=== PATIENT | female | born 1965 | race Caucasian/White ===

== ENCOUNTER → 2017-11-04 | Outpatient (CLI) | payer MEDICAID, SELFPAY | PROVIDERS: Family Provider Family Medicine; Visit Provider Family Medicine | DX: Z98.1 Arthrodesis status (principal) | CPT/HCPCS: 72040 ==

== ENCOUNTER → 2017-12-30 12:11 | Outpatient (CLI) | payer MEDICAID, SELFPAY ==
--- NOTE | 2017-12-30 12:19 | XR_ITS ---
XR foot LT min 3V HISTORY: ITS.REASON: LE FOOT PAIN ORDERING PHYSICIAN: Toni Carranza MD PATIENT AGE: 52 years COMPARISON: None FINDINGS: No fracture or dislocation. No lytic or blastic change. There is normal mineralization.. The joint spaces are well-preserved. No significant degenerative/arthritic changes. No erosive changes evident. IMPRESSION: Negative, no acute finding
== END ==
PROVIDERS: PCP Family Medicine; Visit Provider Family Medicine
DX: M79.672 Pain in left foot (principal)
CPT/HCPCS: 73630

== ENCOUNTER → 2018-04-06 13:12 | Outpatient (POV) | payer MEDICAID, SELFPAY | PROVIDERS: Family Provider Family Medicine; PCP Family Medicine; Visit Provider Specialist | DX: G62.9 Polyneuropathy, unspecified (principal) | CPT/HCPCS: 95886; 95910 ==

== ENCOUNTER → 2018-05-11 10:01 | Outpatient (POV) | payer MEDICAID, SELFPAY ==
[2018-05-11 10:11] VITALS: BP 106/83; PULSE 62; RESP 18; TEMP 36.4; O2SAT 100
--- NOTE | 2018-05-11 15:59 | HMH.PMCON ---
Assessment and Plan (1) Postlaminectomy syndrome Current visit: Yes Status: Chronic Category: Medical Code(s): M96.1 - Postlaminectomy syndrome, not elsewhere classified (2) Degenerative disc disease, cervical Current visit: Yes Status: Chronic Category: Medical Code(s): M50.30 - Other cervical disc degeneration, unspecified cervical region (3) Degenerative disc disease, lumbar Current visit: Yes Status: Chronic Category: Medical Code(s): M51.36 - Other intervertebral disc degeneration, lumbar region (4) Lumbar radiculopathy Current visit: Yes Status: Chronic Category: Medical Code(s): M54.16 - Radiculopathy, lumbar region - Assessment and plan all Dx Assessment and Plan for all problems:: We will schedule the patient for psychological evaluation to determine if she is a potential stimulator candidate. I believe that the Nuvectra system be beneficial for her due to the ability to cover both cervical and low back pain along with the radiculopathy symptoms. Patient and I had a long discussion in regards to this. Patient's tried and failed other therapy such as physical therapy, anti-inflammatories, medications, surgery, injections. Patient and I had some realistic goal setting and discussed the trial and implantation process. We will begin weaning her psychological evaluation in regards to this. I will follow-up with her after this and we will discuss the trial. This note was dictated using voice recognition software and may contain errors or omissions HPI - Data of Consult Consult date: 05/11/18 Requesting Physician: Ya Bolden APRN Primary Care Provider: Toni Carranza MD Family Provider: Toni Carranza MD - Consult Narrative Reason for consult: Neck and back pain History of present illness: Ms. Infante is a 52 year old female resents today for consultation in regard to her neck and back pain. Patient has had a fusion of her neck and her back. Patient also had shoulder surgery. Patient rates her pain a 3 out of 10 today stating that it is constant, achy, dull. Patient's tried and failed physical therapy. She is beginning another round of physical therapy recently. Patient has bilateral carpal tunnel. Patient states her functionality is decreased due to her pain. Patient is continuing home stretching therapy. Patient has also tried hydrotherapy in the past. Patient is under a respiratory manager care for RA. Patient states most of her pain today is in her back going down both of her legs. Patient does use a TENS unit at times for relief. Patient is interested in interventional therapy. Patient has had injections in the past with limited relief CC: Ya Bolden APRN [facility] History I have reviewed the patient's past medical history: Yes Medical History: Reports:: Anxiety, Asthma, Hypertension Denies:: Cancer, Diabetes Mellitus Type 1, Diabetes Mellitus Type 2, MRSA Other Medical History: Reports: Arthritis, Cataracts, Thyroid Disease, Other Other Surgeries: Yes: Other Amputation: No Fractures: No - *Social History Educational Level: Completed High School Smoking Status: Former smoker Tobacco Type: cigarettes Alcohol Intake: never Alcohol Intake Frequency:: other Substance Use Type: denies use Occupational Status: employed Housing: house Household Members: significant other - Psychiatric History Expresses thoughts of harming self/others: None Suicide Plan Description: No Plan Pschychiatric History:: Reports:: Anxiety *Family Hx:: No significant family history Review of Systems - Review of Systems ROS General: no recent weight change, no fever, no sleep disturbances Respiratory: no cough, no shortness of air, no recurring pulmonary infections Cardiovascular/Peripheral Vascular: No chest pain, No palpitations, no edema, no shortness of breath. Gastrointestinal: no incontinence, normal bowel movements reported Genitourinary: no incontinence Musculoskeletal:
--- NOTE | 2018-05-11 16:06 | P.CONS_ITS ---
Assessment and Plan (1) Postlaminectomy syndrome Current visit: Yes Status: Chronic Category: Medical Code(s): M96.1 - Postlaminectomy syndrome, not elsewhere classified (2) Degenerative disc disease, cervical Current visit: Yes Status: Chronic Category: Medical Code(s): M50.30 - Other cervical disc degeneration, unspecified cervical region (3) Degenerative disc disease, lumbar Current visit: Yes Status: Chronic Category: Medical Code(s): M51.36 - Other intervertebral disc degeneration, lumbar region (4) Lumbar radiculopathy Current visit: Yes Status: Chronic Category: Medical Code(s): M54.16 - Radiculopathy, lumbar region - Assessment and plan all Dx Assessment and Plan for all problems:: We will schedule the patient for psychological evaluation to determine if she is a potential stimulator candidate. I believe that the Nuvectra system be beneficial for her due to the ability to cover both cervical and low back pain along with the radiculopathy symptoms. Patient and I had a long discussion in regards to this. Patient's tried and failed other therapy such as physical therapy, anti-inflammatories, medications, surgery, injections. Patient and I had some realistic goal setting and discussed the trial and implantation process. We will begin weaning her psychological evaluation in regards to this. I will follow-up with her after this and we will discuss the trial. This note was dictated using voice recognition software and may contain errors or omissions HPI - Data of Consult Consult date: 05/11/18 Requesting Physician: Ya Bolden APRN Primary Care Provider: Toni Carranza MD Family Provider: Toni Carranza MD - Consult Narrative Reason for consult: Neck and back pain History of present illness: Ms. Infante is a 52 year old female resents today for consultation in regard to her neck and back pain. Patient has had a fusion of her neck and her back. Patient also had shoulder surgery. Patient rates her pain a 3 out of 10 today stating that it is constant, achy, dull. Patient's tried and failed physical therapy. She is beginning another round of physical therapy recently. Patient has bilateral carpal tunnel. Patient states her functionality is decreased due to her pain. Patient is continuing home stretching therapy. Patient has also tried hydrotherapy in the past. 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 Patient states most of her pain today is in her back going down both of her legs. Patient does use a TENS unit at times for relief. Patient is interested in interventional therapy. Patient has had injections in the past with limited relief CC: Ya Bolden APRN [facility] History I have reviewed the patient's past medical history: Yes Medical History: Reports:: Anxiety, Asthma, Hypertension Denies:: Cancer, Diabetes Mellitus Type 1, Diabetes Mellitus Type 2, MRSA Other Medical History: Reports: Arthritis, Cataracts, Thyroid Disease, Other Other Surgeries: Yes: Other Amputation: No Fractures: No - *Social History Educational Level: Completed High School Smoking Status: Former smoker Tobacco Type: cigarettes Alcohol Intake: never Alcohol Intake Frequency:: other Substance Use Type: denies use Occupational Status: employed Housing: house Household Members: significant other - Psychiatric History Expresses thoughts of harming self/others: None Suicide Plan Description: No Plan Pschychiatric History:: Reports:: Anxiety *Family Hx:: No significant family history Review of Systems - Review of Systems R
== END ==
PROVIDERS: Family Provider Family Medicine; PCP Family Medicine; Visit Provider Clinical Nurse Specialist Family Health
DX: M96.1 Postlaminectomy syndrome, not elsewhere classified (principal); M50.30 Other cervical disc degeneration, unspecified cervical region; M51.36 Other intervertebral disc degeneration, lumbar region
CPT/HCPCS: 99202

== ENCOUNTER 2018-06-02 07:00 | Outpatient (RCR) | payer MEDICAID, SELFPAY | END 2018-06-02 07:01 | disposition home or self-care (01) | LOC: OT 07:00 | PROVIDERS: Family Provider Family Medicine; PCP Family Medicine; Visit Provider Internal Medicine Rheumatology | DX: M65.30 Trigger finger, unspecified finger (principal); M77.9 Enthesopathy, unspecified; M19.90 Unspecified osteoarthritis, unspecified site | CPT/HCPCS: 97018; 97110 ==

== ENCOUNTER → 2018-06-02 09:54 | Outpatient (CLI) | payer MEDICAID, SELFPAY ==
--- NOTE | 2018-06-02 09:59 | XR_ITS ---
XR hip RT 2-3V w/pelvis HISTORY: ITS.REASON: RT HIP PAIN ORDERING PHYSICIAN: Toni Carranza MD PATIENT AGE: 53 years COMPARISON: None FINDINGS: No fracture or dislocation is evident. No significant degenerative change. No lytic or blastic change. Unremarkable soft tissues. There are metallic brackets and pedicle screws fusing L5 and S1 IMPRESSION: Grossly negative right hip
== END ==
PROVIDERS: PCP Family Medicine; Visit Provider Family Medicine
DX: M25.551 Pain in right hip (principal)
CPT/HCPCS: 73502

== ENCOUNTER → 2018-06-11 14:28 | Outpatient (CLI) | payer MEDICAID, SELFPAY ==
--- NOTE | 2018-06-11 14:31 | US_ITS ---
ULTRASOUND THYROID HISTORY: Thyroid enlarged Nodule felt 6 weeks. Has past history of neck surgery. PROCEDURE: Multiple sagittal and transverse ultrasound images of the thyroid.bh Coarse, heterogeneous architecture at both right and left lobe. Possibly from old thyroiditis Right lobe is longer, overall slightly larger left No discrete nodules are seen in either right or left lobe. Minimal color Doppler flow to both right and left lobe. Not increased . RIGHT Lobe: Up to nearly 4-cm lengthx 1 cm AP x2 cm wide The coarse heterogeneous character the right lobe could obscure a nodule but no well-defined or discrete nodule identified by technologist. On my review there is a questionable nearly 1 cm area at upper pole right lobe but it is not uniquely different from adjacent gland. ,,,,I would recommend 6 month follow-up LEFT Lobe: 3.1 cm length but only 0.6 mm AP.x 1.5 cm wide ISTHMUS thin measuring 2.5 mm AP No nodules identified the technologist either lobe. COMPARISON: None no prior studies IMPRESSION:====== 1. Very coarse heterogeneous architecture bilaterally .2. Thin long gland bilaterally with the right lobe slightly larger than left. 3. No discrete nodules identified the technologist. .. On my review submitted images there is questionable vague possible 1 cm area at the right lobe superiorly but it but is equivocal overall a discrete unique nodule vs other portions of this inhomogeneous gland .. follow-up in 6 months recommended ,particularly if palpable area persists
== END ==
PROVIDERS: Family Provider Family Medicine; PCP Family Medicine; Visit Provider Family Medicine
DX: E03.9 Hypothyroidism, unspecified (principal)
CPT/HCPCS: 76536

== ENCOUNTER → 2018-06-16 10:28 | Outpatient (CLI) | payer MEDICAID, SELFPAY ==
--- NOTE | 2018-06-16 10:29 | MM_ITS ---
MM Dig screening mamm BI w/CAD ORDERING PHYSICIAN : Deandre Galvin MD PATIENT AGE: 53 years GENDER: Female COMPARISON: March 21, 2017 initial screening mammogram. Additional spot views right breast 04/08/2017. INDICATION: ITS.REASON: Routine Screening Mammogram no hormones. No new complaints. Noncontributory family history. TECHNIQUE: Standard CC and MLO images were obtained. R2 CAD reviewed. FINDINGS: Low-density breast with no dominant mass nor suspicious calcifications in either breast. CAD computer review highlights no areas of significant concern either RIGHT BREAST:Areas previously questioned previously on cc view deep right breast appear unremarkable today.. Minimal Relative areas of density superior right breast unchanged and can be followed in one year Follow-up in one year adequate. On right LEFT BREAST: . Left breast stable. Follow-up in one year. IMPRESSION: Stable bilateral mammogram. No new findings of significant concern. Follow-up in one year BI-RADS Category: 2 Benign Finding(s) RECOMMENDED FOLLOW-UP: 1YR 1 YEAR FOLLOW-UP (A letter has been sent to the patient regarding results of the study.)
== END ==
PROVIDERS: Family Provider Family Medicine; PCP Family Medicine; Visit Provider Nurse Practitioner Obstetrics & Gynecology
DX: Z12.31 Encounter for screening mammogram for malignant neoplasm of breast (principal)
CPT/HCPCS: 77067

== ENCOUNTER → 2018-08-18 09:28 | Outpatient (CLI) | payer MEDICAID, SELFPAY ==
--- NOTE | 2018-08-18 09:32 | XR_ITS ---
XR DEXA axial skeleton HISTORY: ITS.REASON: POST-MENOPAUSAL ORDERING PHYSICIAN: Toni Carranza MD PATIENT AGE: 53 years COMPARISON: None FINDINGS: The BMD measured at the Right femoral neck is 0.736 g/cm squared with a T score of -2.2. This is considered Osteopenic according to the World Health Organization criteria. Fracture risk is Moderate. Treatment is advised. IMPRESSION: Osteopenia with moderate fracture risk. Treatment recommended. Suggest follow-up exam August 2020
== END ==
PROVIDERS: PCP Family Medicine; Visit Provider Family Medicine
DX: Z78.0 Asymptomatic menopausal state (principal)
CPT/HCPCS: 77080

== ENCOUNTER 2018-09-03 08:30 | Outpatient (RCR) | payer MEDICAID, SELFPAY | END 2018-09-03 08:31 | disposition home or self-care (01) | LOC: PT 08:30 | PROVIDERS: Family Provider Family Medicine; PCP Family Medicine; Visit Provider Orthopaedic Surgery | DX: M25.551 Pain in right hip (principal); M76.31 Iliotibial band syndrome, right leg | CPT/HCPCS: 97010; 97014; 97033; 97035; 97110; 97140; 97163; 97164; G0283 ==

== ENCOUNTER → 2018-09-03 09:00 | Outpatient (CLI) | payer MEDICAID, SELFPAY ==
--- NOTE | 2018-09-03 09:03 | US_ITS ---
US abdomen limited History:Right upper quadrant pain with nausea Ordering Physician:Brenda Banegas Patient Age: 53 years Comparison:None Findings: Pancreas:Unremarkable. No obvious mass or abnormal fluid collection. No ductal dilatation Liver:No focal liver lesions demonstrated. Homogeneous echogenicity. No intrahepatic biliary ductal dilatation evident Right Kidney:Unremarkable. Normal size and echogenicity. No hydronephrosis Gallbladder: Small hyperechoic focus noted near the region of the neck of the gallbladder. This does not shadow and does not appear to be mobile and may represent a small polyp 2 mm. No lobar shadowing stones are demonstrated. No gallbladder wall thickening, pericholecystic fluid, or biliary dilatation. IMPRESSION: 1. Suspect a small polyp in the neck of the gallbladder. 2. No shadowing mobile stones apparent
== END ==
PROVIDERS: Family Provider Family Medicine; PCP Family Medicine; Visit Provider Nurse Practitioner
DX: R10.11 Right upper quadrant pain (principal)
CPT/HCPCS: 76705

== ENCOUNTER → 2018-09-14 09:19 | Outpatient (CLI) | payer MEDICAID, SELFPAY ==
--- NOTE | 2018-09-14 09:23 | NM_ITS ---
HEPATOBILIARY SCAN WITH FATTY MEAL/ENSURE ORDERING PHYSICIAN : Brenda Banegas PATIENT AGE: 53 years GENDER: Female HISTORY: Right upper quadrant pain and nausea Following 8.78 millicuries Tc Choletec, images of the RUQ were obtained. There is prompt uptake of radionuclide by the liver which is grossly unremarkable. Small bowel is visualized. This initial portion of the study is normal. The gallbladder was allowed to fill out to 60 minutes. Fatty meal/1 can of ensure over administered with imaging performed over 60 minutes minutes. Thereafter. The obtain data was analyzed and reveals a 52 % gallbladder ejection fraction (normal greater than 50%; borderline 35-50%). This is low normal value. No pain following fatty meal .. IMPRESSION: 52 % % gallbladder ejection fraction by computer analysis. Low normal EF value No pain with fatty meal.
--- NOTE | 2018-09-14 10:54 | HMH.ITSHM ---
Current Home Medications as stated by this patient Caren Infante or desk representative. []PROPRANOLOL POTASSIUM PHENTERMINE MULTIVITAMINS LORAZEPAM LEVOTHYROXINE HYDROXYZINE LEFLUNOMIDE HYDROXYCHLOROQUINE FLUTICASONE ESTRADIOL DICLOFENAC ALBUTEROL ACYCLOVIC
== END ==
PROVIDERS: PCP Nurse Practitioner; Visit Provider Nurse Practitioner
DX: K82.4 Cholesterolosis of gallbladder (principal)
CPT/HCPCS: 78226; A9537

== ENCOUNTER 2018-09-24 09:00 | Outpatient (RCR) | payer MEDICAID, SELFPAY | END 2018-09-24 09:05 | disposition home or self-care (01) | LOC: PT 09:00 | PROVIDERS: Visit Provider Orthopaedic Surgery | DX: S93.492A Sprain of other ligament of left ankle, initial encounter (principal); M76.31 Iliotibial band syndrome, right leg | CPT/HCPCS: 97010; 97014; 97033; 97110; 97140; 97163; G0283 ==

== ENCOUNTER → 2018-10-05 10:21 | Outpatient (CLI) | payer MEDICAID, SELFPAY ==
[2018-10-05 10:54] LABS: CKMB Relative Index 0.6 U/L (0-4.0); Creatine Kinase 317 U/L (26-192); Creatine Kinase MB 1.9 ng/ml (0.0-3.6); Troponin I < 0.02 ng/ml (0.00-0.06)
== END ==
PROVIDERS: Visit Provider Physician Assistant
DX: R07.89 Other chest pain (principal)
CPT/HCPCS: 36415; 82550; 82553; 84484

== ENCOUNTER 2018-10-13 08:25 | Outpatient (RCR) | payer MEDICAID, SELFPAY | END 2018-12-25 13:44 | disposition home or self-care (01) | LOC: PT 08:25 | PROVIDERS: Visit Provider Internal Medicine | DX: Z95.5 Presence of coronary angioplasty implant and graft (principal) | CPT/HCPCS: 93798 ==

== ENCOUNTER → 2018-11-09 10:03 | Outpatient (CLI) | payer MEDICAID, SELFPAY ==
--- NOTE | 2018-11-09 10:07 | XR_ITS ---
XR wrist LT min 3V HISTORY ITS.REASON: LT WRIST PAIN ORDERING PHYSICIAN: Brenda Banegas PATIENT AGE: 53 years Comparison: None FINDINGS: No fracture or dislocation. No lytic or blastic change. There is normal mineralization.. The joint spaces are well-preserved. No significant degenerative/arthritic changes. There is a well-circumscribed cystic lesion within the distal aspect of the scaphoid at 5 mm IMPRESSION: Small benign-appearing cystic lesion of the scaphoid otherwise negative left wrist
== END ==
PROVIDERS: PCP Nurse Practitioner; Visit Provider Nurse Practitioner
DX: M25.532 Pain in left wrist (principal)
CPT/HCPCS: 73110

== ENCOUNTER → 2018-11-20 09:34 | Outpatient (CLI) | payer MEDICAID, SELFPAY | PROVIDERS: PCP Family Medicine; Visit Provider Internal Medicine | DX: G47.33 Obstructive sleep apnea (adult) (pediatric) (principal) | CPT/HCPCS: 95806 ==

== ENCOUNTER → 2019-02-23 08:26 | Outpatient (CLI) | payer MEDICAID, SELFPAY ==
[2019-02-23 09:58] LABS: Erythrocyte Sedimentation Rate 27 mm/hr (0-30)
== END ==
PROVIDERS: Visit Provider Internal Medicine Rheumatology
DX: M06.9 Rheumatoid arthritis, unspecified (principal)
CPT/HCPCS: 36415; 85651

== ENCOUNTER → 2019-03-19 08:29 | Outpatient (CLI) | payer MEDICAID, SELFPAY ==
--- NOTE | 2019-03-19 08:36 | XR_ITS ---
XR chest 2V HISTORY: ITS.REASON: SAPHO SYNDROME ORDERING PHYSICIAN: Long Argueta MD PATIENT AGE: 53 years COMPARISON: 12/29/2018 FINDINGS: The cardiomediastinal silhouette and pulmonary vascularity are within normal limits. There is mild biapical pleural thickening unchanged. Minimal sclerosis noted over the right seventh rib consistent with healing rib fracture The lungs are clear without infiltrates, suspicious nodules, or pleural effusions. No acute bony abnormalities. The thoracic spine has an unremarkable appearance without obvious osteosclerosis. There is a bone plate present over the lower cervical spine IMPRESSION: No acute finding
== END ==
PROVIDERS: PCP Family Medicine; Visit Provider Internal Medicine Rheumatology
DX: M65.9 Synovitis and tenosynovitis, unspecified (principal)
CPT/HCPCS: 71046

== ENCOUNTER 2019-03-22 08:30 | Outpatient (RCR) | payer MEDICAID, SELFPAY | END 2019-03-22 08:35 | disposition home or self-care (01) | LOC: PT 08:30 | PROVIDERS: Visit Provider Orthopaedic Surgery | DX: M70.61 Trochanteric bursitis, right hip (principal) | CPT/HCPCS: 97010; 97014; 97033; 97035; 97110; 97163; G0283 ==

== ENCOUNTER → 2019-03-26 13:45 | Outpatient (CLI) | payer MEDICAID, SELFPAY ==
--- NOTE | 2019-03-26 13:54 | US_ITS ---
US thyroid HISTORY: ITS.REASON: HYPOTHYROIDISM,F/U EXAM ORDERING PHYSICIAN: Toni Carranza MD PATIENT AGE: 53 years Comparison: 06/11/2018 FINDINGS: Right lobe is 3.4 x 0.8 x 1.1 cm. There is heterogeneous echogenicity without discrete nodule. The left lobe is 3.2 x 0.8 x 1.3 cm with heterogeneous echogenicity without discrete nodule. IMPRESSION: No change in the heterogeneous echogenicity of the small thyroid gland. No discrete nodule demonstrated
== END ==
PROVIDERS: PCP Family Medicine; Visit Provider Family Medicine
DX: E03.9 Hypothyroidism, unspecified (principal); Z09 Encounter for follow-up examination after completed treatment for conditions other than malignant neoplasm
CPT/HCPCS: 76536

== ENCOUNTER → 2019-04-08 08:15 | Outpatient (CLI) | payer MEDICAID, SELFPAY ==
[2019-04-08] VITALS (10 sets, daily range): BP systolic 86–110; BP diastolic 55–75; PULSE 54–82; RESP 16–18
== END ==
PROVIDERS: Visit Provider Internal Medicine Rheumatology
DX: M15.3 Secondary multiple arthritis (principal); R07.1 Chest pain on breathing
CPT/HCPCS: 96366; 96413; 96415; J1745

== ENCOUNTER → 2019-05-17 10:38 | Outpatient (POV) | payer MEDICAID, SELFPAY | PROVIDERS: Visit Provider Specialist | DX: R29.898 Other symptoms and signs involving the musculoskeletal system (principal); R20.2 Paresthesia of skin; M79.601 Pain in right arm; M79.602 Pain in left arm; Z98.890 Other specified postprocedural states | CPT/HCPCS: 95886; 95910 ==

== ENCOUNTER 2019-07-27 08:37 | Outpatient (CLI) | payer MEDICAID, SELFPAY ==
[2019-07-27] VITALS (8 sets, daily range): BP systolic 92–115; BP diastolic 64–74; PULSE 53–72; RESP 16–18; BMI 24.4
[2019-07-27 09:07] LABS: Alanine Aminotransferase 38 U/L (12-78); Albumin Level 3.8 gm/dL (3.4-5.0); Albumin/Globulin Ratio 0.9 (1.1-1.8); Alkaline Phosphatase 75 U/L (46-116); Anion Gap 10.9 mEq/L (5-15); Aspartate Amino Transferase 18 U/L (15-37); Bilirubin,Total 0.4 mg/dL (0.2-1.0); Blood Urea Nitrogen 15 mg/dL (7-18); Calcium 9.4 mg/dL (8.5-10.1); Carbon Dioxide 31 mmol/L (21.0-32.0); Chloride 103 mmol/L (98-107); Creatinine Clearance Estimated 93 mL/min (50-200); Creatinine,Serum 0.78 mg/dL (0.55-1.02); Estimated Glomerular Filt Rate 77 ml/min (>60); GFR (African American) 93 ML/MIN (>60); Globulin 4.1 gm/dl (1.3-3.2); Glucose 89 mg/dL (74-106); Potassium 3.9 mmoL/L (3.5-5.1); Sodium 141 mmol/L (136-145); Total Protein,Serum 7.9 gm/dL (6.4-8.2)
== END 2019-07-27 13:30 | disposition home or self-care (01) ==
PROVIDERS: PCP Family Medicine; Visit Provider Internal Medicine Rheumatology
DX: M86.30 Chronic multifocal osteomyelitis, unspecified site (principal); M65.9 Synovitis and tenosynovitis, unspecified; L40.8 Other psoriasis; L70.8 Other acne; M85.80 Other specified disorders of bone density and structure, unspecified site
CPT/HCPCS: 80053; 96365; 96366; J2430

== ENCOUNTER 2019-08-05 08:30 | Outpatient (RCR) | payer MEDICAID, SELFPAY | END 2019-08-05 08:35 | disposition home or self-care (01) | LOC: PT 08:30 | PROVIDERS: Visit Provider Family Medicine | DX: M54.5 Low back pain (principal) | CPT/HCPCS: 97010; 97014; 97110; 97163; G0283 ==

== ENCOUNTER 2019-11-04 09:03 | Outpatient (CLI) | payer OTHER, SELFPAY ==
[2019-11-04] VITALS (11 sets, daily range): BP systolic 93–122; BP diastolic 58–72; PULSE 64–75; RESP 16–20; TEMP 36.6–36.8; O2SAT 97–99; BMI 25.9
[2019-11-04 09:45] LABS: Alanine Aminotransferase 44 U/L (12-78); Albumin Level 3.5 gm/dL (3.4-5.0); Alkaline Phosphatase 66 U/L (46-116); Anion Gap 10.4 mEq/L (5-15); Aspartate Amino Transferase 32 U/L (15-37); Bilirubin,Total 0.5 mg/dL (0.2-1.0); Blood Urea Nitrogen 19 mg/dL (7-18); Calcium 8.4 mg/dL (8.5-10.1); Carbon Dioxide 30 mmol/L (21.0-32.0); Chloride 107 mmol/L (98-107); Creatinine Clearance Estimated 80 mL/min (50-200); Creatinine,Serum 0.97 mg/dL (0.55-1.02); Estimated Glomerular Filt Rate 60 ml/min (>60); GFR (African American) 73 ML/MIN (>60); Globulin 3.6 gm/dl (1.3-3.2); Glucose 120 mg/dL (74-106); Potassium 3.4 mmoL/L (3.5-5.1); Sodium 144 mmol/L (136-145); Total Protein,Serum 7.1 gm/dL (6.4-8.2)
== END 2019-11-04 12:50 | disposition home or self-care (01) ==
LOC: INF 09:03
PROVIDERS: Visit Provider Internal Medicine Rheumatology
DX: M86.30 Chronic multifocal osteomyelitis, unspecified site (principal); M65.9 Synovitis and tenosynovitis, unspecified; L40.8 Other psoriasis; L70.8 Other acne; M85.80 Other specified disorders of bone density and structure, unspecified site
CPT/HCPCS: 80053; 96413; 96415; J2430

== ENCOUNTER 2020-02-01 08:33 | Outpatient (CLI) | payer OTHER, SELFPAY ==
[2020-02-01] VITALS (8 sets, daily range): BP systolic 93–102; BP diastolic 52–70; PULSE 56–79; RESP 18; TEMP 36.2; O2SAT 97–98; BMI 23.3
[2020-02-01 09:13] LABS: Chloride 101 mmol/L (98-107); Potassium 3.7 mmoL/L (3.5-5.1); Sodium 139 mmol/L (136-145)
[2020-02-01 09:16] LABS: Alanine Aminotransferase 35 U/L (12-78); Albumin Level 3.9 g/dl (3.5-5.0); Albumin/Globulin Ratio 1.3 (1.1-1.8); Alkaline Phosphatase 54 U/L (38-126); Anion Gap 9.7 mEq/L (5-15); Aspartate Amino Transferase 30 U/L (14-36); Bilirubin,Total 0.5 mg/dl (0.2-1.3); Blood Urea Nitrogen 11 mg/dl (7-17); Carbon Dioxide 32 mmol/L (22.0-30.0); Creatinine Clearance Estimated 99 mL/min (50-200); Estimated Glomerular Filt Rate 88 ml/min (>60); GFR (African American) 106 ML/MIN (>60); Total Protein,Serum 6.9 g/dl (6.3-8.2)
[2020-02-01 09:17] LABS: Calcium 9.4 mg/dl (8.4-10.2); Glucose 110 mg/dl (74-100)
== END 2020-02-01 13:00 | disposition home or self-care (01) ==
LOC: INF 08:33
PROVIDERS: Visit Provider Internal Medicine Rheumatology
DX: J32.9 Chronic sinusitis, unspecified (principal); M65.9 Synovitis and tenosynovitis, unspecified; L40.3 Pustulosis palmaris et plantaris; L70.9 Acne, unspecified; M85.80 Other specified disorders of bone density and structure, unspecified site; M86.9 Osteomyelitis, unspecified
CPT/HCPCS: 80053; 96365; 96366; J2430

== ENCOUNTER → 2020-02-23 10:47 | Outpatient (CLI) | payer OTHER, SELFPAY ==
--- NOTE | 2020-02-23 10:52 | XR_ITS ---
PROCEDURE: XR HIP RT 2-3V W/PELVIS CLINICAL INDICATION: RT HIP PAIN COMPARISON: HIPCMRT XR hip RT 2-3V w/pelvis from 06/02/2018 FINDINGS: No fracture or dislocation is evident. No significant degenerative change. No lytic or blastic change. Unremarkable soft tissues. Postsurgical changes at the lumbosacral junction with inter pedicular screws present IMPRESSION: Negative right hip Dictated by: Luca Jones MD 02/23/2020 11:12 Electronically signed by Luca Jones MD in [facility] 02/23/2020 11:12
== END ==
PROVIDERS: PCP Family Medicine; Visit Provider Family Medicine
DX: M25.551 Pain in right hip (principal)
CPT/HCPCS: 73502

== ENCOUNTER 2020-03-10 20:10 | Emergency (ER) | payer OTHER, SELFPAY ==
[2020-03-10 20:12] VITALS: BP 141/79; PULSE 115; RESP 18; TEMP 36.4; O2SAT 100
--- NOTE | 2020-03-10 20:15 | PC.NURSE ---
entered the room to assess pt vitals. explained and apologized to pt that the physician would be in to see pt as soon as possible. explained that the physician was occupied in a procedure. no distress or bleeding evaluated at this time. no needs voiced.
--- NOTE | 2020-03-10 20:50 | PC.NURSE ---
reassessed pt condition. still no needs voiced at this time. Pt was updated that physician was now occupied in a trauma alert and would be in to see pt at the earliest he was available.
[2020-03-10 20:57] VITALS: BP 106/77; PULSE 78; RESP 18; TEMP 36.8; O2SAT 98; BMI 29.2
--- NOTE | 2020-03-10 21:00 | PC.NURSE ---
at the bedside
--- NOTE | 2020-03-10 21:05 | PC.NURSE ---
MD provided pt with take home eye drops and explained to patient that they need to follow up with her eye doctor.
[2020-03-10 21:15] VITALS: BP 119/54; PULSE 107; RESP 18; O2SAT 100
--- NOTE | 2020-03-10 21:25 | PC.NURSE ---
Entered patients room after MD completed eye exam. Pt asked when she would be ready to go. ED staff explained that as soon as her discharge paperwork was completed by MD that she would be ready to go. Pt then stated she was just ready to leave because she was hurting pt stated i just had dental work done and i need to go home and take my percocet ED staff offered to check with MD about a dose of pain medication. pt stated she did not want any in the ED she just wanted to be discharged home. Pt was informed she would be ready to go pending d/c paperwork.
--- NOTE | 2020-03-10 21:29 | HMH.EDEYEP ---
ED Disposition Clinical Impression: Corneal abrasion, Pain, eye, left Disposition: Home, Self-Care Condition on Discharge: Good Instructions: DI for Eye Pain, DI for Corneal Abrasion Additional Instructions: Please follow-up with your primary care physician if condition does not improve. Patient was given antibiotic eyedrops here in the ED. Instructions were to apply 1 drop in the affected eye every 3 hours x5 days except while sleeping. Referrals: Toni Carranza MD [Primary Care Provider] - - Critical Care Critical Care Time: No Attestation: On 03/10/20, the high probability of a clinically significant, sudden or life threatening deterioration of the following system(s) required my full and direct attention, intervention and personal management. The time I documented below is in addition to time spent performing reported procedures but includes the following listed in this critical care notation. Medical Decision Making - Medical Records Medical records reviewed: Yes: I reviewed the patient's medical records. - Terrance Inquiry Pt receiving controlled substance: No Vital Signs: 03/10/20 20:57 Temperature 98.2 F Temperature Source Oral Pulse Rate [Right Brachial] 78 Respiratory Rate 18 Blood Pressure [Right Arm] 106/77 L Blood Pressure Mean [Right Arm] 86 Blood Pressure Source [Right Arm] Automatic Cuff Blood Pressure Position [Right Arm] Sitting 02 Sat by Pulse Oximetry 98 Oxygen Delivery Method Room Air - Lab Data Lab results reviewed: Yes: I reviewed the patient's lab results. Medical Decision Narrative: Patient tolerated the slit-lamp exam well patient's pain was controlled with tetracaine 2 drops were applied to the left eye. Pain control was achieved after 45 seconds. Fluorescein exam and slit lamp exam went well patient has a corneal abrasion Eye Problem HPI - General Chief complaint: Eye Problems Stated complaint: AO 24 dog scratched L eye Time Seen by Provider: 03/10/20 21:00 Mode of Arrival: Family Vehicle Source of Information: Patient Limitations: No Limitations Description of Symptoms (Recalled from ER Triage Doc. by RN): eye scratch from dog, wants evaluated due to suppressed immune system - History of Present Illness HPI Narrative: 54-year-old female presents the ED after being scratched by an animal she thinks it was a dog I think. But anyway she was scratched on the corner of her left eye and the scratches, radiating down towards her jawline. She states that she feels like there is something in her eye. The eye is not injected. This just took place about 20 minutes ago patient states that her pain is 3 out of 10 and she describes it as a uncomfortable situation in her eye. Otherwise patient denies any photophobia patient denies any blurred vision patient denies any any site deficits. - Related Data Home Medications Medication Instructions Recorded Confirmed fluticasone furoate 200 1 inh INHALATION Q24H 03/11/18 02/01/20 mcg-vilanterol 25 mcg/dose inhalation powder hydrochlorothiazide 25 mg tablet 25 mg PO DAILY 30 Days #30 03/11/18 02/01/20 potassium chloride 20 mEq 20 meq PO DAILY 30 Days #30 03/11/18 02/01/20 tablet,extended release(part/cryst) cholecalciferol (vitamin D3) 1,250 50,000 unit PO QWEEK 09/25/18 02/01/20 mcg (50,000 unit) capsule Clopidogrel Bisulfate [Plavix 75mg 75 mg PO DAILY 12/07/18 02/01/20 Tab] atorvastatin 40 mg tablet 40 mg PO DAILY #90 tab 03/31/19 02/01/20 clindamycin phosphate 1 % topical 1 applicatio TOPICAL DAILY #60 ml 03/31/19 02/01/20 solution metoprolol succinate 50 mg 50 mg PO DAILY #90 tab 03/31/19 02/01/20 tablet,extended release 24 hr nitroglycerin 0.4 mg sublingual 0.4 mg SUBLINGUAL .prn PRN #25 tab 03/31/19 02/01/20 tablet Aspirin [Low Dose Aspirin EC] 81 mg PO DAILY 04/08/19 02/01/20 diazepam 2 mg tablet 2 mg PO TID #50 tab 07/22/19 02/01/20 hydrocodone 10 mg-acetaminophen 1 tab PO TID #90 tab 07/22/19
[2020-03-10 21:30] VITALS: BP 138/84; PULSE 111; RESP 18; O2SAT 99
[2020-03-10 21:37] VITALS: BP 138/84; PULSE 102; RESP 18; TEMP 36.6; O2SAT 98
--- NOTE | 2020-03-10 21:37 | PC.NURSE ---
pt waved down ED staff through the door of her room. stated she wanted to go home. Explained to pt that the MD was almost finished with her d/c paperwork. Pt stated that she didnt want paperwork she just wanted to go home. Pt was provided with verbal discharge instructions per rn and encouraged to wait for printed paperwork. pt signed discharge paper and left the ED.
== END 2020-03-10 21:39 | disposition home or self-care (01) ==
PROVIDERS: Emergency Provider Family Medicine; PCP Family Medicine
DX: S05.02XA Injury of conjunctiva and corneal abrasion without foreign body, left eye, initial encounter (principal); W54.1XXA Struck by dog, initial encounter; Y92.019 Unspecified place in single-family (private) house as the place of occurrence of the external cause; K21.9 Gastro-esophageal reflux disease without esophagitis; E03.9 Hypothyroidism, unspecified; M81.0 Age-related osteoporosis without current pathological fracture; I10 Essential (primary) hypertension; E78.5 Hyperlipidemia, unspecified; Z88.5 Allergy status to narcotic agent; Z87.891 Personal history of nicotine dependence
CPT/HCPCS: 99282; 99283

== ENCOUNTER 2020-03-28 08:46 | Outpatient (CLI) | payer OTHER, SELFPAY ==
[2020-03-28] VITALS (8 sets, daily range): BP systolic 93–127; BP diastolic 55–76; PULSE 61–84; RESP 18–20; TEMP 36.6; O2SAT 97–98; BMI 21.9
[2020-03-28 09:37] LABS: Chloride 103 mmol/L (98-107); Potassium 3.6 mmoL/L (3.5-5.1); Sodium 139 mmol/L (136-145)
[2020-03-28 09:40] LABS: Alanine Aminotransferase 23 U/L (12-78); Albumin Level 4.1 g/dl (3.5-5.0); Albumin/Globulin Ratio 1.4 (1.1-1.8); Alkaline Phosphatase 54 U/L (38-126); Anion Gap 8.6 mEq/L (5-15); Aspartate Amino Transferase 27 U/L (14-36); Bilirubin,Total 0.4 mg/dl (0.2-1.3); Blood Urea Nitrogen 13 mg/dl (7-17); Calcium 9.3 mg/dl (8.4-10.2); Carbon Dioxide 31 mmol/L (22.0-30.0); Creatinine Clearance Estimated 93 mL/min (50-200); Estimated Glomerular Filt Rate 88 ml/min (>60); GFR (African American) 106 ML/MIN (>60); Glucose 111 mg/dl (74-100); Total Protein,Serum 7.1 g/dl (6.3-8.2)
== END 2020-03-28 12:52 | disposition home or self-care (01) ==
LOC: INF 08:46
PROVIDERS: Visit Provider Internal Medicine Rheumatology
DX: M65.9 Synovitis and tenosynovitis, unspecified (principal); L40.3 Pustulosis palmaris et plantaris; L70.9 Acne, unspecified; M85.80 Other specified disorders of bone density and structure, unspecified site; M86.9 Osteomyelitis, unspecified; R06.02 Shortness of breath; H15.009 Unspecified scleritis, unspecified eye; Z79.899 Other long term (current) drug therapy
CPT/HCPCS: 80053; 96365; 96366; J2430

== ENCOUNTER → 2020-04-03 14:52 | Outpatient (CLI) | payer OTHER, SELFPAY ==
--- NOTE | 2020-04-03 14:57 | CT_ITS ---
PROCEDURE: CT HIP RT WO CON CLINICAL HISTORY: RT HIP PAIN,CHRONIC PAIN Worsening right hip pain COMPARISON: ABDPELW/O CT ABD PELVIS W/O CONTRAST from 07/19/2014 XR HIP RT 2-3V W/PELVIS from 02/23/2020 TECHNIQUE: Axial images obtained with sagittal and coronal reformats. All CT scans at the facility use one or more dose reduction, viz: automated exposure control, ma/kV adjustment per patient size (including targeted exams where dose is matched to indication, i.e. head), or iterative reconstruction technique. FINDINGS: Joint space is well preserved. No fracture or dislocation is evident. No lytic or blastic change. No overlying soft tissue mass. The right SI joint has an unremarkable appearance. IMPRESSION: Negative CT of the right hip Dictated by: Luca Jones MD 04/04/2020 16:24 Electronically signed by Luca Jones MD in [facility] 04/04/2020 16:24
== END ==
PROVIDERS: PCP Family Medicine; Visit Provider Family Medicine
DX: M25.551 Pain in right hip (principal); G89.29 Other chronic pain
CPT/HCPCS: 73700

== ENCOUNTER → 2020-05-02 16:15 | Outpatient (CLI) | payer OTHER, SELFPAY ==
[2020-05-02 18:42] LABS: Coronavirus 19 IgG Antibody Negative (Negative); Coronavirus 19 IgM Antibody Negative (Negative)
== END ==
PROVIDERS: PCP Family Medicine; Visit Provider Family Medicine
DX: Z03.818 Encounter for observation for suspected exposure to other biological agents ruled out (principal); R53.1 Weakness
CPT/HCPCS: 36415; 86328

== ENCOUNTER 2020-05-26 08:34 | Outpatient (CLI) | payer OTHER, SELFPAY ==
[2020-05-26] VITALS (8 sets, daily range): BP systolic 91–110; BP diastolic 61–72; PULSE 63–91; RESP 18; TEMP 37.1; O2SAT 97; BMI 23.5
[2020-05-26 09:04] LABS: Chloride 107 mmol/L (98-107)
[2020-05-26 09:05] LABS: Potassium 3.3 mmoL/L (3.5-5.1); Sodium 139 mmol/L (136-145)
[2020-05-26 09:07] LABS: Blood Urea Nitrogen 7 mg/dl (7-17); Creatinine Clearance Estimated 99 mL/min (50-200); Estimated Glomerular Filt Rate 87 ml/min (>60); GFR (African American) 106 ML/MIN (>60)
[2020-05-26 09:08] LABS: Alanine Aminotransferase 47 U/L (12-78); Albumin Level 3.8 g/dl (3.5-5.0); Albumin/Globulin Ratio 1.4 (1.1-1.8); Alkaline Phosphatase 54 U/L (38-126); Anion Gap 9.3 mEq/L (5-15); Aspartate Amino Transferase 43 U/L (14-36); Bilirubin,Total 0.4 mg/dl (0.2-1.3); Carbon Dioxide 26 mmol/L (22.0-30.0); Globulin 2.8 g/dL (1.3-3.2); Glucose 116 mg/dl (74-100); Total Protein,Serum 6.6 g/dl (6.3-8.2)
== END 2020-05-26 12:55 | disposition home or self-care (01) ==
LOC: INF 08:34
PROVIDERS: Visit Provider Internal Medicine Rheumatology
DX: M85.80 Other specified disorders of bone density and structure, unspecified site (principal); M86.9 Osteomyelitis, unspecified; M65.9 Synovitis and tenosynovitis, unspecified; L40.3 Pustulosis palmaris et plantaris; L70.9 Acne, unspecified; R06.02 Shortness of breath
CPT/HCPCS: 80053; 96413; 96415; J2430

== ENCOUNTER → 2020-06-06 15:24 | Outpatient (CLI) | payer OTHER, SELFPAY ==
--- NOTE | 2020-06-06 15:27 | XR_ITS ---
PROCEDURE: XR FOOT RT MIN 3V CLINICAL INDICATION: R FOOT PAIN COMPARISON: [id number] XR foot LT min 3V from 12/30/2017 FINDINGS: No fracture or dislocation. No lytic or blastic change. There is normal mineralization. There are minimal osteoarthritic changes at the 1st MTP joint Other findings:None. IMPRESSION: Minimal osteoarthritis 1st MTP joint otherwise Dictated by: Luca Jones MD 06/06/2020 16:21 Electronically signed by Luca Jones MD in [place] 06/06/2020 16:21
== END ==
PROVIDERS: PCP Family Medicine; Visit Provider Family Medicine
DX: M79.671 Pain in right foot (principal)
CPT/HCPCS: 73630

== ENCOUNTER 2020-06-29 14:00 | Outpatient (RCR) | payer OTHER, SELFPAY ==
--- NOTE | 2020-04-17 10:50 | HMH.PTOPEV ---
PT Outpatient Evaluation Rehab PT Outpatient Evaluation Start: 04/17/20 10:15 Freq: Status: Active Protocol: Document 04/17/20 10:15 BENIGNO (Rec: 04/17/20 10:50 BENIGNO [id number]) Electronically Signed By Jagjit Kennedy PT 04/17/20 10:15 Outpatient Therapy Subjective History Subjective History This is the initial Physical Therapy evaluation for Caren Infante. Pt is a 54 y/o female referred to PT for c/o R hip pain. Pt reports ~ 3 years ago she got out of her car and started walking and felt a pop in her R hip on the lateral side. Pt reports her pain is bad in the morning , will ease up after being up and moving around, but pain increases in the evening. Pt reports she feels like the hip catches . Pt reports pain is in post, lateral and anterior hip. Pt has a L5/S1 spinal fusion, and has been diagnosed w/ SAPHO syndrome ~ 1 year ago. Chief Complaint Pain,Spasms,Catches/Locks, Gives out/Unstable Symptom Type Ache,Throb,Sharp,Stabbing, Numbness,Tingling,Shooting Symptoms Relieved By Rest/Positioning,Heat Symptoms Aggravated By Physical Activity,Walking Prior Functional Limitations Standing,Squatting,Recreation Activity,Walking,Stairs Current Functional Limitations Lifting,Housework,Sleeping, Standing,Squatting,Recreation Activity,Walking,Stairs, Balance Symptom Description Constant but Variable Level of pain today (0-10) 4 Pain scale - at its best (0-10) 3 Pain scale - at its worst (0-10) 8 Hip/Knee Eval Gait Observation General Gait Pattern Observation Antalgic Gait,Decrease Weight Bear (R) Palpation Tenderness right Hip Palpation Findings Tenderness,Trigger Point, Muscle Guarding MMT Hip Flexion Strength Grade 4 Good Hip Abduction Strength Grade 4 Good Hip Adduction Strength Grade 4 Good Hip External Rotation Strength Grade 4- Good- Hip Internal Rotation Strength Grade 4- Good- Knee Extension Strength Grade 4 Good Knee Flexion Strength Grade 4 Good ROM Hip Flexion w/Knee Flex
== END 2020-06-29 14:05 | disposition home or self-care (01) ==
LOC: PT 14:00
PROVIDERS: PCP Family Medicine; Visit Provider Family Medicine
DX: M25.551 Pain in right hip (principal); R29.6 Repeated falls
CPT/HCPCS: 97010; 97110; 97113; 97163; 97164

== ENCOUNTER 2020-06-29 14:00 | Outpatient (RCR) | payer OTHER, SELFPAY | END 2020-06-29 15:00 | disposition home or self-care (01) | LOC: PT 14:00 | PROVIDERS: Visit Provider Orthopaedic Surgery | DX: S93.491A Sprain of other ligament of right ankle, initial encounter; M79.671 Pain in right foot | CPT/HCPCS: 97110; 97113; 97163 ==

== ENCOUNTER 2020-07-17 08:27 | Outpatient (CLI) | payer OTHER, SELFPAY ==
[2020-07-17] VITALS (11 sets, daily range): BP systolic 88–113; BP diastolic 53–69; PULSE 48–71; RESP 16–18; TEMP 36.4; O2SAT 97; BMI 24.3
[2020-07-17 09:04] LABS: Alanine Aminotransferase 26 U/L (12-78); Albumin Level 4.4 g/dl (3.5-5.0); Albumin/Globulin Ratio 1.4 (1.1-1.8); Alkaline Phosphatase 66 U/L (38-126); Anion Gap 13.2 mEq/L (5-15); Aspartate Amino Transferase 30 U/L (14-36); Bilirubin,Total 0.4 mg/dl (0.2-1.3); Blood Urea Nitrogen 25 mg/dl (7-17); Calcium 9.4 mg/dl (8.4-10.2); Carbon Dioxide 30 mmol/L (22.0-30.0); Chloride 101 mmol/L (98-107); Creatinine Clearance Estimated 79 mL/min (50-200); Estimated Glomerular Filt Rate 65 ml/min (>60); GFR (African American) 79 ML/MIN (>60); Globulin 3.2 g/dL (1.3-3.2); Glucose 124 mg/dl (74-100); Potassium 4.2 mmoL/L (3.5-5.1); Sodium 140 mmol/L (136-145); Total Protein,Serum 7.6 g/dl (6.3-8.2)
== END 2020-07-17 12:43 | disposition home or self-care (01) ==
LOC: INF 08:27
PROVIDERS: Visit Provider Internal Medicine Rheumatology
DX: M65.9 Synovitis and tenosynovitis, unspecified (principal); L40.3 Pustulosis palmaris et plantaris; L70.9 Acne, unspecified; M85.80 Other specified disorders of bone density and structure, unspecified site; M86.9 Osteomyelitis, unspecified; R06.02 Shortness of breath; H15.009 Unspecified scleritis, unspecified eye
CPT/HCPCS: 80053; 96365; 96366; J2430

== ENCOUNTER 2020-08-02 10:00 | Outpatient (RCR) | payer OTHER, SELFPAY | END 2020-08-02 11:02 | disposition home or self-care (01) | LOC: OT 10:00 | PROVIDERS: PCP Family Medicine; Visit Provider Orthopaedic Surgery | DX: M25.531 Pain in right wrist; M77.11 Lateral epicondylitis, right elbow | CPT/HCPCS: 97014; 97035; 97110; 97164; 97165; 97530; G0283 ==

== ENCOUNTER 2020-09-11 08:16 | Outpatient (CLI) | payer OTHER, SELFPAY ==
[2020-09-11] VITALS (9 sets, daily range): BP systolic 98–128; BP diastolic 63–79; PULSE 67–88; RESP 20; TEMP 36.2; O2SAT 97–98; BMI 26.3
[2020-09-11 08:54] LABS: Alanine Aminotransferase 50 U/L (12-78); Albumin Level 4.6 g/dl (3.5-5.0); Albumin/Globulin Ratio 1.5 (1.1-1.8); Alkaline Phosphatase 76 U/L (38-126); Anion Gap 20.3 mEq/L (5-15); Aspartate Amino Transferase 44 U/L (14-36); Bilirubin,Total 0.7 mg/dl (0.2-1.3); Blood Urea Nitrogen 11 mg/dl (7-17); Calcium 9.6 mg/dl (8.4-10.2); Carbon Dioxide 30 mmol/L (22.0-30.0); Chloride 99 mmol/L (98-107); Creatinine Clearance Estimated 86 mL/min (50-200); Estimated Glomerular Filt Rate 65 ml/min (>60); GFR (African American) 79 ML/MIN (>60); Globulin 3.1 g/dL (1.3-3.2); Glucose 114 mg/dl (74-100); Potassium 3.3 mmoL/L (3.5-5.1); Sodium 146 mmol/L (136-145); Total Protein,Serum 7.7 g/dl (6.3-8.2)
== END 2020-09-11 12:50 | disposition home or self-care (01) ==
LOC: INF 08:16
PROVIDERS: Visit Provider Internal Medicine Rheumatology
DX: M85.80 Other specified disorders of bone density and structure, unspecified site (principal); M86.9 Osteomyelitis, unspecified; R06.02 Shortness of breath; M65.9 Synovitis and tenosynovitis, unspecified; L40.3 Pustulosis palmaris et plantaris; L70.9 Acne, unspecified; H15.009 Unspecified scleritis, unspecified eye; Z79.899 Other long term (current) drug therapy
CPT/HCPCS: 80053; 96365; 96366; J2430

== ENCOUNTER 2020-09-14 14:00 | Outpatient (RCR) | payer OTHER, SELFPAY ==
--- NOTE | 2020-08-02 09:20 | HMH.PTOPEV ---
PT Outpatient Evaluation Rehab PT Outpatient Evaluation Start: 08/02/20 08:57 Freq: Status: Active Protocol: Document 08/02/20 08:59 BENNETTJERRICA (Rec: 08/02/20 09:20 BENIGNO [id number]) Electronically Signed By Jagjit Kennedy, ERAN 08/02/20 08:59 Outpatient Therapy Subjective History Subjective History This is the initial Physical Therapy evaluation for Caren Infante. Pt is a 55 y/o femlae referred to PT for c/o L side LBP and LLE radiculopathy. Pt is well known to clinic for frequent therapy visists. Pt reports this bout of LBP began ~ 2 months ago w/ insidious onset. Pt was doing exercises and therapy for hip pain based on her dx of SAPHO dz. Pt states her hip was getting some better but began having LBP and radicular S&S. Pt reports she went to [facility] and had MRI which showed herniated discs, or scar tissue or a possible cyst Pt reports she does not want sx and will try everything else first. Chief Complaint Pain,Stiff,Paresthesia, Weakness Symptom Type Throb,Sharp,Stabbing,Burning, Numbness,Shooting Symptoms Relieved By Nothing Symptoms Aggravated By Sitting,Standing,Bending/ Stooping,Physical Activity, Twisting,Walking,Lifting, Sneeze/Coughing Prior Functional Limitations Housework,Standing,Sitting, Squatting,Recreation Activity Current Functional Limitations Lifting,Housework,Driving, Sleeping,Standing,Sitting, Squatting,Recreation Activity, Walking,Stairs,Bending/ Stooping Symptom Description Constant but Variable Level of pain today (0-10) 8 Pain scale - at its best (0-10) 8 Pain scale - at its worst (0-10) 9 Lumbopelvic Eval Palapation tenderness bilateral lumbar spinal tenderness Yes paraspinal tenderness Yes Lumbar/Sacral Palpation Findings Tenderness,Spasm,Muscle Guarding Lumbar/Sacral Palpation Overall Comment Pt hypersensitive to LT Accessory Movement L
== END 2020-09-14 14:05 | disposition home or self-care (01) ==
LOC: PT 14:00
PROVIDERS: PCP Family Medicine; Visit Provider Physician Assistant
DX: M51.36 Other intervertebral disc degeneration, lumbar region; M54.16 Radiculopathy, lumbar region; M50.30 Other cervical disc degeneration, unspecified cervical region; Z98.1 Arthrodesis status
CPT/HCPCS: 97010; 97012; 97014; 97110; 97140; 97163; 97164; 97535; G0283

== ENCOUNTER 2020-10-24 08:30 | Outpatient (CLI) | payer OTHER, SELFPAY ==
[2020-10-24] VITALS (7 sets, daily range): BP systolic 98–123; BP diastolic 56–79; PULSE 64–80; RESP 18; TEMP 36.6; O2SAT 97; BMI 26.3
[2020-10-24 08:58] LABS: Chloride 107 mmol/L (98-107); Potassium 3.7 mmoL/L (3.5-5.1); Sodium 140 mmol/L (136-145)
[2020-10-24 09:01] LABS: Alanine Aminotransferase 91 U/L (12-78); Albumin Level 3.9 g/dl (3.5-5.0); Albumin/Globulin Ratio 1.4 (1.1-1.8); Alkaline Phosphatase 66 U/L (38-126); Anion Gap 9.7 mEq/L (5-15); Aspartate Amino Transferase 62 U/L (14-36); Bilirubin,Total 0.4 mg/dl (0.2-1.3); Blood Urea Nitrogen 20 mg/dl (7-17); Carbon Dioxide 27 mmol/L (22.0-30.0); Creatinine Clearance Estimated 111 mL/min (50-200); Estimated Glomerular Filt Rate 87 ml/min (>60); GFR (African American) 106 ML/MIN (>60); Globulin 2.7 g/dL (1.3-3.2); Total Protein,Serum 6.6 g/dl (6.3-8.2)
[2020-10-24 09:02] LABS: Calcium 8.8 mg/dl (8.4-10.2); Glucose 112 mg/dl (74-100)
== END 2020-10-24 12:55 | disposition home or self-care (01) ==
LOC: INF 08:30
DX: M65.9 Synovitis and tenosynovitis, unspecified (principal); L40.3 Pustulosis palmaris et plantaris; L70.9 Acne, unspecified; M85.80 Other specified disorders of bone density and structure, unspecified site; M86.9 Osteomyelitis, unspecified
CPT/HCPCS: 80053; 96365; 96366; 96413; 96415; J2430

== ENCOUNTER 2020-12-05 08:28 | Outpatient (CLI) | payer OTHER, SELFPAY ==
[2020-12-05] VITALS (7 sets, daily range): BP systolic 91–109; BP diastolic 60–79; PULSE 66–72; RESP 18; TEMP 36.5; O2SAT 97; BMI 25.2
[2020-12-05 08:59] LABS: Alanine Aminotransferase 39 U/L (12-78); Albumin Level 4.2 g/dl (3.5-5.0); Albumin/Globulin Ratio 1.5 (1.1-1.8); Alkaline Phosphatase 57 U/L (38-126); Anion Gap 9.9 mEq/L (5-15); Aspartate Amino Transferase 35 U/L (14-36); Bilirubin,Total 0.5 mg/dl (0.2-1.3); Blood Urea Nitrogen 9 mg/dl (7-17); Calcium 9.9 mg/dl (8.4-10.2); Carbon Dioxide 31 mmol/L (22.0-30.0); Chloride 103 mmol/L (98-107); Creatinine Clearance Estimated 93 mL/min (50-200); Estimated Glomerular Filt Rate 75 ml/min (>60); GFR (African American) 90 ML/MIN (>60); Globulin 2.8 g/dL (1.3-3.2); Glucose 106 mg/dl (74-100); Potassium 3.9 mmoL/L (3.5-5.1); Sodium 140 mmol/L (136-145)
== END 2020-12-05 12:35 | disposition home or self-care (01) ==
LOC: INF 08:28
PROVIDERS: Visit Provider Emergency Medicine
DX: M65.9 Synovitis and tenosynovitis, unspecified (principal); M86.30 Chronic multifocal osteomyelitis, unspecified site; L40.3 Pustulosis palmaris et plantaris; L70.9 Acne, unspecified; M85.80 Other specified disorders of bone density and structure, unspecified site
CPT/HCPCS: 80053; 96365; 96366; 96413; 96415; J2430

== ENCOUNTER 2021-01-16 08:05 | Outpatient (CLI) | payer OTHER, SELFPAY ==
[2021-01-16] VITALS (8 sets, daily range): BP systolic 94–119; BP diastolic 58–73; PULSE 66–88; RESP 18; TEMP 36.3; O2SAT 96; BMI 24.1
[2021-01-16 09:00] LABS: Alanine Aminotransferase 33 U/L (12-78); Albumin Level 4.6 g/dl (3.5-5.0); Albumin/Globulin Ratio 1.4 (1.1-1.8); Alkaline Phosphatase 61 U/L (38-126); Anion Gap 9.3 mEq/L (5-15); Aspartate Amino Transferase 36 U/L (14-36); Bilirubin,Total 0.5 mg/dl (0.2-1.3); Blood Urea Nitrogen 12 mg/dl (7-17); Calcium 9.7 mg/dl (8.4-10.2); Carbon Dioxide 32 mmol/L (22.0-30.0); Chloride 101 mmol/L (98-107); Creatinine Clearance Estimated 79 mL/min (50-200); Estimated Glomerular Filt Rate 65 ml/min (>60); GFR (African American) 79 ML/MIN (>60); Globulin 3.2 g/dL (1.3-3.2); Glucose 116 mg/dl (74-100); Potassium 3.3 mmoL/L (3.5-5.1); Sodium 139 mmol/L (136-145); Total Protein,Serum 7.8 g/dl (6.3-8.2)
== END 2021-01-16 12:35 | disposition home or self-care (01) ==
PROVIDERS: Visit Provider Internal Medicine
DX: M86.30 Chronic multifocal osteomyelitis, unspecified site (principal)
CPT/HCPCS: 80053; 96365; 96366; J2430

== ENCOUNTER 2021-02-27 08:24 | Outpatient (CLI) | payer OTHER, SELFPAY ==
[2021-02-27] VITALS (12 sets, daily range): BP systolic 103–124; BP diastolic 59–88; PULSE 61–71; RESP 16–18; TEMP 36.2–36.5; O2SAT 97–99; BMI 24.3
[2021-02-27 08:58] LABS: Chloride 100 mmol/L (98-107); Potassium 3.1 mmoL/L (3.5-5.1); Sodium 140 mmol/L (136-145)
[2021-02-27 09:01] LABS: Alanine Aminotransferase 25 U/L (12-78); Albumin Level 4.4 g/dl (3.5-5.0); Albumin/Globulin Ratio 1.7 (1.1-1.8); Alkaline Phosphatase 74 U/L (38-126); Anion Gap 12.1 mEq/L (5-15); Aspartate Amino Transferase 29 U/L (14-36); Bilirubin,Total 0.3 mg/dl (0.2-1.3); Blood Urea Nitrogen 12 mg/dl (7-17); Calcium 9.3 mg/dl (8.4-10.2); Carbon Dioxide 31 mmol/L (22.0-30.0); Creatinine Clearance Estimated 89 mL/min (50-200); Estimated Glomerular Filt Rate 75 ml/min (>60); GFR (African American) 90 ML/MIN (>60); Globulin 2.6 g/dL (1.3-3.2); Glucose 115 mg/dl (74-100)
== END 2021-02-27 13:25 | disposition home or self-care (01) ==
LOC: INF 08:24
PROVIDERS: Visit Provider Internal Medicine
DX: M65.9 Synovitis and tenosynovitis, unspecified (principal); L40.3 Pustulosis palmaris et plantaris; L70.9 Acne, unspecified; M85.80 Other specified disorders of bone density and structure, unspecified site; M86.9 Osteomyelitis, unspecified; M19.90 Unspecified osteoarthritis, unspecified site
CPT/HCPCS: 80053; 96365; 96366; J2430

== ENCOUNTER 2021-04-03 10:00 | Outpatient (RCR) | payer OTHER, SELFPAY | END 2021-05-30 14:32 | disposition home or self-care (01) | LOC: PT 10:00 | PROVIDERS: Visit Provider Physical Medicine & Rehabilitation | DX: M51.36 Other intervertebral disc degeneration, lumbar region (principal); M96.1 Postlaminectomy syndrome, not elsewhere classified | CPT/HCPCS: 97010; 97014; 97110; 97112; 97163; 97164; 97530; G0283 ==

== ENCOUNTER 2021-04-17 08:25 | Outpatient (CLI) | payer OTHER, SELFPAY ==
[2021-04-17] VITALS (14 sets, daily range): BP systolic 109–150; BP diastolic 70–90; PULSE 61–69; RESP 18–20; O2SAT 96; BMI 24.3
[2021-04-17 08:52] LABS: Alanine Aminotransferase 29 U/L (12-78); Albumin Level 4.2 g/dl (3.5-5.0); Albumin/Globulin Ratio 1.5 (1.1-1.8); Alkaline Phosphatase 62 U/L (38-126); Anion Gap 9.9 mEq/L (5-15); Aspartate Amino Transferase 31 U/L (14-36); Bilirubin,Total 0.4 mg/dl (0.2-1.3); Blood Urea Nitrogen 7 mg/dl (7-17); Calcium 8.7 mg/dl (8.4-10.2); Carbon Dioxide 31 mmol/L (22.0-30.0); Chloride 103 mmol/L (98-107); Creatinine Clearance Estimated 89 mL/min (50-200); Estimated Glomerular Filt Rate 75 ml/min (>60); GFR (African American) 90 ML/MIN (>60); Globulin 2.8 g/dL (1.3-3.2); Glucose 102 mg/dl (74-100); Sodium 141 mmol/L (136-145)
[2021-04-17 08:53] LABS: Potassium 2.9 mmoL/L (3.5-5.1)
== END 2021-04-17 12:50 | disposition home or self-care (01) ==
LOC: INF 08:25
PROVIDERS: Visit Provider Internal Medicine
DX: M65.9 Synovitis and tenosynovitis, unspecified (principal); L40.3 Pustulosis palmaris et plantaris; L70.9 Acne, unspecified; M85.80 Other specified disorders of bone density and structure, unspecified site; M86.9 Osteomyelitis, unspecified; M04.8 Other autoinflammatory syndromes
CPT/HCPCS: 80053; 96365; 96366; 96413; 96415; J2430

== ENCOUNTER 2021-05-29 08:15 | Outpatient (CLI) | payer OTHER, SELFPAY ==
[2021-05-29] VITALS (9 sets, daily range): BP systolic 127–149; BP diastolic 69–93; PULSE 89–98; RESP 18; TEMP 36.3; O2SAT 97–98; BMI 24.3
[2021-05-29 09:13] LABS: Alanine Aminotransferase 32 U/L (12-78); Albumin Level 4.5 g/dl (3.5-5.0); Albumin/Globulin Ratio 1.6 (1.1-1.8); Alkaline Phosphatase 67 U/L (38-126); Anion Gap 11.4 mEq/L (5-15); Aspartate Amino Transferase 35 U/L (14-36); Bilirubin,Total 0.6 mg/dl (0.2-1.3); Blood Urea Nitrogen 12 mg/dl (7-17); Carbon Dioxide 32 mmol/L (22.0-30.0); Chloride 100 mmol/L (98-107); Creatinine Clearance Estimated 101 mL/min (50-200); Estimated Glomerular Filt Rate 87 ml/min (>60); GFR (African American) 105 ML/MIN (>60); Globulin 2.9 g/dL (1.3-3.2); Glucose 105 mg/dl (74-100); Potassium 3.4 mmoL/L (3.5-5.1); Sodium 140 mmol/L (136-145); Total Protein,Serum 7.4 g/dl (6.3-8.2)
== END 2021-05-29 12:41 | disposition home or self-care (01) ==
LOC: INF 08:22
PROVIDERS: Visit Provider Internal Medicine
DX: M86.30 Chronic multifocal osteomyelitis, unspecified site (principal); M04.8 Other autoinflammatory syndromes
CPT/HCPCS: 80053; 96365; 96366; 96413; 96415; J2430

== ENCOUNTER 2021-06-08 11:00 | Outpatient (RCR) | payer OTHER, SELFPAY | END 2021-06-08 11:05 | disposition home or self-care (01) | LOC: OT 11:00 | PROVIDERS: Visit Provider Student in an Organized Health Care Education/Training Program | DX: M77.9 Enthesopathy, unspecified (principal); M19.90 Unspecified osteoarthritis, unspecified site; M51.36 Other intervertebral disc degeneration, lumbar region; M79.7 Fibromyalgia; M65.9 Synovitis and tenosynovitis, unspecified | CPT/HCPCS: 97010; 97014; 97018; 97035; 97110; 97140; 97164; 97165; G0283 ==

== ENCOUNTER 2021-08-13 08:15 | Outpatient (CLI) | payer OTHER, SELFPAY ==
[2021-08-13] VITALS (9 sets, daily range): BP systolic 100–111; BP diastolic 69–73; PULSE 61–75; RESP 18; TEMP 36.4; O2SAT 96; BMI 24.3
[2021-08-13 08:47] LABS: Chloride 106 mmol/L (98-107)
[2021-08-13 08:48] LABS: Potassium 3.9 mmoL/L (3.5-5.1); Sodium 141 mmol/L (136-145)
[2021-08-13 08:50] LABS: Alanine Aminotransferase 36 U/L (12-78); Alkaline Phosphatase 62 U/L (38-126); Aspartate Amino Transferase 42 U/L (14-36); Bilirubin,Total 0.2 mg/dl (0.2-1.3); Blood Urea Nitrogen 7 mg/dl (7-17); Creatinine Clearance Estimated 101 mL/min (50-200); Estimated Glomerular Filt Rate 87 ml/min (>60); GFR (African American) 105 ML/MIN (>60)
[2021-08-13 08:51] LABS: Albumin/Globulin Ratio 1.3 (1.1-1.8); Anion Gap 9.9 mEq/L (5-15); Calcium 9.2 mg/dl (8.4-10.2); Carbon Dioxide 29 mmol/L (22.0-30.0); Glucose 107 mg/dl (74-100)
== END 2021-08-13 12:40 | disposition home or self-care (01) ==
LOC: INF 08:17
PROVIDERS: PCP Family Medicine; Visit Provider Internal Medicine
DX: M04.8 Other autoinflammatory syndromes (principal)
CPT/HCPCS: 80053; 96365; 96367; J2430

== ENCOUNTER 2021-10-09 08:05 | Outpatient (CLI) | payer OTHER, SELFPAY ==
[2021-10-09] VITALS (8 sets, daily range): BP systolic 111–126; BP diastolic 53–88; PULSE 55–77; RESP 17; TEMP 36.6; O2SAT 98; BMI 24.3
[2021-10-09 08:45] LABS: Basophils # 0.1 K/mm3 (0-0.2); Basophils % 2.1 % (0.1-2.0); Eosinophils # 0.3 K/mm3 (0.0-0.4); Eosinophils % 5.2 % (0.1-12.0); Hematocrit 37.8 % (37.0-47.0); Hemoglobin 12.7 g/dL (12.2-16.2); Lymphocytes # 2.4 K/mm3 (0.7-4.5); Lymphocytes % 49.4 % (10-50); Mean Corpuscular HGB Conc 33.8 g/dL (31.8-35.4); Mean Corpuscular Hemoglobin 30.4 pg (27.0-31.2); Mean Platelet Volume 8.9 fl (7.4-10.4); Monocytes # 0.5 K/mm3 (0.1-1.0); Monocytes % 9.2 % (1.7-9.3); Neutrophils # 1.7 K/mm3 (1.8-7.8); Neutrophils % 34.1 % (37.0-80.0); Platelet Count 296 K/mm3 (142-424); Red Blood Count 4.19 M/mm3 (4.20-5.40); Red Cell Distribution Width 13.4 % (11.5-17.5); White Blood Count 4.9 K/mm3 (4.8-10.8)
[2021-10-09 08:53] LABS: Chloride 105 mmol/L (98-107); Potassium 3.8 mmoL/L (3.5-5.1); Sodium 141 mmol/L (136-145)
[2021-10-09 08:56] LABS: Alanine Aminotransferase 34 U/L (12-78); Albumin Level 4.2 g/dl (3.5-5.0); Albumin/Globulin Ratio 1.6 (1.1-1.8); Alkaline Phosphatase 54 U/L (38-126); Anion Gap 9.8 mEq/L (5-15); Aspartate Amino Transferase 36 U/L (14-36); Bilirubin,Total 0.3 mg/dl (0.2-1.3); Blood Urea Nitrogen 17 mg/dl (7-17); Calcium 8.9 mg/dl (8.4-10.2); Carbon Dioxide 30 mmol/L (22.0-30.0); Creatinine Clearance Estimated 88 mL/min (50-200); Estimated Glomerular Filt Rate 74 ml/min (>60); GFR (African American) 90 ML/MIN (>60); Globulin 2.6 g/dL (1.3-3.2); Glucose 103 mg/dl (74-100); Total Protein,Serum 6.8 g/dl (6.3-8.2)
[2021-10-09 09:02] LABS: C-Reactive Protein 0.5 mg/L (0-4)
[2021-10-09 09:17] LABS: Erythrocyte Sedimentation Rate 22 mm/hr (0-30)
[2021-10-10 16:12] LABS: Calcium, Ionized 5.1 mg/dL (4.5-5.6)
== END 2021-10-09 12:55 | disposition home or self-care (01) ==
LOC: INF 08:06
PROVIDERS: PCP Family Medicine; Visit Provider Internal Medicine Rheumatology
DX: M65.9 Synovitis and tenosynovitis, unspecified (principal); M86.9 Osteomyelitis, unspecified; M85.80 Other specified disorders of bone density and structure, unspecified site; L40.3 Pustulosis palmaris et plantaris; L70.9 Acne, unspecified
CPT/HCPCS: 80053; 82330; 85025; 85651; 86140; 96365; 96366; J2430

== ENCOUNTER → 2021-11-20 09:38 | Outpatient (CLI) | payer OTHER, SELFPAY | PROVIDERS: PCP Family Medicine; Visit Provider Nurse Practitioner | DX: Z20.822 Contact with and (suspected) exposure to COVID-19 (principal) | CPT/HCPCS: C9803; U0003; U0005 ==

== ENCOUNTER 2021-11-28 08:14 | Outpatient (CLI) | payer OTHER, SELFPAY ==
[2021-11-28] VITALS (8 sets, daily range): BP systolic 98–121; BP diastolic 60–80; PULSE 72–87; RESP 20; TEMP 37.2; O2SAT 98–99; BMI 24.3
[2021-11-28 08:59] LABS: Alanine Aminotransferase 51 U/L (12-78); Albumin Level 4.7 g/dl (3.5-5.0); Albumin/Globulin Ratio 1.5 (1.1-1.8); Alkaline Phosphatase 60 U/L (38-126); Anion Gap 13.4 mEq/L (5-15); Aspartate Amino Transferase 55 U/L (14-36); Bilirubin,Total 0.3 mg/dl (0.2-1.3); Blood Urea Nitrogen 14 mg/dl (7-17); Calcium 9.3 mg/dl (8.4-10.2); Carbon Dioxide 30 mmol/L (22.0-30.0); Chloride 97 mmol/L (98-107); Creatinine Clearance Estimated 78 mL/min (50-200); Estimated Glomerular Filt Rate 65 ml/min (>60); GFR (African American) 79 ML/MIN (>60); Globulin 3.1 g/dL (1.3-3.2); Glucose 121 mg/dl (74-100); Potassium 3.4 mmoL/L (3.5-5.1); Sodium 137 mmol/L (136-145); Total Protein,Serum 7.8 g/dl (6.3-8.2)
== END 2021-11-28 12:42 | disposition home or self-care (01) ==
LOC: INF 08:15
PROVIDERS: PCP Family Medicine; Visit Provider Internal Medicine Rheumatology
DX: M65.9 Synovitis and tenosynovitis, unspecified (principal); M86.9 Osteomyelitis, unspecified; M85.80 Other specified disorders of bone density and structure, unspecified site; L40.3 Pustulosis palmaris et plantaris; L70.9 Acne, unspecified
CPT/HCPCS: 80053; 96365; 96366; J2430

== ENCOUNTER 2022-01-07 08:01 | Outpatient (CLI) | payer OTHER, SELFPAY ==
[2022-01-07] VITALS (8 sets, daily range): BP systolic 97–116; BP diastolic 59–68; PULSE 64–77; RESP 16–18; TEMP 36.4–36.6; O2SAT 97–99; BMI 23.5
[2022-01-07 08:57] LABS: Chloride 99 mmol/L (98-107); Potassium 3.3 mmoL/L (3.5-5.1); Sodium 137 mmol/L (136-145)
[2022-01-07 09:00] LABS: Alanine Aminotransferase 29 U/L (12-78); Albumin Level 4.3 g/dl (3.5-5.0); Albumin/Globulin Ratio 1.5 (1.1-1.8); Alkaline Phosphatase 56 U/L (38-126); Anion Gap 9.3 mEq/L (5-15); Aspartate Amino Transferase 34 U/L (14-36); Bilirubin,Total 0.6 mg/dl (0.2-1.3); Blood Urea Nitrogen 11 mg/dl (7-17); Carbon Dioxide 32 mmol/L (22.0-30.0); Creatinine Clearance Estimated 76 mL/min (50-200); Estimated Glomerular Filt Rate 65 ml/min (>60); GFR (African American) 79 ML/MIN (>60); Globulin 2.8 g/dL (1.3-3.2); Total Protein,Serum 7.1 g/dl (6.3-8.2)
[2022-01-07 09:01] LABS: Calcium 8.4 mg/dl (8.4-10.2); Glucose 102 mg/dl (74-100)
== END 2022-01-07 12:25 | disposition home or self-care (01) ==
LOC: INF 08:01
PROVIDERS: PCP Family Medicine; Visit Provider Internal Medicine Rheumatology
DX: M86.9 Osteomyelitis, unspecified (principal); M65.9 Synovitis and tenosynovitis, unspecified; M85.80 Other specified disorders of bone density and structure, unspecified site; L40.3 Pustulosis palmaris et plantaris; L70.9 Acne, unspecified
CPT/HCPCS: 80053; 96365; 96366; J2430

== ENCOUNTER 2022-02-19 08:23 | Outpatient (CLI) | payer OTHER, SELFPAY ==
[2022-02-19 08:20] VITALS: BP 105/75; PULSE 72; RESP 16; TEMP 36.4; O2SAT 98
[2022-02-19 08:27] VITALS: BMI 21.9
[2022-02-19 08:51] LABS: Chloride 103 mmol/L (98-107); Potassium 3.2 mmoL/L (3.5-5.1); Sodium 140 mmol/L (136-145)
[2022-02-19 08:54] LABS: Alanine Aminotransferase 33 U/L (12-78); Albumin Level 3.8 g/dl (3.5-5.0); Albumin/Globulin Ratio 1.5 (1.1-1.8); Alkaline Phosphatase 57 U/L (38-126); Anion Gap 7.2 mEq/L (5-15); Aspartate Amino Transferase 32 U/L (14-36); Bilirubin,Total 0.5 mg/dl (0.2-1.3); Blood Urea Nitrogen 18 mg/dl (7-17); Carbon Dioxide 33 mmol/L (22.0-30.0); Creatinine Clearance Estimated 80 mL/min (50-200); Estimated Glomerular Filt Rate 74 ml/min (>60); GFR (African American) 90 ML/MIN (>60); Globulin 2.6 g/dL (1.3-3.2); Total Protein,Serum 6.4 g/dl (6.3-8.2)
[2022-02-19 08:55] LABS: Calcium 8.3 mg/dl (8.4-10.2); Glucose 101 mg/dl (74-100)
[2022-02-19 12:21] VITALS: BP 113/73; PULSE 88; RESP 16; TEMP 36.4; O2SAT 97
== END 2022-02-19 12:23 | disposition home or self-care (01) ==
LOC: INF 08:23
PROVIDERS: PCP Family Medicine; Visit Provider Internal Medicine Rheumatology
DX: M65.9 Synovitis and tenosynovitis, unspecified (principal); M86.9 Osteomyelitis, unspecified; M85.80 Other specified disorders of bone density and structure, unspecified site; L40.3 Pustulosis palmaris et plantaris; L70.9 Acne, unspecified
CPT/HCPCS: 80053; 96365; 96366; J2430

== ENCOUNTER 2022-03-17 14:11 | Emergency (ER) | payer OTHER, SELFPAY ==
[2022-03-17 14:44] VITALS: RESP 18; O2SAT 100; BMI 22.2
--- NOTE | 2022-03-17 14:53 | XR_ITS ---
PROCEDURE INFORMATION: Exam: XR Right Tibia and Fibula Exam date and time: 03/17/2022 2:52 PM Age: 56 years old Clinical indication: Pain; Foot; Right; Additional info: Injury/ right leg pain TECHNIQUE: Imaging protocol: XR Right tibia and fibula. Views: 2 views. COMPARISON: CR XR ANKLE RT MIN 3V 03/17/2022 2:50 PM FINDINGS: Bones/joints: There is no evidence of acute fracture.There is no evidence of malalignment or dislocation. Soft tissues: Normal. IMPRESSION: There is no evidence of acute fracture.There is no evidence of malalignment or dislocation.
--- NOTE | 2022-03-17 14:53 | XR_ITS ---
PROCEDURE INFORMATION: Exam: XR Right Ankle Exam date and time: 03/17/2022 2:50 PM Age: 56 years old Clinical indication: Pain; Foot; Right; Additional info: Injury/ right leg pain TECHNIQUE: Imaging protocol: XR Right ankle. Views: 3 or more views. COMPARISON: CR XR FOOT RT MIN 3V 06/06/2020 3:29 PM FINDINGS: Bones/joints: There is no evidence of acute fracture.There is no evidence of malalignment or dislocation. Soft tissues: Normal. IMPRESSION: There is no evidence of acute fracture.There is no evidence of malalignment or dislocation.
--- NOTE | 2022-03-17 14:53 | XR_ITS ---
PROCEDURE INFORMATION: Exam: XR Right Foot Exam date and time: 03/17/2022 2:55 PM Age: 56 years old Clinical indication: Pain; Foot; Right; Additional info: Injury/ right leg pain TECHNIQUE: Imaging protocol: XR Right foot. Views: 3 or more views. COMPARISON: CR XR FOOT RT MIN 3V 06/06/2020 3:29 PM FINDINGS: Bones/joints: There is no evidence of acute fracture.There is no evidence of malalignment or dislocation. Soft tissues: Normal. IMPRESSION: There is no evidence of acute fracture.There is no evidence of malalignment or dislocation.
[2022-03-17 15:10] VITALS: BP 125/76; PULSE 70; RESP 18; TEMP 36.7; O2SAT 98; BMI 22.2
--- NOTE | 2022-03-17 15:35 | HMH.EDUTC ---
[facility] [place] Clinical Impression: Foot pain, right Disposition: Home, Self-Care Condition on Discharge: Good Instructions: DI for Ankle Sprain, DI for Foot Sprain Additional Instructions: Weightbearing as tolerated rest Ice with cold pack for 20 minutes remove may repeat for comfort every hour Gama wrap for support and swelling no less in the shower. Be sure not too tight but not to lose either Elevate with ankle above your heart as much as possible to help reduce swelling and therefore pain Ibuprofen every 6 hours as needed for pain or inflammation. If needs something more you can take Tylenol every 4 hours as needed as long as her primary care has told he was okayed for you to take both. If improving any do not need to follow-up you can bring begin exercising 2-3 weeks after injury. Follow-up immediately if new or worsening symptoms or no noticeable improvement over the next 3-5 days. call ortho Referrals: Toni Carranza MD [Primary Care Provider] - Cece Morales DPM [Staff Physician] - Time of Disposition: 16:19 Medical Decision Making - Terrance Inquiry Pt receiving controlled substance: No Vital Signs: 03/17/22 14:44 03/17/22 15:10 Temperature 98.1 F Temperature Source Oral Pulse Rate [Right Brachial] 70 Respiratory Rate 18 18 Blood Pressure [Right Arm] 125/76 Blood Pressure Mean [Right Arm] 92 Blood Pressure Source [Right Arm] Automatic Cuff Blood Pressure Position [Right Arm] Sitting 02 Sat by Pulse Oximetry 100 98 Oxygen Delivery Method Room Air Room Air [facility] HPI - General Chief complaint: Urgent Treatment Center Stated complaint: Possible broke R foot Time Seen by Provider: 03/17/22 15:35 Mode of Arrival: Ambulatory Source of Information: Patient Limitations: No Limitations Description of Symptoms (Recalled from Triage Doc. by RN): PATIENT C/O INJURY TO RIGHT FOOT. SHE STATES SHE WAS WALKING LAST NIGHT AND HER TOES BENT UNDER HER FOOT AND SHE HEARD A CRUNCHING SOUND HEENT Symptoms (Recalled from RN notes): No Resp Symptoms (Recalled from RN notes): No Skin Symptoms (Recalled from RN notes): No MS Symptoms (Recalled from RN notes): Yes Functional Status (Recalled from RN notes): WNL - History of Present Illness Provider Complaint: 56 yr old female presents for rt foot pain. pt states she was sitting and stood up and toes turned under. now having pain and swelling in ankle. - Related Data Home Medications Medication Instructions Recorded Confirmed fluticasone furoate 200 1 inh INHALATION Q24H 03/11/18 01/07/22 mcg-vilanterol 25 mcg/dose inhalation powder hydrochlorothiazide 25 mg tablet 25 mg PO DAILY 30 Days #30 03/11/18 01/07/22 potassium chloride 20 mEq 20 meq PO BID 30 Days #30 03/11/18 01/07/22 tablet,extended release(part/cryst) cholecalciferol (vitamin D3) 1,250 50,000 unit PO QWEEK 09/25/18 01/07/22 mcg (50,000 unit) capsule atorvastatin 40 mg tablet 40 mg PO DAILY #90 tab 03/31/19 01/07/22 metoprolol succinate 50 mg 50 mg PO DAILY #90 tab 03/31/19 01/07/22 tablet,extended release 24 hr nitroglycerin 0.4 mg sublingual 0.4 mg SUBLINGUAL .prn PRN #25 tab 03/31/19 11/28/21 tablet Aspirin [Low Dose Aspirin EC] 81 mg PO DAILY 04/08/19 01/07/22 hydrocodone 10 mg-acetaminophen 1 tab PO TID #90 tab 07/22/19 01/07/22 325 mg tablet Albuterol Sulfate [Proair Hfa 2 puffs IH Q4HP PRN 11/04/19 01/07/22 90mcg/puff Inh] Omeprazole 40 mg PO DAILY 05/26/20 01/07/22 Duloxetine HCl [Cymbalta 30mg 30 mg PO DAILY 09/11/20 01/07/22 capsule] methocarbamoL [Methocarbamol 500mg 500 mg PO BIDP PRN 09/11/20 01/07/22 Tablet] Fluticasone/Vilanterol [Breo 1 inh IH DAILY 02/27/21 01/07/22 Ellipta 100-25 Mcg INH] Furosemide [Furosemide 20mg Tab*] 20 mg PO DAILY 02/27/21 01/07/22 Gabapentin [Gabapentin 300mg Cap] 300 mg PO TID 02/27/21 01/07/22 Levothyroxine Sodium 150 mcg PO DAILY 02/27/21 01/07/22 [Levothyroxine] Meloxicam 7.5 mg PO DAILY PRN 02/27/21 01/07/22 Ludin
[2022-03-17 16:30] VITALS: BP 125/76; PULSE 70; RESP 18; TEMP 36.7; O2SAT 98
== END 2022-03-17 16:35 | disposition home or self-care (01) ==
PROVIDERS: Emergency Provider Nurse Practitioner Family; PCP Family Medicine
DX: M79.671 Pain in right foot (principal); K21.9 Gastro-esophageal reflux disease without esophagitis; E78.5 Hyperlipidemia, unspecified; I10 Essential (primary) hypertension; I25.10 Atherosclerotic heart disease of native coronary artery without angina pectoris; E03.9 Hypothyroidism, unspecified; M79.7 Fibromyalgia; Z88.5 Allergy status to narcotic agent; Z88.8 Allergy status to other drugs, medicaments and biological substances
CPT/HCPCS: 73590; 73610; 73630; 99212; G0463

== ENCOUNTER → 2022-04-10 16:36 | Outpatient (CLI) | payer OTHER, SELFPAY ==
--- NOTE | 2022-04-10 16:38 | MR_ITS ---
PROCEDURE INFORMATION: Exam: MR Right Lower Extremity Other Than Joint Without Contrast; Foot Exam date and time: 04/10/2022 4:44 PM Age: 56 years old Clinical indication: Pain; Foot; Right; Additional info: RT foot pain. Has heard poping and cracking in foot x3wks with swelling. PT has sapho syndrome. TECHNIQUE: Imaging protocol: MR of the Right lower extremity without contrast. Exam focused on the foot. COMPARISON: 1. CR XR FOOT RT MIN 3V 03/17/2022 2:55 PM 2. CR XR FOOT RT MIN 3V 06/06/2020 3:29 PM 3. CR XR TIBIA FIBULA RT 2V 03/17/2022 2:52 PM FINDINGS: Limitations: The large [id number] utilized to image the entire foot and ankle results in proportionally lower anatomic detail. Bones and cartilage: Patchy moderate to severe edema involves the cuboid bone. There is additional severe edema involving the anterior process of the calcaneus. The appearance favors a posttraumatic etiology. Healing nondisplaced fractures are in the differential diagnosis. A CT scan might provide more definitive assessment if this would alter clinical management. The medial (tibial) sesamoid bone along the plantar aspect of the first metatarsal head appears chronically bipartite. Joint spaces: A moderate amount of fluid decompresses posteriorly from the subtalar joint. There are mild effusions between the lateral cuneiform and cuboid bone and involving the fourth and fifth tarsometatarsal joints. LIGAMENTS: Lisfranc ligament: Unremarkable. No evidence of tear. TENDONS: Flexor tendons of foot: Unremarkable. No evidence of tear. Tibialis posterior tendon: Unremarkable as visualized. Peroneal tendons: Unremarkable as visualized. Extensor tendons of foot: Unremarkable. No evidence of tear. Tibialis anterior tendon: Unremarkable as visualized. Achilles tendon: There is no tear or significant tendinosis involving the Achilles tendon. Tarsal canal (Sinus tarsi): The sinus tarsi has normal fat signal. Tarsal tunnel: Unremarkable. Soft tissues: A trace amount of fluid is present in the retrocalcaneal bursa. Plantar fascia: There is no mass or significant fasciitis (fasciopathy) involving the plantar fascia. IMPRESSION: Possible healing fractures involving the anterior process of the calcaneus and cuboid bones. A CT scan might provide more definitive assessment if this would alter clinical management.
== END ==
PROVIDERS: PCP Family Medicine; Visit Provider Physician Assistant
DX: M79.671 Pain in right foot (principal)
CPT/HCPCS: 73718

== ENCOUNTER → 2022-04-17 15:17 | Outpatient (CLI) | payer OTHER, SELFPAY ==
--- NOTE | 2022-04-17 15:20 | XR_ITS ---
FINAL REPORT CLINICAL HISTORY: CERVICAL RADICULOPATHY FINDINGS: CERVICAL SPINE Five views were obtained. There is fusion of C4-C6. There is no acute fracture. There is straightening of the normal cervical curvature which could be due to positioning or muscle spasm. There is no malalignment. There are moderate to severe degenerative changes. There are disc osteophyte complexes at C3-C4 and C6-C7. There is mild bilateral neural foraminal narrowing at C6-C7. IMPRESSION: Fusion of C4-C6. Moderate to severe degenerative changes. Reviewed, Interpreted and Dictated by Yonatan May III, MD Transcribed by Avelino Dias Authenticated and [facility]
== END ==
PROVIDERS: PCP Family Medicine; Visit Provider Clinical Nurse Specialist Family Health
DX: M54.12 Radiculopathy, cervical region (principal); M54.2 Cervicalgia; Z98.890 Other specified postprocedural states
CPT/HCPCS: 72050

== ENCOUNTER 2022-04-18 08:17 | Outpatient (CLI) | payer OTHER, SELFPAY ==
[2022-04-18] VITALS (14 sets, daily range): BP systolic 94–132; BP diastolic 62–85; PULSE 72–85; RESP 16–18; BMI 23.5
[2022-04-18 09:08] LABS: Chloride 96 mmol/L (98-107); Sodium 138 mmol/L (136-145)
[2022-04-18 09:11] LABS: Alanine Aminotransferase 39 U/L (12-78); Albumin Level 4.4 g/dl (3.5-5.0); Albumin/Globulin Ratio 1.6 (1.1-1.8); Alkaline Phosphatase 56 U/L (38-126); Aspartate Amino Transferase 41 U/L (14-36); Bilirubin,Total 0.5 mg/dl (0.2-1.3); Blood Urea Nitrogen 17 mg/dl (7-17); Carbon Dioxide 37 mmol/L (22.0-30.0); Creatinine Clearance Estimated 68 mL/min (50-200); Estimated Glomerular Filt Rate 58 ml/min (>60); GFR (African American) 70 ML/MIN (>60); Globulin 2.8 g/dL (1.3-3.2); Total Protein,Serum 7.2 g/dl (6.3-8.2)
[2022-04-18 09:12] LABS: Calcium 9.3 mg/dl (8.4-10.2); Glucose 129 mg/dl (74-100)
--- NOTE | 2022-04-18 10:25 | PC.NURSE ---
ALISON JARRETT CALLED SALTY ACOSTA RN AT 0918 TO REPORT POTASSIUM LEVEL 3. RN REPEATED AND VERIFIED PT NAME, , AND LAB VALUE. SEVERINO HERNANDEZ RN CALLED RESULT TO DR TOI KWAN AND NO NEW ORDERS WERE RECEIVED.
== END 2022-04-18 12:40 | disposition home or self-care (01) ==
LOC: INF 08:17
PROVIDERS: PCP Family Medicine; Visit Provider Internal Medicine Rheumatology
DX: M65.9 Synovitis and tenosynovitis, unspecified (principal); M86.9 Osteomyelitis, unspecified; M85.80 Other specified disorders of bone density and structure, unspecified site; L40.3 Pustulosis palmaris et plantaris; L70.9 Acne, unspecified
CPT/HCPCS: 80053; 96365; 96366; J2430

== ENCOUNTER → 2022-05-01 13:06 | Outpatient (CLI) | payer OTHER, SELFPAY ==
--- NOTE | 2022-05-01 13:12 | MR_ITS ---
FINAL REPORT CLINICAL HISTORY: CERVICAL RADICULOPATHY. PAIN DOWN RIGHT ARM XYEARS BUT PAIN HAS GOTTEN WORSE IN THE LAST YEAR. NO INJURY OR TRAUMA. FINDINGS: Multiplanar MR imaging of the cervical spine was performed without contrast. On the sagittal T2-weighted images, disc degeneration is seen throughout. There is straightening of the cervical spine. There is fusion from C4-C6.. There is no evidence of fracture. The vertebral alignment is normal. The cervical spinal cord has an unremarkable appearance without evidence of mass, edema or syrinx. The cervicomedullary junction is normal. C2-3: Small central disc protrusion is present. There is no significant canal stenosis or neural foraminal narrowing. C3-4: Disc osteophyte complex is present. There is a left paracentral disc protrusion with severe right neural foraminal narrowing. There is mild central canal stenosis with an AP diameter of the thecal sac of 9 mm. C4-5: This level is fused. There is no significant canal stenosis or neural foraminal narrowing. C5-6: This level is fused. There is no significant canal stenosis or neural foraminal narrowing. C6-7: Disc osteophyte complex is present with severe right neural foraminal narrowing. C7-T1: There is no significant canal stenosis or neural foraminal narrowing. IMPRESSION: Left paracentral disc protrusion at C3-4 with severe right neural foraminal narrowing and mild central canal stenosis. Multilevel degenerative and postoperative change as detailed above Reviewed, Interpreted and Dictated by Yonatan May III, MD Transcribed by Abbie Levin Authenticated and [facility]
== END ==
PROVIDERS: PCP Family Medicine; Visit Provider Physician Assistant Medical
DX: M54.2 Cervicalgia (principal); M54.12 Radiculopathy, cervical region; M79.601 Pain in right arm; M65.9 Synovitis and tenosynovitis, unspecified; M86.9 Osteomyelitis, unspecified; M85.80 Other specified disorders of bone density and structure, unspecified site; L40.3 Pustulosis palmaris et plantaris; L70.9 Acne, unspecified; Z98.1 Arthrodesis status
CPT/HCPCS: 72141; 76376

== ENCOUNTER 2022-05-28 07:54 | Outpatient (CLI) | payer OTHER, SELFPAY ==
[2022-05-28] VITALS (7 sets, daily range): BP systolic 93–110; BP diastolic 59–75; PULSE 63–70; RESP 18; TEMP 36.4; O2SAT 99–100
== END 2022-05-28 11:45 | disposition home or self-care (01) ==
LOC: INF 07:55
PROVIDERS: PCP Family Medicine; Visit Provider Internal Medicine Rheumatology
DX: M65.9 Synovitis and tenosynovitis, unspecified (principal); M86.9 Osteomyelitis, unspecified; M85.80 Other specified disorders of bone density and structure, unspecified site; L40.3 Pustulosis palmaris et plantaris; L70.9 Acne, unspecified
CPT/HCPCS: 96365; 96366; J2430

== ENCOUNTER 2022-07-02 12:55 | Outpatient (RCR) | payer OTHER, SELFPAY | END 2022-07-02 12:59 | disposition home or self-care (01) | LOC: PT 12:55 | PROVIDERS: PCP Family Medicine; Visit Provider Neurological Surgery | DX: M47.22 Other spondylosis with radiculopathy, cervical region (principal) | CPT/HCPCS: 97010; 97014; 97035; 97110; 97140; 97163; G0283 ==

== ENCOUNTER 2022-07-09 08:42 | Outpatient (CLI) | payer OTHER, SELFPAY ==
[2022-07-09] VITALS (8 sets, daily range): BP systolic 102–137; BP diastolic 52–73; PULSE 65–72; RESP 18; O2SAT 96; BMI 23.8
[2022-07-09 09:23] LABS: Chloride 109 mmol/L (98-107); Sodium 141 mmol/L (136-145)
[2022-07-09 09:26] LABS: Alanine Aminotransferase 52 U/L (12-78); Albumin Level 3.9 g/dl (3.5-5.0); Albumin/Globulin Ratio 1.6 (1.1-1.8); Alkaline Phosphatase 53 U/L (38-126); Aspartate Amino Transferase 49 U/L (14-36); Blood Urea Nitrogen 11 mg/dl (7-17); Calcium 8.1 mg/dl (8.4-10.2); Carbon Dioxide 27 mmol/L (22.0-30.0); Creatinine Clearance Estimated 85 mL/min (50-200); Estimated Glomerular Filt Rate 74 ml/min (>60); GFR (African American) 90 ML/MIN (>60); Globulin 2.5 g/dL (1.3-3.2); Glucose 131 mg/dl (74-100); Total Protein,Serum 6.4 g/dl (6.3-8.2)
[2022-07-09 09:29] LABS: Bilirubin,Total < 0.1 mg/dl (0.2-1.3)
== END 2022-07-09 13:10 | disposition home or self-care (01) ==
PROVIDERS: PCP Family Medicine; Visit Provider Internal Medicine Rheumatology
DX: M65.9 Synovitis and tenosynovitis, unspecified (principal); M86.9 Osteomyelitis, unspecified; M85.80 Other specified disorders of bone density and structure, unspecified site; L40.3 Pustulosis palmaris et plantaris; L70.9 Acne, unspecified
CPT/HCPCS: 80053; 96365; 96366; J2430

== ENCOUNTER 2022-07-16 15:30 | Outpatient (RCR) | payer OTHER, SELFPAY | END 2022-07-16 15:35 | disposition home or self-care (01) | LOC: PT 15:30 | PROVIDERS: PCP Family Medicine; Visit Provider Physician Assistant | DX: M79.671 Pain in right foot (principal); R93.7 Abnormal findings on diagnostic imaging of other parts of musculoskeletal system | CPT/HCPCS: 97163 ==

== ENCOUNTER 2022-08-29 09:03 | Outpatient (CLI) | payer OTHER, SELFPAY ==
[2022-08-29] VITALS (10 sets, daily range): BP systolic 102–117; BP diastolic 64–75; PULSE 62–72; RESP 14–18; TEMP 36.4–36.6; O2SAT 97–99; BMI 23.5
[2022-08-29 09:36] LABS: Chloride 102 mmol/L (98-107); Potassium 3.6 mmoL/L (3.5-5.1); Sodium 141 mmol/L (136-145)
[2022-08-29 09:38] LABS: Alanine Aminotransferase 26 U/L (12-78); Aspartate Amino Transferase 31 U/L (14-36); Blood Urea Nitrogen 16 mg/dl (7-17); Creatinine Clearance Estimated 75 mL/min (50-200); Estimated Glomerular Filt Rate 65 ml/min (>60); GFR (African American) 78 ML/MIN (>60)
[2022-08-29 09:39] LABS: Albumin Level 4.3 g/dl (3.5-5.0); Albumin/Globulin Ratio 1.7 (1.1-1.8); Alkaline Phosphatase 57 U/L (38-126); Anion Gap 12.6 mEq/L (5-15); Bilirubin,Total 0.2 mg/dl (0.2-1.3); Calcium 8.8 mg/dl (8.4-10.2); Carbon Dioxide 30 mmol/L (22.0-30.0); Globulin 2.5 g/dL (1.3-3.2); Glucose 100 mg/dl (74-100); Total Protein,Serum 6.8 g/dl (6.3-8.2)
== END 2022-08-29 13:45 | disposition home or self-care (01) ==
LOC: INF 09:03
PROVIDERS: PCP Family Medicine; Visit Provider Internal Medicine Rheumatology
DX: M65.9 Synovitis and tenosynovitis, unspecified (principal); M86.9 Osteomyelitis, unspecified; M85.80 Other specified disorders of bone density and structure, unspecified site; L40.3 Pustulosis palmaris et plantaris; L70.9 Acne, unspecified
CPT/HCPCS: 80053; 96365; 96366; J2430

== ENCOUNTER 2022-10-29 15:43 | Outpatient (RCR) | payer OTHER, SELFPAY | END 2022-10-29 15:45 | disposition home or self-care (01) | LOC: PT 15:43 | PROVIDERS: PCP Family Medicine; Visit Provider Nurse Practitioner Primary Care | DX: M65.9 Synovitis and tenosynovitis, unspecified (principal); M86.9 Osteomyelitis, unspecified; M85.80 Other specified disorders of bone density and structure, unspecified site; L40.3 Pustulosis palmaris et plantaris; L70.9 Acne, unspecified | CPT/HCPCS: 97163 ==

== ENCOUNTER → 2022-12-02 09:25 | Outpatient (CLI) | payer OTHER, SELFPAY | PROVIDERS: PCP Family Medicine; Visit Provider Internal Medicine Rheumatology | DX: M65.9 Synovitis and tenosynovitis, unspecified (principal); M86.9 Osteomyelitis, unspecified; M85.80 Other specified disorders of bone density and structure, unspecified site; L40.3 Pustulosis palmaris et plantaris; L70.9 Acne, unspecified ==

== ENCOUNTER 2022-12-19 09:19 | Outpatient (CLI) | payer OTHER, SELFPAY ==
[2022-12-19] VITALS (7 sets, daily range): BP systolic 96–124; BP diastolic 58–71; PULSE 64–78; RESP 18; TEMP 36.4; O2SAT 97; BMI 23.5
[2022-12-19 09:51] LABS: Chloride 104 mmol/L (98-107); Potassium 3.6 mmoL/L (3.5-5.1); Sodium 141 mmol/L (136-145)
[2022-12-19 09:54] LABS: Alanine Aminotransferase 30 U/L (12-78); Albumin Level 4.3 g/dl (3.5-5.0); Albumin/Globulin Ratio 1.5 (1.1-1.8); Alkaline Phosphatase 58 U/L (38-126); Anion Gap 8.6 mEq/L (5-15); Aspartate Amino Transferase 32 U/L (14-36); Bilirubin,Total 0.5 mg/dl (0.2-1.3); Blood Urea Nitrogen 17 mg/dl (7-17); Calcium 8.9 mg/dl (8.4-10.2); Carbon Dioxide 32 mmol/L (22.0-30.0); Creatinine Clearance Estimated 75 mL/min (50-200); Estimated Glomerular Filt Rate 65 ml/min (>60); GFR (African American) 78 ML/MIN (>60); Globulin 2.9 g/dL (1.3-3.2); Glucose 105 mg/dl (74-100); Total Protein,Serum 7.2 g/dl (6.3-8.2)
[2022-12-19 14:07] LABS: Calcium 8.3 mg/dl (8.4-10.2)
== END 2022-12-19 13:45 | disposition home or self-care (01) ==
LOC: INF 09:20
PROVIDERS: Internal Medicine Rheumatology; PCP Family Medicine
DX: M65.9 Synovitis and tenosynovitis, unspecified (principal); M86.9 Osteomyelitis, unspecified; M85.80 Other specified disorders of bone density and structure, unspecified site; L40.3 Pustulosis palmaris et plantaris; L70.9 Acne, unspecified
CPT/HCPCS: 80053; 82310; 96365; 96366; J2430

== ENCOUNTER 2023-02-06 08:39 | Outpatient (CLI) | payer OTHER, SELFPAY ==
[2023-02-06] VITALS (7 sets, daily range): BP systolic 106–134; BP diastolic 63–70; PULSE 64–90; RESP 18; O2SAT 98; BMI 24.5
[2023-02-06 09:15] LABS: Chloride 102 mmol/L (98-107); Potassium 3.2 mmoL/L (3.5-5.1); Sodium 138 mmol/L (136-145)
[2023-02-06 09:17] LABS: Alanine Aminotransferase 29 U/L (12-78); Aspartate Amino Transferase 31 U/L (14-36); Blood Urea Nitrogen 17 mg/dl (7-17); Creatinine Clearance Estimated 101 mL/min (50-200); Estimated Glomerular Filt Rate 87 ml/min (>60); GFR (African American) 105 ML/MIN (>60)
[2023-02-06 09:18] LABS: Albumin Level 4.3 g/dl (3.5-5.0); Albumin/Globulin Ratio 1.7 (1.1-1.8); Alkaline Phosphatase 55 U/L (38-126); Anion Gap 9.2 mEq/L (5-15); Bilirubin,Total 0.4 mg/dl (0.2-1.3); Calcium 9.2 mg/dl (8.4-10.2); Carbon Dioxide 30 mmol/L (22.0-30.0); Globulin 2.6 g/dL (1.3-3.2); Glucose 127 mg/dl (74-100); Total Protein,Serum 6.9 g/dl (6.3-8.2)
== END 2023-02-06 12:35 | disposition home or self-care (01) ==
LOC: INF 08:39
PROVIDERS: PCP Family Medicine; Visit Provider Internal Medicine Rheumatology
DX: M65.9 Synovitis and tenosynovitis, unspecified (principal); M66.9 Spontaneous rupture of unspecified tendon; M85.80 Other specified disorders of bone density and structure, unspecified site; L40.3 Pustulosis palmaris et plantaris; L70.9 Acne, unspecified
CPT/HCPCS: 80053; 96365; 96366; J2430

== ENCOUNTER → 2023-02-28 08:15 | Outpatient (CLI) | payer OTHER, SELFPAY ==
--- NOTE | 2023-02-28 08:19 | US_ITS ---
FINAL REPORT CLINICAL HISTORY: ASCITES FINDINGS: Sonographic images of the abdomen were obtained. There is increased echogenicity of the liver consistent with fatty infiltration. The gallbladder is partially collapsed. There is no evidence of biliary ductal dilatation. The common hepatic duct measures 4 mm, which is within normal limits. Limited images of the pancreas are unremarkable. The spleen size is normal. The right kidney measures 9.6 in length. The left kidney measures 9.8 in length. There is normal renal echogenicity. There is no evidence of hydronephrosis. The aorta has an unremarkable appearance. Limited images of the inferior vena cava are unremarkable. IMPRESSION: Fatty liver, otherwise unremarkable exam. Reviewed, Interpreted and Dictated by Yonatan May III, MD Transcribed by Claudine Yanez Authenticated and . [facility]
== END ==
PROVIDERS: PCP Family Medicine; Visit Provider Family Medicine
DX: R18.8 Other ascites (principal)
CPT/HCPCS: 76700

== ENCOUNTER 2023-03-20 15:30 | Outpatient (RCR) | payer OTHER, SELFPAY | END 2023-03-20 15:35 | disposition home or self-care (01) | LOC: PT 15:30 | PROVIDERS: PCP Family Medicine | DX: M15.9 Polyosteoarthritis, unspecified (principal); G89.29 Other chronic pain; M65.9 Synovitis and tenosynovitis, unspecified; M86.9 Osteomyelitis, unspecified; M85.80 Other specified disorders of bone density and structure, unspecified site; L40.3 Pustulosis palmaris et plantaris; L70.9 Acne, unspecified; M54.50 Low back pain, unspecified | CPT/HCPCS: 20561; 97014; 97110; 97163; G0283 ==

== ENCOUNTER 2023-03-26 07:23 | Outpatient (CLI) | payer OTHER, SELFPAY ==
[2023-03-26] VITALS (7 sets, daily range): BP systolic 90–108; BP diastolic 57–67; PULSE 57–68; RESP 18–19; TEMP 36.6; O2SAT 95–96; BMI 24.3
--- NOTE | 2023-03-26 07:29 | US_ITS ---
FINAL REPORT TECHNIQUE: Limited sonographic images of the thyroid were obtained. CLINICAL HISTORY: thyroid dysfuntion FINDINGS: The thyroid gland is mildly atrophic. The parenchyma is extremely heterogeneous. Findings overall suggestive of a thyroiditis. No mass is identified to indicate thyroid neoplasm. The right lobe of thyroid measures 5.21 x 1.16 x 1.45 cm. In the left lobe of the thyroid measures 5.22 x 1.40 x 1.11 cm. The isthmus measures 0.22 cm. IMPRESSION: Findings suggest thyroiditis. Reviewed, Interpreted and Dictated by Crow López MD Transcribed by Abbie Levin Authenticated and [facility]
[2023-03-26 08:53] LABS: Alanine Aminotransferase 38 U/L (12-78); Albumin Level 4.3 g/dl (3.5-5.0); Albumin/Globulin Ratio 1.5 (1.1-1.8); Alkaline Phosphatase 45 U/L (38-126); Aspartate Amino Transferase 42 U/L (14-36); Bilirubin,Total 0.4 mg/dl (0.2-1.3); Blood Urea Nitrogen 20 mg/dl (7-17); Calcium 9.1 mg/dl (8.4-10.2); Carbon Dioxide 30 mmol/L (22.0-30.0); Chloride 97 mmol/L (98-107); Creatinine Clearance Estimated 63 mL/min (50-200); Estimated Glomerular Filt Rate 51 ml/min (>60); GFR (African American) 62 ML/MIN (>60); Globulin 2.8 g/dL (1.3-3.2); Glucose 104 mg/dl (74-100); Sodium 139 mmol/L (136-145); Total Protein,Serum 7.1 g/dl (6.3-8.2)
--- NOTE | 2023-03-26 09:06 | PC.NURSE ---
0906-Ana Cristina villalobos mlt called rn with critical lab value potassium 3.0. Rn repeated and verified pt name, , and lab value. Rn called md and no new orders at this time.
== END 2023-03-26 12:45 | disposition home or self-care (01) ==
LOC: RAD 07:26 → INF 07:26
PROVIDERS: Internal Medicine Rheumatology; PCP Family Medicine; Visit Provider Otolaryngology
DX: E07.9 Disorder of thyroid, unspecified (principal)
CPT/HCPCS: 76536; 80053; 96365; 96366; J2430

== ENCOUNTER → 2023-04-09 10:32 | Outpatient (CLI) | payer OTHER, SELFPAY ==
--- NOTE | 2023-04-09 10:42 | ECG_ITS ---
APPROVED REPORT Exam: Resting ECG HR:52 bpm ECG Measurements Heart Rate 52 AXES WY 118 P 76 QRSd 85 QRS 69 QT 423 T 68 QTc 403 Conclusion SINUS BRADYCARDIA WITH SHORT WY INTERVAL BORDERLINE ECG UNCONFIRMED REPORT Electronically signed by : Haim Price MD 04/09/2023 21:14:30
[2023-04-09 11:45] LABS: Basophils # 0.1 K/mm3 (0-0.2); Basophils % 1.7 % (0.1-2.0); Eosinophils # 0.2 K/mm3 (0.0-0.4); Eosinophils % 3.7 % (0.1-12.0); Hematocrit 37.8 % (37.0-47.0); Hemoglobin 12.4 g/dL (12.2-16.2); Lymphocytes # 1.9 K/mm3 (0.7-4.5); Lymphocytes % 40.1 % (10-50); Mean Corpuscular HGB Conc 32.9 g/dL (31.8-35.4); Mean Corpuscular Hemoglobin 30.8 pg (27.0-31.2); Mean Corpuscular Volume 93.8 fl (81-99); Mean Platelet Volume 8.6 fl (7.4-10.4); Monocytes # 0.4 K/mm3 (0.1-1.0); Monocytes % 7.9 % (1.7-9.3); Neutrophils # 2.2 K/mm3 (1.8-7.8); Neutrophils % 46.7 % (37.0-80.0); Platelet Count 261 K/mm3 (142-424); Red Blood Count 4.02 M/mm3 (4.20-5.40); Red Cell Distribution Width 13.2 % (11.5-17.5); White Blood Count 4.8 K/mm3 (4.8-10.8)
[2023-04-09 12:05] LABS: Anion Gap 15.8 mEq/L (5-15); Blood Urea Nitrogen 13 mg/dl (7-17); Calcium 9.2 mg/dl (8.4-10.2); Carbon Dioxide 30 mmol/L (22.0-30.0); Chloride 99 mmol/L (98-107); Estimated Glomerular Filt Rate 51 ml/min (>60); GFR (African American) 62 ML/MIN (>60); Glucose 98 mg/dl (74-100); Potassium 3.8 mmoL/L (3.5-5.1); Sodium 141 mmol/L (136-145)
== END ==
PROVIDERS: PCP Family Medicine; Visit Provider Surgery
DX: Z01.818 Encounter for other preprocedural examination (principal); K82.9 Disease of gallbladder, unspecified
CPT/HCPCS: 36415; 80048; 85025; 93005

== ENCOUNTER → 2023-04-21 13:36 | Outpatient (CLI) | payer OTHER, SELFPAY ==
[2023-04-21 14:56] LABS: Free T4 (Free Thyroxine) 1.34 ng/dl (0.78-2.19)
[2023-04-21 15:10] LABS: Thyroid Stimulating Hormone 4.15 uIU/mL (0.465-4.68)
== END ==
PROVIDERS: PCP Family Medicine; Visit Provider Nurse Practitioner
DX: E03.9 Hypothyroidism, unspecified (principal)
CPT/HCPCS: 36415; 84439; 84443

== ENCOUNTER 2023-05-29 07:59 | Outpatient (CLI) | payer OTHER, SELFPAY ==
[2023-05-29] VITALS (8 sets, daily range): BP systolic 110–131; BP diastolic 71–80; PULSE 60–80; RESP 18; TEMP 36.6; O2SAT 97; BMI 24.3
[2023-05-29 08:41] LABS: Alanine Aminotransferase 35 U/L (12-78); Albumin Level 4.3 g/dl (3.5-5.0); Albumin/Globulin Ratio 1.4 (1.1-1.8); Alkaline Phosphatase 59 U/L (38-126); Anion Gap 10.1 mEq/L (5-15); Aspartate Amino Transferase 37 U/L (14-36); Bilirubin,Total 0.4 mg/dl (0.2-1.3); Blood Urea Nitrogen 12 mg/dl (7-17); Calcium 9.7 mg/dl (8.4-10.2); Carbon Dioxide 31 mmol/L (22.0-30.0); Chloride 100 mmol/L (98-107); Creatinine Clearance Estimated 69 mL/min (50-200); Estimated Glomerular Filt Rate 57 ml/min (>60); GFR (African American) 69 ML/MIN (>60); Glucose 109 mg/dl (74-100); Potassium 3.1 mmoL/L (3.5-5.1); Sodium 138 mmol/L (136-145); Total Protein,Serum 7.3 g/dl (6.3-8.2)
== END 2023-05-29 12:20 | disposition home or self-care (01) ==
LOC: INF 07:59
PROVIDERS: PCP Family Medicine; Visit Provider Internal Medicine Rheumatology
DX: M65.9 Synovitis and tenosynovitis, unspecified (principal); M86.9 Osteomyelitis, unspecified; M85.80 Other specified disorders of bone density and structure, unspecified site; L40.3 Pustulosis palmaris et plantaris; L70.9 Acne, unspecified
CPT/HCPCS: 80053; 96365; 96366; J2430

== ENCOUNTER 2023-07-08 09:08 | Outpatient (CLI) | payer OTHER, SELFPAY ==
[2023-07-08] VITALS (8 sets, daily range): BP systolic 105–129; BP diastolic 65–78; PULSE 62–75; RESP 18; TEMP 36.6; O2SAT 97; BMI 25.0
[2023-07-08 09:39] LABS: Chloride 105 mmol/L (98-107); Potassium 3.7 mmoL/L (3.5-5.1); Sodium 141 mmol/L (136-145)
[2023-07-08 09:42] LABS: Alanine Aminotransferase 38 U/L (12-78); Albumin/Globulin Ratio 1.4 (1.1-1.8); Alkaline Phosphatase 58 U/L (38-126); Anion Gap 12.7 mEq/L (5-15); Aspartate Amino Transferase 32 U/L (14-36); Bilirubin,Total 0.5 mg/dl (0.2-1.3); Blood Urea Nitrogen 14 mg/dl (7-17); Calcium 9.4 mg/dl (8.4-10.2); Carbon Dioxide 27 mmol/L (22.0-30.0); Creatinine Clearance Estimated 71 mL/min (50-200); Estimated Glomerular Filt Rate 57 ml/min (>60); GFR (African American) 69 ML/MIN (>60); Globulin 2.9 g/dL (1.3-3.2); Glucose 123 mg/dl (74-100); Total Protein,Serum 6.9 g/dl (6.3-8.2)
== END 2023-07-08 13:20 | disposition home or self-care (01) ==
LOC: INF 09:09
PROVIDERS: PCP Family Medicine; Visit Provider Internal Medicine Rheumatology
DX: M65.9 Synovitis and tenosynovitis, unspecified (principal); M86.9 Osteomyelitis, unspecified; M85.80 Other specified disorders of bone density and structure, unspecified site; L40.3 Pustulosis palmaris et plantaris; L70.9 Acne, unspecified
CPT/HCPCS: 80053; 96365; 96366; J2430

== ENCOUNTER 2023-08-25 09:19 | Outpatient (CLI) | payer OTHER, SELFPAY ==
[2023-08-25] VITALS (8 sets, daily range): BP systolic 90–109; BP diastolic 64–69; PULSE 53–71; RESP 18; TEMP 36.4; O2SAT 97; BMI 25.8
--- OUTSIDE RECORDS SUMMARY | 2023-08-25 09:21 | XMS_ITS | Summary of Care ---
Author Name Unknown Organization [facility] Address [address] [place] [address]- Care Team Providers Care Engineer Soils Name Role Phone Ferdinand Carranza Primary Care Physician Unavailab le Encounter 01/26/21 - 02/01/21 [facility] [address] [place] [id number] Encounter Diagnosis Lumbosacral Stenosis with neurogenic claudication and Spondylolisthesis (Discharge Diagnosis) - 01/26/21 Discharge Disposition: Discharged to Home or Self Care Attending Physician: Adele Lemus DO Admitting Physician: Adele Lemus DO Referring Physician: Jagjit Soto Allergies, Adverse Reactions, Alerts Substance Reaction Severity Status codeine Active methotrexate Active Demerol Active Toradol IV/IM Active Assessment and Plan Extracted from: Title:Inpatient Clinical Summary Author:April Antonio Date:01/31/21 [facility] [address] [facility] [place] [id number] Clinical Discharge Summary PERSON INFORMATION Name ASHA SMITH [id number] Sex Female Age 55 Years Race White Admitted 01/26/2021 14:55:00 Discharged Address: [address] [facility] [address] PROVIDER INFORMATION Attending Physician: Adele Lemus DO Consulting Physician: DIAGNOSIS Lumbosacral Stenosis with neurogenic claudication and Spondylolisthesis Current Vitals Temp Oral: 98.4 DegF Temp Tympanic: Temp Axillary: Temp Rectal: SPO2 : 94 % Respiratory Rate: 16 br/min Peripheral Pulse Rate: 83 bpm Apical Heart Rate: Blood Pressure: 92 mmHg / 54 mmHg Discharge Orders ??Order Name Order Details : Electronically Signed By: Discharge Followup 01/26/21 16:32:00 EST, Call for Appointment, Your PCP within 10 days of discharge from [facility] [place] Magdy Felix M.D Discharge Followup 01/26/21 16:32:00 EST, Sophia Murphy PA-C. - Address/Phone Number: [facility], [address] [place] [address] #[phone]. Magdy Felix M.D Discharge Followup 01/26/21 16:32:00 EST, Call for Appointment, Dr. Dale in 4-6 weeks from discharge from
[2023-08-25 10:05] LABS: Alanine Aminotransferase 26 U/L (12-78); Albumin Level 4.5 g/dl (3.5-5.0); Albumin/Globulin Ratio 1.4 (1.1-1.8); Alkaline Phosphatase 51 U/L (38-126); Anion Gap 14.5 mEq/L (5-15); Aspartate Amino Transferase 29 U/L (14-36); Bilirubin,Total 0.3 mg/dl (0.2-1.3); Blood Urea Nitrogen 17 mg/dl (7-17); Calcium 9.3 mg/dl (8.4-10.2); Carbon Dioxide 22 mmol/L (22.0-30.0); Chloride 112 mmol/L (98-107); Creatinine Clearance Estimated 92 mL/min (50-200); Estimated Glomerular Filt Rate 74 ml/min (>60); GFR (African American) 89 ML/MIN (>60); Globulin 3.3 g/dL (1.3-3.2); Glucose 115 mg/dl (74-100); Potassium 4.5 mmoL/L (3.5-5.1); Sodium 144 mmol/L (136-145); Total Protein,Serum 7.8 g/dl (6.3-8.2)
[2023-08-27 18:09] LABS: Calcium, Ionized 4.7 mg/dL (4.5-5.6)
== END 2023-08-25 13:40 | disposition home or self-care (01) ==
LOC: INF 09:19
PROVIDERS: Internal Medicine Rheumatology; PCP Family Medicine; Visit Provider Family Medicine
DX: M65.9 Synovitis and tenosynovitis, unspecified (principal)
CPT/HCPCS: 80053; 82330; 96365; 96366; J2430

== ENCOUNTER 2023-12-09 08:47 | Outpatient (CLI) | payer MEDICARE, SELFPAY ==
[2023-12-09] VITALS (9 sets, daily range): BP systolic 101–135; BP diastolic 57–79; PULSE 68–94; RESP 20; TEMP 36.6; O2SAT 97–98; BMI 25.8
[2023-12-09] MEDS: ACETAMINOPHEN 325MG TAB 650 MG PO (09:20)
[2023-12-09] MEDS: SODIUM CHLORIDE 0.9% 50ML BAG 50 ML IV (09:20)
[2023-12-09] MEDS: diphenhydrAMINE 25MG CAPSULE 25 MG PO (09:20)
[2023-12-09] MEDS: ONDANSETRON 4MG ODT 4 MG SL (09:21)
[2023-12-09 09:28] LABS: Chloride 95 mmol/L (98-107)
[2023-12-09 09:29] LABS: Potassium 3.4 mmoL/L (3.5-5.1); Sodium 137 mmol/L (136-145)
[2023-12-09 09:31] LABS: Alanine Aminotransferase 32 U/L (12-78); Aspartate Amino Transferase 36 U/L (14-36); Blood Urea Nitrogen 14 mg/dl (7-17); Creatinine Clearance Estimated 81 mL/min (50-200); Estimated Glomerular Filt Rate 65 ml/min (>60); GFR (African American) 78 ML/MIN (>60)
[2023-12-09 09:32] LABS: Albumin Level 4.7 g/dl (3.5-5.0); Albumin/Globulin Ratio 1.4 (1.1-1.8); Alkaline Phosphatase 58 U/L (38-126); Anion Gap 12.4 mEq/L (5-15); Bilirubin,Total 0.7 mg/dl (0.2-1.3); Calcium 9.5 mg/dl (8.4-10.2); Carbon Dioxide 33 mmol/L (22.0-30.0); Globulin 3.3 g/dL (1.3-3.2); Glucose 120 mg/dl (74-100)
[2023-12-09] MEDS: PAMIDRONATE DISODIUM IV (09:59)
[2023-12-09] MEDS: SODIUM CHLORIDE 0.9% 10ML FLUSH SYRINGE 10 ML IV (09:59)
[2023-12-09] MEDS: SODIUM CHLORIDE 0.9% IV (09:59)
[2023-12-10 09:29] LABS: Calcium, Ionized 4.7 mg/dL (4.5-5.6)
== END 2023-12-09 13:25 | disposition home or self-care (01) ==
LOC: INF 08:51
PROVIDERS: PCP Family Medicine; Visit Provider Internal Medicine
DX: L40.3 Pustulosis palmaris et plantaris (principal); L70.9 Acne, unspecified; M65.9 Synovitis and tenosynovitis, unspecified; M86.9 Osteomyelitis, unspecified; M85.80 Other specified disorders of bone density and structure, unspecified site
CPT/HCPCS: 80053; 82330; 96365; 96366; J2430

== ENCOUNTER 2024-01-21 11:42 | Outpatient (CLI) | payer MEDICARE, SELFPAY ==
[2024-01-21] VITALS (8 sets, daily range): BP systolic 104–118; BP diastolic 66–73; PULSE 64–77; RESP 16–17; O2SAT 99; BMI 25.8
[2024-01-21] MEDS: ACETAMINOPHEN 325MG TAB 650 MG (11:52)
[2024-01-21] MEDS: 0.9 % SODIUM CHLORIDE 50 ML 100 ML IV (11:52)
[2024-01-21] MEDS: ONDANSETRON 4MG ODT 4 MG (11:53)
[2024-01-21] MEDS: diphenhydrAMINE 25MG CAPSULE 25 MG PO (11:53)
[2024-01-21] MEDS: PAMIDRONATE DISODIUM IV (12:26)
[2024-01-21] MEDS: SODIUM CHLORIDE 0.9% IV (12:26)
--- NOTE | 2024-01-21 16:31 | PC.NURSE ---
1550-BLOOD DRAWN FROM IV FOR POST IONIZED CALCIUM LEVEL THEN IV REMOVED.
[2024-01-22 15:12] LABS: Calcium, Ionized 4.9 mg/dL (4.5-5.6)
== END 2024-01-21 16:00 | disposition home or self-care (01) ==
LOC: INF 11:43
PROVIDERS: PCP Family Medicine; Visit Provider Internal Medicine
DX: M86.9 Osteomyelitis, unspecified; M85.80 Other specified disorders of bone density and structure, unspecified site; L40.3 Pustulosis palmaris et plantaris; L70.9 Acne, unspecified; M04.8 Other autoinflammatory syndromes; M65.9 Synovitis and tenosynovitis, unspecified
CPT/HCPCS: 82330; 96365; 96366; J2430

== ENCOUNTER 2024-03-03 09:33 | Outpatient (CLI) | payer MEDICARE, SELFPAY ==
[2024-03-03] VITALS (8 sets, daily range): BP systolic 98–113; BP diastolic 69–76; PULSE 58–77; RESP 17–18; O2SAT 96–98; BMI 25.0
--- OUTSIDE RECORDS SUMMARY | 2024-03-03 09:36 | XMS_ITS ---
Author Name Adam Lawrence Address [address] [place] [address] Organization Unknown Address [address] [place] [address] ALLERGIES AND ADVERSE REACTIONS No information ASSESSMENT No information CHIEF COMPLAINT No information MEDICATIONS No information OBJECTIVE DATA No information PHYSICAL EXAMINATION No information TREATMENT PLAN Planned Care Start Date Provider Encounter for Check-up [id number] AC Carranza PROBLEMS No information RESULTS No information REVIEW OF SYSTEMS No information SUBJECTIVE DATA No information VITAL SIGNS No information
[2024-03-03] MEDS: ACETAMINOPHEN 325MG TAB 650 MG PO (10:02)
[2024-03-03] MEDS: ONDANSETRON 4MG ODT 4 MG (10:02)
[2024-03-03] MEDS: diphenhydrAMINE 25MG CAPSULE 25 MG PO (10:02)
[2024-03-03 10:16] LABS: Chloride 103 mmol/L (98-107); Potassium 3.2 mmoL/L (3.5-5.1); Sodium 141 mmol/L (136-145)
[2024-03-03 10:18] LABS: Blood Urea Nitrogen 15 mg/dl (7-17); Creatinine Clearance Estimated 89 mL/min (50-200); Estimated Glomerular Filt Rate 74 ml/min (>60); GFR (African American) 89 ML/MIN (>60)
[2024-03-03 10:19] LABS: Alanine Aminotransferase 33 U/L (12-78); Albumin Level 4.3 g/dl (3.5-5.0); Albumin/Globulin Ratio 1.5 (1.1-1.8); Alkaline Phosphatase 39 U/L (38-126); Anion Gap 7.2 mEq/L (5-15); Aspartate Amino Transferase 41 U/L (14-36); Bilirubin,Total 0.7 mg/dl (0.2-1.3); Calcium 9.4 mg/dl (8.4-10.2); Carbon Dioxide 34 mmol/L (22.0-30.0); Globulin 2.8 g/dL (1.3-3.2); Glucose 109 mg/dl (74-100); Total Protein,Serum 7.1 g/dl (6.3-8.2)
[2024-03-03] MEDS: SODIUM CHLORIDE 0.9% IV (10:35)
[2024-03-03] MEDS: 0.9 % SODIUM CHLORIDE 50 ML 100 ML IV (10:35)
[2024-03-03] MEDS: PAMIDRONATE DISODIUM IV (10:35)
== END 2024-03-03 13:45 | disposition home or self-care (01) ==
LOC: INF 09:34
PROVIDERS: PCP Family Medicine; Visit Provider Internal Medicine
DX: M65.9 Synovitis and tenosynovitis, unspecified (principal); M86.9 Osteomyelitis, unspecified; M85.80 Other specified disorders of bone density and structure, unspecified site; L40.3 Pustulosis palmaris et plantaris; L70.9 Acne, unspecified
CPT/HCPCS: 80053; 96365; 96366; J2430

== ENCOUNTER 2024-04-22 08:35 | Outpatient (CLI) | payer MEDICARE, SELFPAY ==
[2024-04-22] VITALS (9 sets, daily range): BP systolic 92–105; BP diastolic 58–66; PULSE 62–70; RESP 20; TEMP 36.2; O2SAT 98–99; BMI 22.8
[2024-04-22] MEDS: SODIUM CHLORIDE 0.9% 10ML FLUSH SYRINGE 10 ML IV (09:14)
[2024-04-22] MEDS: diphenhydrAMINE 25MG CAPSULE 25 MG PO (09:14)
[2024-04-22] MEDS: ACETAMINOPHEN 325MG TAB 650 MG PO (09:14)
[2024-04-22] MEDS: ONDANSETRON 4MG ODT 4 MG SL (09:14)
[2024-04-22] MEDS: 0.9 % SODIUM CHLORIDE 50 ML IV (09:17)
[2024-04-22 09:18] LABS: Chloride 106 mmol/L (98-107); Sodium 139 mmol/L (136-145)
[2024-04-22 09:19] LABS: Potassium 3.5 mmoL/L (3.5-5.1)
[2024-04-22 09:21] LABS: Alanine Aminotransferase 28 U/L (12-78); Albumin Level 4.2 g/dl (3.5-5.0); Albumin/Globulin Ratio 1.6 (1.1-1.8); Alkaline Phosphatase 45 U/L (38-126); Anion Gap 10.5 mEq/L (5-15); Aspartate Amino Transferase 36 U/L (14-36); Bilirubin,Total 0.4 mg/dl (0.2-1.3); Blood Urea Nitrogen 12 mg/dl (7-17); Calcium 9.4 mg/dl (8.4-10.2); Carbon Dioxide 26 mmol/L (22.0-30.0); Creatinine Clearance Estimated 59 mL/min (50-200); Estimated Glomerular Filt Rate 51 ml/min (>60); GFR (African American) 62 ML/MIN (>60); Globulin 2.6 g/dL (1.3-3.2); Glucose 98 mg/dl (74-100); Total Protein,Serum 6.8 g/dl (6.3-8.2)
[2024-04-22] MEDS: SODIUM CHLORIDE 0.9% IV (09:37)
[2024-04-22] MEDS: PAMIDRONATE DISODIUM IV (09:37)
== END 2024-04-22 13:00 | disposition home or self-care (01) ==
LOC: INF 08:36
PROVIDERS: PCP Family Medicine; Visit Provider Internal Medicine Rheumatology
DX: M65.9 Synovitis and tenosynovitis, unspecified (principal); M86.9 Osteomyelitis, unspecified; M85.80 Other specified disorders of bone density and structure, unspecified site; I70.90 Unspecified atherosclerosis; L40.3 Pustulosis palmaris et plantaris
CPT/HCPCS: 80053; 82330; 96365; 96366; J2430

== ENCOUNTER 2024-06-01 08:53 | Emergency (ER) | payer MEDICARE, SELFPAY ==
[2024-06-01 08:54] VITALS: BP 142/93; PULSE 69; RESP 18; TEMP 36.3; O2SAT 98; BMI 21.1
--- NOTE | 2024-06-01 09:04 | CT_ITS ---
FINAL REPORT TECHNIQUE: Thin section axial images were obtained from skull base to vertex without contrast. Coronal reconstruction images were obtained from the axial data. Exam was performed using dose reduction technique. CLINICAL HISTORY: brain fog COMPARISON: None FINDINGS: There is no mass effect or midline shift. There is no hydrocephalus. There is no intracranial hemorrhage. The posterior fossa is without acute abnormality. The basilar cisterns are preserved. The soft tissues are without acute abnormality. No acute osseous abnormality is identified. IMPRESSION: No acute intracranial abnormality. Reviewed, Interpreted and Dictated by Belinda Celestin MD Transcribed by Kizzy Harrell Authenticated and [facility]
--- NOTE | 2024-06-01 09:04 | CT_ITS ---
FINAL REPORT TECHNIQUE: Thin section axial images were obtained through the neck after contrast administration per CT angiogram protocol. Multiplanar reconstruction images were obtained from the axial data. Exam was performed using dose reduction technique. CLINICAL HISTORY: confusion COMPARISON: None FINDINGS: CTA NECK: Aortic arch: There is a normal three-vessel configuration to the aortic arch. There is no significant stenosis of the great vessels at their origins. Right carotid artery: The right common carotid artery is patent without stenosis. The cervical portions of the right internal carotid artery are patent without stenosis. Left carotid artery: The left common carotid artery is patent without stenosis. The cervical portions of the left internal carotid artery are patent without stenosis. Vertebral arteries: The vertebral arteries are patent. Other soft tissues: . IMPRESSION: No evidence of occlusion or significant stenosis. Reviewed, Interpreted and Dictated by Belinda Celestin MD Transcribed by Kizzy Harrell Authenticated and . [facility]
--- NOTE | 2024-06-01 09:04 | CT_ITS ---
FINAL REPORT TECHNIQUE: Thin section axial images are obtained through the brain after intravenous contrast injection. Multiplanar reconstructions were obtained from the axial data. Exam was performed using dose reduction technique per the ALARA principal. CLINICAL HISTORY: confusion COMPARISON: None FINDINGS: The intracerebral portions of the carotid arteries are patent. The anterior and middle cerebral arteries are patent. The basilar artery is patent. The left vertebral artery is dominant. The posterior cerebral arteries arise from the basilar artery. [place] is intact. There is no significant stenosis, aneurysm, or AVM. IMPRESSION: Unremarkable CT angiogram of the intracerebral vasculature. Reviewed, Interpreted and Dictated by Belinda Celestin MD Transcribed by Kizzy Harrell Authenticated and [facility]
--- NOTE | 2024-06-01 09:06 | ECG_ITS ---
APPROVED REPORT Exam: Resting ECG HR:70 bpm ECG Measurements Heart Rate 70 AXES LA 148 P 69 QRSd 79 QRS 54 QT 392 T 88 QTc 413 Conclusion SINUS RHYTHM NONSPECIFIC ST & T-WAVE ABNORMALITY BORDERLINE ECG UNCONFIRMED REPORT Electronically signed by : LUZMARIA CARVER, 06/01/2024 13:26:52
--- NOTE | 2024-06-01 09:06 | HMH.EDGENADL ---
Discharge Plan Disposition Patient Disposition: Home, Self-Care Condition: Good Prescriptions Prescriptions: New ondansetron HCl 8 mg tablet 8 mg PO Q8H PRN (Reason: nausea and vomiting) 4 Days Qty: 12 0RF cefdinir 300 mg capsule 300 mg PO BID 7 Days Qty: 14 0RF No Action pamidronate 30 mg recon soln 90 mg IV QMONTH duloxetine 60 mg capsule,delayed release(DR/EC) 60 mg PO DAILY meloxicam 15 mg tablet 15 mg PO DAILY oxycodone-acetaminophen 10-325 mg tablet 1 tab PO QID ondansetron HCl 4 mg tablet 4 mg PO NEEDED PRN (Reason: Nausea) prednisolone acetate 1 % drops,suspension 1 drp Eye-Both HS Cosentyx Pen (2 Pens) 150 mg/mL pen injector 150 mg SQ WEEKLY levothyroxine 150 mcg capsule 150 mcg PO DAILY Qty: 90 3RF potassium chloride 20 mEq tablet,ER particles/crystals 20 meq PO BID 30 Days Qty: 30 fluticasone furoate-vilanterol [Breo Ellipta] 200-25 mcg/dose blister with device 1 inh IH Q24H cholecalciferol (vitamin D3) 50,000 unit capsule 50,000 unit PO QWEEK metoprolol succinate 50 mg tablet extended release 24 hr 50 mg PO DAILY Qty: 90 atorvastatin 40 mg tablet 40 mg PO DAILY Qty: 90 Patient Comments: take 1 tablet by mouth once daily nitroglycerin 0.4 mg tablet, sublingual 0.4 mg SL .prn PRN (Reason: Chest Pain) Qty: 25 hydrochlorothiazide 25 mg tablet 25 mg PO DAILY Patient Comments: TAKE ONE TABLET BY MOUTH EVERY MORNING triamcinolone acetonide 0.1 % ointment 1 applic topical BID Qty: 80 2RF albuterol sulfate 8.5 GM HFA aerosol inhaler 2 puffs IH Q4HP PRN (Reason: Shortness Of Breath Or Wheezing) methocarbamol 500 MG tablet 500 mg PO BIDP PRN (Reason: back pain) diazepam 5 MG tablet 5 mg PO BID sennosides-docusate sodium 1 EACH tablet 1 each PO DAILY PRN (Reason: stool softener) furosemide 20 MG tablet 20 mg PO DAILY aspirin 81 MG tablet,delayed release (DR/EC) 81 mg PO DAILY Referrals Follow up/Referrals: Toni Carranza MD [Primary Care Provider] - See instructions Activity Restrictions/Add. Instructions Additional Instructions/Restrictions: You have been evaluated in the ED for your complaints. You may follow-up with your PCP in the next 3 to 5 days. Please return to ED for any new or worsening symptoms. Please keep your appointment with gastroenterology as discussed. I have written for cefdinir to treat urinary tract infection. Also written for Zofran to assist with any nausea that you may have Clinical Impressions Clinical Impression: Brain fog, UTI (urinary tract infection), Hypokalemia, Nausea Discharge ED Provider: Kyle Mayberry General Adult HPI General Chief complaint: Neuro Symptoms/Deficit Stated complaint: weakness Time Seen by Provider: 06/01/24 09:04 History of Present Illness HPI narrative: 59-year-old female with past medical history significant for chronic back pain, hypertension, arthritis, CAD, TAIWO, HLD, hypothyroidism, SAPHO syndrome, presents today for evaluation concerning brain fog which she states has been present over the past couple of weeks. She states that she feels like she knows what she wants to say however cannot get her words out at times. She states that she has been somewhat unsteady on her feet and has had a couple falls over the past week. She did not hit her head or lose consciousness during her falls. She denies any dysuria or hematuria. Denies any chest pain or shortness of breath. She does note dark stools over the past couple of weeks however denies noting any bright red blood. Has not had any nausea or hematemesis. No further complaints. Related Data Home Medications Medication Instructions Recorded Confirmed fluticasone furoate 200 1 inh inhalation Q24H Breathing 03/11/18 04/22/24 mcg-vilanterol 25 mcg/dose problems inhalation powder (Breo Ellipta) potassium chloride 20 mEq 20 meq PO BID Supplement 30 days 03/11/18 04/22/24 tablet,extended release(part/cryst) ##30 cholecalciferol (vitamin D3) 1,250 50,000 unit PO QWEEK Supplement 09/25/18 04/22/24 mcg (50,000 unit) capsule atorvastatin 40 mg tablet 40 mg PO DAILY Cholesterol #90 tabs 03/31/19 04/22/24 metoprolol succinate 50 mg 50 mg PO DAILY blood pressure #90 03/31/19 04/22/24 tablet,extended release 24 hr tabs nitroglycerin 0.4 mg sublingual 0.4 mg sublingual .prn PRN Chest 03/31/19 04/22/24 tablet Pain #25 tabs aspirin 81 mg tablet,delayed 81 mg PO DAILY Heart disease 04/08/19 04/22/24 release albuterol sulfate 90 mcg/actuation 2 puffs inhalation Q4HP PRN 11/04/19 04/22/24 aerosol inhaler Shortness Of Breath Or Wheezing methocarbamol 500 mg tablet 500 mg PO BIDP PRN back pain 09/11/20 04/22/24 diazepam 5 mg tablet 5 mg PO BID Anxiety 02/27/21 04/22/24 furosemide 20 mg tablet 20 mg PO DAILY Fluid 02/27/21 04/22/24 sennosides 8.6 mg-docusate sodium 1 each PO DAILY PRN stool softener 02/27/21 04/22/24 50 mg tablet pamidronate 30 mg intravenous 90 mg IV QMONTH 07/01/22 04/22/24 solution duloxetine 60 mg capsule,delayed 60 mg PO DAILY 03/10/23 04/22/24 release meloxicam 15 mg tablet 15 mg PO DAILY 03/10/23 04/22/24 ondansetron HCl 4 mg tablet 4 mg PO NEEDED PRN Nausea 03/10/23 04/22/24 oxycodone-acetaminophen 10 mg-325 1 tab PO QID 03/10/23 04/22/24 mg tablet prednisolone acetate 1 % eye 1 drp Eye-Both HS eyes 03/10/23 04/22/24 drops,suspension secukinumab 150 mg/mL subcutaneous 150 mg SQ WEEKLY 03/10/23 04/22/24 pen injector (Cosentyx Pen 300 mg/2 Pens () hydrochlorothiazide 25 mg tablet 25 mg PO DAILY blood pressure 05/21/23 04/22/24 Previous Rx's Medication Instructions Recorded levothyroxine 150 mcg capsule 150 mcg PO DAILY thyroid 04/21/23 supplement #90 caps triamcinolone acetonide 0.1 % 1 applic topical BID #80 grams 05/21/23 topical ointment cefdinir 300 mg capsule 300 mg PO BID 7 days #14 caps 06/01/24 ondansetron HCl 8 mg tablet 8 mg PO Q8H PRN nausea and 06/01/24 vomiting 4 days #12 tabs Allergies Allergy/AdvReac Type Severity Reaction Status Date / Time codeine Allergy Intermediate Verified 04/22/24 09:57 ketorolac [From Toradol] Allergy Intermediate Verified 04/22/24 09:57 meperidine Allergy Intermediate I-ITCHING Verified 04/22/24 09:57 methotrexate Allergy Intermediate Verified 04/22/24 09:57 [facility] Disclaimer: The information contained in this section may have been updated after the patient was seen, as this information can be updated by other users. Medical History Anxiety Arthritis Asthma CAD (coronary artery disease) CAD (coronary artery disease) Cataracts, bilateral DDD (degenerative disc disease) Fatigue Fibromyalgia GERD (gastroesophageal reflux disease) HHD (hypertensive heart disease) HLD (hyperlipidemia) HLD (hyperlipidemia) Hx of corneal abrasion Hx of corneal abrasion Hypothyroid Hypothyroidism TAIWO (obstructive sleep apnea) Osteoporosis Post laminectomy syndrome Raynauds syndrome SAPHO syndrome Surgical History History of back surgery History of endometrial ablation History of neck surgery History of shoulder surgery History of thumb surgery History of tubal ligation Hx of cardiac cath Hx of section Hx of colonoscopy Family History Other Coronary artery disease Diabetes FHx: mental illness Heart attack Hyperlipidemia Hypertension Stroke Social History (Updated 04/22/24 @ 09:56 by Gen Forrester RN) Smoking Status: Former smoker tobacco type: cigarettes second hand exposure: No alcohol intake: never counseling provided: none substance use type: prescription drug current occupational status: employed and unemployed Travel in the last 8 weeks: None household members: significant other housing: house current occupational exposures/hazards: No caffeine: Yes ROS Obtained: Yes All systems reviewed & no additional complaints except as documented Physical Exam General General appearance: alert and in no apparent distress Head Head exam: atraumatic and normocephalic Eye Eye exam: Present normal appearance, PERRL and EOMI ENT ENT exam: Present normal oropharynx and mucous membranes moist Neck Neck exam: Present full ROM; Absent meningismus Respiratory Respiratory exam: Absent respiratory distress, wheezes, stridor or accessory muscle use Cardiovascular Cardiovascular exam: Present normal rhythm Abdominal Exam Abdominal exam: Present soft; Absent distention, tenderness, guarding, rebound or rigidity Neurological Exam Neurological exam: Present alert, oriented X3 and CN II-XII intact; Absent motor sensory deficit Psychiatric Psychiatric exam: Present normal affect and normal mood Skin Skin exam: Present warm and dry Medical Decision Making Medical Records Medical records reviewed: Yes I reviewed the patient's medical records. Terrance Inquiry Pt receiving controlled substance: No Terrance was queried for this patient: No Vital Signs: 06/01/24 08:54 06/01/24 10:31 06/01/24 11:01 Temperature 97.4 F L Temperature Source Oral Pulse Rate 54 L 53 L Pulse Rate [Left Radial] 69 Respiratory Rate 18 Blood Pressure 156/94 H 159/100 H Blood Pressure [Right Arm] 142/93 H Blood Pressure Mean [Right Arm] 109 02 Sat by Pulse Oximetry 98 100 100 Oxygen Delivery Method Room Air Room Air Room Air 06/01/24 11:31 Temperature Temperature Source Pulse Rate 52 L Pulse Rate [Left Radial] Respiratory Rate Blood Pressure 138/90 Blood Pressure [Right Arm] Blood Pressure Mean [Right Arm] 02 Sat by Pulse Oximetry 100 Oxygen Delivery Method Room Air Lab Data Lab Results 06/01/24 08:56: Urine Color Yellow, Urine Appearance Clear, Urine pH 6.5, Ur Specific [place] 1.010, Urine Protein Negative, Urine Glucose (UA) Negative, Urine Ketones Negative, Urine Blood Negative, Urine Nitrate Negative, Urine Bilirubin Negative, Urine Urobilinogen 0.2, Ur Leukocyte Esterase Trace, Urine RBC Occasional, Urine WBC 3-5, Ur Squamous Epith Cells 5-10, Urine Bacteria Trace 06/01/24 09:00: WBC 5.7, RBC 4.55, Hgb 14.5, Hct 43.1, MCV 94.8, MCH 31.8 H, MCHC 33.6, RDW 13.7, Plt Count 332, MPV 8.3, Neut % (Auto) 46.2, Lymph % (Auto) 41.2, [place] % (Auto) 6.7, Eos % (Auto) 3.7, Baso % (Auto) 2.2 H, Neut # (Auto) 2.6, Lymph # (Auto) 2.4, [place] # (Auto) 0.4, Eos # (Auto) 0.2, Baso # (Auto) 0.1, PT 10.3, INR 0.91, Sodium 140, Potassium 3.0 L, Chloride 105, Carbon Dioxide 29, Anion Gap 9.0, BUN 7, Creatinine 1.30 H, Estimated Creat Clear 46, Estimated GFR 42 L, Est GFR ( Amer) 51 L, Glucose 95, Lactate 0.9, Calcium 9.5, Magnesium 2.0, Total Bilirubin 0.3, AST 43 H, ALT 50, Alkaline Phosphatase 53, Total Protein 7.5, Albumin 4.5, Globulin 3.0, Albumin/Globulin Ratio 1.5, Lipase 140, TSH 242.00 H, Free T4 0.20 L 06/01/24 09:00 06/01/24 09:00 Orders (Tests/Meds): ED MEDICATIONS Discontinued Medications Generic Name Dose Route Start Last Admin Trade Name Freq PRN Reason Stop Dose Admin Belladonna Alkaloids 60 ml 06/01/24 12:04 06/01/24 12:11 Belladonna Alkaloids 60 Ml Ml PO 06/01/24 12:05 60 ml ONCE ONE Administration Lactated Ringer's 1,000 mls @ 999 mls/hr 06/01/24 09:58 06/01/24 10:02 Lactated Ringer's 1000 Ml Bag IV 06/01/24 10:58 999 mls/hr .Q1H1M ONE Administration Iopamidol 100 ml 06/01/24 10:09 06/01/24 10:12 Iopamidol-370 (76%);100ml Bottle IV 06/01/24 10:10 100 ml ONCE ONE Administration Iopamidol 75 ml 06/01/24 12:35 06/01/24 12:36 Iopamidol-370 (76%);100ml Bottle IV 06/01/24 12:36 75 ml ONCE ONE Administration Ondansetron HCl 4 mg 06/01/24 11:59 06/01/24 12:10 Ondansetron 4mg/2ml Vial IV 06/01/24 12:00 4 mg ONCE ONE Administration Potassium Chloride 40 meq 06/01/24 09:58 06/01/24 10:02 Potassium Chloride 20meq Tab PO 06/01/24 09:59 40 meq ONCE ONE Administration Sodium Chloride 10 ml 06/01/24 10:09 06/01/24 10:12 Sodium Chloride 0.9% 10ml Syr (Rad Only) IV 06/01/24 10:10 10 ml ONCE ONE Administration Sodium Chloride 50 ml 06/01/24 10:09 06/01/24 10:12 0.9 % Sodium Chloride 50 Ml Vial IV 06/01/24 10:10 50 ml ONCE ONE Administration Sodium Chloride 10 ml 06/01/24 12:35 06/01/24 12:36 Sodium Chloride 0.9% 10ml Syr (Rad Only) IV 06/01/24 12:36 10 ml ONCE ONE Administration ORDERS Category Date Time Status CT abdomen pelvis w con Stat Cat Scan 06/01/24 12:[address] angio head Stat Cat Scan 06/01/24 09:[address] angio neck Stat Cat Scan 06/01/24 09:[address] head/brain wo con Stat Cat Scan 06/01/24 09:04 Completed CBC w/Auto Diff [Complete Blood Count Auto Diff] Stat Lab 06/01/24 09:00 Completed CMP [Comprehensive Metabolic Panel] Stat Lab 06/01/24 09:00 Completed Free T4 (Free Thyroxine) Stat Lab 06/01/24 09:00 Completed Lactic Acid Stat Lab 06/01/24 09:00 Completed Lipase Stat Lab 06/01/24 09:00 Completed MAG [Magnesium] Stat Lab 06/01/24 09:00 Completed PT INR [Prothrombin Time INR] Stat Lab 06/01/24 09:00 Completed TSH [Thyroid Stimulating Hormone] Stat Lab 06/01/24 09:00 Completed UA [Urinalysis and Microscopic] Stat Lab 06/01/24 08:56 Completed Medical Decision Narrative: 59-year-old female with past medical history significant for chronic back pain, hypertension, arthritis, CAD, TAIWO, HLD, hypothyroidism, SAPHO syndrome, presents today for evaluation concerning brain fog which she states has been present over the past couple of weeks. She states that she feels like she knows what she wants to say however cannot get her words out at times. She states that she has been somewhat unsteady on her feet and has had a couple falls over the past week. She did not hit her head or lose consciousness during her falls. She denies any dysuria or hematuria. Denies any chest pain or shortness of breath. She does note dark stools over the past couple of weeks however denies noting any bright red blood. Has not had any nausea or hematemesis. On assessment she was hemodynamically stable and in no acute distress. Afebrile. Her chest was clear to auscultation bilaterally. Her abdomen was soft nondistended and nontender to palpation. Neurological exam was nonfocal. She was alert and oriented to person place time and situation and was able to converse appropriately however she did seem to focus more on getting her words out. No facial droop was noted. She was not slurring her words. Differential diagnoses include but limited to CVA, TIA, UTI, electrolyte derangement, dysrhythmia, among others. EKG was personally interpreted by me. Normal sinus rhythm with a rate of 70 bpm. No ischemic changes. Patient's labs today unremarkable for a WBC of 5.7. No signs of anemia with a hemoglobin of 14.5 and hematocrit of 43.1 PT/INR 10.3/0.91. Potassium was low at 3.0. I ordered for oral replacement. Creatinine elevated at 1.3. I did give patient 1 L of LR. TSH 242, free T4 0.20. Patient does have history of hypothyroidism and is on Synthroid however she does note that she has not been taking her medications over the past week however will go to pick them up upon discharge. Urinalysis with trace leukocyte esterase. 3-5 WBCs. Nitrite negative. Will plan to treat with outpatient antibiotics given that this could be the beginning of urinary tract infection and given patient's reported history of brain fog. CTA head/neck and CT head without any acute abnormalities. Patient was given a p.o. challenge and was able to tolerate liquids however when she attempted to eat crackers she began to have epigastric pain after which she was given a GI cocktail however she could not tolerate. I did order for CT abdomen pelvis with contrast to further assess for any abnormalities such as a hiatal hernia and no acute abnormalities were noted. I did reassess patient and she remained hemodynamically stable and in no acute distress. I discussed ED workup and results as well as current plan. She was able to tolerate liquids without difficulty. She did relate to me that over the past year she has been drinking ensures daily and does more of a liquid diet versus solids as solids cause more GI upset. She has an appointment with gastroenterology in the next month which she will keep. I provided her with strict return ED precautions and instructions concerning follow-up. Will send her home with [facility]. She verbalized understanding and agreement. Subsequently discharged hemodynamically stable and in no acute distress Critical Care Critical Care Time Critical Care Time: No
[2024-06-01 09:10] LABS: Microscopic, Urine URINE MICROSCOPIC (MICROSCOPIC)
[2024-06-01 09:14] LABS: Appearance,Urine CLEAR (Clear); Bilirubin,Urine Negative (Negative); Blood, Urine Negative (Negative); Color,Urine YELLOW (Yellow); Glucose,Urine (UA) Negative (Negative); Ketones,Urine Negative (Negative); Leukocyte Esterase,Urine TRACE (Negative); Nitrate,Urine Negative (Negative); PH,Urine 6.5 (5.0-8.5); Protein,Urine Negative (Negative); Urobilinogen,Urine 0.2 EU/dl (0.2)
[2024-06-01 09:14] LABS: Basophils # 0.1 K/mm3 (0-0.2); Basophils % 2.2 % (0.1-2.0); Eosinophils # 0.2 K/mm3 (0.0-0.4); Eosinophils % 3.7 % (0.1-12.0); Hematocrit 43.1 % (37.0-47.0); Hemoglobin 14.5 g/dL (12.2-16.2); Lymphocytes # 2.4 K/mm3 (0.7-4.5); Lymphocytes % 41.2 % (10-50); Mean Corpuscular HGB Conc 33.6 g/dL (31.8-35.4); Mean Corpuscular Hemoglobin 31.8 pg (27.0-31.2); Mean Corpuscular Volume 94.8 fl (81-99); Mean Platelet Volume 8.3 fl (7.4-10.4); Monocytes # 0.4 K/mm3 (0.1-1.0); Monocytes % 6.7 % (1.7-9.3); Neutrophils # 2.6 K/mm3 (1.8-7.8); Neutrophils % 46.2 % (37.0-80.0); Platelet Count 332 K/mm3 (142-424); Red Blood Count 4.55 M/mm3 (4.20-5.40); Red Cell Distribution Width 13.7 % (11.5-17.5); White Blood Count 5.7 K/mm3 (4.8-10.8)
[2024-06-01 09:19] LABS: Chloride 105 mmol/L (98-107); Sodium 140 mmol/L (136-145)
[2024-06-01 09:21] LABS: Alanine Aminotransferase 50 U/L (12-78); Alkaline Phosphatase 53 U/L (38-126); Aspartate Amino Transferase 43 U/L (14-36); Bilirubin,Total 0.3 mg/dl (0.2-1.3); Blood Urea Nitrogen 7 mg/dl (7-17); Estimated Glomerular Filt Rate 42 ml/min (>60); GFR (African American) 51 ML/MIN (>60)
[2024-06-01 09:22] LABS: RBC,Urine Occasional #/hpf (0-3)
[2024-06-01 09:22] LABS: Albumin Level 4.5 g/dl (3.5-5.0); Albumin/Globulin Ratio 1.5 (1.1-1.8); Calcium 9.5 mg/dl (8.4-10.2); Carbon Dioxide 29 mmol/L (22.0-30.0); Glucose 95 mg/dl (74-100); Lactic Acid 0.9 mmol/L (0.7-2.1); Lipase 140 U/L (23-300); Total Protein,Serum 7.5 g/dl (6.3-8.2)
[2024-06-01 09:23] LABS: Bacteria,Urine Trace /lpf
[2024-06-01 09:23] LABS: INR 0.91 (0.9-1.1); Prothrombin Time 10.3 seconds (10.1-12.5)
[2024-06-01 09:52] LABS: Creatinine Clearance Estimated 46 mL/min (50-200)
--- NOTE | 2024-06-01 09:52 | PC.NURSE ---
Critical potassium reported from Mo in lab. Name and verified x2. Potassium is 3.0, reported to Dr. Mayberry.
[2024-06-01] MEDS: POTASSIUM CHLORIDE 20MEQ TAB 40 MEQ PO (10:02)
[2024-06-01] MEDS: LACTATED RINGERS 1000ML 1,000 ML 999 ML IV (10:02)
--- NOTE | 2024-06-01 10:11 | PC.NURSE ---
PT TO CT
[2024-06-01] MEDS: 0.9 % SODIUM CHLORIDE 50 ML VIAL IV (10:12)
[2024-06-01] MEDS: IOPAMIDOL-370 (76%);100ML BOTTLE 100 ML IV (10:12)
[2024-06-01] MEDS: SODIUM CHLORIDE 0.9% 10ML SYR (RAD ONLY) 10 ML IV ×2 (10:12→12:36)
--- NOTE | 2024-06-01 10:24 | PC.NURSE ---
PT RETURNED FROM CT
[2024-06-01 10:31] VITALS: BP 156/94; PULSE 54; O2SAT 100
[2024-06-01 11:01] VITALS: BP 159/100; PULSE 53; O2SAT 100
[2024-06-01 11:31] VITALS: BP 138/90; PULSE 52; O2SAT 100
--- NOTE | 2024-06-01 12:09 | CT_ITS ---
FINAL REPORT TECHNIQUE: Thin section axial images were obtained through the abdomen after intravenous contrast. Reconstruction images were obtained from the axial data. Exam was performed using dose reduction techniques. CLINICAL HISTORY: N/V, epigastric pain FINDINGS: There is evidence of granulomatous disease in the lung bases. The liver is homogeneous. The gallbladder is present. The spleen, adrenal glands, and pancreas are unremarkable. There is no hydronephrosis or solid renal mass. Abdominal GI tract is without acute abnormality. There is no abdominal lymphadenopathy or ascites. Moderate to large amount of retained stool is seen throughout the colon. The uterus is unremarkable. The pelvic portions of the GI tract, including the appendix, are without acute abnormality. There is no pelvic lymphadenopathy or ascites. No acute osseous abnormalities identified. IMPRESSION: No CT evidence of acute intra-abdominal or intrapelvic abnormality. Reviewed, Interpreted and Dictated by Belinda Celestin MD Transcribed by Abbie Levin Authenticated and [facility]
[2024-06-01] MEDS: ONDANSETRON 4MG/2ML VIAL 4 MG IV (12:10)
[2024-06-01] MEDS: BELLADONNA ALKALOIDS 60 ML ML PO (12:11)
[2024-06-01] MEDS: IOPAMIDOL-370 (76%);100ML BOTTLE 75 ML IV (12:36)
--- NOTE | 2024-06-01 12:36 | PC.NURSE ---
pt returned from ct scan
--- NOTE | 2024-06-01 13:59 | PC.NURSE ---
call made to radiology for status update on ct read. staff report they will check on status of scan.
[2024-06-01 14:01] VITALS: BP 102/76; PULSE 73; O2SAT 100
--- NOTE | 2024-06-01 14:11 | PC.NURSE ---
PT PROVIDED WATER FOR PO CHALLENGE
[2024-06-01 14:33] VITALS: BP 127/87; PULSE 72; RESP 16; TEMP 36.6; O2SAT 98
== END 2024-06-01 14:34 | disposition home or self-care (01) ==
PROVIDERS: Emergency Provider Emergency Medicine; PCP Family Medicine
DX: N39.0 Urinary tract infection, site not specified (principal); E87.6 Hypokalemia; R11.0 Nausea; R41.89 Other symptoms and signs involving cognitive functions and awareness; E03.9 Hypothyroidism, unspecified; R10.13 Epigastric pain; I11.9 Hypertensive heart disease without heart failure; I25.10 Atherosclerotic heart disease of native coronary artery without angina pectoris; E78.5 Hyperlipidemia, unspecified; K21.9 Gastro-esophageal reflux disease without esophagitis
CPT/HCPCS: 70450; 70496; 70498; 74177; 80050; 80053; 81001; 83605; 83690; 83735; 84439; 84443; 85025; 85610; 93005; 96361; 96374; 99285; J2405; J7120; Q9967

== ENCOUNTER 2024-06-21 15:12 | Outpatient (CLI) | payer MEDICARE, SELFPAY ==
[2024-06-21 15:32] LABS: Adenovirus F 40/41, stool Not Detected (NotDetected); Astrovirus Not Detected (NotDetected); Campylobacter Not Detected (NotDetected); Clostridium Difficile A/B, PCR Not Detected (NotDetected); Cryptosporidium Not Detected (NotDetected); Cyclospora Cayetanesis Not Detected (NotDetected); Entamoeba histolytica Not Detected (NotDetected); Enteroaggregative E coli Not Detected (NotDetected); Enteropathogenic E coli Not Detected (NotDetected); Enterotoxigenic E coli Not Detected (NotDetected); Giardia lamblia Not Detected (NotDetected); Norovirus Not Detected (NotDetected); Plesimonas Shigalloides, PCR Not Detected (NotDetected); Rotavirus A Not Detected (NotDetected); Salmonella, PCR Not Detected (NotDetected); Sapovirus Not Detected (NotDetected); Shiga-like toxin E coli Not Detected (NotDetected); Shigella Enterovasive E coli Not Detected (NotDetected); Vibrio Cholerae Not Detected (NotDetected); Vibrio, PCR Not Detected (NotDetected); Yersinia Entercolitica, PCR Not Detected (NotDetected)
== END 2024-06-21 23:59 | disposition home or self-care (01) ==
LOC: LAB.DROPOF 15:15
PROVIDERS: PCP Nurse Practitioner; Visit Provider Nurse Practitioner
DX: R19.7 Diarrhea, unspecified (principal)
CPT/HCPCS: 87506

== ENCOUNTER 2024-07-12 08:48 | Outpatient (CLI) | payer MEDICARE, SELFPAY ==
[2024-07-12 09:04] VITALS: BMI 22.2
[2024-07-12] MEDS: diphenhydrAMINE 25MG CAPSULE 25 MG PO (09:15)
[2024-07-12] MEDS: ACETAMINOPHEN 325MG TAB 650 MG PO (09:15)
[2024-07-12] MEDS: ONDANSETRON 4MG ODT 4 MG SL (09:15)
[2024-07-12 09:32] LABS: Albumin Level 4.2 g/dl (3.5-5.0); Chloride 104 mmol/L (98-107); Potassium 3.5 mmoL/L (3.5-5.1); Sodium 140 mmol/L (136-145)
[2024-07-12 09:34] LABS: Blood Urea Nitrogen 17 mg/dl (7-17); Creatinine Clearance Estimated 62 mL/min (50-200); Estimated Glomerular Filt Rate 57 ml/min (>60); GFR (African American) 69 ML/MIN (>60)
[2024-07-12 09:35] LABS: Alanine Aminotransferase 31 U/L (12-78); Albumin/Globulin Ratio 1.5 (1.1-1.8); Alkaline Phosphatase 53 U/L (38-126); Anion Gap 8.5 mEq/L (5-15); Aspartate Amino Transferase 37 U/L (14-36); Bilirubin,Total 0.5 mg/dl (0.2-1.3); Calcium 9.2 mg/dl (8.4-10.2); Carbon Dioxide 31 mmol/L (22.0-30.0); Globulin 2.8 g/dL (1.3-3.2); Glucose 102 mg/dl (74-100)
[2024-07-12] MEDS: SODIUM CHLORIDE 0.9% 50ML BAG 50 ML IV (09:46)
[2024-07-12] MEDS: PAMIDRONATE DISODIUM IV (09:46)
[2024-07-12] MEDS: SODIUM CHLORIDE 0.9% IV (09:46)
[2024-07-12 09:50] VITALS: BP 102/66; PULSE 67; RESP 18; O2SAT 100
[2024-07-12 10:50] VITALS: BP 95/69; PULSE 65; RESP 18
[2024-07-12 11:50] VITALS: BP 90/53; PULSE 61; RESP 17
[2024-07-12 13:10] VITALS: BP 103/67; PULSE 65; RESP 18; O2SAT 100
[2024-07-13 09:22] LABS: Calcium, Ionized 4.3 mg/dL (4.5-5.6)
== END 2024-07-12 13:10 | disposition home or self-care (01) ==
LOC: INF 08:51
PROVIDERS: PCP Family Medicine
DX: M65.9 Synovitis and tenosynovitis, unspecified (principal); M86.9 Osteomyelitis, unspecified; M85.80 Other specified disorders of bone density and structure, unspecified site; I70.90 Unspecified atherosclerosis
CPT/HCPCS: 80053; 82330; 96365; 96366; J2430; Q0162

== ENCOUNTER 2024-07-13 19:23 | Outpatient (CLI) | payer MEDICARE, SELFPAY ==
[2024-07-13 21:51] LABS: Adenovirus F 40/41, stool Not Detected (NotDetected); Astrovirus Not Detected (NotDetected); Campylobacter Not Detected (NotDetected); Clostridium Difficile A/B, PCR Not Detected (NotDetected); Cryptosporidium Not Detected (NotDetected); Cyclospora Cayetanesis Not Detected (NotDetected); Entamoeba histolytica Not Detected (NotDetected); Enteroaggregative E coli Not Detected (NotDetected); Enteropathogenic E coli Not Detected (NotDetected); Enterotoxigenic E coli Not Detected (NotDetected); Giardia lamblia Not Detected (NotDetected); Norovirus Not Detected (NotDetected); Plesimonas Shigalloides, PCR Not Detected (NotDetected); Rotavirus A Not Detected (NotDetected); Salmonella, PCR Not Detected (NotDetected); Sapovirus Not Detected (NotDetected); Shiga-like toxin E coli Not Detected (NotDetected); Shigella Enterovasive E coli Not Detected (NotDetected); Vibrio Cholerae Not Detected (NotDetected); Vibrio, PCR Not Detected (NotDetected); Yersinia Entercolitica, PCR Not Detected (NotDetected)
[2024-07-16 07:13] LABS: H. pylori Stool Ag, EIA Negative (Negative)
[2024-07-16 20:09] LABS: Calprotectin, Fecal 11 ug/g (0-120)
[2024-07-17 00:08] LABS: Pancreatic Elastase, Fecal 192 (>200)
== END 2024-07-13 23:59 | disposition home or self-care (01) ==
LOC: LAB.DROPOF 19:26
PROVIDERS: PCP Family Medicine
DX: R19.7 Diarrhea, unspecified (principal); K92.1 Melena; R10.84 Generalized abdominal pain; R11.2 Nausea with vomiting, unspecified
CPT/HCPCS: 82656; 83993; 87177; 87338; 87506

== ENCOUNTER 2024-07-23 09:37 | Outpatient (CLI) | payer MEDICARE, SELFPAY ==
--- NOTE | 2024-07-23 09:42 | NM_ITS ---
FINAL REPORT TECHNIQUE: Millicuries of technetium 99m sulfur colloid was ingested with eggs. CLINICAL HISTORY: GENERALIZED ABD PAIN 10:40 AM .52 MCI TC SULFUR COLLOID INJECTED INTO 2 WHOLE EGGS WHIT TOAST WITH BUTTER FINDINGS: GASTRIC EMPTYING SCAN Static images show normal emptying of the stomach into the small bowel. Based on the time activity curve, the estimated half-emptying time is 75 minutes. IMPRESSION: Normal gastric emptying study. Reviewed, Interpreted and Dictated by Yonatan May III, MD Transcribed by Abbie Levin Authenticated and [facility]
[2024-07-23] MEDS: TC99M SULF.COLLOID;1 DOSE (UP TO 20 MCI) IV (12:34)
== END 2024-07-23 23:59 | disposition home or self-care (01) ==
LOC: RAD 09:38
PROVIDERS: PCP Family Medicine
DX: R10.84 Generalized abdominal pain (principal); R11.2 Nausea with vomiting, unspecified; R19.8 Other specified symptoms and signs involving the digestive system and abdomen
CPT/HCPCS: 78264; A9541

== ENCOUNTER 2024-07-31 09:06 | Emergency (ER) | payer MEDICARE, SELFPAY ==
[2024-07-31] VITALS (8 sets, daily range): BP systolic 114–136; BP diastolic 68–91; PULSE 57–79; RESP 16–18; TEMP 36.7–36.9; O2SAT 95–100; BMI 21.7
--- NOTE | 2024-07-31 09:08 | PC.NURSE ---
Stroke alert called
--- NOTE | 2024-07-31 09:08 | PC.NURSE ---
Pt gone to CT via stretcher
--- NOTE | 2024-07-31 09:08 | PC.NURSE ---
@bedside. pt presented with a fall approx 830 this morning. called her son and was altered. she is currently confused with slurred speech and weakness. Stroke alert called. c/o head pain of 10/10
--- NOTE | 2024-07-31 09:10 | CT_ITS ---
PROCEDURE INFORMATION: Exam: CTA Head With Contrast, Arteriography Exam date and time: 07/31/2024 9:21 AM Age: 59 years old Clinical indication: Stroke-like symptoms; Altered mental status/memory loss; Additional info: Possible stroke, dysarthria, cerebellar signs TECHNIQUE: Imaging protocol: Computed tomographic angiography of the head with contrast. Exam focused on the arteries. 3D rendering (Not supervised by radiologist): MIP and/or 3D reconstructed images were created by the technologist. Radiation optimization: All CT scans at this facility use at least one of these dose optimization techniques: automated exposure control; mA and/or kV adjustment per patient size (includes targeted exams where dose is matched to clinical indication); or iterative reconstruction. Contrast material: ISOUVE 370; Contrast volume: 80 ml; Contrast route: INTRAVENOUS (IV); COMPARISON: CT ANGIO HEAD 06/01/2024 10:20 AM FINDINGS: ANTERIOR CIRCULATION: Right internal carotid artery: Intracranial segment is patent with no significant stenosis. No aneurysm. Right middle cerebral artery: No occlusion or significant stenosis. No aneurysm. Right anterior cerebral artery: No occlusion or significant stenosis. No aneurysm. Left internal carotid artery: Intracranial segment is patent with no significant stenosis. No aneurysm. Left middle cerebral artery: No occlusion or significant stenosis. No aneurysm. Left anterior cerebral artery: No occlusion or significant stenosis. No aneurysm. POSTERIOR CIRCULATION: Right vertebral artery: No occlusion or significant stenosis. No aneurysm. Left vertebral artery: No occlusion or significant stenosis. No aneurysm. Basilar artery: No occlusion or significant stenosis. No aneurysm. Right posterior cerebral artery: No occlusion or significant stenosis. No aneurysm. Left posterior cerebral artery: No occlusion or significant stenosis. No aneurysm. Brain: No definite mass, mass effect, or midline shift. Cerebral ventricles: No ventriculomegaly. Bones/joints: Unremarkable. No acute fracture. Soft tissues: Unremarkable. IMPRESSION: No large vessel occlusion or significant stenosis.
--- NOTE | 2024-07-31 09:10 | CT_ITS ---
PROCEDURE INFORMATION: Exam: CTA Neck With Contrast Exam date and time: 07/31/2024 9:21 AM Age: 59 years old Clinical indication: Stroke-like symptoms; Altered mental status/memory loss; Additional info: Possible stroke, dysarthria, cerebellar signs TECHNIQUE: Imaging protocol: Computed tomographic angiography of the neck with contrast. Exam focused on the cervical segments of the vasculature. 3D rendering (Not supervised by radiologist): MIP and/or 3D reconstructed images were created by the technologist. Radiation optimization: All CT scans at this facility use at least one of these dose optimization techniques: automated exposure control; mA and/or kV adjustment per patient size (includes targeted exams where dose is matched to clinical indication); or iterative reconstruction. Contrast material: ISOVUE 370; Contrast volume: 80 ml; Contrast route: INTRAVENOUS (IV); COMPARISON: CT ANGIO NECK 06/01/2024 10:20 AM FINDINGS: Right common carotid artery: No stenosis. No dissection or occlusion. Right internal carotid artery: No stenosis of the extracranial segment. No dissection or occlusion. Right external carotid artery: No occlusion or stenosis of the origin. Left common carotid artery: No stenosis. No dissection or occlusion. Left internal carotid artery: No stenosis of the extracranial segment. No dissection or occlusion. Left external carotid artery: No occlusion or stenosis of the origin. Right vertebral artery: No stenosis. No dissection or occlusion. Left vertebral artery: No stenosis. No dissection or occlusion. Lymph nodes: Small calcified lymph nodes in the left hilar region. Soft tissues: Normal. No significant soft tissue swelling. Bones/joints: Degenerative changes of the cervical spine. Anterior cervical fusion. Lungs: Tree-in-bud nodularity right upper lobe likely infectious/inflammatory in etiology. In addition, there is focal consolidation in the left upper lobe which is incompletely imaged. IMPRESSION: 1. No significant stenosis or occlusion. 2. Tree-in-bud nodularity right upper lobe likely infectious/inflammatory in etiology. In addition, there is focal consolidation in the left upper lobe which is incompletely imaged. REFERENCES: NASCET CRITERIA. The degree of stenosis in the cervical segment of the internal carotid artery is based on NASCET criteria. Normal is no stenosis. Mild is less than 50% stenosis. Moderate is 50-69% stenosis. Severe is 70% to 99% stenosis. Total occlusion is no detectable patent lumen.
--- NOTE | 2024-07-31 09:10 | CT_ITS ---
PROCEDURE INFORMATION: Exam: CT Cervical Spine Without Contrast Exam date and time: 07/31/2024 9:18 AM Age: 59 years old Clinical indication: Injury or trauma; Fall; Blunt trauma; Additional info: Stroke symptoms TECHNIQUE: Imaging protocol: Computed tomography of the cervical spine without contrast. Radiation optimization: All CT scans at this facility use at least one of these dose optimization techniques: automated exposure control; mA and/or kV adjustment per patient size (includes targeted exams where dose is matched to clinical indication); or iterative reconstruction. COMPARISON: MR CERVICAL SPINE WO CON 05/01/2022 1:15 PM FINDINGS: Bones: Multilevel discogenic endplate changes with disc ridging, multilevel spinal canal narrowing. Multilevel uncovertebral hypertrophy and facet hypertrophic changes bilaterally with associated foraminal narrowing. Anterior cervical fusion again noted spanning C4 through C6 with interbody disc graft. No acute fracture. Normal alignment. Mild straightening of the normal cervical lordosis. Lungs: Biapical scar. Soft tissues: Unremarkable. IMPRESSION: No cervical spine fracture. Postoperative changes and multilevel spondylosis again noted.
--- NOTE | 2024-07-31 09:10 | CT_ITS ---
PROCEDURE INFORMATION: Exam: CT Head Without Contrast Exam date and time: 07/31/2024 9:16 AM Age: 59 years old Clinical indication: Injury or trauma; Fall; Blunt trauma (contusions or hematomas); Additional info: Possible stroke, dysarthria, cerebellar signs TECHNIQUE: Imaging protocol: Computed tomography of the head without contrast. Radiation optimization: All CT scans at this facility use at least one of these dose optimization techniques: automated exposure control; mA and/or kV adjustment per patient size (includes targeted exams where dose is matched to clinical indication); or iterative reconstruction. COMPARISON: CT ANGIO HEAD 06/01/2024 10:20 AM FINDINGS: Brain: Normal. No hemorrhage. Unremarkable white matter. No mass effect. Cerebral ventricles: No ventriculomegaly. Paranasal sinuses: Visualized sinuses are unremarkable. No fluid levels. Mastoid air cells: Visualized mastoid air cells are well aerated. Bones: Unremarkable. No acute fracture. Soft tissues: Unremarkable. IMPRESSION: No acute intracranial findings.
--- NOTE | 2024-07-31 09:14 | ED_ITS ---
Discharge Plan Disposition Patient Disposition: Xfer Short-Term Hosp Chief Complaint: Altered Mental Status Prescriptions Prescriptions: No Action pamidronate 30 mg recon soln 90 mg IV QMONTH duloxetine 60 mg capsule,delayed release(DR/EC) 60 mg PO DAILY meloxicam 15 mg tablet 15 mg PO DAILY oxycodone-acetaminophen 10-325 mg tablet 1 tab PO QID ondansetron HCl 4 mg tablet 4 mg PO NEEDED PRN (Reason: Nausea) prednisolone acetate 1 % drops,suspension 1 drp Eye-Both HS Cosentyx Pen (2 Pens) 150 mg/mL pen injector 150 mg SQ WEEKLY levothyroxine 150 mcg capsule 150 mcg PO DAILY Qty: 90 3RF potassium chloride 20 mEq tablet,ER particles/crystals 20 meq PO BID 30 Days Qty: 30 fluticasone furoate-vilanterol [Breo Ellipta] 200-25 mcg/dose blister with device 1 inh IH Q24H cholecalciferol (vitamin D3) 50,000 unit capsule 50,000 unit PO QWEEK metoprolol succinate 50 mg tablet extended release 24 hr 50 mg PO DAILY Qty: 90 atorvastatin 40 mg tablet 40 mg PO DAILY Qty: 90 Patient Comments: take 1 tablet by mouth once daily nitroglycerin 0.4 mg tablet, sublingual 0.4 mg SL .prn PRN (Reason: Chest Pain) Qty: 25 hydrochlorothiazide 25 mg tablet 25 mg PO DAILY Patient Comments: TAKE ONE TABLET BY MOUTH EVERY MORNING triamcinolone acetonide 0.1 % ointment 1 applic topical BID Qty: 80 2RF albuterol sulfate 8.5 GM HFA aerosol inhaler 2 puffs IH Q4HP PRN (Reason: Shortness Of Breath Or Wheezing) methocarbamol 500 MG tablet 500 mg PO BIDP PRN (Reason: back pain) diazepam 5 MG tablet 5 mg PO BID sennosides-docusate sodium 1 EACH tablet 1 each PO DAILY PRN (Reason: stool softener) furosemide 20 MG tablet 20 mg PO DAILY ondansetron HCl 8 mg tablet 8 mg PO Q8H PRN (Reason: nausea and vomiting) 4 Days Qty: 12 0RF cefdinir 300 mg capsule 300 mg PO BID 7 Days Qty: 14 0RF aspirin 81 MG tablet,delayed release (DR/EC) 81 mg PO DAILY Referrals Follow up/Referrals: Toni Carranza MD [Primary Care Provider] - See instructions Clinical Impressions Clinical Impression: Acute hypokalemia, Acute CVA (cerebrovascular accident) Instructions Patient Instructions: DI for Altered Mental Status Print Language Print Language: Nepali Discharge ED Provider: Germán Albarado General Adult HPI General Chief complaint: Altered Mental Status Stated complaint: Stroke like symptoms Time Seen by Provider: 07/31/24 09:09 History of Present Illness HPI narrative: Patient is a 59-year-old female with past medical history of hypertensive heart disease, hyperlipidemia, coronary artery disease who presents emergency department for evaluation of encephalopathy and strokelike symptoms. History is largely obtained by son at bedside. He talked her on the phone at 3:30 PM yesterday and everything was normal. She has not had contact with anybody since. This morning she called her son saying that she had fell, she had questionable slurred speech at that time and presents here for continued evaluation. She does not take anticoagulants per chart review. No other history is able to be obtained at this time. Related Data Home Medications ?Medication ?Instructions ?Recorded ?Confirmed fluticasone furoate 200 1 inh inhalation Q24H Breathing 03/11/18 04/22/24 mcg-vilanterol 25 mcg/dose problems inhalation powder (Breo Ellipta) potassium chloride 20 mEq 20 meq PO BID Supplement 30 days 03/11/18 04/22/24 tablet,extended release(part/cryst) ##30 cholecalciferol (vitamin D3) 1,250 50,000 unit PO QWEEK Supplement 09/25/18 04/22/24 mcg (50,000 unit) capsule atorvastatin 40 mg tablet 40 mg PO DAILY Cholesterol #90 tabs 03/31/19 04/22/24 metoprolol succinate 50 mg 50 mg PO DAILY blood pressure #90 03/31/19 04/22/24 tablet,extended release 24 hr tabs nitroglycerin 0.4 mg sublingual 0.4 mg sublingual .prn PRN Chest 03/31/19 04/22/24 tablet Pain #25 tabs aspirin 81 mg tablet,delayed 81 mg PO DAILY Heart disease 04/08/19 04/22/24 release albuterol sulfate 90 mcg/actuation 2 puffs inhalation Q4HP PRN 11/04/19 04/22/24 aerosol inhaler Shortness Of Breath Or Wheezing methocarbamol 500 mg tablet 500 mg PO BIDP PRN back pain 09/11/20 04/22/24 diazepam 5 mg tablet 5 mg PO BID Anxiety 02/27/21 04/22/24 furosemide 20 mg tablet 20 mg PO DAILY Fluid 02/27/21 04/22/24 sennosides 8.6 mg-docusate sodium 1 each PO DAILY PRN stool softener 02/27/21 04/22/24 50 mg tablet pamidronate 30 mg intravenous 90 mg IV QMONTH 07/01/22 04/22/24 solution duloxetine 60 mg capsule,delayed 60 mg PO DAILY 03/10/23 04/22/24 release meloxicam 15 mg tablet 15 mg PO DAILY 03/10/23 04/22/24 ondansetron HCl 4 mg tablet 4 mg PO NEEDED PRN Nausea 03/10/23 04/22/24 oxycodone-acetaminophen 10 mg-325 1 tab PO QID 03/10/23 04/22/24 mg tablet prednisolone acetate 1 % eye 1 drp Eye-Both HS eyes 03/10/23 04/22/24 drops,suspension secukinumab 150 mg/mL subcutaneous 150 mg SQ WEEKLY 03/10/23 04/22/24 pen injector (Cosentyx Pen 300 mg/2 Pens () hydrochlorothiazide 25 mg tablet 25 mg PO DAILY blood pressure 05/21/23 04/22/24 Previous Rx's ?Medication ?Instructions ?Recorded levothyroxine 150 mcg capsule 150 mcg PO DAILY thyroid 04/21/23 supplement #90 caps triamcinolone acetonide 0.1 % 1 applic topical BID #80 grams 05/21/23 topical ointment cefdinir 300 mg capsule 300 mg PO BID 7 days #14 caps 06/01/24 ondansetron HCl 8 mg tablet 8 mg PO Q8H PRN nausea and 06/01/24 vomiting 4 days #12 tabs Allergies Allergy/AdvReac Type Severity Reaction Status Date / Time codeine Allergy Intermediate Verified 04/22/24 09:57 ketorolac [From Toradol] Allergy Intermediate Verified 04/22/24 09:57 meperidine Allergy Intermediate I-ITCHING Verified 04/22/24 09:57 methotrexate Allergy Intermediate Verified 04/22/24 09:57 [facility] Disclaimer: The information contained in this section may have been updated after the patient was seen, as this information can be updated by other users. Medical History Anxiety Arthritis Asthma CAD (coronary artery disease) CAD (coronary artery disease) Cataracts, bilateral DDD (degenerative disc disease) Fatigue Fibromyalgia GERD (gastroesophageal reflux disease) HHD (hypertensive heart disease) HLD (hyperlipidemia) HLD (hyperlipidemia) Hx of corneal abrasion Hx of corneal abrasion Hypothyroid Hypothyroidism TAIWO (obstructive sleep apnea) Osteoporosis Post laminectomy syndrome Raynauds syndrome SAPHO syndrome Surgical History History of back surgery History of endometrial ablation History of neck surgery History of shoulder surgery History of thumb surgery History of tubal ligation Hx of cardiac cath Hx of section Hx of colonoscopy Family History Other Coronary artery disease Diabetes FHx: mental illness Heart attack Hyperlipidemia Hypertension Stroke Social History Smoking Status: Never smoker second hand exposure: No alcohol intake: never counseling provided: none substance use type: prescription drug current occupational status: employed and unemployed Travel in the last 8 weeks: None household members: significant other housing: house current occupational exposures/hazards: No caffeine: Yes ROS Obtained: Yes unobtainable due to mental status Physical Exam General General appearance: alert Head Head exam: normocephalic and other (Abrasions over the face) Eye Eye exam: Present PERRL and EOMI ENT ENT exam: Present mucous membranes moist Neck Neck exam: Present normal inspection Chest Chest inspection: Present normal inspection and symmetric chest wall rise Respiratory Respiratory exam: Present normal lung sounds bilaterally; Absent respiratory distress Cardiovascular Cardiovascular exam: Present regular rate and normal rhythm Abdominal Exam Abdominal exam: Present soft; Absent tenderness Extremities Exam Extremities exam: Present normal inspection Neurological Exam Neurological exam: Present alert and other (5 out of 5 strength bilateral upper and lower extremities, wrist drop on the right, [id number] not intact bilaterally) Psychiatric Psychiatric exam: Present normal affect Skin Skin exam: Present warm and dry Medical Decision Making Terrance Inquiry Pt receiving controlled substance: No Vital Signs: 07/31/24 09:06 07/31/24 09:25 07/31/24 09:43 Temperature 98.1 F Temperature Source Axillary Pulse Rate 77 66 Pulse Rate [Right] 77 Respiratory Rate 16 Blood Pressure 128/91 H 136/79 Blood Pressure [Right Arm] 128/91 H Blood Pressure Mean [Right Arm] 103 02 Sat by Pulse Oximetry 95 100 99 Oxygen Delivery Method Room Air Room Air Room Air Lab Data Lab Results 07/31/24 09:20: WBC 7.0, RBC 4.97, Hgb 15.1, Hct 47.0, MCV 94.6, MCH 30.3, MCHC 32.0, RDW 13.5, Plt Count 393, MPV 8.4, Neut % (Auto) 42.9, Lymph % (Auto) 43.2, [place]asta % (Auto) 7.4, Eos % (Auto) 4.0, Baso % (Auto) 2.5 H, Neut # (Auto) 3.0, Lymph # (Auto) 3.0, [place]asta # (Auto) 0.5, Eos # (Auto) 0.3, Baso # (Auto) 0.2, Sodium 137, Potassium 2.3 L*, Chloride 94 L, Carbon Dioxide 36 H, Anion Gap 9.3, BUN 17, Creatinine 1.20 H, Estimated Creat Clear 49, Estimated GFR 46 L, Est GFR ( Amer) 56 L, Glucose 137 H, Calcium 9.4, Total Bilirubin 0.6, AST 45 H, ALT 39, Alkaline Phosphatase 47, Troponin I < 0.01, Total Protein 8.0, Albumin 4.6, Globulin 3.4 H, Albumin/Globulin Ratio 1.4, Triglycerides 194 H, Cholesterol 182, LDL Cholesterol Direct 77.95 L, VLDL Cholesterol 39, HDL Cholesterol 57, Cholesterol/HDL Ratio 3.2, Plasma/Serum Alcohol < 10 07/31/24 09:40: Ammonia < 9 L 07/31/24 09:20 07/31/24 09:20 Orders (Tests/Meds): ED MEDICATIONS Generic Name Dose Route Start Last Admin Trade Name Freq PRN Reason Stop Dose Admin Aspirin 300 mg 07/31/24 10:10 Aspirin 300mg Suppository RC 07/31/24 10:11 ONCE ONE Potassium Chloride/Water 100 mls @ 50 mls/hr 07/31/24 10:01 07/31/24 10:06 Potassium Chloride 20meq/100ml Ivpb IV 07/31/24 14:00 50 mls/hr Q2H KATHARINA Administration Lactated Ringer's 1,000 mls @ 999 mls/hr 07/31/24 10:10 Lactated Ringer's 1000 Ml Bag IV 07/31/24 11:10 .Q1H1M ONE Sodium Chloride 10 ml 07/31/24 09:10 Sodium Chloride 0.9% 10ml Flush Syringe IV 08/30/24 09:09 NEEDED PRN Maintain IV Site Sodium Chloride 10 ml 07/31/24 09:29 07/31/24 09:30 Sodium Chloride 0.9% 10ml Syr (Rad Only) IV 08/30/24 09:28 10 ml NEEDED PRN Administration Maintain IV Site Discontinued Medications Generic Name Dose Route Start Last Admin Trade Name Freq PRN Reason Stop Dose Admin Iopamidol 80 ml 07/31/24 09:29 07/31/24 09:30 Iopamidol-370 (76%);100ml Bottle IV 07/31/24 09:30 80 ml ONCE ONE Administration Sodium Chloride 50 ml 07/31/24 09:29 07/31/24 09:30 0.9 % Sodium Chloride 50 Ml Vial IV 07/31/24 09:30 50 ml ONCE ONE Administration ORDERS Category Date Time Status CT angio head Stat Cat Scan 07/31/24 09:[address] angio neck Stat Cat Scan 07/31/24 09:[address] cervical spine wo con Stat Cat Scan 07/31/24 09:[address] head/brain wo con Stat Cat Scan 07/31/24 09:10 Completed Activated Partial Thrombo Time Stat Lab 07/31/24 09:20 Received Ammonia Stat Lab 07/31/24 09:40 Completed Complete Blood Count Auto Diff Stat Lab 07/31/24 09:20 Completed Comprehensive Metabolic Panel Stat Lab 07/31/24 09:20 Completed Drug Screen,Urine Stat Lab 07/31/24 09:10 Ordered Ethyl Alcohol Stat Lab 07/31/24 09:20 Completed Lipid Panel Stat Lab 07/31/24 09:20 Completed Magnesium Stat Lab 07/31/24 09:59 Ordered Prothrombin Time INR Stat Lab 07/31/24 09:20 Received Troponin I Q3H Lab 07/31/24 12:15 Ordered Troponin I Q3H Lab 07/31/24 15:15 Ordered Troponin I Stat Lab 07/31/24 09:20 Completed Urinalysis and Microscopic Stat Lab 07/31/24 09:10 Ordered ECG Request Stat Y 07/31/24 09:10 Ordered Medical Decision Narrative: In summary patient is a 59-year-old female past medical history described above presents emergency department for evaluation of strokelike symptoms. Last known normal 3:30 PM yesterday. My concern for CVA is high. Patient is outside the window for thrombolytics. Fingerstick blood glucose over 100. C-spine precautions initiated workup be conducted with hematologic labs, noncontrasted CT scan of the head, CTA of the head and neck, noncontrasted CT scan cervical spine. Initial workup reviewed by me, hematologic labs remarkable for critical hypokalemia which will be repleted IV. Magnesium level will be added. Noncontrasted CT scan head informally visualized by me, no acute large hemorrhage. Viz. AI activated for [facility], no large vessel occlusion. Formal read shows no acute pathology. I had an interactive discussion with radiology with regards to CTA, no critical stenosis or occlusion. Unfortunately we do not have MRI at our institution on weekends and patient will require higher level of care at this time. I discussion with Arlyn stroke navigator for [facility] who graciously accepted patient for continued evaluation at this time. She recommended crystalloid bolus, rectal aspirin which I agree is reasonable and will be administered in the emergency department. Patient was transferred in stable condition. Critical Care Critical Care Time Critical Care Time: Yes Attestation: On 07/31/24, the high probability of a clinically significant, sudden or life threatening deterioration of the following system(s) required my full and direct attention, intervention and personal management. The time I documented below is in addition to time spent performing reported procedures but includes the following listed in this critical care notation. Total Time Total Critical Care Time: 40
--- NOTE | 2024-07-31 09:28 | ECG_ITS ---
APPROVED REPORT Exam: Resting ECG HR:71 bpm ECG Measurements Heart Rate 71 AXES VA 159 P 74 QRSd 86 QRS 60 QT 342 T 56 QTc 365 Conclusion SINUS RHYTHM WITH OCCASIONAL SUPRAVENTRICULAR PREMATURE COMPLEXES NONSPECIFIC T-WAVE ABNORMALITY BORDERLINE ECG Electronically signed by : CHAS ADDISON, 07/31/2024 15:55:08
[2024-07-31] MEDS: IOPAMIDOL-370 (76%);100ML BOTTLE 80 ML IV (09:30)
[2024-07-31] MEDS: SODIUM CHLORIDE 0.9% 10ML SYR (RAD ONLY) 10 ML IV (09:30)
[2024-07-31] MEDS: 0.9 % SODIUM CHLORIDE 50 ML VIAL IV (09:30)
--- NOTE | 2024-07-31 09:30 | PC.NURSE ---
glucose 113
[2024-07-31 09:39] LABS: Basophils # 0.2 K/mm3 (0-0.2); Basophils % 2.5 % (0.1-2.0); Eosinophils # 0.3 K/mm3 (0.0-0.4); Hemoglobin 15.1 g/dL (12.2-16.2); Lymphocytes % 43.2 % (10-50); Mean Corpuscular Hemoglobin 30.3 pg (27.0-31.2); Mean Corpuscular Volume 94.6 fl (81-99); Mean Platelet Volume 8.4 fl (7.4-10.4); Monocytes # 0.5 K/mm3 (0.1-1.0); Monocytes % 7.4 % (1.7-9.3); Neutrophils % 42.9 % (37.0-80.0); Platelet Count 393 K/mm3 (142-424); Red Blood Count 4.97 M/mm3 (4.20-5.40); Red Cell Distribution Width 13.5 % (11.5-17.5)
--- NOTE | 2024-07-31 09:49 | PC.NURSE ---
speaking with costaad
[2024-07-31 09:53] LABS: Alanine Aminotransferase 39 U/L (12-78); Albumin Level 4.6 g/dl (3.5-5.0); Albumin/Globulin Ratio 1.4 (1.1-1.8); Alkaline Phosphatase 47 U/L (38-126); Anion Gap 9.3 mEq/L (5-15); Aspartate Amino Transferase 45 U/L (14-36); Bilirubin,Total 0.6 mg/dl (0.2-1.3); Blood Urea Nitrogen 17 mg/dl (7-17); Calcium 9.4 mg/dl (8.4-10.2); Carbon Dioxide 36 mmol/L (22.0-30.0); Chloride 94 mmol/L (98-107); Chol/HDL Ratio 3.2 (1-3.5); Cholesterol 182 mg/dl (140-200); Creatinine Clearance Estimated 49 mL/min (50-200); Estimated Glomerular Filt Rate 46 ml/min (>60); GFR (African American) 56 ML/MIN (>60); Globulin 3.4 g/dL (1.3-3.2); Glucose 137 mg/dl (74-100); HDL Cholesterol 57 mg/dl (40-60); Sodium 137 mmol/L (136-145); Triglycerides 194 mg/dl (30-150); VLDL Cholesterol 39 mg/dL (0-40)
[2024-07-31 09:59] LABS: Ethyl Alcohol < 10 mg/dl (0-10); Potassium 2.3 mmoL/L (3.5-5.1)
[2024-07-31 10:00] LABS: Ammonia < 9 umol/L (9-30)
[2024-07-31 10:04] LABS: Direct LDL Cholesterol 77.95 mg/dL (100-129)
[2024-07-31 10:05] LABS: Activated Partial Thrombo Time 22.6 seconds (22.8-30.6); INR 0.92 (0.9-1.1); Prothrombin Time 10.4 seconds (10.1-12.5)
--- NOTE | 2024-07-31 10:05 | PC.NURSE ---
CALLING [facility] FOR STROKE NAVIGATOR. SPEAKING WITH ENID FROM [facility] [place] NAVIGATOR AT [facility], [place]
[2024-07-31] MEDS: KCl 20mEq/100ml 100 ML 50 MEQ IV ×2 (10:06→11:36)
[2024-07-31 10:08] LABS: Troponin I < 0.01 ng/ml (0.00-0.034)
[2024-07-31] MEDS: LACTATED RINGERS 1000ML 1,000 ML 999 ML IV (10:12)
[2024-07-31] MEDS: ASPIRIN 300MG SUPPOSITORY 300 MG RC (10:24)
--- NOTE | 2024-07-31 10:24 | PC.NURSE ---
EMS notified of pt being transferred to [facility]
--- NOTE | 2024-07-31 11:04 | PC.NURSE ---
pt is more alert @ this time. son @ bedside.
[2024-07-31 11:05] LABS: Magnesium 2.1 mg/dl (1.6-2.3)
--- NOTE | 2024-07-31 11:23 | PC.NURSE ---
report called to Ivonne @ [facility]
== END 2024-07-31 11:48 | disposition short-term general hospital (02) ==
PROVIDERS: Emergency Provider Emergency Medicine; PCP Family Medicine
DX: I63.9 Cerebral infarction, unspecified (principal); E87.6 Hypokalemia; I11.9 Hypertensive heart disease without heart failure; I25.10 Atherosclerotic heart disease of native coronary artery without angina pectoris; E78.5 Hyperlipidemia, unspecified; W19.XXXA Unspecified fall, initial encounter
CPT/HCPCS: 70450; 70496; 70498; 72125; 80053; 80061; 80320; 82140; 83735; 84484; 85025; 85610; 85730; 93005; 96365; 96366; 99291; G0480; J7120; Q9967

== ENCOUNTER 2024-09-01 07:52 | Outpatient (RCR) | payer MEDICARE, SELFPAY | END 2024-09-01 23:59 | disposition home or self-care (01) | LOC: PT 07:52 | PROVIDERS: Visit Provider Internal Medicine | DX: R42 Dizziness and giddiness (principal) | CPT/HCPCS: 97163 ==

== ENCOUNTER 2024-09-02 08:54 | Outpatient (CLI) | payer MEDICARE, SELFPAY ==
[2024-09-02] VITALS (9 sets, daily range): BP systolic 103–115; BP diastolic 57–77; PULSE 60–80; RESP 14–18; TEMP 36.8–36.9; O2SAT 98–100
[2024-09-02] MEDS: ACETAMINOPHEN 325MG TAB 650 MG PO (09:16)
[2024-09-02] MEDS: diphenhydrAMINE 25MG CAPSULE 25 MG PO (09:16)
[2024-09-02] MEDS: ONDANSETRON 4MG ODT 4 MG SL (09:16)
[2024-09-02] MEDS: SODIUM CHLORIDE 0.9% IV (09:41)
[2024-09-02] MEDS: PAMIDRONATE DISODIUM IV (09:41)
[2024-09-02] MEDS: SODIUM CHLORIDE 0.9% 50ML BAG 50 ML IV (09:41)
== END 2024-09-02 13:20 | disposition home or self-care (01) ==
LOC: INF 08:56
PROVIDERS: PCP Family Medicine; Visit Provider Internal Medicine
DX: M65.80 Other synovitis and tenosynovitis, unspecified site (principal); M86.9 Osteomyelitis, unspecified; L40.3 Pustulosis palmaris et plantaris; L70.9 Acne, unspecified
CPT/HCPCS: 96365; 96366; J2430; Q0162

== ENCOUNTER 2024-10-18 08:52 | Outpatient (CLI) | payer MEDICARE, SELFPAY ==
[2024-10-18] VITALS (9 sets, daily range): BP systolic 102–130; BP diastolic 57–81; PULSE 68–79; RESP 14–18; TEMP 36.6–36.8; O2SAT 98–100; BMI 22.2
[2024-10-18] MEDS: ACETAMINOPHEN 325MG TAB 650 MG PO (09:17)
[2024-10-18] MEDS: diphenhydrAMINE 25MG CAPSULE 25 MG PO (09:17)
[2024-10-18] MEDS: ONDANSETRON 4MG ODT 4 MG SL (09:17)
[2024-10-18 09:37] LABS: Albumin Level 4.3 g/dl (3.5-5.0); Chloride 116 mmol/L (98-107); Potassium 3.9 mmoL/L (3.5-5.1); Sodium 143 mmol/L (136-145)
[2024-10-18 09:40] LABS: Alanine Aminotransferase 32 U/L (12-78); Albumin/Globulin Ratio 1.7 (1.1-1.8); Alkaline Phosphatase 44 U/L (38-126); Anion Gap 9.9 mEq/L (5-15); Aspartate Amino Transferase 32 U/L (14-36); Bilirubin,Total 0.4 mg/dl (0.2-1.3); Blood Urea Nitrogen 14 mg/dl (7-17); Carbon Dioxide 21 mmol/L (22.0-30.0); Creatinine Clearance Estimated 62 mL/min (50-200); Estimated Glomerular Filt Rate 57 ml/min (>60); GFR (African American) 69 ML/MIN (>60); Globulin 2.5 g/dL (1.3-3.2); Glucose 104 mg/dl (74-100); Total Protein,Serum 6.8 g/dl (6.3-8.2)
[2024-10-18] MEDS: SODIUM CHLORIDE 0.9% 10ML FLUSH SYRINGE 10 ML IV (09:46)
[2024-10-18] MEDS: SODIUM CHLORIDE 0.9% 50ML BAG 50 ML IV (09:46)
[2024-10-18] MEDS: SODIUM CHLORIDE 0.9% IV (09:47)
[2024-10-18] MEDS: PAMIDRONATE DISODIUM IV (09:47)
== END 2024-10-18 13:25 | disposition home or self-care (01) ==
LOC: INF 08:53
PROVIDERS: PCP Family Medicine; Visit Provider Internal Medicine Rheumatology
DX: M86.30 Chronic multifocal osteomyelitis, unspecified site (principal)
CPT/HCPCS: 80053; 96365; 96366; J2430; Q0162

== ENCOUNTER 2024-12-27 10:22 | Outpatient (CLI) | payer MEDICARE, SELFPAY ==
--- NOTE | 2024-12-27 10:36 | XR_ITS ---
FINAL REPORT CLINICAL HISTORY: right lower leg pain COMPARISON: None FINDINGS: RIGHT TIBIA FIBULA AP and lateral images of the right tibia and fibula were obtained. There is no acute fracture or dislocation. The joint spaces are intact. There is no soft tissue abnormality. IMPRESSION: No acute fracture Reviewed, Interpreted and Dictated by Crow López MD Transcribed by Betsy Multani Authenticated and [facility]
--- NOTE | 2024-12-27 10:36 | XR_ITS ---
FINAL REPORT CLINICAL HISTORY: right posterior knee pain COMPARISON: None FINDINGS: RIGHT KNEE: 3 views of the right knee were obtained. There is no acute fracture or dislocation. Mild degenerative changes present in the medial compartment. There is no soft tissue abnormality. IMPRESSION: No acute fracture Reviewed, Interpreted and Dictated by Crow López MD Transcribed by Betsy Multani Authenticated and [facility]
--- NOTE | 2024-12-27 10:36 | XR_ITS ---
FINAL REPORT CLINICAL HISTORY: left lower leg pain COMPARISON: None FINDINGS: LEFT TIBIA FIBULA: AP and lateral views of the left tibia and fibula were obtained. There is no acute fracture or dislocation. The joint spaces are intact. There is no soft tissue abnormality. IMPRESSION: No acute fracture Reviewed, Interpreted and Dictated by Crow López MD Transcribed by Betsy Multani Authenticated and [facility]
--- NOTE | 2024-12-27 10:36 | XR_ITS ---
FINAL REPORT CLINICAL HISTORY: left posterior knee pain COMPARISON: None FINDINGS: LEFT KNEE 3 views of the left knee were obtained. There is no acute fracture or dislocation. There is mild tricompartment degenerative change present. Soft tissues are unremarkable. No joint effusion is present. IMPRESSION: Mild tricompartment degenerative change without acute bony abnormality. Reviewed, Interpreted and Dictated by Crow López MD Transcribed by Betsy Multani Authenticated and [facility]
[2024-12-27 11:05] LABS: Chloride 106 mmol/L (98-107); Potassium 4.6 mmoL/L (3.5-5.1); Sodium 143 mmol/L (136-145)
[2024-12-27 11:08] LABS: Alanine Aminotransferase 38 U/L (12-78); Alkaline Phosphatase 50 U/L (38-126); Anion Gap 12.6 mEq/L (5-15); Aspartate Amino Transferase 35 U/L (14-36); Bilirubin,Total 0.3 mg/dl (0.2-1.3); Blood Urea Nitrogen 13 mg/dl (7-17); Calcium 9.7 mg/dl (8.4-10.2); Carbon Dioxide 29 mmol/L (22.0-30.0); Estimated Glomerular Filt Rate 64 ml/min (>60); GFR (African American) 78 ML/MIN (>60); Globulin 2.5 g/dL (1.3-3.2); Glucose 99 mg/dl (74-100); Magnesium 1.9 mg/dl (1.6-2.3); Total Protein,Serum 7.5 g/dl (6.3-8.2)
[2024-12-27 11:32] LABS: 25-OH Vitamin D, Total 43.5 ng/mL (30-100)
[2024-12-27 11:43] LABS: C-Reactive Protein < 0.3 mg/L (0-4)
== END 2024-12-27 23:59 | disposition home or self-care (01) ==
LOC: LAB 10:25
PROVIDERS: PCP Nurse Practitioner Family; Visit Provider Nurse Practitioner Family
DX: M65.90 Unspecified synovitis and tenosynovitis, unspecified site (principal); L40.3 Pustulosis palmaris et plantaris; L70.9 Acne, unspecified; M85.80 Other specified disorders of bone density and structure, unspecified site; M86.9 Osteomyelitis, unspecified; E55.9 Vitamin D deficiency, unspecified; M25.562 Pain in left knee; M79.661 Pain in right lower leg; M25.561 Pain in right knee; M79.662 Pain in left lower leg; E03.9 Hypothyroidism, unspecified; E78.5 Hyperlipidemia, unspecified; I11.9 Hypertensive heart disease without heart failure; I25.10 Atherosclerotic heart disease of native coronary artery without angina pectoris; G43.909 Migraine, unspecified, not intractable, without status migrainosus
CPT/HCPCS: 36415; 73562; 73590; 80053; 82306; 83735; 86140

== ENCOUNTER 2025-01-17 11:00 | Outpatient (CLI) | payer MEDICARE, SELFPAY ==
--- NOTE | 2025-01-17 11:03 | US_ITS ---
FINAL REPORT TECHNIQUE: Ultrasound images of the thyroid were obtained. CLINICAL HISTORY: enlarged thyroid FINDINGS: The right lobe of the thyroid measures 2.9 x 0.8 x 1.4 cm. The left lobe of the thyroid measures 2.8 x 0.5 x 0.6 cm. Thyroid is severely atrophic bilaterally with a heterogeneous appearance consistent with chronic thyroiditis. No suspicious masses seen. IMPRESSION: Severely atrophic thyroid consistent with chronic thyroiditis. No suspicious mass. Reviewed, Interpreted and Dictated by Crow López MD Transcribed by Kait Mario Authenticated and [facility]
[2025-01-17 13:23] LABS: Free T4 (Free Thyroxine) 1.35 ng/dl (0.78-2.19)
[2025-01-17 13:38] LABS: Thyroid Stimulating Hormone 0.03 uIU/mL (0.465-4.68)
== END 2025-01-17 23:59 | disposition home or self-care (01) ==
PROVIDERS: PCP Nurse Practitioner Family; Visit Provider Nurse Practitioner
DX: E01.0 Iodine-deficiency related diffuse (endemic) goiter (principal)
CPT/HCPCS: 36415; 76536; 84439; 84443

== ENCOUNTER 2025-03-04 15:29 | Outpatient (CLI) | payer MEDICARE, SELFPAY ==
[2025-03-04 17:51] LABS: Free T4 (Free Thyroxine) 1.55 ng/dl (0.78-2.19)
[2025-03-04 17:54] LABS: Thyroid Stimulating Hormone 1.54 uIU/mL (0.465-4.68)
== END 2025-03-04 23:59 | disposition home or self-care (01) ==
LOC: LAB 15:29
PROVIDERS: PCP Nurse Practitioner Family; Visit Provider Nurse Practitioner
DX: E01.0 Iodine-deficiency related diffuse (endemic) goiter (principal)
CPT/HCPCS: 36415; 84439; 84443

== ENCOUNTER 2025-03-23 09:24 | Outpatient (CLI) | payer MEDICARE, SELFPAY ==
[2025-03-23 09:30] LABS: Microscopic, Urine URINE MICROSCOPIC (MICROSCOPIC)
[2025-03-23 09:53] LABS: Appearance,Urine CLEAR (Clear); Bilirubin,Urine Negative (Negative); Blood, Urine Negative (Negative); Color,Urine YELLOW (Yellow); Glucose,Urine (UA) Negative (Negative); Ketones,Urine Negative (Negative); Leukocyte Esterase,Urine Negative (Negative); Nitrate,Urine Negative (Negative); Protein,Urine Negative (Negative); Specific Gravity, Urine 1.025 (1.005-1.030); Urobilinogen,Urine 0.2 EU/dl (0.2)
[2025-03-23 10:01] LABS: Basophils # 0.1 K/mm3 (0-0.2); Basophils % 2.1 % (0.1-2.0); Eosinophils # 0.3 Kmm3 (0.0-0.4); Hematocrit 39.1 % (37.0-47.0); Hemoglobin 12.9 g/dL (12.2-16.2); Immature Granulocytes # 0.01 10^3uL; Immature Granulocytes % 0.2 %; Lymphocytes # 1.6 K/mm3 (0.7-4.5); Lymphocytes % 27.3 % (10-50); Mean Corpuscular Hemoglobin 30.8 pg (27.0-31.2); Mean Corpuscular Volume 93.3 fl (81-99); Mean Platelet Volume 10.2 fl (7.4-10.4); Monocytes # 0.5 K/mm3 (0.1-1.0); Monocytes % 8.7 % (1.7-9.3); Neutrophils # 3.3 K/mm3 (1.8-7.8); Neutrophils % 56.7 % (37.0-80.0); Nucleated Red Blood Cells # 0 10^3/uL; Nucleated Red Blood Cells % 0 %; Platelet Count 283 K/mm3 (142-424); Red Blood Count 4.19 M/mm3 (4.20-5.40); Red Cell Distribution Width 11.7 % (11.5-17.5); Red Cell Distribution Width-SD 39.9 fL; White Blood Count 5.8 K/mm3 (4.8-10.8)
[2025-03-23 10:30] LABS: Alanine Aminotransferase 25 U/L (12-78); Albumin Level 4.3 g/dl (3.5-5.0); Alkaline Phosphatase 56 U/L (38-126); Amylase 141 U/L (30-110); Anion Gap 7.3 mEq/L (5-15); Aspartate Amino Transferase 27 U/L (14-36); Bilirubin,Total 0.3 mg/dl (0.2-1.3); Blood Urea Nitrogen 17 mg/dl (7-17); Calcium 9.1 mg/dl (8.4-10.2); Carbon Dioxide 28 mmol/L (22.0-30.0); Chloride 112 mmol/L (98-107); Estimated Glomerular Filt Rate 64 ml/min (>60); GFR (African American) 78 ML/MIN (>60); Globulin 2.2 g/dL (1.3-3.2); Glucose 94 mg/dl (74-100); Lipase 217 U/L (23-300); Potassium 4.3 mmoL/L (3.5-5.1); Sodium 143 mmol/L (136-145); Total Protein,Serum 6.5 g/dl (6.3-8.2)
[2025-03-23 11:36] LABS: Bacteria,Urine Trace /lpf; Squamous Epithelial Cell,Urine Occasional #/hpf (0-5)
[2025-03-24 14:11] LABS: Deamidated Gliadin Abs, IgA 2 units (0-19); Deamidated Gliadin Abs, IgG 2 units (0-19); H. pylori Breath Test Negative (Negative); Tissue Transglutaminase IgA Ab <2 U/mL (0-3); Tissue Transglutaminase IgG Ab <2 U/mL (0-5)
[2025-03-25 08:13] LABS: Endomysial IgA Antibody Negative (Negative)
[2025-03-25 09:20] LABS: Reticulin IgA Antibody Negative titer (Neg:<1:2.5)
== END 2025-03-23 23:59 | disposition home or self-care (01) ==
LOC: LAB 09:25
PROVIDERS: PCP Nurse Practitioner Family; Visit Provider Nurse Practitioner Family
DX: K59.00 Constipation, unspecified (principal); R35.0 Frequency of micturition; R14.0 Abdominal distension (gaseous); R63.5 Abnormal weight gain; Z68.24 Body mass index [BMI] 24.0-24.9, adult
CPT/HCPCS: 36415; 80053; 81001; 82150; 83013; 83036; 83516; 83690; 85025; 86255; 86256; 87086

== ENCOUNTER 2025-03-30 11:00 | Outpatient (CLI) | payer MEDICARE, SELFPAY | END 2025-03-30 23:59 | disposition home or self-care (01) | PROVIDERS: PCP Nurse Practitioner Family; Visit Provider Nurse Practitioner Family | DX: R82.90 Unspecified abnormal findings in urine (principal) | CPT/HCPCS: 87086 ==

== ENCOUNTER 2025-05-31 13:52 | Outpatient (CLI) | payer MEDICARE, SELFPAY ==
--- OUTSIDE RECORDS SUMMARY | 2025-05-25 10:30 | XMS_ITS | Encounter Summary ---
Author Organization [facility] Address [address] [place] [address] Care Team Providers Care Nursing Secretary Name Role Phone Jagjit Soto MD Unavailable [phone] Nuria Barnes APRN Primary Care Provider [phone] Reason for Visit * Reason Comments Follow-up SAPHO syndrome Encounter Details Date Type Department Care Team (Latest Contact Info) Description 05/25/2025 10:30 AM EDT Office Visit [place] [facility] [address], [address] [place] [address] Laura Dasilva, [facility] [address] [id number] 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CMS/HCC) (Primary Dx); Osteoarthritis of multiple joints, unspecified osteoarthritis type; 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-steroidal anti-inflammatories (nsaid); Positive [...] today Follow up in 6 months * Progress Notes - Laura Dasilva MBBS [...] She has received a referral to a truck driver rubbish collector but has not been able to make [...] before colonoscopy cholecalciferol (Vitamin D-3) 1.25 MG (25751 UT) capsule TAKE 2 CAPSULE Weekly diazePAM [...] 300 mg, Oral, 3 times daily HYDROcodone-acetaminophen ([place]) 10-325 MG tablet levothyroxine (Synthroid, Levoxyl) 137 [...] FOLLOW-UP TESTS Homogenous dsDNA,histones dsDNA,histone antibodies* Speckled Sm,BROADCAST SYSTEMS ENGINEER,SS-A,SS-B,Scl70 Sm,BROADCAST SYSTEMS ENGINEER,SS-A,SS-B,Scl70 and others Nucleolar 4-6s RNA None Centromere [...] NSAID use Stable renal function 4. Positive ROBBIN No clinical features or signs of Lupus. [...] Division of Rheumatology Department of Internal Medicine [facility] Cosigned by Kenisha Campos MD at 05/25/2025 [...] Description 12/28/2025 9:00 AM EST Office Visit [facility] Medicine Specialties [address] [place] [address] Laura Dasilva MBBS [address] [place] [address] Scheduled Orders Name Type Priority Associated Diagnoses Orde r Schedule CBC and differential Lab Routine 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CMS/HCC) Expected: 05/25/2025 (Approximate), Expires: 11/26/2026 Comprehensive metabolic panel Lab Routine 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[facility]) Expected: 05/25/2025 (Approximate), Expires: 11/26/2026 Sedimentation Rate, Automated Lab Routine 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[facility]) Expected: 05/25/2025 (Approximate), Expires: 11/26/2026 C-reactive protein Lab Routine 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[facility]) Expected: 05/25/2025 (Approximate), Expires: 11/26/2026 C-Telopeptide Lab Routine 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[facility]) Expected: 05/25/2025 (Approximate), Expires: 11/25/2026 Osteocalcin by ECIA Lab Routine 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[facility]) Expected: 05/25/2025 (Approximate), Expires: 11/25/2026 N telopeptide, cross-linked, serum Lab Routine 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[facility]) Expected: 05/25/2025 (Approximate), Expires: 11/25/2026 documented as of this encounter Visit Diagnoses Diagnosis 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
--- OUTSIDE RECORDS SUMMARY | 2025-05-31 14:04 | XMS_ITS | Encounter Summary ---
Author Organization [facility] Address [address] [place] [address] Care Team Providers Care Tool And Die Repairer Name Role Phone Jagjit Soto MD Unavailable [phone] Nuria Barnes APRN Primary Care Provider [phone] Encounter Details Date Type Department Care Team (Latest Contact Info) Description 05/25/2025 Travel Social History Tobacco Use Types Packs/Day Years [...] on file documented as of this encounter Functional Status * AUDIT-C Score Answer Date of Assessment Author 1 05/25/2025 10:54 AM EDT Kaley Paredes * Question Answer Date of Assessment Author Q1: How often do you have a drink containing alcohol? Monthly or less 05/25/2025 10:54 AM EDT Herman Paredes Q2: How many drinks containing alcohol do you have on a typical day when you are drinking? 1 or 2 05/25/2025 10:54 AM EDT Kaley Paredes Q3: How often do you have si x or more drinks on one occasion? Never 05/25/2025 10:54 AM EDT Kaley Paredes * Over the past 2 weeks, how often have you been bothered by any of the following problems? Question Answer Date of Assessment Author Little interest or pleasure in doing things Not at all 05/25/2025 10:52 AM MYNORT Kaley Paredes Feeling down, depressed, or hopeless Not at all 05/25/2025 10:52 AM MYNORT Kaley Paredes Patient Health Questionnaire -2 Score 0 05/25/2025 10:52 AM EDT Kaley Paredes documented as of this encounter Plan of Treatment Upcoming Encounters Date Type Department Care Team (Late st Contact Info) Description 12/28/2025 9:00 AM EST Office Visit [place] [facility] [address] [place] [address] Laura Dasilva MBBS [address] [place] [address] documented as of this encounter Visit Diagnoses Not on filedocumented in this encounter Additional Health Concerns Assessment Noted Time A fall risk assessment has been complete d for the patient 05/25/2025 10:52 AM EDT A Body Mass Index follow-up plan has been documented for the patient 05/25/2025 12:19 PM EDT documented as of this encounter Care Teams Tool And Die Repairer Relationship Specialty Start Date End Date Nuria Barnes APRN [address] [place] [address] PCP - General 05/25/25 Jagjit Soto MD [address] [place] [address] Surgeon Neurosurgery 05/22/21 documented as of this encounter
--- OUTSIDE RECORDS SUMMARY | 2025-05-31 14:04 | XMS_ITS | Encounter Summary ---
Author Organization [facility] Address [address] [place] [address] Care Team Providers Care Business Administration Program Chair Name Role Phone Ferdinand Carranza MD Primary Care Provider [phone] Jagjit Soto MD Unavailable [phone] Nuria Barnes APRN Primary Care Provider [phone] Reason for Visit * Reason Comments Med Refill Encounter Details Date Type Department Care Team (Late st Contact Info) Description 01/10/2024 Refill [facility] [place] [address] [facility] [place] [address] Melanie Felder, RUTHANN [address] [place] [address] Hypertension, unspecified type Social History Tobacco Use Types Packs/Day Years Used Date Smoking Tobacco: Former Cigarettes 1 27.7 1 984 - 07/28/2011 Smokeless Tobacco: Never Alcohol Use Standard Drinks/Week Comments No 0 (1 standard drink = 0.6 oz pur e alcohol) PHQ-2 Answer Date Recorded Patient Health Questionnaire-2 Score 0 04/16/2023 PHQ-2A Answer Date Recorded Patient Health Questionnaire-2 Score 0 04/16/2023 Comments Unknown Sex and Gender Information Value Date Recorded Sex Assigned at Not on file Legal Sex Female 6:04 PM EDT Gender Identity Not on file Sexual Orientation Not on file documented as of this encounter Plan of Treatment Upcoming Encounters Date Type Department Care Team (Late st Contact Info) Description 12/28/2025 9:00 AM EST Office Visit [place] [facility] [address] [place] [address] Laura Dasilva MBBS [address] [place], [place] [id number] documented as of this encounter Visit Diagnoses Diagnosis Hypertension, unspecified type documented in this encounter Additional Health Concerns Infection Onset Date Last Indicated Resolved Time Gastrointestinal Rule-Out 07/15/2024 07/15/2024 12:26 PM EDT C. difficile Rule-Out 07/15/2024 07/15/20242023 12:26 PM EDT Assessment Noted Time A fall risk assessment has been complete d for the patient 04/16/2023 11:18 AM EDT A Body Mass Index follow-up plan has been documented for the patient 10/16/2023 11:31 AM EST documented as of this encounter Care Teams Business Administration Program Chair Relationship Specialty Start Date End Date Ferdinand Carranza MD [address] [facility] [address] [place] [address] PCP - General 03/30/21 05/24/25 Nuria Barnes APRN [address] [place] [address] PCP - General 05/25/25 Jagjit Soto MD [address] [place] [address] Surgeon Neurosurgery 05/22/21 documented as of this encounter
--- OUTSIDE RECORDS SUMMARY | 2025-05-31 14:04 | XMS_ITS | Encounter Summary ---
Author Organization [facility] Address [address] [place] [address] Care Team Providers Care Hospitality Internship Name Role Phone Ferdinand Carranza MD Primary Care Provider [phone] Jagjit Soto MD Unavailable [phone] Nuria Barnes APRN Primary Care Provider [phone] Reason for Visit * Reason Comments Med Refill Encounter Details Date Type Department Care Team (Late st Contact Info) Description 01/15/2023 Refill [facility] [place] [address] [facility] [place] [address] Melanie Felder, RUTHANN [address] [place] [address] Hypertension, unspecified type Social History Tobacco Use Types Packs/Day Years Used Date Smoking Tobacco: Former Cigarettes 1 27.7 1 984 - 07/28/2011 Smokeless Tobacco: Never Alcohol Use Standard Drinks/Week Comments No 0 (1 standard drink = 0.6 oz pur e alcohol) PHQ-2 Answer Date Recorded Patient Health Questionnaire-2 Score 0 01/14/2023 Comments Unknown Sex and Gender Information Value Date Recorded Sex Assigned at Not on file Legal Sex Female 6:04 PM EDT Gender Identity Not on file Sexual Orientation Not on file COVID-19 Exposure Response Date Recorded In the last 10 days, have yo u been in contact with someone who was confirmed or suspected to have Coronavirus/COVID-19? No / Unsure 01/14/2023 10:13 AM EST documented as of this encounter Plan of Treatment Upcoming Encounters Date Type Department Care Team (Late st Contact Info) Description 12/28/2025 9:00 AM EST Office Visit [place] [facility] [address] [place] [address] Laura Dasilva MBBS [address] [place] [address] documented as of this encounter Visit Diagnoses Diagnosis Hypertension, unspecified type documented in this encounter Additional Health Concerns Infection Onset Date Last Indicated Resolved Time Gastrointestinal Rule-Out 07/15/2024 07/15/2024 12:26 PM EDT C. difficile Rule-Out 07/15/2024 07/15/20242023 12:26 PM EDT Assessment Noted Time A fall risk assessment has been complete d for the patient 01/14/2023 10:37 AM EST A Body Mass Index follow-up plan has been documented for the patient 01/16/2023 4:20 PM EST documented as of this encounter Care Teams Hospitality Internship Relationship Specialty Start Date End Date Ferdinand Carranza MD [address] [place] [address] [address] [place], [place] [id number] PCP - General 03/30/21 05/24/25 Nuria Barnes APRN [address] [place] [place], [place] [id number] PCP - General 05/25/25 Jagjit Soto MD [address] [place] [address] Surgeon Neurosurgery 05/22/21 documented as of this encounter
--- OUTSIDE RECORDS SUMMARY | 2025-05-31 14:04 | XMS_ITS | Encounter Summary ---
Author Organization [facility] Address [address] [place] [address] Care Team Providers Care Product Manager Name Role Phone Jagjit Soto MD Unavailable [phone] Nuria Barnes APRN Primary Care Provider [phone] Reason for Referral * Consultation (Routine) - Authorized Specialty Diagnoses / Procedures Referred By Contrakel t Referred To Contact Physical Therapy Diagnoses Osteoarthritis of multiple joints, unspecified osteoarthritis type Kenisha Campos MD [address] [facility] [address] [place] [address] Phone: tel: fax: Referral ID Status Reason Start Date Expiration Date Visits Requested Visits Authorized [id number] Authorized Consult and Treat 05/26/2025 11/25/2026 1 1 Encounter Details Date Type Department Care Team (Late st Contact Info) Description 05/26/2025 Orders Only [place] [facility] [address] [place] [address] Laura Dasilva, KRISTIN [address] [place] [address] Osteoarthritis of multiple joints, unspecified osteoarthritis type (Primary Dx) Social History Tobacco Use Types Packs/Day Years [...] Description 12/28/2025 9:00 AM EST Office Visit [place] [facility] [address] [place] [address] Laura Dasilva MBBS [address] [place] [address] Scheduled Referrals Name Type Priority Associated Diagnoses Orde r Schedule Ambulatory referral to Physical Therapy Outpatient Referral Routine Osteoarthritis of multiple joints, unspecified osteoarthritis type 1 Occurrences starting 05/26/2025 until 11/27/2026 documented as of this encounter Visit Diagnoses Diagnosis Osteoarthritis of multiple joints, unspecified osteoarthritis type- Primary documented in this encounter Additional Health Concerns Assessment Noted Time A fall risk assessment has been complete d for the patient 05/25/2025 10:52 AM EDT A Body Mass Index follow-up plan has been documented for the patient 05/25/2025 12:19 PM EDT documented as of this encounter Care Teams Product Manager Relationship Specialty Start Date End Date Nuria Barnes APRN [address] [place] [address] PCP - General 05/25/25 Jagjit Soto MD [address] [facility] [address] [place] [address] Surgeon Neurosurgery 05/22/21 documented as of this encounter
--- OUTSIDE RECORDS SUMMARY | 2025-05-31 14:04 | XMS_ITS | Clinical Summary ---
Author Organization [facility] Address [address] [place] [address] Care Team Providers Care Signals Intelligence Analyst Name Role Phone Jagjit Soto MD Unavailable Nuria Barnes APRN Primary Care Provider [phone] Allergies Active Allergy Reactions Criticality Noted Date Comments Codeine Itching,Unknown - Patient states they do not know rxn details Medium 08/07/2017 Ketorolac Tromethamine Other - please document in the comment field,Unknown - Patient states they do not know rxn details Low 12/17/2017 hallucinations Meperidine Unknown - Patient states they do not know rxn details Low 10/21/2016 Meperidine Hcl Itching Medium 02/01/2019 Methotrexate Hives,Unknown - Patient states they do not know rxn details Medium 08/07/2017 Tramadol Itching Medium 10/16/2020 Medications aspirin 81 MG EC tablet 10/25/20 18 Active cholecalciferol (Vitamin D-3) 1.25 MG (00048 UT) capsule TAKE 2 CAPSULE Weekly 10/23/20 18 Active fluticasone-vilant frances (Breo Ellipta) 100-25 MCG/INH inhaler USE 1 INHALATION ONCE DAILY. 08/07/20 17 Active HYDROcodone-acetam inophen ([place]) 10-325 MG tablet 09/06/20 20 Active levothyroxine (Synthroid, Levoxyl) 175 MCG tablet 11/19/19 20 Active nitroglycerin (Nitrostat) 0.[address] 1 TABLET UNDER THE TONGUE EVERY 5 MINUTES FOR UP TO 3 DOSES NEEDED FOR CHEST PAIN.CALL 911 IF PAIN PERSISTS. 03/12/20 19 Active pamidronate (Aredia) 30 MG injection INFUSE MG Every 6 weeks 09/13/20 20 Active potassium chloride CR (Klor-Con M20) 20 MEQ ER tablet TAKE 2 TABLETS DAILY. 03/04/20 17 Active senna (Senokot) 8.6 MG tablet 01/31/20 21 Active diazePAM (Valium) 5 MG tablet 01/27/20 21 Active METHOCARBAMOL PO 500 mg. 02/10/20 21 Active albuterol 108 (90 Base) MCG/ACT inhaler Inhale 2 puffs if needed. Active gabapentin (Neurontin) 300 MG capsuleIndications :History of cervical spinal surgery,Low back pain with right-sided sciatica, unspecified back pain laterality, unspecified chronicity,Lumbar stenosis with neurogenic claudication Take 1 capsule (300 mg total) by mouth 3 (three) times a day. 90 capsule 3 06/19/20 21 Active Additional Information Patient not taking.Reported on 11/25/2024 DULoxetine (Cymbalta) [address] capsule Take 1 capsule (60 mg) by mouth 1 (one) time each day. 08/09/20 21 Active levothyroxine (Synthroid, Levoxyl) 150 MCG tablet TAKE 1 TABLET BY MOUTH EVERY DAY IN THE MORNING ON AN EMPTY STOMACH 08/31/20 21 Active phentermine (Adipex-P) 37.5 MG tablet Take 1 tablet (37.5 mg) by mouth 1 (one) time each day. 01/23/20 22 Active meloxicam (Mobic) 7.5 MG tabletIndications: 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CMS/HCC) Take 1 tablet (7.5 mg total) by mouth 2 (two) times a day. 90 tablet 2 01/31/20 22 Active Additional Information Patient not taking.Reported on 11/25/2024 diclofenac (Voltaren) 1 % topical gelIndications:Ost eoarthritis of multiple joints, unspecified osteoarthritis type Place on the skin 2 (two) times a day. Apply as directed to hands and sternum for pain 50 g 2 04/24/20 22 Active topiramate (Topamax) 25 MG tabletIndications: Cervical migraine syndrome Take 25 mg at bedtime for one week, then 50 mg at bedtime for one week, then 75 mg at bedtime for one week, then 100 mg at bedtime thereafter 120 tablet 2 06/18/20 22 Active Additional Information Patient not taking.Reported on 11/25/2024 naloxone (Narcan) 4 mg/0.1 mL nasal spray CALL 911. SPR CONTENTS OF ONE SPRAYER (0.1ML) INTO ONE NOSTRIL. REPEAT IN 2-3 MIN IF SYMPTOMS OF OPIOID EMERGENCY PERSIST, ALTERNATE NOSTRILS 10/15/20 22 Active oxyCODONE-acetamin ophen (Percocet) 10-325 MG tablet Take 1 tablet by mouth every 6 (six) hours. 12/13/19 23 Active meloxicam (Mobic) 15 MG tablet Take 1 tablet (15 mg) by mouth 1 (one) time each day if needed. 04/02/20 23 Active methocarbamol (Robaxin) 500 MG tablet Take 1 tablet (500 mg) by mouth 2 (two) times a day if needed. 04/02/20 23 Active atorvastatin (Lipitor) 80 MG tablet Take 1 tablet (80 mg) by mouth 1 (one) time each day. 90 tablet 3 05/24/20 24 Active ondansetron (Zofran) 8 MG tablet TAKE 1 TABLET BY MOUTH EVERY 8 HOURS FOR 4 DAYS NEEDED FOR NAUSEA OR VOMITING 06/01/20 24 Active levothyroxine (Synthroid, Levoxyl) 137 MCG tablet 06/02/20 24 Active topiramate (Topamax) 100 MG tablet Take 1 tablet (100 mg) by mouth 1 (one) time each day. 06/09/20 24 Active dicyclomine (Bentyl) 10 MG capsuleIndications :Generalized abdominal pain,Diarrhea, unspecified type Take 1 capsule (10 mg) by mouth 4 (four) times a day if needed (abdominal cramping). Take with meals and at bedtime 30 capsule 2 07/06/20 24 Active midodrine (Proamatine) 10 MG tablet Take 1 tablet (10 mg) by mouth 3 (three) times a day before meals. 08/05/20 24 Active metoprolol succinate XL (Toprol-XL) 25 MG 24 hr tabletIndications: Primary hypertension Take 1/2 tablet once daily. Do not crush or chew. 30 tablet 11 09/09/20 24 Active Additional Information Patient not taking.Reported on 11/25/2024 aritificial tears, PF, (Bion Tears) 0.1-0.3 % ophthalmic solutionIndication s:Dry eyes Administer 1 drop into both eyes 3 (three) times a day if needed for dry eyes. 35 each 11 10/12/20 24 025 Active bisacodyl (Bisacodyl EC) 5 MG EC tablet Take all 4 tablets at 4 PM on day before colonoscopy 4 tablet 10/19/20 24 Active Additional Information Patient not taking.Reported on 11/25/2024 polyethylene glycol (GoLYTELY) 236 g solution SEE PHARMACY NOTES FOR PATIENT LABEL INSTRUCTIONS- for Colonoscopy prep protocol 4000 mL 10/19/20 Active Additional Information Patient not taking.Reported on 11/25/2024 amitriptyline (Elavil) 25 MG tablet TAKE 1 TO 2 TABLETS BY MOUTH ONCE DAILY 05/03/20 25 Active hydroCHLOROthiazid e (HYDRODiuril) 25 MG tablet Take 1 tablet by mouth every morning. 02/17/20 25 Active lamoTRIgine (LaMICtal) 25 MG tablet 04/12/20 25 Active polyethylene glycol (Miralax) 17 GM/SCOOP powder 04/26/20 25 Active prazosin (Minipress) 1 MG capsule TAKE 1 CAPSULE BY MOUTH AT BEDTIME EVERY NIGHT 04/25/20 25 Active colchicine (Colcrys) 0.6 MG tablet Take 1 tablet by mouth daily. 0.6 mg twice today followed by 0.6 mg daily starting tomorrow 90 tablet 1 05/25/20 25 Active Active Problems Problem Noted Date Diagnosed Date Atypical chest pain 07/06/2024 Corneal abrasion 07/06/2024 Fatigue 07/06/2024 Finger wound, simple, open 07/06/2024 Foot pain, right 07/06/2024 HHD (hypertensive heart disease) 07/06/2024 HLD (hyperlipidemia) 07/06/2024 Left ankle sprain 07/06/2024 Otitis media 07/06/2024 Postlaminectomy syndrome 07/06/2024 Encounter for therapeutic drug monitoring 2020 Anginal equivalent 02/09/2021 Status post lumbar spinal fusion 01/31/2021 DDD (degenerative disc disease), lumbar 10/30/20 HNP (herniated nucleus pulposus), lumbar 020 Low back pain 10/30/2020 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 10/30/2020 Subluxation of lumbar vertebra 10/30/2020 Lumbar stenosis with neurogenic claudication 02/2020 Fibromyalgia 06/21/2020 Enthesitis 05/25/2020 Sicca 02/01/2020 Insufficiency of tear film of both eyes 01/11/20 Meibomian gland dysfunction (MGD) of upper and lower lids of both eyes 01/11/2020 Meibomian gland dysfunction right eye, upper and lower eyelids 01/11/2020 Scleritis 01/10/2020 Recurrent sinus infections 10/06/2019 ASCVD (arteriosclerotic cardiovascular disease) 12/04/2018 TAIWO on CPAP 12/04/2018 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 11/04/2017 Osteoarthritis 04/03/2017 Abnormal laboratory test 03/06/2017 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 of non -steroidal anti-inflammatories (NSAID) 03/06/2017 Tendonitis 10/21/2016 Triggering of digit 10/21/2016 Hypertension 10/21/2016 Resolved Problems Problem Noted Date Diagnosed Date Resolved Date Bowel trouble 08/05/2024 11/25/2024 Orthostatic hypotension 08/02/2024 01/0 07/2025 Dizziness 07/31/2024 11/25/2024 Encounters Date Type Department Care Team Description 05/26/2025 Orders Only [facility] Medicine Specialties [address] [place] [address] Laura Dasilva MBBS Osteoarthritis of multiple joints, unspecified osteoarthritis type (Primary Dx) 05/25/2025 10:30 AM EDT Office Visit [facility] Medicine Specialties [address] [place] [address] Laura Dasilva MBBS 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CMS/HCC) (Primary Dx); Osteoarthritis of multiple joints, unspecified osteoarthritis type; retirement (current) use of non-steroidal anti-inflammatories (nsaid); Positive ROBBIN (antinuclear antibody) 05/25/2025 Travel from Last 3 Months Immunizations Immunization Administration Dates Next Due Influenza, injectable, quadrivalent, preservativ e free 08/06/2016 Influenza, seasonal, injectable 09/01/2021 Influenza, seasonal, injectable, preservative fr ee 09/20/2017 Tdap 12/07/2018 Zoster, Recombinant 10/16/2023 Family History Medical History Relation Name Comments Cardiac disorder Maternal Grandfather Cardiac disorder Maternal Grandmother Diabetes Other Cardiac disorder Paternal Grandfather Cardiac disorder Paternal Grandmother Fibromyalgia Sibling Relation Name Status Comments Maternal Grandfather Maternal Grandmother Other Paternal Grandfather Paternal Grandmother Sibling Social History Tobacco Use Types Packs/Day Years Used Date Smoking Tobacco: Former Cigarettes 1 27.7 1 984 - 07/28/2011 Passive Smoke Exposure: Past Smokeless Tobacco: Never Tobacco Cessation:Counseling Given: Not Answered Alcohol Use Standard Drinks/Week Comments Not Currently [...] on file Sexual Orientation Not on file Last Filed Vital Signs Vital Sign Reading [...] Mass Index 23.89 05/25/2025 10:50 AM EDT Plan of Treatment Upcoming Encounters Date Type Department Care Team (Late st Contact Info) Description 12/28/2025 9:00 AM EST [facility] [address] [place] [address] Laura Dasilva, MBBS [address] [place] [address] Health Maintenance Due Date Last Done Comments [facility]-Bone Density Scan 1966 [facility]-Medicare Annual Wellness (AWV) 1966 [facility]-/Child/Adol SDOH Screenings 1966 [id number] Vaccine (#1) 1971 [facility]- SDOH Screenings 1984 [facility]-Adult SDOH Screenings 1984 [facility]-Hepatitis B Vaccines (1 of 3 - 19+ 3-dose series) 1985 [facility]-Pap Smear 1987 [facility]-Cervical Cancer Screening 1996 [facility]-HPV/Cotest 1996 CT Colonography 2011 FIT-DNA 2011 FIT 2011 FOBT 2011 Sigmoidoscopy 2011 [facility]-Breast Cancer Screening 2016 [facility]-Pneumococcal Vaccine: 50+ Years (1 of 1 - PCV) 2016 [facility]-Lung Cancer Screening 05/22/2021 05/22/2020, 09/2020 [facility]-Zoster Vaccines (2 of 2) 12/11/2023 10/16/2023 [facility]-Influenza Vaccine (#1) 07/18/202509/01, 09/20/2017, 08/06/2016 [facility]-Depression Screening 05/25/2026 05/25/2025 [facility]-DTaP,Tdap,and Td Vaccines (2 - Td or Tdap) 12/07/2028 12/07/2018 Colonoscopy 10/25/2034 10/27/2024 [facility]-Colorectal Cancer Screening 10/25/2034 [facility]-HIV Screening Completed 10/06/2019 [facility]-Hepatitis C Screening Completed 2023, 04/24/2022, 07/30/2018, Additional history exists HPV Vaccines Aged Out No longer eligi ble based on patient's age to complete this topic [facility]-HIB Vaccines Aged Out No longer e ligible based on patient's age to complete this topic [facility]-Hepatitis A Vaccines Aged Out No longer eligible based on patient's age to complete this topic [facility]-IPV Vaccines Aged Out No longer e ligible based on patient's age to complete this topic [facility]-Rotavirus Vaccines Aged Out No lo nger eligible based on patient's age to complete this topic Medical Devices Implanted Type Area Can Technician Device Identifier Shelf Expiration Date Model / Serial / Lot Duraclip 11mm - [id number] Implanted:Qty: 1 on 10/27/2024 by Gabriela Horan MD at [facility] [id number] 12/22/2026 [id number] / / [id number] Procedures Procedure Name Priority Date/Time Associated Diagnosis Comments COLONOSCOPY Routine 10/27/2024 12:43 PM EST Generalized abdominal pain Blood in stool Diarrhea, unspecified type ACUTE HEPATITIS PANEL Routine 07/06/2024 1:27 PM EDT 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CMS/HCC) High risk medication use CT CHEST W IV CONTRAST Routine 0 3:41 PM EDT HIV 1/2 ANTIBODY/ANTIGEN SCREEN WITH REFLEX TO HIV I/II DIFFERENTIATION Routine 10/06/2019 11:34 AM EST from Last 3 Months or Most Recently Relevant to Health Maintenance Results * Colonoscopy (10/27/2024 12:43 PM EST) Anatomical Region Laterality Modality Endoscopy Narrative 10/27/2024 1:01 PM EST Table formatting from the original result was not included. Impression: The terminal ileum and entire colon appeared normal. Performed random biopsy using biopsy forceps. Recommendations Repeat screening colonoscopy in 10 years, due: 10/25/2034 Follow up with GI Clinic This colonoscopy and bowel preparation is adequate for colon cancer screening. Indication Order Indication: Blood in stool, Generalized abdominal pain, Diarrhea, unspecified type Medications See anesthesia record for anesthesia administered medications. Staff Staff Role Speedy Beckman Endo Solar Project Engineer Ricardo Alvarado CRNA CRNA Flomenhoft, Deborah R, MD Proceduralist Ayaka Amin Endo Nurse Dung Dupree MD Anesthesiologist Preprocedure A history and physical has been performed, and patient medication allergies have been reviewed. The patient's tolerance of previous anesthesia has been reviewed. The risks and benefits of the procedure and the sedation options and risks were discussed with the patient. All questions were answered and informed consent obtained. Details of the Procedure The patient underwent monitored anesthesia care, which was administered by an anesthesia professional. The patient's blood pressure, heart rate, level of consciousness, respirations and oxygen were monitored throughout the procedure. A digital rectal exam was performed. A perianal exam was performed. The scope was introduced through the anus and advanced to the terminal ileum, 15 cm from the ileocecal valve. Retroflexion was performed in the rectum. The quality of bowel preparation was evaluated using the [place] Bowel Preparation Scale with scores of: right colon = 3, transverse colon = 3, left colon = 3. The total BBPS score was 9. Bowel prep was adequate. The patient experienced no blood loss. The procedure was not difficult. The patient tolerated the procedure well. There were no apparent adverse events. Perianal skin appears hypopigmented, no obvious lesions. Attestation I personally performed the entire procedure Events Procedure Events Event Event Time ENDO SCOPE IN TIME 10/27/2024 12:18 PM ENDO SCOPE OUT TIME 10/27/2024 12:25 PM ENDO SCOPE IN TIME 10/27/2024 12:27 PM ENDO CECUM REACHED 10/27/2024 12:32 PM ENDO SCOPE OUT TIME 10/27/2024 12:41 PM Specimens ID Type Source Tests Collected by Time 1 : Colon Gabriela Horan MD A : biopsy Tissue Duodenum SURGICAL PATHOLOGY EXAM Gabriela Horan MD 10/27/2024 1219 B : biopsy Tissue Stomach SURGICAL PATHOLOGY EXAM Gabriela Horan MD 10/27/2024 1220 C : distal biopsy Tissue Esophagus SURGICAL PATHOLOGY EXAM Gabriela Horan MD 10/27/2024 1221 D : mid biopsy Tissue Esophagus SURGICAL PATHOLOGY EXAM Gabriela Horan MD 10/27/2024 1223 E : random biopsy Tissue Colon SURGICAL PATHOLOGY EXAM Gabriela Horan MD 10/27/2024 1234 Findings The terminal ileum and entire colon appeared normal. Performed random biopsy using biopsy forceps. Biopsies taken of colon. Bleeding from one biopsy site < 5cc, 11mm hemoclip applied for hemostasis. us Brynn Diaz TECHNICAL APPLICATIONS SCIENTIST, DNP GI PROCEDURE ORDERABLE S Final Result * Hepatitis panel, acute (07/06/2024 1:27 PM EDT) Hepatitis B Surf Antigen Negative Negative 07/06/2024 4:23 PM EDT [facility] Hepatitis C Antibody Negative Negative 07/06/2024 4:23 PM ED[address] [facility] Hepatitis A Antibody IgM Negative Negative 07/06/2024 4:23 PM ED[address] [facility] Hepatitis B Core Antibody IgM Negative Negative 07/06/2024 4:23 PM EDT [facility] Blood Venous blood specimen / Unknown Venipuncture / Unknown 07/06/2024 1:27 PM EDT 07/06/2024 1:28 PM EDT Toi Kwan MD LAB BLOOD ORDERABLES Final Re sult Performing Organization Address City/State/[facility] Co de Phone Number [facility] [address] [place] [phone] * CT Chest w IV Contrast (05/22/2020 3:41 PM EDT) Anatomical Region Laterality Modality Chest Computed Tomogra phy Narrative 05/22/2020 3:48 PM EDT REQUESTING PHYSICIAN: TOI KWAN REASON FOR EXAMINATION/PROCEDURE: Shortness of breath EXAMINATION / PROCEDURE: CT Chest W IVCON May 22 2020 - 15:41; CLINICAL INDICATION: Shortness of breath TECHNIQUE: Multiple CT helical imag es were obtained from thoracic inlet through upper abdomen with administration of IV contrast. 90 mL of Omnipaque-300 were administered intravenously. Total DLP (Dose-Length Product): 90 mGy*cm. Please note: The reported value represents th e total of one or more individual components during the CT acquisition on this date and at this time, and as such, the same value may appear in more than one CT report depending on the interpreting/reporting physicians. COMPARISON: January 26, 2020 FINDINGS: Mediastinum and Pleura: No adenopathy in the chest. No pleural or pericardial effusions. LAD stent. Lungs: Minimal scarring at both lung apices. No focal airspace opacities or suspicious pulmonary nodules. Previously noted s mall foci of groundglass in the upper lobes have largely resolved. Upper Abdomen: No suspicious lesions in the partially visualized upper abdomen. Musculoskeletal: No suspicious lytic or sclerotic lesion. IMPRESSION: Minor scarring at the lung apices. Interval improvement upper lobe groundglass opacities. No new or suspicious findings. CRITICAL RESULT: No. COMMUNICATION: Per this written report. Verified by: JB PITTMAN M.D. on May 22 2020 3:46P Transcribe d by: PSCB on May 22 2020 3:46P Dictated by: JB PITTMAN M.D. on May 22 2020 3:41P Procedure Note Jb Pittman - 03/13/2021 REQUESTING PHYSICIAN: TOI KWAN REASON FOR EXAMINATION/PROCEDURE: Shortness of breath EXAMINATION / PROCEDURE: CT Chest W IVCON May 22 2020 - 15:41; CLINICAL INDICATION: Shortness of breath TECHNIQUE: Multiple CT helical imag es were obtained from thoracic inlet through upper abdomen with administration of IV contrast. 90 mL of Omnipaque-300 were administered intravenously. Total DLP (Dose-Length Product): 90 mGy*cm. Please note: The reported value represents th e total of one or more individual components during the CT acquisition on this date and at this time, and as such, the same value may appear in more than one CT report depending on the interpreting/reporting physicians. COMPARISON: January 26, 2020 FINDINGS: Mediastinum and Pleura: No adenopathy in the chest. No pleural or pericardial effusions. LAD stent. Lungs: Minimal scarring at both lung apices. No focal airspace opacities or suspicious pulmonary nodules. Previously noted s mall foci of groundglass in the upper lobes have largely resolved. Upper Abdomen: No suspicious lesions in the partially visualized upper abdomen. Musculoskeletal: No suspicious lytic or sclerotic lesion. IMPRESSION: Minor scarring at the lung apices. Interval improvement upper lobe groundglass opacities. No new or suspicious findings. CRITICAL RESULT: No. COMMUNICATION: Per this written report. Verified by: JB PITTMAN M.D. on May 22 2020 3:46P Transcribe d by: PSCB on May 22 2020 3:46P Dictated by: JB PITTMAN M.D. on May 22 2020 3:41P Toi Kwan MD IMG CT PROCEDURES Final Resul t * HIV 1 & 2 Antibody/Antigen Screen (10/06/2019 11:34 AM EST) HIV 1 Result NONREACTIVE Screening for HIV 1 and 2 antibodies is NONREACTIVE. No confirmatory testing is required. SUNQUEST 10/06/2019 11:3 4 AM EST 10/06/2019 12:44 PM EST Historical Provider LAB BLOOD ORDERABLES Nila storm Result SUNQUEST from Last 3 Months or Most Recently Relevant to Health Maintenance Insurance [facility] MEDICARE [facility] Care Teams Signals Intelligence Analyst Relationship Specialty Start Date End Date Nuria Barnes APRN [address] [place] [address] PCP - General 05/25/25 Jagjit Soto MD [address] [facility] [address] [place] [address] Surgeon Neurosurgery 05/22/21
--- NOTE | 2025-05-31 14:27 | XR_ITS ---
FINAL REPORT TECHNIQUE: 5 views CLINICAL HISTORY: left hand numbness, left sided neck pain FINDINGS: There is no fracture present. There are postoperative changes of anterior cervical fusion from C4-C6. There is minimal anterolisthesis of C2 on C3. Moderate degenerative disc changes are seen at C6-7. There is severe degenerative disc change at C3-4. IMPRESSION: Postoperative and degenerative changes without acute bony abnormality. Reviewed, Interpreted and Dictated by Crow López MD Transcribed by Kait Mario Authenticated and . [facility]
--- NOTE | 2025-05-31 14:27 | XR_ITS ---
FINAL REPORT CLINICAL HISTORY: left elbown pain, swelling FINDINGS: 3 views of the left elbow were obtained. There is no acute fracture or dislocation. The joint spaces are intact. There is not soft tissue abnormality. IMPRESSION: No acute fracture Reviewed, Interpreted and Dictated by Crow López MD Transcribed by Kait Mario Authenticated and [facility]
[2025-05-31 14:52] LABS: Hematocrit 40.4 % (37.0-47.0); Hemoglobin 12.9 g/dL (12.2-16.2); Immature Granulocytes % 0.2 %; Mean Corpuscular HGB Conc 31.9 g/dL (31.8-35.4); Mean Corpuscular Hemoglobin 29.4 pg (27.0-31.2); Mean Corpuscular Volume 92.0 fl (81-99); Nucleated Red Blood Cells % 0 %; Platelet Count 293 K/mm3 (142-424); Red Blood Count 4.39 M/mm3 (4.20-5.40); Red Cell Distribution Width-SD 41.1 fL; White Blood Count 5.0 K/mm3 (4.8-10.8)
[2025-05-31 15:30] LABS: Alanine Aminotransferase 58 U/L (12-78); Albumin Level 4.6 g/dl (3.5-5.0); Albumin/Globulin Ratio 1.9 (1.1-1.8); Alkaline Phosphatase 62 U/L (38-126); Anion Gap 15.3 mEq/L (5-15); Aspartate Amino Transferase 61 U/L (14-36); Bilirubin,Total 0.4 mg/dl (0.2-1.3); Blood Urea Nitrogen 13 mg/dl (7-17); Calcium 9.9 mg/dl (8.4-10.2); Carbon Dioxide 28 mmol/L (22.0-30.0); Chloride 99 mmol/L (98-107); Creatinine,Serum 0.80 mg/dl (0.52-1.04); Estimated Glomerular Filt Rate 73 ml/min (>60); GFR (African American) 89 ML/MIN (>60); Globulin 2.4 g/dL (1.3-3.2); Glucose 91 mg/dl (74-100); Potassium 4.3 mmoL/L (3.5-5.1); Sodium 138 mmol/L (136-145); Total Protein,Serum 7.0 g/dl (6.3-8.2)
[2025-05-31 15:36] LABS: C-Reactive Protein 1.0 mg/L (0-4)
== END 2025-05-31 23:59 | disposition home or self-care (01) ==
LOC: LAB 13:53
PROVIDERS: Internal Medicine Rheumatology; PCP Nurse Practitioner Family; Visit Provider Nurse Practitioner Family
DX: M47.812 Spondylosis without myelopathy or radiculopathy, cervical region (principal); M25.522 Pain in left elbow; M25.422 Effusion, left elbow; M65.90 Unspecified synovitis and tenosynovitis, unspecified site; L40.3 Pustulosis palmaris et plantaris; L70.9 Acne, unspecified; M85.80 Other specified disorders of bone density and structure, unspecified site; M86.9 Osteomyelitis, unspecified; R20.0 Anesthesia of skin; Z98.890 Other specified postprocedural states
CPT/HCPCS: 36415; 72050; 73080; 80053; 82523; 82570; 83937; 85025; 85651; 86140

== ENCOUNTER 2025-06-14 07:23 | Outpatient (CLI) | payer MEDICARE, SELFPAY ==
--- OUTSIDE RECORDS SUMMARY | 2025-05-25 10:30 | XMS_ITS | Encounter Summary ---
Author Organization [facility] Address [address] [place] [address] Care Team Providers Care Balance Wheel Facer Name Role Phone Jagjit Soto MD Unavailable [phone] Nuria Barnes APRN Primary Care Provider [phone] Reason for Visit * Reason Comments Follow-up SAPHO syndrome Encounter Details Date Type Department Care Team (Latest Contact Info) Description 05/25/2025 10:30 AM EDT [facility] [address] [place] [address] Laura Dasilva, [facility] [address] [id number] 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CMS/HCC) (Primary Dx); Osteoarthritis of multiple joints, unspecified osteoarthritis type; salvage determiner (current) use of non-steroidal anti-inflammatories (nsaid); Positive ROBBIN (antinuclear antibody) Social History Tobacco Use Types Packs/Day Years Used Date Smoking Tobacco: Former Cigarettes 1 27.7 1 984 - 07/28/2011 Passive Smoke Exposure: Past Smokeless Tobacco: Never Alcohol Use Standard Drinks/Week Comments Not Currently 0 (1 standard drink = 0.6 oz pur e alcohol) PHQ-2 Answer Date Recorded Patient Health Questionnaire-2 Score 0 05/25/2025 AUDIT-C Answer Date Recorded Q1: How often do you have a drink containing alc ohol? Monthly or less 05/25/2025 Q2: How many drinks containi ng alcohol do you have on a typical day when you are drinking? 1 or 2 05/25/2025 Q3: How often do you have si x or more drinks on one occasion? Never 05/25/2025 PHQ-2A Answer Date Recorded Patient Health Questionnaire-2 Score 0 04/16/2023 Comments No Sex and Gender Information Value Date Recorded Sex Assigned at Not on file Legal Sex Female 6:04 PM EDT Gender Identity Not on file Sexual Orientation Not on file documented as of this encounter Last Filed Vital Signs Vital Sign Reading Time Taken Comments Blood Pressure 110/77 05/25/2025 10:50 AM EDT Pulse 72 05/25/2025 10:50 AM EDT Temperature 36.8 C (98.2 F) 05/25/2025 10:50 AM EDT Respiratory Rate 16 05/25/2025 10:50 AM EDT Oxygen Saturation 99% 05/25/2025 10:50 AM EDT Inhaled Oxygen Concentration - - Weight 69.2 kg (152 lb 8.9 oz) 05/25/2025 10:50 AM EDT Height 170.2 cm (5' 7 ) 05/25/2025 10:50 AM EDT Body Mass Index 23.89 05/25/2025 10:50 AM EDT documented in this encounter Functional Status * AUDIT-C Score Answer Date of Assessment Author 1 05/25/2025 10:54 AM MYNORT Kaley Paredes * Question Answer Date of Assessment Author Q1: How often do you have a drink containing alcohol? Monthly or less 05/25/2025 10:54 AM EDT Herman Paredes Q2: How many drinks containing alcohol do you have on a typical day when you are drinking? 1 or 2 05/25/2025 10:54 AM MYNORT Kaley Paredes Q3: How often do you have si x or more drinks on one occasion? Never 05/25/2025 10:54 AM Kaley Bautista * Over the past 2 weeks, how often have you been bothered by any of the following problems? Question Answer Date of Assessment Author Little interest or pleasure in doing things Not at all 05/25/2025 10:52 AM Kaley Bautista Feeling down, depressed, or hopeless Not at all 05/25/2025 10:52 AM EDT Kaley Paredes Patient Health Questionnaire -2 Score 0 05/25/2025 10:52 AM EDT Kaley Paredes documented as of this encounter Miscellaneous Notes * Patient Instructions - Laura Dasilva MBBS - 05/25/2025 10:30 AM EDT Labs today Follow up in 6 months * Addendum Note - Javier Rowell RN - 05/25/2025 10:30 AM EDTAddended by: JAVIER ROWELL on: 06/01/2025 04:22 PM Modules accepted: Orders * Addendum Note - Javier Rowell RN - 05/25/2025 10:30 AM EDTAddended by: JAVIER ROWELL on: 06/01/2025 04:24 PM Modules accepted: Orders * Progress Notes - Laura Dasilva MBBS - 05/25/2025 10:30 AM EDT Images from the original note were not included. Rheumatology follow up office visit note Chief Complaint Patient presents with Follow-up SAPHO syndrome HPI Caren Infante is a 59 y.o. 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 History of disease: Diagnosed in 2017 with recurrent acne, papulopustular rashes and osteitis, and inflammatory joints. initially diagnosed as seronegative rheumatoid arthritis w/ positive ROBBIN 1:320; ENAs = WNL Serologies negative for RF and CCP with elevated inflammatory markers. ROBBIN 1:160 with negative subserologies. Imaging: (Nuclear medicine scan showed Very active bone and joint process(es) involving right sternoclavicular joint/manubrium, sternomanubrial joint, and posterior right proximal humerus) Medication Hx: 1- PO MTX: (03/2017-skin rash and itching all over so stopped) 2- LEF: (07/2017-07/2018) - no benefit 3- HCQ: (01/2018-01/2019) - no benefit 4- Humira For 6 mo (maybe in 2017)- no benefit 5- Enbrel for over 6 mo - no benefit 6- Remicade (03/2019) one infusion that resulted in adverse reaction - body swelling 7- SSZ - nov 2018 - jun 2019 - lack of benefit 8- Pamidronate - 05/30/19 infusion, June 2019 infusion, q3m infusions till 01/06 then --> Q2M infusions. 70% benefit with flares regularly ~ 6-8 weeks after each infusion. On 06/21/20 reports about 1 wk of relief from infusion. Last infusion on 12/19/22 9- Duloxetine started in Sep 2020. 10 - Stelara last dose 11/06/22, every 90 days (Not noticing big difference) 11- Cosentyx 300 mg 12/2022 - off since 06/2023 (weight gain) 12. Skyrizi 150 mg every 12 weeks (10/09) - 05/2024 (worsening skin rashes) 13. Colchicine 06/10 Summary of last visit 11/25/24: (History obtained by the medical student - Riccardo Corbin) Unaccompanied Patient reports continued pain, worse broadly than at the last visit. She complains of long-standing toenail desquamation of at least 15 years, worsening recently. She has received a referral to a press operator assistant but has not been able to make an appointment. She reports an out-of-body experience at her last hospitalization in July and endorses a belief that she has been given a second chance that motivates her to request that we use no biologic agents in treatment out of a fear that they will affect her heart. She reports continuing muscle cramps at night in her legs. Regarding her SAPHO syndrome, patient reports continuing flares involving acneiform lesions occurring approximately 4 times per year, with painful lesions occurring on the legs, arms, face, chest, and back. She provided pictures on her phone of lesions on her legs, chest, face, particularly complaining about lesions in the skin creases around her mouth. She reports continuing pain in her bilateral knees, elbows, hips, and right hand. She reports right hand pain in the left first digit MCP when reaching for objects. She reports episodes of uveitis occurring approximately every six weeks, with photo evidence of unilateral episodes in March and September. She reports that she is scheduled to see an opthomologist in three weeks. Summary of today's visit 05/25/25: Patient states that she has been off pamidronate for about 6 months now. She has noted intermittentacneiform lesions as well as intermittent pain in her sternum as well as left shoulder and left side of the back. Patient states that she has been having sharp stabbing constant pain in her left elbow. She does not report any associated swelling. Review of system: 14 point ROS was done, negative other than mentioned in HPI. Objective The following portions of the chart were reviewed this encounter and updated as appropriate: Tobacco Allergies Meds Problems Med Hx Surg Hx Fam Hx Home medications: Current Outpatient Medications Medication Instructions albuterol 108 (90 Base) MCG/ACT inhaler 2 puffs, As needed aritificial tears, PF, (Bion Tears) 0.1-0.3 % ophthalmic solution 1 drop, Both Eyes, 3 times daily PRN aspirin 81 MG EC tablet atorvastatin (LIPITOR) 80 mg, Oral, Daily bisacodyl (Bisacodyl EC) 5 MG EC tablet Take all 4 tablets at 4 PM on day before colonoscopy cholecalciferol (Vitamin D-3) 1.25 MG (01616 UT) capsule TAKE 2 CAPSULE Weekly diazePAM (Valium) 5 MG tablet diclofenac (Voltaren) 1 % topical gel Transdermal, 2 times daily, Apply as directed to hands and sternum for pain dicyclomine (BENTYL) 10 mg, Oral, 4 times daily PRN, Take with meals and at bedtime DULoxetine (CYMBALTA) 60 mg, Daily fluticasone-vilanterol (Breo Ellipta) 100-25 MCG/INH inhaler USE 1 INHALATION ONCE DAILY. gabapentin (NEURONTIN) 300 mg, Oral, 3 times daily HYDROcodone-acetaminophen ([place]) 10-325 MG tablet levothyroxine (Synthroid, Levoxyl) 137 MCG tablet levothyroxine (Synthroid, Levoxyl) 150 MCG tablet TAKE 1 TABLET BY MOUTH EVERY DAY IN THE MORNING ON AN EMPTY STOMACH levothyroxine (Synthroid, Levoxyl) 175 MCG tablet meloxicam (MOBIC) 7.5 mg, Oral, 2 times daily meloxicam (MOBIC) 15 mg, Daily PRN methocarbamol (ROBAXIN) 500 mg, 2 times daily PRN METHOCARBAMOL PO 500 mg. metoprolol succinate XL (Toprol-XL) 25 MG 24 hr tablet Take 1/2 tablet once daily. Do not crush or chew. midodrine (Proamatine) 10 MG tablet 1 tablet, 3 times daily before meals naloxone (Narcan) 4 mg/0.1 mL nasal spray CALL 911. SPR CONTENTS OF ONE SPRAYER (0.1ML) INTO ONE NOSTRIL. REPEAT IN 2-3 MIN IF SYMPTOMS OF OPIOID EMERGENCY PERSIST, ALTERNATE NOSTRILS nitroglycerin (Nitrostat) 0.[address] 1 TABLET UNDER THE TONGUE EVERY 5 MINUTES FOR UP TO 3 DOSES NEEDED FOR CHEST PAIN.CALL 911 IF PAIN PERSISTS. ondansetron (Zofran) 8 MG tablet TAKE 1 TABLET BY MOUTH EVERY 8 HOURS FOR 4 DAYS NEEDED FOR NAUSEA OR VOMITING oxyCODONE-acetaminophen (Percocet) 10-325 MG tablet 1 tablet, Every 6 hours RT pamidronate (Aredia) 30 MG injection INFUSE MG Every 6 weeks phentermine (ADIPEX-P) 37.5 mg, Daily polyethylene glycol (GoLYTELY) 236 g solution SEE PHARMACY NOTES FOR PATIENT LABEL INSTRUCTIONS- for Colonoscopy prep protocol potassium chloride CR (Klor-Con M20) 20 MEQ ER tablet TAKE 2 TABLETS DAILY. Risankizumab-rzaa (Skyrizi Pen) 150 MG/ML solution auto-injector Inject 150 mg (1 pen) under the skin at weeks 0,4, and then every 12 weeks thereafter senna (Senokot) 8.6 MG tablet No dose, route, or frequency recorded. topiramate (Topamax) 25 MG tablet Take 25 mg at bedtime for one week, then 50 mg at bedtime for oneweek, then 75 mg at bedtime for one week, then 100 mg at bedtime thereafter topiramate (TOPAMAX) 100 mg, Daily Vitals: Vitals: 05/25/25 1050 BP: 110/77 Pulse: 72 Resp: 16 Temp: 36.8 ??C (98.2 ??F) SpO2: 99% Physical Exam Constitutional: Appearance: Normal appearance. She is not ill-appearing. Eyes: General: No scleral icterus. Conjunctiva/sclera: Conjunctivae normal. Musculoskeletal: General: No swelling or tenderness. Right wrist: Normal. Left wrist: Normal. Right hand: Normal. Left hand: Normal. Skin: Findings: No rash. Neurological: General: No focal deficit present. Mental Status: She is alert. Psychiatric: Mood and Affect: Mood normal. Results: Lab Results Component Value Date WBC 5.24 08/03/2024 WBC 8.16 07/06/2024 HGB 11.2 (L) 08/03/2024 HGB 14.7 07/06/2024 HCT 33.8 (L) 08/03/2024 HCT 43.6 07/06/2024 MCV 92.6 08/03/2024 MCV 91 07/06/2024 PLT 227 08/03/2024 PLT 330 07/06/2024 Lab Results Component Value Date GLUCOSE 89 09/09/2024 BUN 17 09/09/2024 CREATININE 0.88 09/09/2024 CREATININE 0.79 08/05/2024 BCR 19 09/09/2024 NA 139 09/09/2024 K 3.8 09/09/2024 CL 105 09/09/2024 CO2 24 09/09/2024 CA 9.8 01/18/2021 ALBUMIN 4.5 09/09/2024 AST 23 09/09/2024 AST 38 (H) 07/06/2024 ALT 24 09/09/2024 ALT 30 07/06/2024 ALKPHOS 48 09/09/2024 ALKPHOS 68 07/06/2024 BILITOT 0.4 09/09/2024 BILITOT 0.3 07/06/2024 Lab Results Component Value Date C3 134 09/02/2018 C4 19 09/02/2018 CRP <3.0 05/19/2024 CRP <3.0 10/16/2023 FERRITIN 34 05/19/2024 SEDRATE 6 01/14/2023 SEDRATE 5 10/15/2022 Lab Results Component Value Date/Time ANATITER 1:160 (A) 01/14/2023 1255 ANATITER 03/06/2017 1125 POSITIVE THROUGH 1:320 DILUTION Normal Titer is <1:80 ANAPATTRN Speckled (A) 01/14/2023 1255 ANAPATTRN 03/06/2017 1125 NUCLEOLAR (NOTE) INTERPRETATION OF PATTERNS PATTERN ANTIBODY SPECIFICITY FOLLOW-UP TESTS Homogenous dsDNA,histones dsDNA,histone antibodies* Speckled Sm,FOREST RESOURCES PROFESSOR,SS-A,SS-B,Scl70 Sm,FOREST RESOURCES PROFESSOR,SS-A,SS-B,Scl70 and others Nucleolar 4-6s RNA None Centromere kinetochore/chromosomal None centromere Cell Cycle Dep. RNA processing assoc. PCNA*(proliferating cell antigen nuclear antigen) Nuclear Lamins nuclear pores and assoc. None nuclear membrane proteins Mitotic Spindle mitosis assoc. proteins None Centriole centriole None Cytoplasmic SMA,AMA,ribosomal,Alberta-1, SMA,AMA,ribosomal P*,Alberta-1* Golgi, and others. * = Mail/ send out test Mixed patterns are common; i.e., homogeneous and speckled (HS). consider the specificity of each single pattern when determining appropriate follow-up testing. ROBBIN Detected (H) 01/14/2023 1255 TPO 16 (H) 05/19/2024 1209 CCPIGG <5.0 01/14/2023 1255 RF <10 01/14/2023 1255 SSA52 1 01/14/2023 1255 SSA60 1 01/14/2023 1255 LA 0 01/14/2023 1255 LA 1:0.3 09/02/2018 0931 ENAIGG 0 01/14/2023 1255 SM <1.0 03/06/2017 1125 Lab Results Component Value Date/Time ALDOLASE 4.0 01/14/2023 1255 CK 96 01/14/2023 1255 VITD25 34.5 06/21/2020 0923 Lab Results Component Value Date/Time SCL70 0 01/14/2023 1255 Lab Results Component Value Date CREATUR 50 09/02/2018 PROTUR 4 09/02/2018 UTPCR <0.1 09/02/2018 UTPCR 0.1 03/06/2017 Lab Results Component Value Date QUANTIFERON Negative 10/16/2023 HEPBSAG Negative 07/06/2024 HEPBSAG NEGATIVE Reference Value: Negative 07/30/2018 ROSANNE Negative 07/06/2024 ROSANNE NEGATIVE Reference Range: Negative 07/30/2018 IGA 117 10/06/2019 IGM 129 10/06/2019 IGG 1,073 10/06/2019 HEPBSAB Negative 04/24/2022 HEPBSAB 07/30/2018 0.00 NEGATIVE Antibodies to HBsAg are less than 8 International Units/L which indicate they are not detected or are below the protective level for immunity. Images: MRI Cervical and lumbar spine: 11/2019 Moderate canal stenosis, at least, due to disc protrusion at C3-C4, just above the level of the patient's cervical spine fusion. Milder degenerative changes elsewhere as discussed above. L4-5 central/left paracentral disc protrusion and facet hypertrophy, with left lateral recess stenosis, left-sided foraminal stenosis and borderline canal stenosis. Milder right-sided foraminal narrowing also noted at this level. 2. Minor degenerative changes elsewhere as discussed. Nuclear scan: 03/2019 IMPRESSION: Active inflammation involving the right sternoclavicular joint, right clavicular head, right manubrium, sternomanubrial joint, right distal sternal body and right proximal humerus. Compared to prior, over all slight interval increase in extent and intensity suggesting more active process. No new lesions. Healed right rib fracture. 12/2018 Very active bone and/or joint process(es) involving right sternoclavicular joint/manubrium, sternomanubrial joint, and posterior right pr oximal humerus, which can be seen in inflammatory conditions such as osteitis and SAPHO syndrome. Healing right 7th rib fracture. Multifocal arthritic/degenerative/post-surgical changes. Assessment/Plan Caren Infante is a 59 y.o. 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 1. SAPHO syndrome Diagnosed in 2017 with recurrent acne, papulopustular rashes and osteitis, and inflammatory joints. Serologies negative for RF and CCP with elevated inflammatory markers. ROBBIN 1:160 with negative subserologies. Imaging: (Nuclear medicine scan showed Very active bone and joint process(es) involving right sternoclavicular joint/manubrium, sternomanubrial joint, and posterior right proximal humerus) Medication history: She failed multiple medications in the past, including DMARDs, IL12/23, IL-17, IL23i and TNF blockers. Biphosphonates since 2019, 50% improvement with her symptoms. Today, Patient states that she has been off pamidronate for about 6 months now. She has noted intermittentacneiform lesions as well as intermittent pain in her sternum as well as left shoulder and left side of the back. Patient states that she has been having sharp stabbing constant pain in her left elbow. She does not report any associated swelling. Plan: - discontinued Pamidronate (12/11) as she has been on more than 6 years and recent episode of uveitis 12/11 - Bone turnover markers today - Safety labs and inflammatory markers. - will start colchicine today - Currently follows with pain clinic and on Opoid medications for DJD. - Continue with PT - Uptodate with vaccinations. - RTC in six months. 2 Osteoarthritis Involving her hands and knees Complaints of worsening knee pain. Last injection provided relief for more than 6 months. Plan: - Continue topical NSAID's - On opiates for pain management. - Continue with PT 3. Long-term NSAID use Stable renal function 4. Positive ROBIBN No clinical features or signs of Lupus. Negative sub-serologies, inflammatory markers, and previous normal complement levels. Hx of Degenerative joint disease follows up with pain clinic Managed on Opiates, Cymbalta, and muscle relaxants 5. Degenerative joint disease MRI cervical and lumbar spine: Moderate canal stenosis, at least, due to disc protrusion at C3-C4, just above the level of the patient's cervical spine fusion. Milder degenerative changes elsewhere as discussed above. 2. L4-5 central/left paracentral disc protrusion and facet hypertrophy, with left lateral recess stenosis, left-sided foraminal stenosis and borderline canal stenosis. Milder right-sided foraminal narrowing also noted at this level. Patient was seen with GERTRUDE Fay PGY-5, Rheumatology Fellow Division of Rheumatology Department of Internal Medicine [facility] Cosigned by Kenisha Campos MD at 05/25/2025 3:20 PM EDT Associated attestation - Kenisha Campos MD - 05/25/2025 3:20 PM EDT I saw and evaluated the patient with the resident/fellow. I discussed the case with the resident/fellow and agree with the findings and plan as documented. Patient has had many medications for her disease, and each has lasted over time. Need to search literature for next medications documented in this encounter Plan of Treatment Upcoming Encounters Date Type Department Care Team (Late st Contact Info) Description 12/28/2025 9:00 AM EST Office Visit [facility] Medicine Specialties [address] [place] [address] Laura Dasilva, GERTRUDE [address] [place] [address] Scheduled Orders Name Type Priority Associated Diagnoses Orde r Schedule C-Telopeptide Lab Routine 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CMS/HCC) Expected: 05/25/2025 (Approximate), Expires: 11/25/2026 Osteocalcin by [facility]IA Lab Routine 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CMS/HCC) Expected: 05/25/2025 (Approximate), Expires: 11/25/2026 N telopeptide, cross-linked, serum Lab Routine 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CMS/HCC) Expected: 05/25/2025 (Approximate), Expires: 11/25/2026 documented as of this encounter Results * CBC and differential (06/01/2025 4:24 PM EDT) Blood Venous blood specimen / Unknown us Kenisha Campos MD LAB BLOOD ORDERABLES Final Re sult Performing Organization Address City/[facility]/ZIP Co de Phone Number EXTERNAL LAB * Comprehensive metabolic panel (06/01/2025 4:24 PM EDT) Blood Venous blood specimen / Unknown us Kenisha Campos MD LAB BLOOD ORDERABLES Final Re sult EXTERNAL LAB * C-reactive protein (06/01/2025 4:24 PM EDT) Blood Venous blood specimen / Unknown us Kenisha Campos MD LAB BLOOD ORDERABLES Final Re sult EXTERNAL LAB * Sedimentation Rate, Automated (06/01/2025 4:24 PM EDT) Blood Venous blood specimen / Unknown Kenisha Campos MD LAB BLOOD ORDERABLES Final Re sult Performing Organization Address City/[facility]/ZIP Co de Phone Number EXTERNAL LAB documented in this encounter Visit Diagnoses Diagnosis 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[facility])- Primary Traumatic spondylopathy Osteoarthritis of multiple joints, unspecified osteoarthritis type salvage determiner (current) use of non-steroidal anti-inflammatories (nsaid) Positive ROBBIN (antinuclear antibody) Other and unspecified nonspecific immunological findings documented in this encounter Additional Health Concerns Assessment Noted Time A fall risk assessment has been complete d for the patient 05/25/2025 10:52 AM EDT A Body Mass Index follow-up plan has been documented for the patient 05/25/2025 12:19 PM EDT documented as of this encounter Care Teams Balance Wheel Facer Relationship Specialty Start Date End Date Nuria Barnes APRN [address] [place] [address] PCP - General 05/25/25 Jagjit Soto MD [address] [place] [address] Surgeon Neurosurgery 05/22/21 documented as of this encounter
--- OUTSIDE RECORDS SUMMARY | 2025-06-14 07:26 | XMS_ITS | Encounter Summary ---
Author Organization [facility] Address [address] [place] [address] Care Team Providers Care Tree Warden Name Role Phone Jagjit Soto MD Unavailable [phone] Nuria Barnes APRN Primary Care Provider [phone] Encounter Details Date Type Department Care Team [...] Description 12/28/2025 9:00 AM EST Office Visit [facility] Medicine Specialties [address] [place] [address] Laura Dasilva MBBS [address] [place] [address] documented as of this encounter Visit Diagnoses Not on filedocumented in this encounter Additional Health Concerns Assessment Noted Time A fall risk assessment has been complete d for the patient 05/25/2025 10:52 AM EDT A Body Mass Index follow-up plan has been documented for the patient 05/25/2025 12:19 PM EDT documented as of this encounter Care Teams Tree Warden Relationship Specialty Start Date End Date Nuria Barnes APRN [address] [place] [address] PCP - General 05/25/25 Jagjit Soto MD [address] [place] [address] Surgeon Neurosurgery 05/22/21 documented as of this encounter
--- OUTSIDE RECORDS SUMMARY | 2025-06-14 07:26 | XMS_ITS ---
Author Organization Unknown Allergies, Adverse Reactions and Alerts Date IsAllergic OnsetDate Allergen Reaction Type Severity Gianluca rgyCode Legacyallergictoid ReactionCode ReactionCodeSystemID Custom 12/24 00:00 :00 1 Methotrex ate 12/24 00:00 :00 1 Methotrex ate 12/24 00:00 :00 1 demerol hives/hilda h 12/24 00:00 :00 1 demerol hives/hilda h 12/20 00:00 :00 1 Methotrex ate 12/20 00:00 :00 1 Methotrex ate 12/20 00:00 :00 1 demerol hives/hilda h 12/20 00:00 :00 1 demerol hives/hilda h 10/26 00:00 :00 1 Methotrex ate 10/26 00:00 :00 1 Methotrex ate 10/26 00:00 :00 1 demerol hives/hilda h 10/26 00:00 :00 1 demerol hives/hilda h 10/07 00:00 :00 1 Methotrex ate 10/07 00:00 :00 1 Methotrex ate 10/07 00:00 :00 1 demerol hives/hilda h 10/07 00:00 :00 1 demerol hives/hilda h 09/21 00:00 :00 1 Methotrex ate 09/21 00:00 :00 1 Methotrex ate 09/21 00:00 :00 1 demerol hives/hilda h 09/21 00:00 :00 1 demerol hives/hilda h 08/31 00:00 :00 1 Methotrex ate 08/31 00:00 :00 1 Methotrex ate 08/31 00:00 :00 1 demerol hives/hilda h 08/31 00:00 :00 1 demerol hives/hilda h 08/10 00:00 :00 1 Methotrex ate 08/10 00:00 :00 1 Methotrex ate 08/10 00:00 :00 1 demerol hives/hilda h 08/10 00:00 :00 1 demerol hives/hilda h 08/05 00:00 :00 1 Methotrex ate 08/05 00:00 :00 1 Methotrex ate 08/05 00:00 :00 1 demerol hives/hilda h 08/05 00:00 :00 1 demerol hives/hilda h 07/30 00:00 :00 1 Methotrex ate 07/30 00:00 :00 1 Methotrex ate 07/30 00:00 :00 1 demerol hives/hilda h 07/30 00:00 :00 1 demerol hives/hilda h 07/14 00:00 :00 1 Methotrex ate 07/14 00:00 :00 1 Methotrex ate 07/14 00:00 :00 1 demerol hives/hilda h 07/14 00:00 :00 1 demerol hives/hilda h 07/13 00:00 :00 1 Methotrex ate 07/13 00:00 :00 1 Methotrex ate 07/13 00:00 :00 1 demerol hives/hilda h 07/13 00:00 :00 1 demerol hives/hilda h 06/16 00:00 :00 1 Methotrex ate 06/16 00:00 :00 1 Methotrex ate 06/16 00:00 :00 1 demerol hives/hilda h 06/16 00:00 :00 1 demerol hives/hilda h 06/07 00:00 :00 1 Methotrex ate 06/07 00:00 :00 1 Methotrex ate 06/07 00:00 :00 1 demerol hives/hilda h 06/07 00:00 :00 1 jose luis lynn/hilda thomas
--- OUTSIDE RECORDS SUMMARY | 2025-06-14 07:26 | XMS_ITS | Encounter Summary ---
Author Organization [facility] Address [address] [place] [address] Care Team Providers Care Head Screen Worker Name Role Phone Jagjit Soto MD Unavailable [phone] Nuria Barnes APRN Primary Care Provider [phone] Encounter Details Date Type Department Care Team (Late st Contact Info) Description 06/08/2025 Orders Only [place] [facility] [address], [address] [place] [id number] Provider, MD Andrey [address] [place] [address] Social History Tobacco Use Types Packs/Day Years [...] Description 12/28/2025 9:00 AM EST Office Visit [facility] [address], [address] [place] [address] Laura Dasilva MBBS [address] [place] [address] documented as of this encounter Procedures Procedure Name Priority Date/Time Associated Diagnosis Comments C-TELOPEPTIDE Routine 06/08/2025 8:33 AM EDT OSTEOCALCIN BY ECIA (SO) Routine 06/08/2025 8:33 AM EDT documented in this encounter Results * C-Telopeptide (06/08/2025 8:33 AM EDT) Blood Venous blood specimen / Unknown Historical Provider LAB BLOOD ORDERABLES Nila l Result * Osteocalcin by ECIA (06/08/2025 8:33 AM EDT) Blood Venous blood specimen / Unknown Historical Provider LAB BLOOD ORDERABLES Nila l Result documented in this encounter Visit Diagnoses Not on filedocumented in this encounter Additional Health Concerns Assessment Noted Time A fall risk assessment has been complete d for the patient 05/25/2025 10:52 AM EDT A Body Mass Index follow-up plan has been documented for the patient 05/25/2025 12:19 PM EDT documented as of this encounter Care Teams Head Screen Worker Relationship Specialty Start Date End Date Nuria Barnes APRN [address] [place] [address] PCP - General 05/25/25 Jagjit Soto MD [address] [place] [address] Surgeon Neurosurgery 05/22/21 documented as of this encounter
--- OUTSIDE RECORDS SUMMARY | 2025-06-14 07:26 | XMS_ITS | Encounter Summary ---
Author Organization [facility] Address [address] [place] [address] Care Team Providers Care Social Services Director Name Role Phone Jagjit Soto MD Unavailable [phone] Nuria Barnes APRN Primary Care Provider [phone] Encounter Details Date Type Department Care Team (Late st Contact Info) Description 06/07/2025 Results Follow-Up [facility] Medicine Specialties [address], [address] [place] [address] Laura Dasilva, GERTRUDE [address] [place] [address] Social History Tobacco Use Types Packs/Day Years [...] Description 12/28/2025 9:00 AM EST Office Visit [place] [facility] [address], [address] [place] [address] Laura Dasilva MBBS [address] [place] [address] documented as of this encounter Visit Diagnoses Not on filedocumented in this encounter Additional Health Concerns Assessment Noted Time A fall risk assessment has been complete d for the patient 05/25/2025 10:52 AM EDT A Body Mass Index follow-up plan has been documented for the patient 05/25/2025 12:19 PM EDT documented as of this encounter Care Teams Social Services Director Relationship Specialty Start Date End Date Nuria Barnes APRN [address] [place] [address] PCP - General 05/25/25 Jagjit Soto MD [address] [place] [address] Surgeon Neurosurgery 05/22/21 documented as of this encounter
--- OUTSIDE RECORDS SUMMARY | 2025-06-14 07:26 | XMS_ITS | Encounter Summary ---
Author Organization [facility] Address [address] [place] [address] Care Team Providers Care Supervisor Graphite Name Role Phone Jagjit Soto MD Unavailable [phone] Nuria Barnes APRN Primary Care Provider [phone] Reason for Referral * Consultation (Routine) - Authorized Specialty Diagnoses / Procedures Referred By Contrakel t Referred To Contact Physical Therapy Diagnoses Osteoarthritis of multiple joints, unspecified osteoarthritis type Kenisha Campos MD [address] [facility] [address] [place] [address] Phone: tel: fax: Referral ID Status Reason Start Date Expiration Date Visits Requested Visits Authorized [id number] Authorized Consult and Treat 05/26/2025 11/25/2026 1 1 Encounter Details Date Type Department Care Team (Late st Contact Info) Description 05/26/2025 Orders Only [place] [facility] [address] [place] [address] Laura Dasilva, KRISTIN [address] [place] [address] Osteoarthritis of multiple joints, unspecified [...] Visit [place] [facility] [address] [place] [address] Laura Dasilva MBBS [address] [place] [address] Scheduled Referrals Name Type Priority Associated Diagnoses [...] documented as of this encounter Care Teams Supervisor Graphite Relationship Specialty Start Date End Date Nuria Barnes APRN [address] [place] [address] PCP - General 05/25/25 Jagjit Soto MD [address] [facility] [address] [place] [address] Surgeon Neurosurgery 05/22/21 documented as of this encounter
--- OUTSIDE RECORDS SUMMARY | 2025-06-14 07:26 | XMS_ITS | Encounter Summary ---
Author Organization [facility] Address [address] [place] [place] [address] Care Team Providers Care Director Of Provider Relations Name Role Phone Jagjit Soto MD Unavailable [phone] Nuria Barnes APRN Primary Care Provider [phone] Encounter Details Date Type Department Care Team (Late st Contact Info) Description 06/01/2025 Orders Only [place] [facility] [address], [address] [place] [address] Anastasiia Sagastume, RN 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CMS/HCC) Social History Tobacco Use Types Packs/Day Years [...] Description 12/28/2025 9:00 AM EST Office Visit [facility] Medicine Specialties [address], [address] [place] [address] Laura Dasilva, GERTRUDE [address] [place] [address] documented as of this encounter Procedures Procedure Name Priority Date/Time Associated Diagnosis Comments SEDIMENTATION RATE, AUTOMATED Routine 06/01/2025 4:24 PM EDT 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CMS/HCC) CBC WITH AUTO DIFFERENTIAL Routine 06/01/2025 4:24 PM EDT 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CMS/HCC) C-REACTIVE PROTEIN, PLASMA Routine 06/01/2025 4:24 PM EDT 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CMS/HCC) COMPREHENSIVE METABOLIC PANEL, PLASMA Routine 06/01/2025 4:24 PM EDT 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CMS/HCC) documented in this encounter Results * Comprehensive metabolic panel (06/01/2025 4:24 PM EDT) Blood Venous blood specimen / Unknown us Kenisha Campos MD LAB BLOOD ORDERABLES Final Re sult Performing Organization Address City/[facility]/ZIP Co de Phone Number EXTERNAL LAB * CBC and differential (06/01/2025 4:24 PM [...] BLOOD ORDERABLES Final Re sult EXTERNAL LAB documented in this encounter Visit Diagnoses Diagnosis 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CMS/HCC) Traumatic spondylopathy documented in this encounter Additional Health Concerns Assessment Noted Time A fall risk assessment has been complete d for the patient 05/25/2025 10:52 AM EDT A Body Mass Index follow-up plan has been documented for the patient 05/25/2025 12:19 PM EDT documented as of this encounter Care Teams Director Of Provider Relations Relationship Specialty Start Date End Date Nuria Barnes APRN [address] [place] [address] PCP - General 05/25/25 Jagjit Soto MD [address] [address] Surgeon Neurosurgery 05/22/21 documented as of this encounter
--- OUTSIDE RECORDS SUMMARY | 2025-06-14 07:26 | XMS_ITS | Clinical Summary ---
Author Organization [facility] Address [address] [place] [address] Care Team Providers Care New Car Make Ready Worker Name Role Phone Ferdinand Carranza MD Primary Care Provider [phone] Allergies Active Allergy Reactions Criticality Noted Date Comments Codeine 10/28/2017 Meperidine 10/27/2017 Methotrexate Derivatives 10/28/2017 Ketorolac Tromethamine 10/28/2017 Tramadol Itching Medium 10/16/2020 Medications potassium chloride (K-DUR,KLOR-CON) 20 MEQ CR tablet Take 1 tablet by mouth 2 (Two) Times a Day. Active albuterol (PROVENTIL HFA;VENTOLIN HFA) 108 (90 Base) MCG/ACT inhaler Inhale 2 puffs Every 4 (Four) Hours As Needed for Wheezing. Active levothyroxine (SYNTHROID, LEVOTHROID) 137 MCG tablet Take 1 tablet by mouth Daily. Active RA ASPIRIN EC 81 MG EC tablet Take 1 tablet by mouth Daily. 0 9 Active atorvastatin (LIPITOR) 40 MG tablet Take 2 tablets by mouth Daily. 0 9 Active PAMIDRONATE DISODIUM IV Infuse 30 mg into a venous catheter Every 2 (Two) Months. Active diazePAM (VALIUM) 5 MG tablet Take 1 tablet by mouth Every 12 (Twelve) Hours As Needed for Anxiety. 0 Active furosemide (LASIX) 20 MG tablet Take 1 tablet by mouth Daily. 0 Active methocarbamol (ROBAXIN) 500 MG tablet Take 1 tablet by mouth 2 (Two) Times a Day As Needed for Muscle Spasms. 0 Active DULoxetine (CYMBALTA) 60 MG capsule Take 1 capsule by mouth Daily. 2 Active topiramate (TOPAMAX) 100 MG tablet Take 1 tablet by mouth Daily. 2 Active ondansetron ODT (ZOFRAN-ODT) [address] 1 tablet on the tongue Every 8 (Eight) Hours As Needed for Nausea or Vomiting. Active oxyCODONE-acetamino phen (PERCOCET) 10-325 MG per tablet Take 1 tablet by mouth Every 6 (Six) Hours. Active dicyclomine (BENTYL) 10 MG capsule Take 1 capsule by mouth 4 (Four) Times a Day As Needed (abdominal pain). 120 capsule 4 Active midodrine (PROAMATINE) 10 MG tablet Take 1 tablet by mouth 3 (Three) Times a Day Before Meals. 90 tablet 1 4 Active Active Problems Problem Noted Date Diagnosed Date Bowel trouble 08/05/2024 Orthostatic hypotension 08/02/2024 Dizziness 07/31/2024 Lumbar stenosis with neurogenic claudication 02/2020 History of fusion of cervical spine 11/04/2017 Family History Medical History Relation Name Comments Heart disease Maternal Grandfather Heart disease Maternal Grandmother Heart disease Paternal Grandfather Heart disease Paternal Grandmother Relation Name Status Comments Maternal Grandfather Maternal Grandmother Paternal Grandfather Paternal Grandmother Social History Tobacco Use Types Packs/Day Years Used Date Smoking Tobacco: Former Cigarettes Q uit: 07/28/2011 Smokeless Tobacco: Never Tobacco Cessation:Counseling Given: Not Answered Alcohol Use Standard Drinks/Week Comments Not Currently 0 (1 standard drink = 0.6 oz pur e alcohol) [facility] Utilities Answer Date Recorded In the past 12 months has [employer], jobandtalent, oil, or water [employer] threatened to shut off services in your home? No 08/02/2024 AUDIT-C Answer Date Recorded Q1: How often do you have a drink containing alcohol? Never 07/31/2024 Q2: How many drinks containi ng alcohol do you have on a typical day when you are drinking? Patient does not drink 4 Q3: How often do you have si x or more drinks on one occasion? Never 07/31/2024 Overall Financial Resource Strain (CARDIA) Answe r Date Recorded How hard is it for you to pa y for the very basics like food, housing, medical care, and heating? Not very hard 08/02/2024 [facility] [place] [facility] - Occupational Stress Questionnaire Answer Date Recorded Do you feel stress - tense, restless, nervous, or anxious, or unable to sleep at night because your mind is troubled all the time - these days? Only a little 08/02/2024 Exercise Vital Sign Answer Date Recorde d On average, how many days pe r week do you engage in moderate to strenuous exercise (like a brisk walk)? 0 days 08/02/2024 On average, how many minutes do you engage in exercise at this level? 0 min 08/02/2024 Hunger Vital Sign Answer Date Recorded Within the past 12 months, y ou worried that your food would run out before you got the money to buy more. Never true 08/02/20 24 Within the past 12 months, t he food you bought just didn't last and you didn't have money to get more. Never true 08/02/2024 PRAPARE - Transportation Answer Date Re corded In the past 12 months, has l ack of transportation kept you from medical appointments or from getting medications? No 07/18 In the past 12 months, has l ack of transportation kept you from meetings, work, or from getting things needed for daily living? No 08/02/2024 Abuse Screen Answer Date Recorded Feels Unsafe at Home or Work/School no 07/31/2024 Feels Threatened by Someone no 07/18 Does Anyone Try to Keep You From Having Contact with Others or Doing Things Outside Your Home? no 07/31/2024 Physical Signs of Abuse Present no 07/31/2024 Housing Stability Answer Date Recorded Current Living Arrangements apartment 07/18 Potentially Unsafe Housing Conditions none 08/02/2024 Family and Community Support Answer Obdulio e Recorded If for any reason you need h elp with day-to-day activities such as bathing, preparing meals, shopping, managing finances, etc., do you get the help you need? I don't need any help 08/02/2024 How often do you feel lonely or isolated from those around you? Never 08/02/2024 Employment Answer Date Recorded Do you want help finding or keeping work or a job? I do not need or want help 08/02/2024 Disabilities Answer Date Recorded Difficulty Concentrating, Remembering or Making Decisions yes 08/02/2024 Difficulty Managing Errands Independently no 08/02/2024 Education Answer Date Recorded Do you want help with school or training? For example, starting or completing job training or getting a high school diploma, GED or equivalent No 08/02/2024 Preferred Language Mozambican 08/02/2024 PHQ-2 Answer Date Recorded Retired PHQ-9: Brief Depression Severity Measure Score 0 08/02/2024 Comments Unknown Sex and Gender Information Value Date Recorded Sex Assigned at Not on file Legal Sex Female 1:02 PM EDT Gender Identity Not on file Sexual Orientation Not on file Last Filed Vital Signs Vital Sign Reading Time Taken Comments Blood Pressure 112/71 08/05/2024 11:28 AM EDT Pulse 81 08/05/2024 11:28 AM EDT Temperature 37 C (98.6 F) 08/05/2024 11:28 AM EDT Respiratory Rate 17 08/05/2024 11:2 9 AM EDT Oxygen Saturation 99% 08/04/2024 8:42 PM EDT Inhaled Oxygen Concentration - - Weight 65.3 kg (143 lb 15.4 oz) 07/31/2024 5:14 PM EDT Height 170.2 cm (5' 7.01 ) 07/31/2024 5:14 PM ED T Body Mass Index 22.54 07/31/2024 5:14 PM EDT Plan of Treatment Health Maintenance Due Date Last Done Comments Annual Gynecologic Pelvic an d Breast Exam 1965 MAMMOGRAM 2006 COLOGUARD 2011 COLON CANCER SCREENING 5 YEA R SIGMOIDOSCOPY 2011 CT COLONOGRAPHY 2011 FECAL OCCULT BLOOD TEST 2011 FIT Testing (1 year) 2011 Pneumococcal Vaccine 50+ (1 of 1 - PCV) 2016 ANNUAL WELLNESS VISIT 10/27/2017 ZOSTER VACCINE (2 of 2) 12/11/2023 10/16/2023 COVID-19 Vaccine (1 - 2023-25 season) 2024 INFLUENZA VACCINE 08/17/2025 09/01/2021, , 08/06/2016 TDAP/TD VACCINES (2 - Td or Tdap) 12/07/2028 019 COLONOSCOPY 10/27/2034 10/27/2024 COLORECTAL CANCER SCREENING 10/27/2034 HEPATITIS C SCREENING Completed 07/06/2024 , 04/24/2022, 04/24/[address] [facility] MEDICARE ADVANTAGE HMO Advance Directives * CPR (Attempt to Resuscitate) (Latest Code Status on File) Date Activated Date Inactivated Comments 07/31/2024 2:23 PM 08/05/2024 7:55 PM Question Answer Comments Code Status (Patient has no pulse and is not breathing): CPR (Attempt to Resuscitate) Medical Interventions (Patie nt has pulse or is breathing): Full Support Level Of Support Discussed With: Patient Care Teams New Car Make Ready Worker Relationship Specialty Start Date End Date Ferdinand Carranza MD [address] [facility] [address] PCP - General Family Medicine 10/21/17
--- OUTSIDE RECORDS SUMMARY | 2025-06-14 07:26 | XMS_ITS ---
Laboratory report Created on: June 09, 2025 ASHA SMITH : 1965 Sex: Female Author Organization Unknown PROBLEMS Problems List Code Description RESULTS Laboratory Orders Date Order Code Test 2025-05-31 [id number] OSTEOCALCIN, SER UM 2025-05-31 [id number] C-TELOPEPTIDE, S SALAZAR 2025-05-31 [id number] N-TELOPEPTIDE, U RINE Laboratory Results Date LOINC Test Value Unit Reference Range Interpre tation 2025-05-31 [id number] OSTEOCALCIN, SERUM 14.8 NG/ML 5.0-29.5 2025-05-31 [id number] C-TELOPEPTIDE, SERUM 247 PG/ML 2025-05-31 [id number] N-TELOPEPTIDE 91 NMOL BCE 2025-05-31 [id number] CREATININE, URINE 44.1 MG/DL 2025-05-31 25395-4 N-TELO/CREAT RATIO 23 NM BCE/MM CR 0-89
--- OUTSIDE RECORDS SUMMARY | 2025-06-14 07:26 | XMS_ITS | Encounter Summary ---
Author Organization [facility] Address [address] [place] [address] Care Team Providers Care Contractor Field Hauling Name Role Phone Ferdinand Carranza MD Primary Care Provider [phone] Jagjit Soto MD Unavailable [phone] Nuria Barnes APRN Primary Care Provider [phone] Reason for Visit * Reason Comments Med Refill Encounter Details Date Type Department Care Team (Late st Contact Info) Description 01/15/2023 Refill [facility] [facility] [address] [facility] [place] [address] Melanie Felder, RUTHANN [address] [place] [address] Hypertension, unspecified type Social History Tobacco Use [...] Description 12/28/2025 9:00 AM EST Office Visit [place] [facility] [address] [place] [address] Laura Dasilva MBBS [address] [place] [address] documented as of this encounter [...] documented as of this encounter Care Teams Contractor Field Hauling Relationship Specialty Start Date End Date Ferdinand Carranza MD [address] [place] [address] [address] [place], [place] [id number] PCP - General 03/30/21 05/24/25 Nuria Barnes APRN [address] [place], [place] [id number] PCP - General 05/25/25 Jagjit Soto MD [address] [place] [address] Surgeon Neurosurgery 05/22/21 documented as of this encounter
--- OUTSIDE RECORDS SUMMARY | 2025-06-14 07:26 | XMS_ITS | Clinical Summary ---
Author Organization [facility] Address [address] [place] [address] Care Team Providers Care Microbiology Manager Name Role Phone Jagjti Soto MD Unavailable [phone] Nuria Barnes APRN Primary Care Provider [phone] Allergies Active Allergy Reactions Criticality Noted Date [...] 18 Active cholecalciferol (Vitamin D-3) 1.25 MG (96441 UT) capsule TAKE 2 CAPSULE Weekly 10/23/20 18 Active fluticasone-vilant frances (Breo Ellipta) 100-25 MCG/INH inhaler USE 1 INHALATION ONCE DAILY. 08/07/20 17 Active HYDROcodone-acetam inophen ([place]) 10-325 MG tablet 09/06/20 20 Active levothyroxine [...] 04/03/2017 Abnormal laboratory test 03/06/2017 Hypothyroidism 03/06/2017 esthetician current use of non -steroidal anti-inflammatories (NSAID) 03/06/2017 Tendonitis 10/21/2016 Triggering of digit 10/21/2016 Hypertension 10/21/2016 Resolved Problems Problem Noted Date Diagnosed Date Resolved Date Bowel trouble 08/05/2024 11/25/2024 Orthostatic hypotension 08/02/2024 01/0 07/2025 Dizziness 07/31/2024 11/25/2024 Encounters Date Type Department Care Team Description 06/08/2025 Orders Only [facility] Medicine Specialties [address], [address] [place] [address] ProviderAndrey MD 06/07/2025 Results Follow-Up [place] [facility] Specialties [address], [address] [place] [address] Laura Dasilva MBBS 06/01/2025 Orders Only [facility] Medicine Specialties [address], [address] Floor [place] [address] Anastasiia Sagastume, RN 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 Orders Only [facility] Medicine Specialties [address], [address] [place] [address] Laura Dasilva MBBS Osteoarthritis of multiple joints, unspecified osteoarthritis type (Primary Dx) 05/25/2025 10:30 AM EDT Office Visit [place] [facility] [address], [address] [place] [address] Laura Dasilva MBBS 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CMS/HCC) (Primary Dx); Osteoarthritis of multiple joints, unspecified osteoarthritis type; esthetician (current) use of non-steroidal anti-inflammatories (nsaid); Positive [...] Description 12/28/2025 9:00 AM EST Office Visit [facility] Medicine Specialties [address], [address] [place] [address] Laura Dasilva, [facility] [address] [place] [address] Health Maintenance Due Date Last Done Comments UK-Bone Density Scan 1966 UK-Medicare Annual Wellness (AWV) 1966 [facility]Y-Infant/Child/Adol SDOH Screenings 1966 [id number] Vaccine (#1) 1971 UKY- SDOH Screenings 1984 UK-Adult SDOH Screenings 1984 UKY-Hepatitis B Vaccines (1 [...] this topic Medical Devices Implanted Type Area Child Nutrition Manager Device Identifier Shelf Expiration Date Model / Serial / Lot Duraclip 11mm - [id number] Implanted:Qty: 1 on 10/27/2024 by Gabriela Horan MD at [facility] [id number] 12/22/2026 [id number] / / [id number] Procedures Procedure Name Priority Date/Time Associated Diagnosis Comments C-TELOPEPTIDE Routine 06/08/2025 8:33 AM EDT OSTEOCALCIN BY ECIA (SO) Routine 06/08/2025 8:33 AM EDT COMPREHENSIVE METABOLIC PANEL, PLASMA Routine 06/01/2025 4:24 PM EDT 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CMS/HCC) CBC WITH AUTO DIFFERENTIAL Routine 06/01/2025 4:24 PM EDT 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CMS/HCC) SEDIMENTATION RATE, AUTOMATED Routine 06/01/2025 4:24 PM EDT 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CMS/HCC) C-REACTIVE PROTEIN, PLASMA Routine 06/01/2025 4:24 PM EDT 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CMS/HCC) COLONOSCOPY Routine 10/27/2024 12:43 PM EST Generalized abdominal pain Blood in stool Diarrhea, unspecified type ACUTE HEPATITIS PANEL Routine 07/06/2024 1:27 PM EDT 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CMS/HCC) High risk medication use CT CHEST W IV CONTRAST Routine 3:41 PM EDT HIV 1/2 ANTIBODY/ANTIGEN SCREEN WITH REFLEX TO HIV I/II DIFFERENTIATION Routine 10/06/2019 11:34 AM EST from Last 3 Months or Most Recently Relevant to Health Maintenance Results * C-Telopeptide (06/08/2025 8:33 AM EDT) Blood Venous blood specimen / Unknown [facility] Provider LAB BLOOD ORDERABLES Nila l Result * Osteocalcin by ECIA (06/08/2025 8:33 AM EDT) Blood Venous blood specimen / Unknown Result [facility] Provider LAB BLOOD ORDERABLES Nila l Result * Sedimentation Rate, Automated (06/01/2025 4:24 PM EDT) Blood Venous blood specimen / Unknown Toi Kwan MD LAB BLOOD ORDERABLES Final Re sult EXTERNAL LAB * CBC and differential (06/01/2025 4:24 PM EDT) Blood Venous blood specimen / Unknown Toi Kwan MD LAB BLOOD ORDERABLES Final Re sult EXTERNAL LAB * C-reactive protein (06/01/2025 4:24 PM EDT) Blood Venous blood specimen / Unknown Toi Kwan MD LAB BLOOD ORDERABLES Final Re sult Performing Organization Address [facility] Co de Phone Number EXTERNAL LAB * Comprehensive metabolic panel (06/01/2025 4:24 PM EDT) Blood Venous blood specimen / Unknown Toi Kwan MD LAB BLOOD ORDERABLES Final Re sult Performing Organization Address [facility] Co de Phone Number EXTERNAL LAB * Colonoscopy (10/27/2024 12:43 PM EST) Anatomical [...] medications. Staff Staff Role Speedy Beckman Endo Supervisor [employer] Ricardo Alvarado CRNA CRNA Flomenhoft, Deborah R, [...] of bowel preparation was evaluated using the [place] Bowel Preparation Scale with scores of: right [...] Collected by Time 1 : Colon Gabriela Hroan MD A : biopsy Tissue Duodenum SURGICAL [...] < 5cc, 11mm hemoclip applied for hemostasis. Brynn Diaz APRN, DNP GI PROCEDURE ORDERABLE S Final Result * Hepatitis panel, acute (07/06/2024 1:27 PM EDT) Hepatitis B Surf Antigen Negative Negative 07/06/2024 4:23 PM EDT [facility] Hepatitis C Antibody Negative Negative 07/06/2024 4:23 PM EDT LAB Hepatitis A Antibody IgM Negative Negative 07/06/2024 4:23 PM EDT LAB Hepatitis B Core Antibody IgM Negative Negative 07/06/2024 4:23 PM EDT [facility] Blood Venous blood specimen / Unknown Venipuncture / Unknown 07/06/2024 1:27 PM EDT 07/06/2024 1:28 PM EDT us Toi Kwan MD LAB BLOOD ORDERABLES Final Re sult [facility] [address] [place] [address] * CT Chest w IV Contrast (05/22/2020 [...] Per this written report. Verified by: JB ANDERSON M.D. on May 22 2020 3:46P Transcribe d by: [facility] on May 22 2020 3:46P Dictated by: JB ANDERSON M.D. on May 22 2020 3:41P Procedure Note Zain Jb Iqbal - 03/13/2021 REQUESTING PHYSICIAN: TOI KWAN REASON [...] Per this written report. Verified by: JB ANDERSON M.D. on May 22 2020 3:46P Transcribe d by: [facility] on May 22 2020 3:46P Dictated by: JB ANDERSON M.D. on May 22 2020 3:41P Toi Kwan MD IMG CT PROCEDURES Final Resul t * HIV 1 & 2 Antibody/Antigen Screen (10/06/2019 11:34 AM EST) HIV 1 Result NONREACTIVE Screening for HIV 1 and 2 antibodies is NONREACTIVE. No confirmatory testing is required. SUNQUEST 10/06/2019 11:3 4 AM EST 10/06/2019 12:44 PM EST us Historical Provider LAB BLOOD ORDERABLES Nila storm Result SUNQUEST from Last 3 Months or Most Recently Relevant to Health Maintenance Insurance [employer] Care Teams Microbiology Manager Relationship Specialty Start Date End Date Nuria Barnes APRN [address] [place] [address] PCP - General 05/25/25 Jagjit Soto MD [address] [place] [address] Surgeon Neurosurgery 05/22/21
--- OUTSIDE RECORDS SUMMARY | 2025-06-14 07:26 | XMS_ITS | Encounter Summary ---
Author Organization [facility] Address [address] [place] [address] Care Team Providers Care Tender Labor Name Role Phone Ferdinand Carranza MD Primary Care Provider [phone] Jagjit Soto MD Unavailable [phone] Nuria Barnes APRN Primary Care Provider [phone] Reason for Visit * Reason Comments Med Refill Encounter Details Date Type Department Care Team (Late st Contact Info) Description 01/10/2024 Refill [facility] [place] [address] [facility]. [address] [place] [address] Melanie Feldre, RUTHANN [address] [place] [address] Hypertension, unspecified type Social History Tobacco Use [...] Description 12/28/2025 9:00 AM EST Office Visit [place] [facility] Medicine Specialties [address], [address] [place] [address] Laura Dasilva MBBS [address] [place], [place] [id number] documented as of this encounter Visit Diagnoses [...] documented as of this encounter Care Teams Tender Labor Relationship Specialty Start Date End Date Ferdinand Carranza MD [address] [facility] [address] [place] [address] PCP - General 03/30/21 05/24/25 Nuria Barnes APRN [address] [place] [address] PCP - General 05/25/25 Jagjit Soto MD [address] [place] [address] Surgeon Neurosurgery 05/22/21 documented as of this encounter
--- NOTE | 2025-06-14 07:30 | MR_ITS ---
FINAL REPORT CLINICAL HISTORY: left elbow pain, swelling numbness in left hand FINDINGS: Multiplanar and multisequence imaging of the left elbow was obtained without contrast. Motion artifact limits image quality. BONES: There is no acute fracture, contusion or pathologic marrow replacement. There is mild degenerative joint disease. There is a small joint effusion. LIGAMENTS: The radial collateral ligament and lateral ulnar collateral ligament are intact. The ulnar collateral ligament proper is intact and there is no fracture of the sublime tubercle. TENDON/MUSCLES: There is mild abnormal signal intensity in the common extensor tendon at the lateral epicondyle most consistent with lateral epicondylitis. Partial tear is difficult to exclude. The common flexor tendon is normal in size and signal intensity at its insertion on the medial epicondyle. There is distal biceps tendinosis. No tendon tear is identified. Signal intensity within the muscles themselves is normal. OTHER SOFT TISSUES: There is a small T2 hyperintense lesion adjacent to the joint at the level of the radial head measuring 11 mm, could represent a small synovial or ganglion cyst. The nerves and vascular structures appear normal. IMPRESSION: Lateral epicondylitis. Distal biceps tendinosis. Small joint effusion. Synovial or ganglion cyst at the level of the radial head. Reviewed, Interpreted and Dictated by Belinda Celestin MD Transcribed by Abbie Levin Authenticated and [facility]
--- NOTE | 2025-06-14 08:30 | MR_ITS ---
FINAL REPORT TECHNIQUE: Multiplanar and multisequence imaging of the cervical spine was obtained. CLINICAL HISTORY: Cervicalgia, SAPHO syndrome, left hand numbness COMPARISON: 05/01/2022 FINDINGS: Again seen are postoperative changes from anterior fusion of C4-C6. Alignment is stable. Signal intensity within the substance of the spinal cord is normal. No acute bone marrow edema. No acute paraspinal abnormality. C2/3: There is an annular disc bulge asymmetric to the right. There is right greater than left facet osteoarthropathy. There is no central canal stenosis. There is moderate right but no left foraminal narrowing. C3/4: Annular disc bulge with degenerative endplate changes and facet osteoarthropathy. There is mild central canal stenosis and severe bilateral neural foraminal narrowing, which appears similar to prior. C4/5: Fused. No central canal stenosis or neural foraminal narrowing. C5/6: Fused. No central canal stenosis or neural foraminal narrowing. C6/7: Annular disc bulge with degenerative endplate changes and facet osteoarthropathy. There is mild central canal stenosis. There is moderate right and mild left neural foraminal stenosis, stable. C7/T1: No focal disc herniation, central canal stenosis, or neural foraminal narrowing. IMPRESSION: Postoperative and degenerative changes, similar to prior exam. No acute abnormality. Reviewed, Interpreted and Dictated by Belinda Celestin MD Transcribed by Jahaira Dupont Authenticated and [facility]
== END 2025-06-14 23:59 | disposition home or self-care (01) ==
LOC: RAD 07:24
PROVIDERS: PCP Nurse Practitioner Family; Visit Provider Nurse Practitioner Family
DX: M47.812 Spondylosis without myelopathy or radiculopathy, cervical region (principal); M77.12 Lateral epicondylitis, left elbow; M67.824 Other specified disorders of tendon, left elbow; R93.6 Abnormal findings on diagnostic imaging of limbs; M25.422 Effusion, left elbow; M65.90 Unspecified synovitis and tenosynovitis, unspecified site; L40.3 Pustulosis palmaris et plantaris; L70.9 Acne, unspecified; M85.80 Other specified disorders of bone density and structure, unspecified site; M86.9 Osteomyelitis, unspecified; M50.30 Other cervical disc degeneration, unspecified cervical region; Z98.890 Other specified postprocedural states
CPT/HCPCS: 72141; 73221

== ENCOUNTER 2025-07-12 07:23 | Outpatient (CLI) | payer MEDICARE, SELFPAY ==
--- OUTSIDE RECORDS SUMMARY | 2025-05-25 10:30 | XMS_ITS | Encounter Summary ---
Author Organization [facility] Address [address] [place] [address] Care Team Providers Care Instrument Tech Name Role Phone Jagjit Soto MD Unavailable [phone] Nuria Barnes APRN Primary Care Provider [phone] Reason for Visit * Reason Comments Follow-up SAPHO syndrome Encounter Details Date Type Department Care Team (Latest Contact Info) Description 05/25/2025 10:30 AM EDT Office Visit [place] [facility] [address] [place] [address] Laura Dasilva, [facility] [address] [phone] 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CMS/HCC) (Primary Dx); Osteoarthritis of multiple joints, unspecified osteoarthritis type; 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 anti-inflammatories (nsaid); Positive [...] She has received a referral to a exhibition specialist but has not been able to make [...] before colonoscopy cholecalciferol (Vitamin D-3) 1.25 MG (75547 UT) capsule TAKE 2 CAPSULE Weekly diazePAM [...] 300 mg, Oral, 3 times daily HYDROcodone-acetaminophen ([place]) 10-325 MG tablet levothyroxine (Synthroid, Levoxyl) 137 [...] FOLLOW-UP TESTS Homogenous dsDNA,histones dsDNA,histone antibodies* Speckled Sm,FIBER TECHNICIAN,SS-A,SS-B,Scl70 Sm,FIBER TECHNICIAN,SS-A,SS-B,Scl70 and others Nucleolar 4-6s RNA None Centromere [...] Division of Rheumatology Department of Internal Medicine [facility] Cosigned by Kenisha Campos MD at [...] Description 12/28/2025 9:00 AM EST Office Visit [facility] Medicine Specialties [address] [place] [address] Laura Dasilva, GERTRUDE [address] [place] [address] Scheduled Orders Name Type Priority [...] ORDERABLES Final Re sult Performing Organization Address City/[facility]/ZIP Co de Phone Number EXTERNAL LAB * [...] ORDERABLES Final Re sult Performing Organization Address City/[facility]/ZIP Co de Phone Number EXTERNAL LAB documented in this encounter Visit Diagnoses Diagnosis 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[facility])- Primary Traumatic spondylopathy Osteoarthritis of multiple joints, unspecified osteoarthritis type 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
--- NOTE | 2025-07-12 07:30 | US_ITS ---
FINAL REPORT TECHNIQUE: Sonographic images of the right upper quadrant were obtained. CLINICAL HISTORY: elevated liver enzymes FINDINGS: PANCREAS: Pancreatic duct is mildly dilated at 4 mm within the body of the pancreas. No pancreatic mass identified.. LIVER: Fatty infiltrated. No focal hepatic lesion. No intrahepatic biliary ductal dilatation. Portal vein is patent. GALLBLADDER: No gallstones. No gallbladder wall thickening or pericholecystic fluid. COMMON DUCT: 4 mm. Normal for age. RIGHT KIDNEY: The right kidney measures 9.0 cm. There is no hydronephrosis, mass, or stone. FREE FLUID: None. IMPRESSION: Fatty liver. Pancreatic ductal dilatation, etiology unclear. Consider CT scan with contrast. Reviewed, Interpreted and Dictated by Belinda Celestin MD Transcribed by Kizzy Harrell Authenticated and [facility]
--- OUTSIDE RECORDS SUMMARY | 2025-07-12 07:37 | XMS_ITS | Encounter Summary ---
Author Organization [facility] Address [address] [place] [address] Care Team Providers Care Label Coder Name Role Phone Jagjit Soto MD Unavailable [phone] Nuria Barnes APRN Primary Care Provider [phone] Reason for Referral * Consultation (Routine) - Authorized Specialty Diagnoses / Procedures Referred By Contrakel t Referred To Contact Physical Therapy Diagnoses Osteoarthritis of multiple joints, unspecified osteoarthritis type Kenisha Campos MD [address] [facility] [address] [place] [address] Phone: tel: fax: Referral ID Status Reason Start Date Expiration Date Visits Requested Visits Authorized [id number] Authorized Consult and Treat 05/26/2025 11/25/2026 1 1 Encounter Details Date Type Department Care Team (Late st Contact Info) Description 05/26/2025 Orders Only [facility] [address], [address] [place] [address] Laura Dasilva, KRISTIN [address] [place] [address] Osteoarthritis of multiple joints, unspecified [...] Visit [facility] [address], [address] [place] [address] Laura Dasilva MBBS [address] [place] [address] Scheduled Referrals Name Type Priority Associated Diagnoses [...] documented as of this encounter Care Teams Label Coder Relationship Specialty Start Date End Date Nuria Barnes APRN [address] [place] [address] PCP - General 05/25/25 Jagjit Soto MD [address] [facility] [address] [place] [address] Surgeon Neurosurgery 05/22/21 documented as of this encounter
--- OUTSIDE RECORDS SUMMARY | 2025-07-12 07:37 | XMS_ITS | Clinical Summary ---
Author Organization [facility] Address [address] [place] [address] Care Team Providers Care Modeling Manager Name Role Phone Jagjit Soto MD Unavailable [phone] Nuria Barnes APRN Primary Care Provider [phone] Allergies Active Allergy Reactions Criticality Noted Date [...] 18 Active cholecalciferol (Vitamin D-3) 1.25 MG (22066 UT) capsule TAKE 2 CAPSULE Weekly 10/23/20 18 Active fluticasone-vilant frances (Breo Ellipta) 100-25 MCG/INH inhaler USE 1 INHALATION ONCE DAILY. 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 of non -steroidal anti-inflammatories (NSAID) 03/06/2017 Tendonitis 10/21/2016 Triggering of digit 10/21/2016 Hypertension 10/21/2016 Resolved Problems Problem Noted Date Diagnosed Date Resolved Date Bowel trouble 08/05/2024 11/25/2024 Orthostatic hypotension 08/02/2024 01/0 07/2025 Dizziness 07/31/2024 11/25/2024 Encounters Date Type Department Care Team Description 07/06/2025 Telephone [facility] Medicine Specialties [address] [place] [address] Surekha Kennedy 06/08/2025 Orders Only [facility] Medicine Specialties [address], [address] [place] [address] Provider, Historical 06/07/2025 Results Follow-Up [facility] Medicine Specialties [address], [address] [place] [address] Laura Dasilva MBBS 06/01/2025 Orders Only [facility] Medicine Specialties [address], [address] [place] [address] Anastasiia Sagastume RN 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CMS/HCC) 05/26/2025 Orders Only [facility] Medicine Specialties [address], [address] [place] [address] Laura Dasilva MBBS Osteoarthritis of multiple joints, unspecified osteoarthritis type (Primary Dx) 05/25/2025 10:30 AM EDT Office Visit [facility] Medicine Specialties [address], [address] [place] [address] Laura Dasilva MBBS 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CMS/HCC) (Primary Dx); Osteoarthritis of multiple joints, unspecified osteoarthritis type; correction (current) use of non-steroidal anti-inflammatories (nsaid); Positive [...] Description 12/28/2025 9:00 AM EST Office Visit [facility] Medicine Specialties [address], [address] [place] [address] Laura Dasilva, [facility] [address] [place] [phone] Health Maintenance Due Date Last Done Comments [facility]Y-Bone Density Scan 1966 UKY-Medicare Annual Wellness (AWV) 1966 UKY-Infant/Child/Adol SDOH Screenings 1966 [id number] Vaccine (#1) 1971 UKY- SDOH Screenings 1984 [...] this topic Medical Devices Implanted Type Area Brake Operator Device Identifier Shelf Expiration Date Model / Serial / Lot Duraclip 11mm - [id number] Implanted:Qty: 1 on 10/27/2024 by Gabriela Horan MD at [facility] [employer] End[facility]-[id number] 12/22/2026 [id number] / / [id number] Procedures Procedure Name Priority Date/Time Associated Diagnosis [...] / Unknown Historical Provider LAB BLOOD ORDERABLES Final R esult * Osteocalcin by ECIA (06/08/2025 8:33 AM EDT) Blood Venous blood specimen / Unknown Historical Provider LAB BLOOD ORDERABLES Final R esult * Sedimentation Rate, Automated (06/01/2025 4:24 PM EDT) Blood Venous blood specimen / Unknown Toi Kwan MD LAB BLOOD ORDERABLES Final Re sult EXTERNAL LAB * CBC and differential (06/01/2025 4:24 PM EDT) Blood Venous blood specimen / Unknown Toi Kwan MD LAB BLOOD ORDERABLES Final Re sult Performing Organization Address [facility] Co de Phone Number EXTERNAL LAB * C-reactive protein (06/01/2025 4:24 PM EDT) Blood Venous blood specimen / Unknown Toi Kwan MD LAB BLOOD ORDERABLES Final Re sult Performing Organization Address [facility] de Phone Number EXTERNAL LAB * Comprehensive metabolic panel (06/01/2025 4:24 PM EDT) Blood Venous blood specimen / Unknown Toi Kwan MD LAB BLOOD ORDERABLES Final Re sult Performing Organization Address [facility] de Phone Number EXTERNAL LAB * Colonoscopy [...] medications. Staff Staff Role Speedy Beckman Endo Sorter Packer Ricardo Alvarado CRNA CRNA Flomenhoft, Deborah R, [...] of bowel preparation was evaluated using the [place] Bowel Preparation Scale with scores of: right [...] 11mm hemoclip applied for hemostasis. Brynn Diaz STEM ROLLER OPERATOR, DNP GI PROCEDURE ORDERABLE S Final Result * Hepatitis panel, acute (07/06/2024 1:27 PM EDT) Hepatitis B Surf Antigen Negative Negative 07/06/2024 4:23 PM EDT [facility] Hepatitis C Antibody Negative Negative 07/06/2024 4:23 PM EDT [facility] Hepatitis A Antibody IgM Negative Negative 07/06/2024 4:23 PM EDT [facility] Hepatitis B Core Antibody IgM Negative Negative 07/06/2024 4:23 PM EDT [facility] Blood Venous blood specimen / Unknown Venipuncture / Unknown 07/06/2024 1:27 PM EDT 07/06/2024 1:28 PM EDT us Toi Kwan MD LAB BLOOD ORDERABLES Final Re sult [facility] [address] [place] [address] * CT Chest w IV Contrast (05/22/2020 [...] May 22 2020 3:46P Transcribe d by: OLIVER on May 22 2020 3:46P Dictated by: [...] May 22 2020 3:46P Transcribe d by: OLIVER on May 22 2020 3:46P Dictated by: JB PITTMAN M.D. on May 22 2020 3:41P Toi Kwan MD [facility] CT PROCEDURES Final Resul t * HIV 1 & 2 Antibody/Antigen Screen (10/06/2019 11:34 AM EST) HIV 1 Result NONREACTIVE Screening for HIV 1 and 2 antibodies is NONREACTIVE. No confirmatory testing is required. SUNQUEST 10/06/2019 11:3 4 AM EST 10/06/2019 12:44 PM EST us Historical Provider LAB BLOOD ORDERABLES Final R esult SUNQUEST from Last 3 Months or Most Recently Relevant to Health Maintenance Insurance [facility] MEDICARE [facility] Care Teams Modeling Manager Relationship Specialty Start Date End Date Nuria Barnes APRN [address] [place] [address] PCP - General 05/25/25 Jagjit Soto MD [address] [facility] [address] [place] [address] Surgeon Neurosurgery 05/22/21
--- OUTSIDE RECORDS SUMMARY | 2025-07-12 07:37 | XMS_ITS | Encounter Summary ---
Author Organization [facility] Address [address] [place] [address] Care Team Providers Care Jigger Operator Name Role Phone Ferdinand Carranza MD Primary Care Provider [phone] Jagjit Soto MD Unavailable [phone] Nuria Barnes APRN Primary Care Provider [phone] Reason for Visit * Reason Comments Med Refill Encounter Details Date Type Department Care Team (Late st Contact Info) Description 01/15/2023 Refill [facility] [place] [address] [facility]. [address] [place] [address] Melanie Felder, RUTHANN [address] [place] [address] Hypertension, unspecified type Social History Tobacco Use [...] Visit [place] [facility] Medicine Specialties [address] [place] [address] Laura Dasilva MBBS [address] [place] [address] documented as of this encounter [...] documented as of this encounter Care Teams Jigger Operator Relationship Specialty Start Date End Date Ferdinand Carranza MD [address] [place] [address] [address] [place], [place] [id number] PCP - General 03/30/21 05/24/25 Nuria Barnes APRN [address] [place], [place] [address] PCP - General 05/25/25 Jagjit Soto MD [address] [place] [address] Surgeon Neurosurgery 05/22/21 documented as of this encounter
--- OUTSIDE RECORDS SUMMARY | 2025-07-12 07:37 | XMS_ITS | Encounter Summary ---
Author Organization [facility] Address [address] [place] [address] Care Team Providers Care Collection Systems Administrator Name Role Phone Jagjit Soto MD Unavailable [phone] Nuria aBrnes APRN Primary Care Provider [phone] Encounter Details Date Type Department Care Team [...] Description 12/28/2025 9:00 AM EST Office Visit [place] [facility] [address] [place] [address] Laura Dasilva MBBS [address] [place] [address] documented as of this encounter Visit Diagnoses Not on filedocumented in this encounter Additional Health Concerns Assessment Noted Time A fall risk assessment has been complete d for the patient 05/25/2025 10:52 AM EDT A Body Mass Index follow-up plan has been documented for the patient 05/25/2025 12:19 PM EDT documented as of this encounter Care Teams Collection Systems Administrator Relationship Specialty Start Date End Date Nuria Barnes APRN [address] [place] [address] PCP - General 05/25/25 Jagjit Soto MD [address] [place] [address] Surgeon Neurosurgery 05/22/21 documented as of this encounter
--- OUTSIDE RECORDS SUMMARY | 2025-07-12 07:38 | XMS_ITS | Encounter Summary ---
Author Organization [facility] Address [address] [place] [address] Care Team Providers Care Manager Protein Name Role Phone Jagjit Soto MD Unavailable [phone] Nuria Barnes APRN Primary Care Provider [phone] Encounter Details Date Type Department Care Team (Late st Contact Info) Description 06/07/2025 Results Follow-Up [facility] Medicine Specialties [address], [address] [place] [address] Laura Dasilva, GERTRUDE [address] [place] [address] Social History Tobacco Use Types [...] Description 12/28/2025 9:00 AM EST Office Visit [facility] [address], [address] [place] [address] Laura Dasilva MBBS [address] [place] [address] documented as of this encounter Visit Diagnoses Not on filedocumented in this encounter Additional Health Concerns Assessment Noted Time A fall risk assessment has been complete d for the patient 05/25/2025 10:52 AM EDT A Body Mass Index follow-up plan has been documented for the patient 05/25/2025 12:19 PM EDT documented as of this encounter Care Teams Manager Protein Relationship Specialty Start Date End Date Nuria Barnes APRN [address] [place] [address] PCP - General 05/25/25 Jagjit Soto MD [address] [place] [address] Surgeon Neurosurgery 05/22/21 documented as of this encounter
--- OUTSIDE RECORDS SUMMARY | 2025-07-12 07:38 | XMS_ITS | Encounter Summary ---
Author Organization [facility] Address [address] [place] [address] Care Team Providers Care Camouflage Specialist Name Role Phone Jagjit Soto MD Unavailable [phone] Nuria Barnes APRN Primary Care Provider [phone] Encounter Details Date Type Department Care Team (Late st Contact Info) Description 07/06/2025 Telephone [facility] [address], [address] [place] [address] [place] [address] Social History Tobacco Use Types Packs/Day Years [...] on file documented as of this encounter Miscellaneous Notes * Telephone Encounter - Surekha Kennedy - 07/06/2025 2:39 PM EDT Patient called She was calling to let us know that she's having to go to Dr. Soto as she has a couple of herniated discs in her back She had went to [facility] and had scans done of her neck and her left arm which show this CB: [phone] documented in this encounter Plan of Treatment Upcoming Encounters Date Type Department Care Team (Late st Contact Info) Description 12/28/2025 9:00 AM EST Office Visit [facility] Medicine Specialties [address], [address] [place] [address] Laura Dasilva MBBS [address] [place] [address] documented as of this encounter Visit Diagnoses Not on filedocumented in this encounter Additional Health Concerns Assessment Noted Time A fall risk assessment has been complete d for the patient 05/25/2025 10:52 AM EDT A Body Mass Index follow-up plan has been documented for the patient 05/25/2025 12:19 PM EDT documented as of this encounter Care Teams Camouflage Specialist Relationship Specialty Start Date End Date Nuria Barnes APRN [address] [place] [address] PCP - General 05/25/25 Jagjit Soto MD [address] [facility] [address] [place] [address] Surgeon Neurosurgery 05/22/21 documented as of this encounter
--- OUTSIDE RECORDS SUMMARY | 2025-07-12 07:38 | XMS_ITS | Encounter Summary ---
Author Organization [facility] Address [address] [place] [address] Care Team Providers Care Zipper Lining Folder Name Role Phone aJgjit Soto MD Unavailable [phone] Nuria Barnes APRN Primary Care Provider [phone] Encounter Details Date Type Department Care Team (Late st Contact Info) Description 06/08/2025 Orders Only [facility] [address], [address] [place] [address] Provider, [address] [address] Social History Tobacco Use Types Packs/Day [...] Description 12/28/2025 9:00 AM EST Office Visit [facility] [address], [address] [place] [address] Laura Dasilva MBBS [address] [place] [address] documented as of this encounter Procedures Procedure [...] Provider LAB BLOOD ORDERABLES Final R esult documented in this encounter Visit Diagnoses Not on filedocumented in this encounter Additional Health Concerns Assessment Noted Time A fall risk assessment has been complete d for the patient 05/25/2025 10:52 AM EDT A Body Mass Index follow-up plan has been documented for the patient 05/25/2025 12:19 PM EDT documented as of this encounter Care Teams Zipper Lining Folder Relationship Specialty Start Date End Date Nuria Barnes APRN [address] [place], [place] [id number] PCP - General 05/25/25 Jagjit Soto MD [address] [facility] [address] [place] [address] Surgeon Neurosurgery 05/22/21 documented as of this encounter
--- OUTSIDE RECORDS SUMMARY | 2025-07-12 07:38 | XMS_ITS | Encounter Summary ---
Author Organization [facility] Address [address] [place] [address] Care Team Providers Care Booth Cashier Name Role Phone Jagjit Soto MD Unavailable [phone] Nuria Barnes APRN Primary Care Provider [phone] Encounter Details Date Type Department Care Team (Late st Contact Info) Description 06/01/2025 Orders Only [place] [facility] [address], [address] [place] [address] Anastasiia Sagastume, RN 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CMS/HCC) Social [...] Description 12/28/2025 9:00 AM EST Office Visit [facility] Medicine Specialties [address], [address] [place] [address] Laura Dasilva, GERTRUDE [address] [place] [address] documented as of this encounter [...] ORDERABLES Final Re sult Performing Organization Address City/[facility]/ZIP Co de Phone Number EXTERNAL LAB * [...] documented as of this encounter Care Teams Booth Cashier Relationship Specialty Start Date End Date Nuria Barnes APRN [address] [place] [address] PCP - General 05/25/25 Jagjit Soto MD [address] [address] Surgeon Neurosurgery 05/22/21 documented as of this encounter
--- OUTSIDE RECORDS SUMMARY | 2025-07-12 07:38 | XMS_ITS | Encounter Summary ---
Author Organization [facility] Address [address] [place] [address] Care Team Providers Care Switch Tender Name Role Phone Ferdinand Carranza MD Primary Care Provider [phone] Jagjit Soto MD Unavailable [phone] Nuria Barnes APRN Primary Care Provider [phone] Reason for Visit * Reason Comments Med Refill Encounter Details Date Type Department Care Team (Late st Contact Info) Description 01/10/2024 Refill [facility] [place] [address] [place] [address] Melanie Felder, RUTHANN [address] [place] [phone] Hypertension, unspecified type Social History Tobacco Use [...] Visit [facility] Medicine Specialties [address], [address] [place] [address] Laura Dasilva MBBS [address] [place], [place] [id number] documented as of this encounter Visit Diagnoses [...] documented as of this encounter Care Teams Switch Tender Relationship Specialty Start Date End Date Ferdinand Carranza MD [address] [facility] [address] [place] [address] PCP - General 03/30/21 05/24/25 Nuria Barnes APRN [address] [place] [address] PCP - General 05/25/25 Jagjit Soto MD [address] [place] [address] Surgeon Neurosurgery 05/22/21 documented as of this encounter
--- OUTSIDE RECORDS SUMMARY | 2025-07-12 07:38 | XMS_ITS | Clinical Summary ---
Author Organization [facility] Address [address] [place] [address] Care Team Providers Care Retention Specialist Name Role Phone Ferdinand Carranza MD Primary Care Provider [phone] Allergies Active Allergy Reactions Criticality Noted Date [...] drink = 0.6 oz pur e alcohol) [facility] Utilities Answer Date Recorded In the past 12 months has [employer], oil, or water [employer] threatened to shut off services in your home? No 08/02/2024 [employer]C Answer Date Recorded Q1: How often do you have a drink containing alcohol? Never 07/31/2024 Q2: How many drinks containi ng alcohol do you have on a typical day when you are drinking? Patient does not drink Q3: How often do you have si x or more drinks on one occasion? Never 07/31/2024 Overall Financial Resource Strain (CARDIA) Answe r Date Recorded How hard is it for you to pa y for the very basics like food, housing, medical care, and heating? Not very hard 08/02/2024 [facility] of Occupat ional Health - Occupational Stress [...] GED or equivalent No 08/02/2024 Preferred Language Sierra Leonean 08/02/2024 PHQ-2 Answer Date Recorded Retired PHQ-9: [...] Gynecologic Pelvic an d Breast Exam 1966 PAP SMEAR 1987 MAMMOGRAM 2006 COLOGUARD 2011 COLON CANCER SCREENING [address] COLONOGRAPHY 2011 FECAL OCCULT BLOOD TEST 2011 FIT Testing (1 year) 2011 Pneumococcal Vaccine 50+ (1 of 1 - PCV) 2016 ANNUAL WELLNESS VISIT 10/27/2017 ZOSTER VACCINE (2 of 2) 12/11/2023 10/16/2023 COVID-19 Vaccine ( season) 2024 INFLUENZA VACCINE 08/17/2025 09/01/2021, , 08/06/2016 TDAP/TD VACCINES (2 - Td or Tdap) 12/07/2028 019 COLONOSCOPY 10/27/2034 10/27/2024 COLORECTAL CANCER SCREENING 10/27/2034 HEPATITIS C SCREENING Completed 07/06/2024 , 04/24/2022, 04/24/2022 Procedures Procedure Name Priority Date/Time Associated Diagnosis Comments SCANNED - IMAGING 06/14/2025 SCANNED - LABS 05/31/2025 SCANNED - IMAGING 05/31/2025 from Last 3 Months Results * IMAGING SCANNED (06/14/2025) Only the most recent of2 resultswithin the time period is included. Anatomical Region Laterality Modality Radiographic Leda ging [facility] IMG DIAGNOSTIC IMAGING ORDERA BLES Final Result * LABS SCANNED (05/31/2025) [facility] LAB BLOOD ORDERABLES Final Re sult from Last 3 Months Insurance [facility] MEDICARE ADVANTAGE HMO Advance Directives * CPR (Attempt to Resuscitate) (Latest Code Status on File) Date Activated Date Inactivated Comments 07/31/2024 2:23 PM 08/05/2024 7:55 PM Question Answer Comments Code Status (Patient has no pulse and is not breathing): CPR (Attempt to Resuscitate) Medical Interventions (Patie nt has pulse or is breathing): Full Support Level Of Support Discussed With: Patient Care Teams Retention Specialist Relationship Specialty Start Date End Date Ferdinand Carranza MD [address] [place] [address] PCP - General Family Medicine 10/21/17
== END 2025-07-12 23:59 | disposition home or self-care (01) ==
LOC: RAD 07:24
PROVIDERS: PCP Nurse Practitioner Family; Visit Provider Nurse Practitioner Family
DX: K76.0 Fatty (change of) liver, not elsewhere classified (principal); K86.89 Other specified diseases of pancreas; R74.8 Abnormal levels of other serum enzymes
CPT/HCPCS: 76705

== ENCOUNTER 2025-07-28 07:48 | Outpatient (CLI) | payer MEDICARE, SELFPAY ==
--- OUTSIDE RECORDS SUMMARY | 2025-05-25 10:30 | XMS_ITS | Encounter Summary ---
Author Organization [facility] Address [address] [place] [address] Care Team Providers Care Pcb Design Engineer Name Role Phone Jagjit Soto MD Unavailable [phone] Nuria Barnes APRN Primary Care Provider [phone] Reason for Visit * Reason Comments Follow-up SAPHO syndrome Encounter Details Date Type Department Care Team (Latest Contact Info) Description 05/25/2025 10:30 AM EDT Office Visit [place] [facility] [address] [place] [address] Laura Dasilva, [facility] [address] [id number] 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CMS/HCC) (Primary Dx); Osteoarthritis of multiple joints, unspecified osteoarthritis type; 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 (nsaid); Positive [...] She has received a referral to a lube technician but has not been able to make [...] before colonoscopy cholecalciferol (Vitamin D-3) 1.25 MG (21416 UT) capsule TAKE 2 CAPSULE Weekly diazePAM [...] 300 mg, Oral, 3 times daily HYDROcodone-acetaminophen ([place]) 10-325 MG tablet levothyroxine (Synthroid, Levoxyl) 137 [...] FOLLOW-UP TESTS Homogenous dsDNA,histones dsDNA,histone antibodies* Speckled Sm,PROJECT DEVELOPMENT MANAGER,SS-A,SS-B,Scl70 Sm,PROJECT DEVELOPMENT MANAGER,SS-A,SS-B,Scl70 and others Nucleolar 4-6s RNA None Centromere [...] Division of Rheumatology Department of Internal Medicine [facility] Cosigned by Kenisha Campos MD at [...] Care Team (Late st Contact Info) Description 09/09/2025 10:40 AM EDT Consult [facility] [address] [place] [address] Sophia Murphy, PA [address] [place] [address] 12/28/2025 9:00 AM EST Office Visit [facility] Medicine Specialties [address] [place] [address] Laura Dasilva, MBBS [address] [place] [address] Scheduled Orders Name Type Priority Associated Diagnoses Orde r Schedule C-Telopeptide Lab Routine 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[facility]) Expected: 05/25/2025 (Approximate), Expires: 11/25/2026 Osteocalcin by ECIA Lab Routine 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[facility]) Expected: 05/25/2025 (Approximate), Expires: 11/25/2026 N telopeptide, cross-linked, serum Lab Routine 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[facility]) Expected: 05/25/2025 (Approximate), Expires: 11/25/2026 documented as of this encounter Results * CBC and differential (06/01/2025 4:24 PM EDT) Blood Venous blood specimen / Unknown us Kenisha Campos MD LAB BLOOD ORDERABLES Final Re sult EXTERNAL LAB * Comprehensive metabolic panel (06/01/2025 4:24 PM EDT) Blood Venous blood specimen / Unknown us Kenisha Campos MD LAB BLOOD ORDERABLES Final Re sult Performing Organization Address City/[facility]/ZIP Co de Phone Number EXTERNAL LAB * C-reactive protein (06/01/2025 4:24 PM EDT) Blood Venous blood specimen / Unknown Kenisha Campos MD LAB BLOOD ORDERABLES Final Re sult Performing Organization Address City/[facility]/ZIP Co de Phone Number EXTERNAL LAB * Sedimentation Rate, Automated (06/01/2025 4:24 PM EDT) Blood Venous blood specimen / Unknown Result [facility] us Kenisha Campos MD LAB BLOOD ORDERABLES Final Re sult Performing Organization Address [facility] Co de Phone Number EXTERNAL LAB documented in this encounter Visit Diagnoses Diagnosis 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
--- OUTSIDE RECORDS SUMMARY | 2025-07-28 07:50 | XMS_ITS | Encounter Summary ---
Author Organization [facility] Address [address] [place] [address] Care Team Providers Care Machine Ii Cutter Name Role Phone Ferdinand Carranaz MD Primary Care Provider [phone] Jagjit Soto MD Unavailable [phone] Nuria Barnes APRN Primary Care Provider [phone] Reason for Visit * Reason Comments Med Refill Encounter Details Date Type Department Care Team (Late st Contact Info) Description 01/15/2023 Refill [facility] [place] [address] [facility] [place] [address] Melanie Felder, RUTHANN [address] [place] [address] Hypertension, unspecified type Social History Tobacco Use [...] Info) Description 09/09/2025 10:40 AM EDT Consult [facility] [address], [address] [place] [address] Sophia Murphy, PA [address] [place] [address] 12/28/2025 9:00 AM EST Office Visit [facility] Medicine Specialties [address], [address] [place] [address] Laura Dasilva, [facility] [address] [place] [address] documented as of this encounter [...] documented as of this encounter Care Teams Machine Ii Cutter Relationship Specialty Start Date End Date Ferdinand Carranza MD [address] [place] [address] PCP - General 03/30/21 05/24/25 Nuria Barnes APRN [address] [place] [address] PCP - General 05/25/25 Jagjit Soto MD [address] [facility] [address] [place] [address] Surgeon Neurosurgery 05/22/21 documented as of this encounter
--- OUTSIDE RECORDS SUMMARY | 2025-07-28 07:51 | XMS_ITS | Encounter Summary ---
Author Organization [facility] Address [address] [place] [address] Care Team Providers Care Web Weaver Name Role Phone Jagjit Soto MD Unavailable [phone] Nuria Barnes APRN Primary Care Provider [phone] Reason for Visit * Reason Comments Med Refill Encounter Details Date Type Department Care Team (Late st Contact Info) Description 07/16/2025 Refill [place] [facility] [address], [address] [place] [address] Gabriela Horan MD [address] [place] [address] Social History Tobacco Use Types Packs/Day Years [...] encounter Miscellaneous Notes * Telephone Encounter - Coty Aleman PharmD - 07/19/2025 7:46 AM EDT 1 medication(s) has been denied per protocol due to: Refill not appropriate documented in this encounter Plan of Treatment Upcoming Encounters Date Type Department Care Team (Late st Contact Info) Description 09/09/2025 10:40 AM EDT Consult [facility] [address], [address] [place] [address] Sophia Murphy PA [address] [place] [address] 12/28/2025 9:00 AM EST Office Visit [facility] Medicine Specialties [address], [address] [place] [address] Laura Dasilva, KRISTINBS [address] [place] [address] documented as of this encounter Visit Diagnoses Not on filedocumented in this encounter Additional Health Concerns Assessment Noted Time A fall risk assessment has been complete d for the patient 05/25/2025 10:52 AM EDT A Body Mass Index follow-up plan has been documented for the patient 05/25/2025 12:19 PM EDT documented as of this encounter Care Teams Web Weaver Relationship Specialty Start Date End Date Nuria Barnes APRN [address] [place] [address] PCP - General 05/25/25 Jagjit Soto MD [address] [facility] [address] [place] [address] Surgeon Neurosurgery 05/22/21 documented as of this encounter
--- OUTSIDE RECORDS SUMMARY | 2025-07-28 07:51 | XMS_ITS | Encounter Summary ---
Author Organization [facility] Address [address] [place] [address] Care Team Providers Care Hardener Helper Name Role Phone Jagjit Soto MD Unavailable [phone] Nuria Barnes APRN Primary Care Provider [phone] Encounter Details Date Type Department Care Team (Late st Contact Info) Description 06/08/2025 Orders Only [facility] [address], [address] [place] [address] Provider, [address] [address] Social History Tobacco Use Types [...] Info) Description 09/09/2025 10:40 AM EDT Consult [facility] [address], [address] [place] [address] Sophia Murphy PA [address] [place] [address] 12/28/2025 9:00 AM EST Office Visit [facility] Medicine Specialties [address], [address] [place] [address] Laura Dasilva, MBBS [address] [place] [address] documented as of this encounter [...] documented as of this encounter Care Teams Hardener Helper Relationship Specialty Start Date End Date Nuria Barnes APRN [address] [place] [address] PCP - General 05/25/25 Jagjit Soto MD [address] [facility] [address] [place] [address] Surgeon Neurosurgery 05/22/21 documented as of this encounter
--- OUTSIDE RECORDS SUMMARY | 2025-07-28 07:51 | XMS_ITS | Encounter Summary ---
Author Organization [facility] Address [address] [place] [address] Care Team Providers Care Tool Coordinator Name Role Phone Jagjit Soto MD Unavailable Nuria Barnes APRN Primary Care Provider [phone] Reason for Referral * Consultation (Routine) - Authorized Specialty Diagnoses / Procedures Referred By Contrakel t Referred To Contact Physical Therapy Diagnoses Osteoarthritis of multiple joints, unspecified osteoarthritis type Kenisha Campos MD [address] [facility] [address] [place] [address] Phone: tel: fax: Referral ID Status Reason Start Date Expiration Date Visits Requested Visits Authorized [id number] Authorized Consult and Treat 05/26/2025 11/25/2026 1 1 Encounter Details Date Type Department Care Team (Late st Contact Info) Description 05/26/2025 Orders Only [place] [facility] [address], [address] [place] [address] Laura Dasilva, KRISTIN [address] [place] [address] Osteoarthritis of multiple joints, unspecified [...] Info) Description 09/09/2025 10:40 AM EDT Consult [facility] [address], [address] [place] [address] Sophia Murphy PA [address] [place] [address] 12/28/2025 9:00 AM EST Office Visit [facility] Medicine Specialties [address], [address] [place] [address] Laura Dasilva, GERTRUDE [address] [place] [address] Scheduled Referrals Name Type Priority Associated Diagnoses [...] as of this encounter Care Teams Tool Coordinator Relationship Specialty Start Date End Date Nuria Barnes APRN [address] [place] [address] PCP - General 05/25/25 Jagjit Soto MD [address] [facility] [address] [place] [address] Surgeon Neurosurgery 05/22/21 documented as of this encounter
--- OUTSIDE RECORDS SUMMARY | 2025-07-28 07:51 | XMS_ITS | Encounter Summary ---
Author Organization [facility] Address [address] [place] [address] Care Team Providers Care Concrete Buster Operator Name Role Phone Jagjit Soto MD Unavailable [phone] Nuria Barnes APRN Primary Care Provider [phone] Encounter Details Date Type Department Care Team (Late st Contact Info) Description 07/06/2025 Telephone [place] [facility] Specialties [address], [address] [place] [address] [place] [address] Social History Tobacco Use Types Packs/Day Years [...] Notes * Telephone Encounter - Surekha Kennedy Rodri - 07/06/2025 2:39 PM EDT Patient called She was calling to let us know that she's having to go to Dr. Soto as she has a couple of herniated discs in her back She had went to [facility] and had scans done of her neck and her left arm which show this CB: [phone] documented in this encounter Plan of Treatment Upcoming Encounters Date Type Department Care Team (Late st Contact Info) Description 09/09/2025 10:40 AM EDT Consult [facility] [address], [address] [place] [address] Sophia Murphy PA [address] [place] [address] 12/28/2025 9:00 AM EST Office Visit [facility] Medicine Specialties [address], [address] [place] [address] Laura Dasilva, GERTRUDE [address] [place] [address] documented as of this encounter Visit Diagnoses Not on filedocumented in this encounter Additional Health Concerns Assessment Noted Time A fall risk assessment has been complete d for the patient 05/25/2025 10:52 AM EDT A Body Mass Index follow-up plan has been documented for the patient 05/25/2025 12:19 PM EDT documented as of this encounter Care Teams Concrete Buster Operator Relationship Specialty Start Date End Date Nuria Barnes APRN [address] [place] [address] PCP - General 05/25/25 Jagjit Soto MD [address] [place] [address] Surgeon Neurosurgery 05/22/21 documented as of this encounter
--- OUTSIDE RECORDS SUMMARY | 2025-07-28 07:51 | XMS_ITS | Clinical Summary ---
Author Organization [facility] Address [address] [place] [address] Care Team Providers Care Mottler Machine Feeder Name Role Phone Ferdinand Carranza MD Primary Care Provider [phone] Allergies Active Allergy Reactions Criticality Noted Date [...] drink = 0.6 oz pur e alcohol) [facility] Utilities Answer Date Recorded In the past 12 months has [employer], [employer], oil, or water [email or web address] threatened to shut off services in your [...] care, and heating? Not very hard 08/02/2024 [facility] of Occupat ional Health - Occupational Stress [...] GED or equivalent No 08/02/2024 Preferred Language Syrian 08/02/2024 PHQ-2 Answer Date Recorded Retired PHQ-9: [...] 2) 12/11/2023 10/16/2023 COVID-19 Vaccine ( season) 2025 INFLUENZA VACCINE 08/17/2025 09/01/2021, , 08/06/2016 TDAP/TD [...] Anatomical Region Laterality Modality Radiographic Leda ging [facility] IMG DIAGNOSTIC IMAGING ORDERA BLES Final Result * LABS SCANNED (05/31/2025) [facility] LAB BLOOD ORDERABLES Final Re sult from Last 3 Months Insurance [facility] MEDICARE ADVANTAGE HMO Advance Directives [...] Of Support Discussed With: Patient Care Teams Mottler Machine Feeder Relationship Specialty Start Date End Date Ferdinand Carranza MD [address] [place] [address] PCP - General Family Medicine 10/21/17
--- OUTSIDE RECORDS SUMMARY | 2025-07-28 07:51 | XMS_ITS | Clinical Summary ---
Author Organization [facility] Address [address] [place] [address] Care Team Providers Care Actuarial Technician Name Role Phone Jagjit Soto MD Unavailable [phone] Nuria Barnes APRN Primary Care Provider [phone] Allergies Active Allergy Reactions Criticality Noted Date [...] 18 Active cholecalciferol (Vitamin D-3) 1.25 MG (46467 UT) capsule TAKE 2 CAPSULE Weekly 10/23/20 18 Active fluticasone-vilant frances (Breo Ellipta) 100-25 MCG/INH inhaler USE 1 INHALATION ONCE DAILY. 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 current use of non -steroidal anti-inflammatories (NSAID) 03/06/2017 Tendonitis 10/21/2016 Triggering of digit 10/21/2016 Hypertension 10/21/2016 Resolved Problems Problem Noted Date Diagnosed Date Resolved Date Bowel trouble 08/05/2024 11/25/2024 Orthostatic hypotension 08/02/2024 01/0 07/2025 Dizziness 07/31/2024 11/25/2024 Encounters Date Type Department Care Team Description 07/19/2025 Refill [facility] [address], [address] Floor [facility] [place] [address] Gabriela Horan MD 07/18/2025 Refill [facility] [address] Floor [facility] [place] [address] Gabriela Horan MD 07/17/2025 Refill [facility] [address], [address] [facility] [place] [address] Gabriela Horan MD 07/16/2025 Refill [facility] [address], 2nd [place] [id number] Gabriela Horan MD 07/14/2025 Telephone [facility] [address], [address]st [place] [address] Sophia Murphy PA 07/06/2025 Telephone [facility] [address], 2nd [place] [address] Surekha Kennedy 06/08/2025 Orders Only [facility] [address], [address] [place] [address] Provider, Historical 06/07/2025 Results Follow-Up [facility] [address], [address]nd [place] [address] Laura Dasilva MBBS 06/01/2025 Orders Only [facility] [address], [address]nd [place] [address] Anastasiia Sagastume, RN 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[facility]/HCC) 05/26/2025 Orders Only [facility] [address], 2nd [place] [address] Laura Dasilva MBBS Osteoarthritis of multiple joints, unspecified osteoarthritis type (Primary Dx) 05/25/2025 10:30 AM EDT Office Visit [facility] [address], 2nd Floor [facility] [place] [address] Laura Dasilva MBBS 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[facility]) (Primary Dx); Osteoarthritis of multiple joints, unspecified osteoarthritis type; prison (current) use of non-steroidal anti-inflammatories (nsaid); Positive [...] Info) Description 09/09/2025 10:40 AM EDT Consult [place] [facility] [address] [place] [address] Sophia Murphy, PA [address] [place] [address] 12/28/2025 9:00 AM EST Office Visit [facility] [address], 2nd [place] [address] Laura Dasilva, MBBS [address] [place] [address] Health Maintenance Due Date Last Done Comments [facility]-Bone Density Scan 1966 [facility]-Medicare Annual Wellness (AWV) 1966 [facility]-Infant/Child/Adol SDOH Screenings 1966 [facility]-CBMSE-14 Vaccine (#1) 1971 [facility]- SDOH Screenings 1984 [...] this topic Medical Devices Implanted Type Area Special Education Associate Device Identifier Shelf Expiration Date Model / Serial / Lot Duraclip 11mm - [id number] Implanted:Qty: 1 on 10/27/2024 by Gabriela Horan MD at [id number] 12/22/2026 [id number] / / [id number] Procedures Procedure Name Priority Date/Time Associated Diagnosis [...] Blood Venous blood specimen / Unknown Result [facility] Provider LAB BLOOD ORDERABLES Final R esult * Osteocalcin by ECIA (06/08/2025 8:33 AM EDT) Blood Venous blood specimen / Unknown Result [facility] Provider LAB BLOOD ORDERABLES Final R esult * Sedimentation Rate, Automated (06/01/2025 4:24 PM EDT) Blood Venous blood specimen / Unknown Result [facility] Toi Kwan MD LAB BLOOD ORDERABLES Final Re sult Performing Organization Address [facility] Co de Phone Number EXTERNAL LAB * CBC and differential (06/01/2025 4:24 PM EDT) Blood Venous blood specimen / Unknown Result [facility] Toi Kwan MD LAB BLOOD ORDERABLES Final Re sult Performing Organization Address [facility] Co de Phone Number EXTERNAL LAB * C-reactive protein (06/01/2025 4:24 PM EDT) Blood Venous blood specimen / Unknown Result [facility] Toi Kwan MD LAB BLOOD ORDERABLES Final Re sult Performing Organization Address [facility] Co de Phone Number EXTERNAL LAB * Comprehensive metabolic panel (06/01/2025 4:24 PM EDT) Blood Venous blood specimen / Unknown us Toi Kwan MD LAB BLOOD ORDERABLES Final Re sult EXTERNAL LAB * Colonoscopy (10/27/2024 12:43 PM [...] medications. Staff Staff Role Speedy [employer] Laborer Ricardo Alvarado CRNA CRNA Flomenhoft, Deborah R, [...] of bowel preparation was evaluated using the Marianna Bowel Preparation Scale with scores of: right [...] hemoclip applied for hemostasis. us Brynn Diaz APRN, YARON GI PROCEDURE ORDERABLE S Final Result * Hepatitis panel, acute (07/06/2024 1:27 PM EDT) Hepatitis B Surf Antigen Negative Negative 07/06/2024 4:23 PM EDT [facility] Hepatitis C Antibody Negative Negative 07/06/2024 4:23 PM EDT [facility] Hepatitis A Antibody IgM Negative Negative 07/06/2024 4:23 PM EDT [facility] Hepatitis B Core Antibody IgM Negative Negative 07/06/2024 4:23 PM EDT [facility] Blood Venous blood specimen / Unknown Venipuncture / Unknown 07/06/2024 1:27 PM EDT 07/06/2024 1:28 PM EDT us Toi Kwan MD LAB BLOOD ORDERABLES Final Re sult [facility] [address] [place] [id number] * CT Chest w IV Contrast (05/22/2020 [...] May 22 2020 3:46P Transcribe d by: [facility] on May 22 2020 3:46P Dictated [...] PM EST Historical Provider LAB BLOOD ORDERABLES Final R esult [facility] from Last 3 Months or Most Recently Relevant to Health Maintenance Insurance [facility] MEDICARE EYEMED Care Teams Actuarial Technician Relationship Specialty Start Date End Date Nuria Barnes APRN [address] [place] [address] PCP - General 05/25/25 Jagjit Soto MD [address] [address] Surgeon Neurosurgery 05/22/21
--- OUTSIDE RECORDS SUMMARY | 2025-07-28 07:51 | XMS_ITS | Encounter Summary ---
Author Organization [facility] Address [address] [place] [address] Care Team Providers Care Canoe Inspector Name Role Phone Jagjit Soto MD Unavailable [phone] Nuria Barnes APRN Primary Care Provider [phone] Reason for Visit * Reason Comments Med Refill Encounter Details Date Type Department Care Team (Late st Contact Info) Description 07/18/2025 Refill [place] [facility] [address], 2nd [place] [address] Gabriela Horan MD [address] [place] [address] Social History Tobacco Use Types [...] Encounter - Coty Aleman PharmD - 07/19/2025 7:48 AM EDT 1 medication(s) has been denied per protocol due to: Refill not appropriate documented in this encounter Plan of Treatment Upcoming Encounters Date Type Department Care Team (Late st Contact Info) Description 09/09/2025 10:[address] [facility] [address], 1st [place] [address] Sophia Murphy PA [address] [place] [address] 12/28/2025 9:00 AM EST Office Visit [facility] [address], [address]nd [place] [address] Laura Dasilva, KRISTINBS [address] [place] [address] documented as of this encounter Visit Diagnoses Not on filedocumented in this encounter Additional Health Concerns Assessment Noted Time A fall risk assessment has been complete d for the patient 05/25/2025 10:52 AM EDT A Body Mass Index follow-up plan has been documented for the patient 05/25/2025 12:19 PM EDT documented as of this encounter Care Teams Canoe Inspector Relationship Specialty Start Date End Date Nuria Barnes APRN [address] [place] [address] PCP - General 05/25/25 Jagjit Soto MD [address] [facility] [address] [place] [address] Surgeon Neurosurgery 05/22/21 documented as of this encounter
--- OUTSIDE RECORDS SUMMARY | 2025-07-28 07:51 | XMS_ITS | Encounter Summary ---
Author Organization [facility] Address [address] [place] [address] Care Team Providers Care Local Company Refrigerated Truck Driver Name Role Phone Jagjit Soto MD Unavailable [phone] Nuria Barnes APRN Primary Care Provider [phone] Encounter Details Date Type Department Care Team (Late st Contact Info) Description 07/14/2025 Telephone [facility] [address], 1st [place] [address] Sophia Murphy, RUTHANN [address] [place] [address] Social History Tobacco Use Types [...] encounter Miscellaneous Notes * Telephone Encounter - Kendra Benjamin - 07/25/2025 10:15 AM EDT Patient Phone Message Reason for Call: Patient is looking for a sooner appt. She cannot use her hand due to complete numbness and elbow hurts. Best contact number and optimal time of day to reach caller: [phone] Note: Please do not reply to this message. Follow-up communication and further actions as a result of this message need to be communicated with the patient directly, if the patient is not active onMyChart. If the patient is active on MyChart, they will receive notification of the communication/outcome via MyChart. * Telephone Encounter - Zaina Humphries - 07/14/2025 4:20 PM EDT Patient Phone Message Reason for Call: Patient returning call to [facility] Best contact number and optimal time of day to reach caller: [phone] Note: Please do not reply to this message. Follow-up communication and further actions as a result of this message need to be communicated with the patient directly, if the patient is not active onMyChart. If the patient is active on MyChart, they will receive notification of the communication/outcome via MyChart. documented in this encounter Plan of Treatment Upcoming Encounters Date Type Department Care Team (Late st Contact Info) Description 09/09/2025 10:40 AM EDT Consult [facility] [address], 1st [place] [address] Sophia Murphy PA [address] [place] [address] 12/28/2025 9:00 AM EST Office Visit [facility] [address], 2nd [place] [address] Laura Dasilva, GERTRUDE [address] [place] [address] documented as of this encounter Visit Diagnoses Not on filedocumented in this encounter Additional Health Concerns Assessment Noted Time A fall risk assessment has been complete d for the patient 05/25/2025 10:52 AM EDT A Body Mass Index follow-up plan has been documented for the patient 05/25/2025 12:19 PM EDT documented as of this encounter Care Teams Local Company Refrigerated Truck Driver Relationship Specialty Start Date End Date Nuria Barnes APRN [address] [place] [address] PCP - General 05/25/25 Jagjit Soto MD [address] [place] [address] Surgeon Neurosurgery 05/22/21 documented as of this encounter
--- OUTSIDE RECORDS SUMMARY | 2025-07-28 07:51 | XMS_ITS | Encounter Summary ---
Author Organization [facility] Address [address] [place] [address] Care Team Providers Care Prepared Foods Supervisor Name Role Phone Jagjit Soto MD Unavailable [phone] Nuria Barnes APRN Primary Care Provider [phone] Reason for Visit * Reason Comments Med Refill Encounter Details Date Type Department Care Team (Late st Contact Info) Description 07/19/2025 Refill [place] [facility] [address], 2nd [place] [address] Gabriela Horan MD [address] [place] [address] Social History Tobacco Use Types [...] Info) Description 09/09/2025 10:40 AM EDT Consult [facility] [address], 1st [place] [address] Sophia Murphy PA [address] [place] [address] 12/28/2025 9:00 AM EST Office Visit [facility] Medicine Specialties [address], 2nd [place] [address] Laura Dasilva, KRISTINBS [address] [place] [address] documented as of this encounter Visit Diagnoses Not on filedocumented in this encounter Additional Health Concerns Assessment Noted Time A fall risk assessment has been complete d for the patient 05/25/2025 10:52 AM EDT A Body Mass Index follow-up plan has been documented for the patient 05/25/2025 12:19 PM EDT documented as of this encounter Care Teams Prepared Foods Supervisor Relationship Specialty Start Date End Date Nuria Barnes APRN [address] [place] [address] PCP - General 05/25/25 Jagjit Soto MD [address] [facility] [address] [place] [address] Surgeon Neurosurgery 05/22/21 documented as of this encounter
--- OUTSIDE RECORDS SUMMARY | 2025-07-28 07:51 | XMS_ITS | Encounter Summary ---
Author Organization [facility] Address [address] [place] [address] Care Team Providers Care Diagnostic Radiologist Name Role Phone Ferdinand Carranza MD Primary Care Provider [phone] Jagjit Soto MD Unavailable [phone] Nuria Barnes APRN Primary Care Provider [phone] Reason for Visit * Reason Comments Med Refill Encounter Details Date Type Department Care Team (Late st Contact Info) Description 01/10/2024 Refill [facility] [place] [address] [facility] [place] [address] Melanie Felder, RUTHANN [address] [place] [address] Hypertension, unspecified type Social History Tobacco Use [...] Info) Description 09/09/2025 10:40 AM EDT Consult [facility] [address], 1st [place] [address] Sophia Murphy PA [address] [address] 12/28/2025 9:00 AM EST Office Visit [facility] Medicine Specialties [address], 2nd [place] [address] Laura Dasilva MBBS [address] [place] [address] documented as of this encounter [...] documented as of this encounter Care Teams Diagnostic Radiologist Relationship Specialty Start Date End Date Ferdinand Carranza MD [address] [place] [address] [address] [place] [address] PCP - General 03/30/21 05/24/25 Nuria Barnes APRN [address] [place] [address] PCP - General 05/25/25 Jagjit Soto MD [id number] [place] [address] Surgeon Neurosurgery 05/22/21 documented as of this encounter
--- OUTSIDE RECORDS SUMMARY | 2025-07-28 07:51 | XMS_ITS | Encounter Summary ---
Author Organization [facility] Address [address] [place] [address] Care Team Providers Care Semiconductor Wafers Saw Operator Name Role Phone Jagjit Soto MD Unavailable Nuria Barnes APRN Primary Care Provider [phone] Reason for Visit * Reason Comments Med Refill Encounter Details Date Type Department Care Team (Late st Contact Info) Description 07/17/2025 Refill [place] [facility] [address], 2nd [place] [address] Gabriela Horan MD [address] [place] [address] Social History Tobacco Use Types [...] Info) Description 09/09/2025 10:40 AM EDT Consult [facility] [address], 1st [place] [address] Sophia Murphy PA [address] [place] [address] 12/28/2025 9:00 AM EST Office Visit [facility] Medicine Specialties [address], 2nd [place] [address] Laura Dasilva, KRISTINBS [address] [place] [address] documented as of this encounter Visit Diagnoses Not on filedocumented in this encounter Additional Health Concerns Assessment Noted Time A fall risk assessment has been complete d for the patient 05/25/2025 10:52 AM EDT A Body Mass Index follow-up plan has been documented for the patient 05/25/2025 12:19 PM EDT documented as of this encounter Care Teams Semiconductor Wafers Saw Operator Relationship Specialty Start Date End Date Nuria Barnes APRN [address] [place] [address] PCP - General 05/25/25 Jagjit Soto MD [address] [facility] [address] [place] [address] Surgeon Neurosurgery 05/22/21 documented as of this encounter
--- OUTSIDE RECORDS SUMMARY | 2025-07-28 07:51 | XMS_ITS | Encounter Summary ---
Author Organization [facility] Address [address] [place] [address] Care Team Providers Care Station Mechanic Helper Name Role Phone Jagjit Soto MD Unavailable [phone] Nuria Barnes APRN Primary Care Provider [phone] Encounter Details Date Type Department Care Team (Late st Contact Info) Description 06/01/2025 Orders Only [place] [facility] [address], [address] [place] [address] Anastasiia Sagastume, RN 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CMS/HCC) Social [...] Info) Description 09/09/2025 10:40 AM EDT Consult [facility] [address], [address] [place] [address] Sophia Murphy, PA [address] [place] [address] 12/28/2025 9:00 AM EST Office Visit [facility] Specialties [address], [address] [place] [address] Laura Dasilva, MBBS [address] [place] [address] documented as of this encounter [...] ORDERABLES Final Re sult Performing Organization Address City/[facility]/ZIP Co de Phone Number EXTERNAL LAB * C-reactive protein (06/01/2025 4:24 PM EDT) Blood Venous blood specimen / Unknown Kenisha Campos MD LAB BLOOD ORDERABLES Final Re sult Performing Organization Address [facility] Co de Phone Number EXTERNAL LAB documented [...] documented as of this encounter Care Teams Station Mechanic Helper Relationship Specialty Start Date End Date Nuria Barnes APRN [address] [place] [address] PCP - General 05/25/25 Jagjit Soto MD [address] [facility] [address] [place] [address] Surgeon Neurosurgery 05/22/21 documented as of this encounter
--- OUTSIDE RECORDS SUMMARY | 2025-07-28 07:51 | XMS_ITS | Encounter Summary ---
Author Organization [facility] Address [address] [place] [address] Care Team Providers Care Check Weigher Name Role Phone Jagjit Soto MD Unavailable [phone] Nuria Barnes APRN Primary Care Provider [phone] Encounter Details Date Type Department Care Team (Late st Contact Info) Description 06/07/2025 Results Follow-Up [facility] [address], [address] [place] [address] Laura Dasilva, GERTRUDE [address] [place] [address] Social History Tobacco Use Types [...] Info) Description 09/09/2025 10:40 AM EDT Consult [place] [facility] [address], 1st [place] [address] Sophia Murphy PA [id number] [place] [address] 12/28/2025 9:00 AM EST Office Visit [facility] [address], 2nd [place] [address] Laura Dasilva MBBS [address] [place] [address] documented as of this encounter Visit Diagnoses Not on filedocumented in this encounter Additional Health Concerns Assessment Noted Time A fall risk assessment has been complete d for the patient 05/25/2025 10:52 AM EDT A Body Mass Index follow-up plan has been documented for the patient 05/25/2025 12:19 PM EDT documented as of this encounter Care Teams Check Weigher Relationship Specialty Start Date End Date Nuria Barnes APRN [address] [place] [address] PCP - General 05/25/25 Jagjit Soto MD [address] [facility] [place] [address] Surgeon Neurosurgery 05/22/21 documented as of this encounter
--- NOTE | 2025-07-28 08:00 | CT_ITS ---
FINAL REPORT TECHNIQUE: After the administration of oral and intravenous contrast, axial images were obtained through the abdomen by computed tomography. The study was performed with techniques to keep radiation dose as low as reasonably achievable, (ALARA). Individual dose reduction techniques using automated exposure control or adjustment of mA and/or kV according to the patient's size were employed. CLINICAL HISTORY: Pancreatic ductal dilatation seen on ultrasound COMPARISON: None FINDINGS: CT ABDOMEN WITH CONTRAST: The lung bases are clear. The liver is homogeneous without focal abnormality. The gallbladder is present. The spleen and adrenal glands are normal in appearance. The pancreatic duct is dilated. No mass in the pancreatic duct is identified. No evidence of pancreatitis is noted. The pancreatic duct is dilated to the level of the ampulla. The portions of the bowel seen are unremarkable. No significant adenopathy is present. IMPRESSION: Pancreatic ductal dilatation extending to the ampulla, without evidence of an underlying mass. Suggest EUS for further evaluation. Reviewed, Interpreted and Dictated by Belinda Celestin MD Transcribed by Betsy Multani Authenticated and . [facility]
[2025-07-28] MEDS: IOPAMIDOL-370 (76%);100ML BOTTLE 75 ML IV (08:25)
[2025-07-28] MEDS: SODIUM CHLORIDE 0.9% 10ML SYR (RAD ONLY) 10 ML IV (08:25)
== END 2025-07-28 23:59 | disposition home or self-care (01) ==
LOC: RAD 07:49
PROVIDERS: PCP Nurse Practitioner Family; Visit Provider Nurse Practitioner Family
DX: K86.89 Other specified diseases of pancreas (principal)
CPT/HCPCS: 74160; Q9967

== ENCOUNTER 2025-09-02 10:14 | Outpatient (CLI) | payer MEDICARE, SELFPAY ==
[2025-09-02 05:51] VITALS: BMI 24.3
--- NOTE | 2025-09-02 10:59 | ECG_ITS ---
APPROVED REPORT Exam: Resting ECG HR:76 bpm ECG Measurements Heart Rate 76 AXES MN 146 P 55 QRSd 82 QRS 22 QT 385 T 65 QTc 416 Conclusion SINUS RHYTHM NORMAL ECG UNCONFIRMED REPORT Electronically signed by : Haim Price MD 09/02/2025 21:56:53
[2025-09-02 11:09] LABS: Hematocrit 36.9 % (37.0-47.0); Hemoglobin 11.9 g/dL (12.2-16.2); Immature Granulocytes % 0.5 %; Mean Corpuscular HGB Conc 32.2 g/dL (31.8-35.4); Mean Corpuscular Hemoglobin 29.2 pg (27.0-31.2); Mean Corpuscular Volume 90.7 fl (81-99); Nucleated Red Blood Cells % 0 %; Platelet Count 254 K/mm3 (142-424); Red Blood Count 4.07 M/mm3 (4.20-5.40); Red Cell Distribution Width-SD 42.1 fL; White Blood Count 5.6 K/mm3 (4.8-10.8)
[2025-09-02 11:14] LABS: Chloride 103 mmol/L (98-107); Potassium 4.5 mmoL/L (3.5-5.1); Sodium 139 mmol/L (136-145)
[2025-09-02 11:17] LABS: Anion Gap 11.5 mEq/L (5-15); Blood Urea Nitrogen 11 mg/dl (7-17); Carbon Dioxide 29 mmol/L (22.0-30.0); Creatinine Clearance Estimated 84 mL/min (50-200); Creatinine,Serum 0.80 mg/dl (0.52-1.04); Estimated Glomerular Filt Rate 73 ml/min (>60); GFR (African American) 89 ML/MIN (>60)
[2025-09-02 11:18] LABS: Calcium 8.8 mg/dl (8.4-10.2); Glucose 107 mg/dl (74-100)
== END 2025-09-02 23:59 | disposition home or self-care (01) ==
LOC: PREOP 10:15
PROVIDERS: PCP Nurse Practitioner Family; Visit Provider Orthopaedic Surgery
DX: Z01.810 Encounter for preprocedural cardiovascular examination (principal); Z01.812 Encounter for preprocedural laboratory examination
CPT/HCPCS: 80048; 85025; 93005

== ENCOUNTER 2025-09-06 08:11 | Day surgery (SDC) | payer MEDICARE, SELFPAY ==
[2025-09-02 14:03] VITALS: BMI 24.3
[2025-09-06] VITALS (10 sets, daily range): BP systolic 136–160; BP diastolic 74–106; PULSE 74–91; RESP 16–20; TEMP 36.3–37.1; O2SAT 95–98
[2025-09-06] MEDS: LACTATED RINGERS 1000ML 1,000 ML 100 ML IV (08:40)
--- NOTE | 2025-09-06 08:47 | EXP.ANES.CKL ---
[facility] Disclaimer: The information contained in this section may have been updated after the patient was seen, as this information can be updated by other users. Medical History Thyromegaly Secondary fibromyalgia Vertigo Hypothyroidism Post laminectomy syndrome DDD (degenerative disc disease) Arthritis Hx of corneal abrasion Hx of corneal abrasion HLD (hyperlipidemia) CAD (coronary artery disease) Fibromyalgia Cataracts, bilateral Osteoporosis GERD (gastroesophageal reflux disease) Asthma Anxiety Hypothyroid Raynauds syndrome SAPHO syndrome Fatigue TAIWO (obstructive sleep apnea) HLD (hyperlipidemia) HHD (hypertensive heart disease) CAD (coronary artery disease) Surgical History History of endometrial ablation Hx of section History of thumb surgery History of shoulder surgery History of neck surgery History of back surgery Hx of colonoscopy Hx of cardiac cath History of tubal ligation Family History Other Coronary artery disease Diabetes FHx: mental illness Heart attack Hyperlipidemia Hypertension Stroke Social History Smoking Status: Current every day smoker tobacco type: e-cigarettes second hand exposure: No alcohol intake: never counseling provided: none substance use type: prescription drug current occupational status: employed and disabled Travel in the last 8 weeks?: None household members: significant other housing: house current occupational exposures/hazards: No caffeine: Yes Have you lived/traveled outside US in past 30 days?: No Contact w/someone who lives/traveled outside US past 30 days?: No Exposure to someone with infectious disease in past 14 days?: No Do you have a fever (greater than 100.4 F or 38 C)?: No Have you tested positive for COVID-19?: No Exposed to someone with COVID-19 in past 14 days?: No Do you have a sore throat?: No Do you have a cough?: No Do you have any weakness?: No Are you experiencing any nausea/vomitting?: No Do you have any diarrhea?: No Are you experiencing any unusual bleeding?: No Do you have any muscle aches/pain?: No Do you have any abdominal pain?: No Are you experiencing loss of taste or smell?: No [facility] Anesthesia Checklist Patient Identification Patient Identification: Arm Band and Verbal (Name & ) Structural Data Admitted From: Home Planned Operative Procedure/s: L elbow nerve decompression Consent for Planned Operative Procedure(s) Verified: Yes Verified Documents: Surgical Consent and History and Physical NPO Status Verified Time NPO: 00:00 Additional verifications Anesthesia Reactions: Yes (pt reports hard to wake up after anesthesia) Hx Blood Transfusions: No Blood Transfusion Reaction: No Airway Assessment Mallampati Score:: Class II Dentition: Dentures-good fit Neurological Assessment Level of Consciousness: Awake, Alert and Appropriate Hx Seizures: No Numbness or tingling in extremities: No Anesthesia Plan Anesthesia Risk discussed: Yes Anesthesia Plan: Verified ASA Class: II Anesthesia Type: General
[2025-09-06] MEDS: BUPIVACAINE 0.5% 30ML VIAL 150 MG (10:57)
--- NOTE | 2025-09-06 11:53 | P.OP_ITS ---
Date of procedure: 09/06/25 Pre-op Diagnosis:: Left cubital tunnel syndrome Post-op Diagnosis:: Same Procedure performed:: Left ulnar nerve decompression at the elbow Surgeon:: Remi Garcia DO Front Desk Coordinator(s):: Eamon BULLOCK REFRIGERATION TECH:: Lauren Vaughn Anesthesia: GETA Estimated blood loss (mL): 0 Operative findings:: See dictation Operative note:: Patient notified preoperatively. Left elbow marked with yes and my initials. Then transferred to operative suite placed upon operating bed with general anesthesia. General anesthesia was administered airway secured. Left upper extremity was then prepped and draped on the arm table. Once prepped and draped final operative timeout performed to identify proper patient procedure and extremity. Everyone involved in the case agreed. There were no counter indications to beginning. She did receive preoperative antibiotics. Marking pen was used to make planned incision over the left elbow. A curvilinear incision was made at the posterior aspect of the medial epicondyle centered between the medial epicondyle and the olecranon. Sharp and blunt dissection was taken down through the subcutaneous tissues taking care to pr otect the medial antebrachial cutaneous nerve branches. The ulnar nerve was then identified within the cubital tunnel Aparicio's ligament was then excised longitudinally to decompress the ulnar nerve at the cubital tunnel. Decompression was then carried proximally up to the arcade of [place] and then distally through the FCU aponeurosis to ensure complete release of any constricting bands. The nerve was then inspected throughout its entire course confirming that full decompression was appropriate and there was no kinking or residual constriction of the ulnar nerve. The ulnar nerve was also stable through range of motion with flexion extension inside the cubital groove and therefore anterior transposition was not necessary. Bipolar cautery for hemostasis was obtained the wound was irrigated with sterile saline. Subcutaneous tissues and then closed with absorbable 2-0 Vicryl suture skin was closed with 3-0 nylon suture sterile dressing was applied soft compressive bandage was placed. Patient tolerated procedure well without complication was then taken recovery room in stable condition. Condition: stable Disposition: PACU Complications:: None apparent
--- NOTE | 2025-09-06 11:53 | EXP.ANES.I ---
[facility] Anesthesia Record Part I Anesthesia Record I Intake, IV Amount: 600 Hydration: Adequate Estimated blood loss (mL): 5 Urine output (mL): 0 Blood Pressure: 148/96 SaO2: 96 Pulse Rate: 90 Airway Patency: Patent Respiratory Rate: 18 Temperature: 98.8 F Patient is:: Awake, Nasal O2 and Stable Stable to PACU at:: 12:00
[2025-09-07 13:41] VITALS: BP 160/96; PULSE 79; RESP 16; TEMP 36.8; O2SAT 97
--- NOTE | 2025-09-07 13:41 | P.PNANES_ITS ---
[facility] Anesthesia Record Part II Anesthesia Record Part II Discharge Time: 12:20 Destination: Surgical Day Care (OP Surgery) PACU nurse assessment reviewed?: Yes Patient Condition:: Good Anesthesia Complications:: None Swallowing reflex intact?: Yes Airway Patency: Patent Cyanosis?: No Blood Pressure: 160/96 SaO2: 97 Respiratory Rate: 16 Pulse Rate: 79 Temperature: 98.3 F Mental Status: Alert & Oriented Pain level:: 0 Nausea and/or vomitting:: None Intake, IV Amount: 0 Hydration: Adequate
== END 2025-09-06 12:55 | disposition home or self-care (01) ==
PROVIDERS: PCP Nurse Practitioner Family; Visit Provider Orthopaedic Surgery
PROC: (CPT 64718; principal; 2025-09-06 10:00)
DX: G56.22 Lesion of ulnar nerve, left upper limb (principal); E03.9 Hypothyroidism, unspecified; E04.9 Nontoxic goiter, unspecified; M79.7 Fibromyalgia; E78.5 Hyperlipidemia, unspecified; I11.9 Hypertensive heart disease without heart failure; I25.10 Atherosclerotic heart disease of native coronary artery without angina pectoris; G47.33 Obstructive sleep apnea (adult) (pediatric); I73.00 Raynaud's syndrome without gangrene; J45.909 Unspecified asthma, uncomplicated; F41.9 Anxiety disorder, unspecified; K21.9 Gastro-esophageal reflux disease without esophagitis; M47.9 Spondylosis, unspecified; M19.90 Unspecified osteoarthritis, unspecified site; M81.0 Age-related osteoporosis without current pathological fracture; F17.290 Nicotine dependence, other tobacco product, uncomplicated; Z79.899 Other long term (current) drug therapy; Z79.82 Long term (current) use of aspirin; Z79.890 Hormone replacement therapy; Z88.5 Allergy status to narcotic agent; Z88.8 Allergy status to other drugs, medicaments and biological substances
CPT/HCPCS: 64718; 96374; J0665; J0690; J1100; J1200; J2003; J2250; J2405; J2704; J3010; J7120

== ENCOUNTER 2025-09-19 09:30 | Outpatient (CLI) | payer MEDICARE, SELFPAY ==
--- OUTSIDE RECORDS SUMMARY | 2025-09-09 09:40 | XMS_ITS | Encounter Summary ---
Author Organization [facility] Address [address] [place] [address] Care Team Providers Care Feed Miller Name Role Phone Jagjit Soto MD Unavailable [phone] Nuria Barnes APRN Primary Care Provider [phone] Sophia Kwan Unavailable [phone] Reason for Referral * Imaging (Routine) - Authorized Specialty Diagnoses / Procedures Referred By Carolina olivares Referred To Contact Diagnoses Cervicalgia History of fusion of cervical spine Vapes nicotine containing substance Procedures CT Cervical Spine wo IV Contrast Sophia Kwan PA [address] [place] [address] Phone: tel: fax: Referral ID Status Reason Start Date Expiration Date V isits Requested Visits Authorized [id number] Authorized 09/11/2025 03/13/2027 1 1 Reason for Visit * Consultation (Routine) - Closed Specialty Diagnoses / Procedures Referred By Carolina olivares Referred To Contact Neurosurgery Diagnoses Cervicalgia Remi Garcia, DO [address] [place] [address] [place] [address] Phone: tel: fax: [facility] [address] [place] [address] Phone: tel: fax: Referral ID Status Reason Start Date Expiration Date V isits Requested Visits Authorized [id number] Closed Specialty Services Required 07/08/2025 01/07/2027 1 1 Encounter Details Date Type Department Care Team (Late st Contact Info) Description 09/09/2025 10:40 AM EDT Consult [place] [facility] [address] [place] [address] Sophia Kwan, PA [address] [place] [address] Cervicalgia (Primary Dx); History of fusion of cervical spine; Vapes nicotine containing substance Social History Tobacco Use Types Packs/Day Years [...] Sign Reading Time Taken Comments Blood Pressure 140/90 09/09/2025 10:02 AM EDT Pulse - - Temperature - - Respiratory Rate - - Oxygen Saturation - - Inhaled Oxygen Concentration - - Weight 77.3 kg (170 lb 6.7 oz) 09/09/2025 10:02 AM EDT Height 170.2 cm (5' 7 ) 09/09/2025 10:02 AM EDT Body Mass Index 26.69 09/09/2025 10:02 AM EDT documented in this encounter Miscellaneous Notes * Progress Notes - Sophia Kwan PA - 09/09/2025 10:40 AM EDT We had the pleasure of seeing your patient in our clinic today for continued Neurosurgical evaluation. Verbal consent was obtained to use ambient listening technology to assist in the documentation of the encounter: yes History Of Present Illness Subjective Caren Infante is a 60 y.o. female here today for neurosurgical evaluation regarding neck pain. History of Present Illness She has a history of neck surgery performed by Dr. Hurtado in 2001, which was necessitated by shooting pain radiating down her right arm and across the front of her body on the right side. This pain was alleviated post-surgery. She is also status post a PLIF extension at L4-5 from prior L5-S1 fusion completed by Dr. Soto on January 22, 2021 with good results of lower extremity pain. She was last seenin the clinic in June 2022 reports increasing symptoms of neck pain and bilateral upper extremitypain and paresthesias. 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 Today, she reports experiencing neck pain for the past year, initially noticed when looking down. The pain is exacerbated by movements such as looking up or down and she is unable to turn her head side to side. Additionally, she has difficulty opening objects and gripping, with her hand becoming completely numb intermittently throughoutthe day. She has a rare bone disease called SAPHO syndrome, which causes her bones to swell and is e xtremely painful. She has lesions on her ribs, leg, and arm. Over the past 5 years, she has been on14 different medications for this condition, none of which have been effective. Her current medication regimen includes oxycodone 10 mg four times a day, gabapentin, methocarbamol 500 mg, and duloxetine for fibromyalgia. She has not undergone any recent physical therapy or epidural injections for her neck or shoulder pain. Her editing internship, whom she sees every 6 months, initially suspected secondary fibromyalgia as the cause of her neck pain. Three days ago, she underwent ulnar nerve compression surgery at [facility] by Dr. Garcia due to numbness and tingling in her 4th and 5th digits. The surgery was initially expected to last 45 minutes but extended to 2 hours due to prolonged compression. Despite the surgery, she continues to experience numbness in her fingers, although the pain has improved. She was informed that recovery could take up to a year, but given the duration of the compression, some damage may be permanent. She endorses numbness in her entire right hand but not in her arm. A nerve study revealed ulnar neuropathy and mild issues in her right arm. She has been experiencing poor balance for the past 4 to 5 years, which has worsened since a bad fall on 08/07/2024 where she fell face forward, hitting her chin on a stair resulting in hyperextension of her neck. She also reports frequent falls and dropping objects. She continues to experience some back pain, which has improved since her fusion surgery. She attributes this to her bone disease and arthritis. She has a history of lower back surgery performed by Dr. Soto (PLIF extension at L4-5 from prior L5-S1 fusion performed on January 22, 2021). Past Surgical History: Neck surgery [place] [address] Hurtado; lower back surgery by Dr. Soto in January 2021. Past Medical History: SAPHO syndrome, fibromyalgia. Social History: Tobacco: Vaping fruit-flavored nicotine products for the past 2 years after quitting smoking for 12years. Past Medical History[1] Surgical History[2] Family History[3] Social History[4] Current Outpatient Medications Medication Instructions albuterol 108 (90 Base) MCG/ACT inhaler 2 puffs, As needed amitriptyline (Elavil) 25 MG tablet TAKE 1 TO 2 TABLETS BY MOUTH ONCE DAILY aritificial tears, PF, (Bion Tears) 0.1-0.3 % ophthalmic solution 1 drop, Both Eyes, 3 times daily PRN aspirin 81 MG EC tablet atorvastatin (LIPITOR) 80 mg, Oral, Daily bisacodyl (Bisacodyl EC) 5 MG EC tablet Take all 4 tablets at 4 PM on day before colonoscopy buPROPion XL (WELLBUTRIN XL) 150 mg, Every morning cholecalciferol (Vitamin D-3) 1.25 MG (20089 UT) capsule TAKE 2 CAPSULE Weekly colchicine (COLCRYS) 0.6 mg, Oral, Daily, 0.6 mg twice today followed by 0.6 mg daily starting tomorrow diazePAM (Valium) 5 MG tablet diclofenac (Voltaren) 1 % topical gel Transdermal, 2 times daily, Apply as directed to hands and sternum for pain dicyclomine (BENTYL) 10 mg, Oral, 4 times daily PRN, Take with meals and at bedtime DULoxetine (CYMBALTA) 60 mg, Daily fluticasone-vilanterol (Breo Ellipta) 100-25 MCG/INH inhaler USE 1 INHALATION ONCE DAILY. gabapentin (NEURONTIN) 300 mg, Oral, 3 times daily gabapentin (NEURONTIN) 100 mg, 3 times daily hydroCHLOROthiazide (HYDRODIURIL) 25 mg, Every morning HYDROcodone-acetaminophen ([place]) 10-325 MG tablet lamoTRIgine (LaMICtal) 25 MG tablet levothyroxine (Synthroid, Levoxyl) 137 MCG tablet levothyroxine (SYNTHROID, LEVOXYL) 112 mcg, Daily meloxicam (MOBIC) 7.5 mg, Oral, 2 times [...] PATIENT LABEL INSTRUCTIONS- for Colonoscopy prep protocol polyethylene glycol (Miralax) 17 GM/SCOOP powder potassium chloride CR (Klor-Con M20) 20 MEQ ER tablet TAKE 2 TABLETS DAILY. prazosin (Minipress) 1 MG capsule TAKE 1 CAPSULE BY MOUTH AT BEDTIME EVERY NIGHT senna (Senokot) 8.6 MG tablet No dose, route, or frequency recorded. topiramate (Topamax) 25 MG tablet Take 25 mg at bedtime for one week, then 50 mg at bedtime for oneweek, then 75 mg at bedtime for one week, then 100 mg at bedtime thereafter topiramate (TOPAMAX) 100 mg, Daily Allergies Codeine, Meperidine hcl, Methotrexate, Tramadol, Ketorolac tromethamine, and Meperidine Objective Review of Systems 14 point review of systems was performed and was negative except as noted per HPI. Visit Vitals BP (!) 140/90 Ht 1.702 m (5' 7 ) Wt 77.3 kg (170 lb 6.7 oz) LMP (LMP Unknown) BMI 26.69 kg/m?? OB Status Postmenopausal Smoking Status Former BSA 1.91 m?? General Physical Exam Constitutional No acute distress. Patient is appropriate historian and cooperative throughout exam.Well nourished, well groomed. Alert and oriented x4. Head Normocephalic and atraumatic. Neck No tracheal deviation or JVD noted. Pulmonary/Chest No increased effort noted, no shortness of breath Neurological Alert and oriented to person, place, and time Skin Skin is warm and dry Psychiatric Normal mood and affect, behavior and judgment Physical Exam Motor Examination Muscle Bulk and Tone: Muscle bulk loss noted in the hands. Strength: Hand drying room operator strength is normal. Objective: MUSCULOSKELETAL EXAM: Motor Strength Right Left C5: Shoulder abduction (Deltoid) 5/5 4-/5 C5: Elbow flexion (Biceps, Brachialis) 5/5 4+/5 C6: Wrist extension (ECRB, ECRL) 5/5 4+/5 C7: Elbow extension (Triceps) 5/5 5/5 C8: Finger flexion (Mechanic Insulator Strength) 4/5 4-/5 T1: Finger abduction 4/5 4/5 Sensation Right Left Neck normal normal C5: Shoulder normal normal C6: Thumb, radial aspect hand/forearm (Radial Nerve) normal normal C7: Long finger (Median Nerve) normal normal C8: Little finger, ulnar aspect of hand/forearm (Ulnar n.) normal normal T1: Medial forearm/arm normal normal Reflexes Right Left C5: Biceps 2/4 2/4 C6: Brachioradialus 2/4 2/4 C7: Triceps 2/4 2/4 Hoffmans Positive Positive Clonus <3 beat <3 beat Motor Strength Right Left L2: Hip flexion (Iliopsoas) 03/21 03/21 L3: Knee extension (Quad) 03/21 03/21 L4: Ankle DF (TA) 03/21 03/21 L5: Great Toe DF (EHL) 03/21 03/21 S1: Ankle Pf, Foot Eversion (Peroneal longus/brevis) 03/21 03/21 S2: Great toe flexion (FHL), Knee flexion 03/21 03/21 Sensation Right Left L2: Proximal anterior thigh Normal Normal L3: Mid anterior thigh Normal Normal L4: Medial leg/foot, great toe (Saphenous n.) Normal Normal L5: Dorsum of mid foot Normal Normal S1: Lateral leg/foot, little toe, Back of leg (Sural n.) Normal Normal Reflexes Right Left L4: Patellar brisk brisk S1: Achilles brisk brisk Babinski Absent Absent Clonus 0 0 Negative SLR BL Negative Federico's BL Negative Jeremias's BL Imaging Results Imaging - MRI of the cervical spine dated 06/14/2025 was personally reviewed today by myself with the patient present. Imaging demonstrates straightening of the cervical lordosis with postoperative changes aC4-5 and C5-6 resulting in good decompression. 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 Assessment and Plan Caren Infante is a 60 y.o. female with neck pain. Assessment & Plan 1. Cervicalgia. Symptoms indicate potential spinal cord compression. Given the patient's history of tobacco use andcurrent vaping habits, it is essential to determine if the fusion is complete, as nicotine can hinder bone healing. A CT scan will be ordered to confirm the status of the fusion. Referral to Dr. Rogers will be made for further evaluation and potential surgical intervention. The patient has been advised to cease vaping to promote bone healing. 2. Ulnar nerve compression. The patient underwent surgery for ulnar nerve compression 3 days ago. The orthopedic surgeon indicated that recovery could take 6 months to a year, with a possibility of permanent damage due to prolonged compression. The patient will continue to monitor her symptoms and follow up with her orthopedic surgeon as scheduled. 3. Balance issues. The patient reports ongoing balance issues for the last 4-5 years, which have worsened recently. This could be related to her cervical spine issues. Physical therapy was discussed but the patient prefers to wait until after consulting with Dr. Rogers. 4. SAPHO syndrome. The patient has a rare bone disease called SAPHO syndrome, which causes significant pain and swelling in her bones. She is currently managed by her editing internship and takes oxycodone 10 mg four timesa day, gabapentin, methocarbamol 500 mg, and duloxetine for fibromyalgia. She will continue her current medication regimen and follow up with her editing internship as scheduled. 5. Nicotine use. The patient has been vaping for the last 2 years after quitting smoking for 12 years. She has been advised to stop vaping, especially nicotine-containing products, to improve bone healing and overallhealth. The patient is aware of the impact of nicotine on bone healing and will attempt to reduce or eliminate nicotine use. 7. Medication management. The patient is currently on multiple medications for pain management and fibromyalgia, including oxycodone 10 mg four times a day, gabapentin, methocarbamol 500 mg, duloxetine, and prazosin. She willcontinue her current medication regimen and follow up with her apprentice painter hand and rheuma tologist as scheduled. Potential side effects, risks, and benefits of each medication have been discussed in detail, including the importance of adherence to prescribed dosages and monitoring for anyadverse effects. 8. Imaging and follow-up. A CT scan of the neck will be ordered to assess the status of the fusion and any potential spinal cord compression. The patient will follow up with Dr. Rogers for further evaluation and discussion oftreatment options, including potential surgical intervention. Coordination with her editing internship will be necessary to ensure comprehensive care and safety in case surgery is recommended. The patient will be contacted by the team to confirm the CT scan and schedule follow-up appointments. The patient was agreeable with this plan. They had the opportunity to ask questions, all of which were answered to their satisfaction. They were informed to to contact the Neurosurgery clinic with any questions, concerns, or worsening symptoms. Parts of this note were dictated using [employer] voice recognition software. As a result, errors may occur. When identified, these rehab therapy manager errors are corrected, but while every attempt is made to prevent/correct these, errors may still exist. I personally spent a total of 65 minutes on this encounter. This time includes face to face with patient, counseling and discussion and/or coordination of care. I spent >50% in [id number] communication with the patient over the diagnosis, treatment options and plan. Sophia Kwan PA-C [facility] Department of Neurosurgery [1] Past Medical History: Diagnosis Date Abnormal weight gain Weight gain Anxiety disorder, unspecified Chronic anxiety Bone marrow edema Bone marrow edema Bowel trouble 08/05/2024 Concussion Delayed emergence from general anesthesia Dizziness 07/31/2024 Fibromyalgia Hip pain, right IBS (irritable bowel syndrome) Irritable bowel syndrome Leg pain, right Low back pain Chronic low back pain Orthostatic hypotension 08/02/2024 Otitis media 07/06/24 Recurrent sinus infections 10/06/19 RHA (rheumatoid arthritis) SAPHO syndrome Unspecified injury of right shoulder and upper arm, initial encounter Right shoulder injury Vertigo [2] Past Surgical History: Procedure Laterality Date BACK SURGERY HAND SURGERY N/A Hand Surgery from [facility] NECK SURGERY N/A Neck Surgery from [facility] ORAL SURGERY N/A Oral Surgery Tooth Extraction from [facility] SHOULDER SURGERY N/A Shoulder Surgery from [facility] [3] Family History Problem Relation Name Age of Onset Cardiac disorder Maternal Grandfather Cardiac disorder Maternal Grandmother Cardiac disorder Paternal Grandfather Cardiac disorder Paternal Grandmother Diabetes Other Fibromyalgia Sibling [4] Social History Tobacco Use Smoking status: Former Current packs/day: 0.00 Average packs/day: 1 pack/day for 27.7 years (27.7 ttl pk-yrs) Types: Cigarettes Start date: 1983 Quit date: 07/28/2011 Years since quittin.1 Passive exposure: Past Smokeless tobacco: Never Vaping Use Vaping status: Every Day Start date: 07/18/2023 Substances: Nicotine, Flavoring Devices: Disposable Passive vaping exposure: Yes Substance Use Topics Alcohol use: Not Currently Drug use: Never documented in this encounter Plan of Treatment Upcoming Encounters Date Type Department Care Team (Late st Contact Info) Description 12/28/2025 9:00 AM EST Office Visit [facility] [address] [place] [address] Laura Dasilva MBBS [address] [place], [place] [id number] Scheduled Orders Name Type Priority Associated Diagnoses Orde r Schedule CT Cervical Spine wo IV Contrast Imaging Routine Cervicalgia History of fusion of cervical spine Vapes nicotine containing substance Expected: 09/12/2025 (Approximate), Expires: 03/15/2027 documented as of this encounter Visit Diagnoses Diagnosis Cervicalgia- Primary History of fusion of cervical spine Arthrodesis status Vapes nicotine containing substance documented in this encounter Additional Health Concerns Assessment Noted Time A fall risk assessment has been complete d for the patient 09/09/2025 10:10 AM EDT A Body Mass Index follow-up plan has been documented for the patient 09/11/2025 5:56 PM EDT documented as of this encounter Care Teams Feed Miller Relationship Specialty Start Date End Date Nuria Barnes APRN [address] [place] [address] PCP - General 05/25/25 Jagjit Soto MD [address] [facility] [place] [address] Surgeon Neurosurgery 05/22/21 Sophia Kwan PA [address] [place] [address] Physician Process Machine Operator Neurosurgery 09/09/25 documented as of this encounter
--- NOTE | 2025-09-19 09:31 | XR_ITS ---
FINAL REPORT CLINICAL HISTORY: left elbow pain FINDINGS: AP, oblique, and lateral views of the left elbow were obtained. There is no prior exam for comparison. There is no acute fracture or dislocation. Joint space is preserved. There is no joint effusion or other soft tissue abnormality. IMPRESSION: No acute osseous abnormality of the left elbow. Reviewed, Interpreted and Dictated by Belinda Celestin MD Transcribed by Kizzy Harrell Authenticated and . [facility]
--- OUTSIDE RECORDS SUMMARY | 2025-09-19 09:33 | XMS_ITS | Encounter Summary ---
Author Organization [facility] Address [address] [place] [address] Care Team Providers Care Talent Acquisition Consultant Name Role Phone Jagjit Soto MD Unavailable [phone] Nuria Barnes APRN Primary Care Provider [phone] Sophia Murphy Unavailable [phone] Encounter Details Date Type Department Care Team (Late st Contact Info) Description 06/14/2025 Orders Only External Location [address] [place] [address] Provider, External Social History Tobacco Use Types Packs/Day Years [...] Description 12/28/2025 9:00 AM EST Office Visit [place] [facility] [address], [address] [place] [address] Laura Dasilva MBBS [address] [place] [address] documented as of this encounter Procedures Procedure Name Priority Date/Time Associated Diagnosis Comments MR NEURO OUTSIDE IMAGES 06/14/2025 7:30 AM EDT documented in this encounter Results * MR NEURO OUTSIDE IMAGES (06/14/2025 7:30 AM EDT) Anatomical Region Laterality Modality Magnetic Resonan ce 06/14/2025 7:30 AM EDT us External Provider IMG MRI PROCEDURES Final Resul t documented in this encounter Visit Diagnoses Not on filedocumented in this encounter Additional Health Concerns Assessment Noted Time A fall risk assessment has been complete d for the patient 05/25/2025 10:52 AM EDT A Body Mass Index follow-up plan has been documented for the patient 05/25/2025 12:19 PM EDT documented as of this encounter Care Teams Talent Acquisition Consultant Relationship Specialty Start Date End Date Nuria Barnes APRN [address] [place] [address] PCP - General 05/25/25 Jagjit Soto MD [address] [place] [address] Surgeon Neurosurgery 05/22/21 Sophia Murphy PA [address] [place] [address] Physician Ore Buyer Neurosurgery 09/09/25 documented as of this encounter
--- OUTSIDE RECORDS SUMMARY | 2025-09-19 09:33 | XMS_ITS | Encounter Summary ---
Author Organization [facility] Address [address] [place] [address] Care Team Providers Care Protection Engineer Name Role Phone Ferdinand Carranza MD Primary Care Provider Jagjit Soto MD Unavailable [phone] Nuria Barnes APRN Primary Care Provider Sophia Murphy Unavailable [phone] Reason for Visit * Reason Comments Med Refill Encounter Details Date Type Department Care Team (Late st Contact Info) Description 01/15/2023 Refill [facility] Jenners Couch [address] [place] [address] Melanie Felder, RUTHANN [address] [place] [address] Hypertension, unspecified type Social History Tobacco Use [...] Description 12/28/2025 9:00 AM EST Office Visit [place] [facility] [address], [address] [place] [address] Laura Dasilva MBBS [address] [place] [address] documented as of this encounter [...] documented as of this encounter Care Teams Protection Engineer Relationship Specialty Start Date End Date Ferdinand Carranza MD [address] [facility] [address] [place] [address] PCP - General 03/30/21 05/24/25 Nuria Barnes APRN [address] [place] [address] PCP - General 05/25/25 Jagjit Soto MD [address] [place] [address] Surgeon Neurosurgery 05/22/21 Sophia Murphy PA [address] [place] [address] Physician Flat Spring Assembler Neurosurgery 09/09/25 documented as of this encounter
--- OUTSIDE RECORDS SUMMARY | 2025-09-19 09:33 | XMS_ITS | Encounter Summary ---
Author Organization [facility] Address [address] [place] [address] Care Team Providers Care Cut Out And Marking Machine Operator Name Role Phone Ferdinand Carranza MD Primary Care Provider Jagjit Soto MD Unavailable Nuria Barnes APRN Primary Care Provider Sophia Murphy Unavailable [phone] Reason for Visit * Reason Comments Med Refill Encounter Details Date Type Department Care Team (Late st Contact Info) Description 01/10/2024 Refill [facility] [place] [address] [place] [address] Melanie Felder, RUTHANN [address] [place] [address] Hypertension, unspecified type Social History Tobacco Use [...] Description 12/28/2025 9:00 AM EST Office Visit [place] [facility] [address], [address] [place] [address] Laura Dasilva MBBS [address] [place] [address] documented as of this encounter [...] documented as of this encounter Care Teams Cut Out And Marking Machine Operator Relationship Specialty Start Date End Date Ferdinand Carranza MD [address] [place] [address] [address] [place] [address] PCP - General 03/30/21 05/24/25 Nuria Barnes APRN [address] [place] [address] PCP - General 05/25/25 Jagjit Soto MD [address] [address] Surgeon Neurosurgery 05/22/21 Sophia Murphy PA [address] [facility] [place] [address] Physician Application Systems Engineer Neurosurgery 09/09/25 documented as of this encounter
--- OUTSIDE RECORDS SUMMARY | 2025-09-19 09:33 | XMS_ITS | Encounter Summary ---
Author Organization [facility] Address [address] [place] [address] Care Team Providers Care Notcher Name Role Phone Jagjit Soto MD Unavailable [phone] Nuria Barnes APRN Primary Care Provider [phone] Sophia Murphy Unavailable [phone] Encounter Details Date Type Department Care Team (Latest Contact Info) Description 09/09/2025 Travel Social History Tobacco Use Types Packs/Day [...] Description 12/28/2025 9:00 AM EST Office Visit [place] [facility] [address], [address] [place] [address] Laura Dasilva, GERTRUDE [address] [place], [place] [address] documented as of this encounter Visit Diagnoses Not on filedocumented in this encounter Additional Health Concerns Assessment Noted Time A fall risk assessment has been complete d for the patient 09/09/2025 10:10 AM EDT A Body Mass Index follow-up plan has been documented for the patient 09/11/2025 5:56 PM EDT documented as of this encounter Care Teams Notcher Relationship Specialty Start Date End Date Nuria Barnes APRN [address] [place] [address] PCP - General 05/25/25 Jagjit Soto MD [address] [place] [address] Surgeon Neurosurgery 05/22/21 Sophia Murphy PA [address] [place] [address] Physician Risk Developer Neurosurgery 09/09/25 documented as of this encounter
--- OUTSIDE RECORDS SUMMARY | 2025-09-19 09:33 | XMS_ITS | Encounter Summary ---
Author Organization [facility] Address [address] [place] [address] Care Team Providers Care Ground Operations Superintendent Name Role Phone Jagjit Soto MD Unavailable [phone] Nuria Barnes APRN Primary Care Provider [phone] Encounter Details Date Type Department Care Team (Late st Contact Info) Description 06/07/2025 Results Follow-Up [facility] Medicine Specialties [address], [address] [place] [address] Laura Dasilva, GERTRUDE [address] [place] [address] Social History Tobacco Use Types [...] Visit [place] [facility] [address] [place] [address] Laura Dasilva MBBS [address] [place] [address] documented as of this encounter Visit Diagnoses Not on filedocumented in this encounter Additional Health Concerns Assessment Noted Time A fall risk assessment has been complete d for the patient 05/25/2025 10:52 AM EDT A Body Mass Index follow-up plan has been documented for the patient 05/25/2025 12:19 PM EDT documented as of this encounter Care Teams Ground Operations Superintendent Relationship Specialty Start Date End Date Nuria Barnes APRN [address] [place] [address] PCP - General 05/25/25 Jagjit Soto MD [address] [place] [address] Surgeon Neurosurgery 05/22/21 documented as of this encounter
--- OUTSIDE RECORDS SUMMARY | 2025-09-19 09:33 | XMS_ITS | Encounter Summary ---
Author Organization [facility] Address [address] [place] [address] Care Team Providers Care Medical Claims Analyst Name Role Phone Jagjit Soto MD Unavailable [phone] Nuria Barnes APRN Primary Care Provider [phone] Encounter Details Date Type Department Care Team (Late st Contact Info) Description 07/14/2025 Telephone [place] [facility] [address], [address] [place] [address] Sophia Murphy, RUTHANN [address] [place] [address] Social History Tobacco Use Types [...] optimal time of day to reach caller: [phone] Note: Please do not reply to this [...] Reason for Call: Patient returning call to [facility] Best contact number and optimal time of day to reach caller: [phone] Note: Please do not reply to this [...] Description 12/28/2025 9:00 AM EST Office Visit [facility] Medicine Specialties [address], [address] [place] [address] Laura Dasilva, GERTRUDE [address] [place] [address] documented as of this encounter Visit Diagnoses Not on filedocumented in this encounter Additional Health Concerns Assessment Noted Time A fall risk assessment has been complete d for the patient 05/25/2025 10:52 AM EDT A Body Mass Index follow-up plan has been documented for the patient 05/25/2025 12:19 PM EDT documented as of this encounter Care Teams Medical Claims Analyst Relationship Specialty Start Date End Date Nuria Barnes APRN [address] [place] [address] PCP - General 05/25/25 Jagjit Soto MD [address] [facility] [address] [place] [address] Surgeon Neurosurgery 05/22/21 documented as of this encounter
--- OUTSIDE RECORDS SUMMARY | 2025-09-19 09:33 | XMS_ITS | Clinical Summary ---
Author Organization [facility] Address [address] [place] [address] Care Team Providers Care Court Worker Name Role Phone Jagjit Soto MD Unavailable Nuria Barnes APRN Primary Care Provider [phone] Sophia Murphy Unavailable [phone] Allergies Active Allergy Reactions Criticality Noted Date [...] 10/16/2020 Medications aspirin 81 MG EC tablet 018 Active cholecalciferol (Vitamin D-3) 1.25 MG (41421 UT) capsule TAKE 2 CAPSULE Weekly 018 Active fluticasone-vilan terol (Breo Ellipta) 100-25 MCG/INH inhaler USE 1 INHALATION ONCE DAILY. 017 Active HYDROcodone-aceta minophen ([place]) 10-325 MG tablet 10/21/2 020 Active nitroglycerin (Nitrostat) 0.[address] 1 TABLET UNDER THE TONGUE EVERY 5 MINUTES FOR UP TO 3 DOSES NEEDED FOR CHEST PAIN.CALL 911 IF PAIN PERSISTS. Active pamidronate (Aredia) 30 MG injection INFUSE MG Every 6 weeks Active potassium chloride CR (Klor-Con M20) 20 MEQ ER tablet TAKE 2 TABLETS DAILY. Active senna (Senokot) 8.6 MG tablet Active diazePAM (Valium) 5 MG tablet Active METHOCARBAMOL PO 500 mg. Active albuterol 108 (90 Base) MCG/ACT inhaler Inhale 2 puffs if needed. Active gabapentin (Neurontin) 300 MG capsuleIndication s:History of cervical spinal surgery,Low back pain with right-sided sciatica, unspecified back pain laterality, unspecified chronicity,Lumbar stenosis with neurogenic claudication Take 1 capsule (300 mg total) by mouth 3 (three) times a day. 90 capsule 3 Active Additional Information Patient not taking.Reported on 09/09/2025 DULoxetine (Cymbalta) [address] capsule Take 1 capsule (60 mg) by mouth 1 (one) time each day. Active phentermine (Adipex-P) 37.5 MG tablet Take 1 tablet (37.5 mg) by mouth 1 (one) time each day. Active meloxicam (Mobic) 7.5 MG tabletIndications :SAPHO syndrome Take 1 tablet (7.5 mg total) by mouth 2 (two) times a day. 90 tablet 2 Active Additional Information Patient not taking.Reported on 09/09/2025 diclofenac (Voltaren) 1 % topical gelIndications:Os teoarthritis of multiple joints, unspecified osteoarthritis type Place on the skin 2 (two) times a day. Apply as directed to hands and sternum for pain 50 g 2 Active topiramate (Topamax) 25 MG tabletIndications :Cervical migraine syndrome Take 25 mg at bedtime for one week, then 50 mg at bedtime for one week, then 75 mg at bedtime for one week, then 100 mg at bedtime thereafter 120 tablet 2 Active Additional Information Patient not taking.Reported on 09/09/2025 naloxone (Narcan) 4 mg/0.1 mL nasal spray CALL 911. SPR CONTENTS OF ONE SPRAYER (0.1ML) INTO ONE NOSTRIL. REPEAT IN 2-3 MIN IF SYMPTOMS OF OPIOID EMERGENCY PERSIST, ALTERNATE NOSTRILS Active oxyCODONE-acetami nophen (Percocet) 10-325 MG tablet Take 1 tablet by mouth every 6 (six) hours. 023 Active meloxicam (Mobic) 15 MG tablet Take 1 tablet (15 mg) by mouth 1 (one) time each day if needed. Active methocarbamol (Robaxin) 500 MG tablet Take 1 tablet (500 mg) by mouth 2 (two) times a day if needed. Active atorvastatin (Lipitor) 80 MG tablet Take 1 tablet (80 mg) by mouth 1 (one) time each day. 90 tablet 3 Active ondansetron (Zofran) 8 MG tablet TAKE 1 TABLET BY MOUTH EVERY 8 HOURS FOR 4 DAYS NEEDED FOR NAUSEA OR VOMITING Active levothyroxine (Synthroid, Levoxyl) 137 MCG tablet Active topiramate (Topamax) 100 MG tablet Take 1 tablet (100 mg) by mouth 1 (one) time each day. Active dicyclomine (Bentyl) 10 MG capsuleIndication s:Generalized abdominal pain,Diarrhea, unspecified type Take 1 capsule (10 mg) by mouth 4 (four) times a day if needed (abdominal cramping). Take with meals and at bedtime 30 capsule 2 Active midodrine (Proamatine) 10 MG tablet Take 1 tablet (10 mg) by mouth 3 (three) times a day before meals. Active metoprolol succinate XL (Toprol-XL) 25 MG 24 hr tabletIndications :Primary hypertension Take 1/2 tablet once daily. Do not crush or chew. 30 tablet 11 Active Additional Information Patient not taking.Reported on 09/09/2025 aritificial tears, PF, (Bion Tears) 0.1-0.3 % ophthalmic solutionIndicatio ns:Dry eyes Administer 1 drop into both eyes 3 (three) times a day if needed for dry eyes. 35 each 11 2024 Active bisacodyl (Bisacodyl EC) 5 MG EC tablet Take all 4 tablets at 4 PM on day before colonoscopy 4 tablet Active Additional Information Patient not taking.Reported on 09/09/2025 polyethylene glycol (GoLYTELY) 236 g solution SEE PHARMACY NOTES FOR PATIENT LABEL INSTRUCTIONS- for Colonoscopy prep protocol 4000 mL Active Additional Information Patient not taking.Reported on 09/09/2025 amitriptyline (Elavil) 25 MG tablet TAKE 1 TO 2 TABLETS BY MOUTH ONCE DAILY Active hydroCHLOROthiazi de (HYDRODiuril) 25 MG tablet Take 1 tablet by mouth every morning. Active lamoTRIgine (LaMICtal) 25 MG tablet Active polyethylene glycol (Miralax) 17 GM/SCOOP powder Active prazosin (Minipress) 1 MG capsule TAKE 1 CAPSULE BY MOUTH AT BEDTIME EVERY NIGHT Active colchicine (Colcrys) 0.6 MG tablet Take 1 tablet by mouth daily. 0.6 mg twice today followed by 0.6 mg daily starting tomorrow 90 tablet 1 Active gabapentin (Neurontin) 100 MG capsule Take 1 capsule by mouth 3 times a day. Active buPROPion XL (Wellbutrin XL) 150 MG 24 hr tablet Take 1 tablet by mouth every morning. Active levothyroxine (Synthroid, Levoxyl) 112 MCG tablet Take 1 tablet by mouth daily. Active levothyroxine (Synthroid, Levoxyl) 175 MCG tablet 2024 Discontinued levothyroxine (Synthroid, Levoxyl) 150 MCG tablet TAKE 1 TABLET BY MOUTH EVERY DAY IN THE MORNING ON AN EMPTY STOMACH 2024 Discontinued Active Problems Problem Noted Date Diagnosed Date Atypical chest pain 07/06/2024 Corneal abrasion 07/06/2024 Finger wound, simple, open 07/06/2024 HHD (hypertensive heart disease) 07/06/2024 HLD (hyperlipidemia) 07/06/2024 Left ankle sprain 07/06/2024 Postlaminectomy syndrome 07/06/2024 Encounter for therapeutic [...] upper and lower eyelids 01/11/2020 Scleritis 01/10/2020 ASCVD (arteriosclerotic cardiovascular disease) 12/04/2018 TAIWO on CPAP 12/04/2018 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 11/04/2017 Abnormal laboratory test 03/06/2017 Hypothyroidism 03/06/2017 residential current use of non -steroidal anti-inflammatories (NSAID) 03/06/2017 Tendonitis 10/21/2016 Triggering of digit 10/21/2016 Hypertension 10/21/2016 Resolved Problems Problem Noted Date Diagnosed Date Resolved Date Bowel trouble 08/05/2024 11/25/2024 Orthostatic hypotension 08/02/2024 01/0 07/2025 Dizziness 07/31/2024 11/25/2024 Fatigue 07/06/2024 08/07/2025 Foot pain, right 07/06/2024 08/07/2025 Otitis media 07/06/2024 08/07/2025 Recurrent sinus infections 10/06/2019 0 08/07/2025 Osteoarthritis 04/03/2017 08/07/2025 Encounters Date Type Department Care Team Description 09/09/2025 10:40 AM EDT Consult [place] [facility] [address], [address] [place] [address] Sophia Murphy PA Cervicalgia (Primary Dx); History of fusion of cervical spine; Vapes nicotine containing substance 09/09/2025 Travel 07/19/2025 Refill [facility] Medicine [facility]ties [address], [address] [place] [address] Gabriela Horan MD 07/18/2025 Refill [facility] [address], [address] [place] [address] Gabriela Horan MD 07/17/2025 Refill [facility] [address], [address] [place] [address] Gabriela Horan MD 07/16/2025 Refill [facility] [address], [address] [place] [address] Gabriela Horan MD 07/14/2025 Telephone [facility] [address], [address] [place] [address] Sophia Murphy PA 07/06/2025 Telephone [facility] [address], [address] [place] [address] Surekha Kennedy from Last 3 Months Immunizations Immunization Administration [...] Pressure 140/90 09/09/2025 10:02 AM EDT Pulse 72 05/25/2025 10:50 AM EDT Temperature 36.8 C (98.2 F) 05/25/2025 10:50 AM EDT Respiratory Rate 16 05/25/2025 10:50 AM EDT Oxygen Saturation 99% 05/25/2025 10:50 AM EDT Inhaled Oxygen Concentration - - Weight 77.3 kg (170 lb 6.7 oz) 09/09/2025 10:02 AM EDT Height 170.2 cm (5' 7 ) 09/09/2025 10:02 AM EDT Body Mass Index 26.69 09/09/2025 10:02 AM EDT Plan of Treatment Upcoming Encounters Date Type Department Care Team (Late st Contact Info) Description 12/28/2025 9:00 AM EST Office Visit [facility] Medicine Specialties [address], [address] [place] [address] Laura Dasilva, GERTRUDE [address] [place] [address] Health Maintenance Due Date Last Done Comments [facility]-Bone Density Scan 1966 [facility]-Medicare Annual Wellness (AWV) 1966 [facility]-/Child/Adol SDOH Screenings 1966 [id number] Vaccine (#1) 1971 [facility]- SDOH Screenings 1984 [facility]-Adult SDOH Screenings 1984 [facility]-Hepatitis B Vaccines (1 of 3 - 19+ 3-dose series) 1985 [facility]-Pap Smear 1987 [facility]-Cervical Cancer Screening 1996 [facility]-HPV/Cotest 1996 CT Colonography 2011 FIT-DNA 2011 FIT 2011 FOBT 2011 Sigmoidoscopy 2011 Lung Cancer Screening Shared Decision Making 2016 [facility]-Breast Cancer Screening 2016 [facility]-Pneumococcal Vaccine: 50+ [...] Completed 2023, 04/24/2022, 07/30/2018, Additional history exists [facility]-Obesity Intervention Completed 025, 05/25/2025, 11/25/2024, Additional history exists HPV Vaccines Aged Out [...] this topic Medical Devices Implanted Type Area 7Th Grade Social Studies Teacher Device Identifier Shelf Expiration Date Model / Serial / Lot Popeye Garciamm - [id number] Implanted:Qty: 1 on 10/27/2024 [id number] 12/22/2026 [id number] / / [id number] Procedures Procedure Name Priority Date/Time Associated Diagnosis [...] medications. Staff Staff Role Speedy Beckman Endo Energy Systems Engineer Ricardo Alvarado, Gabriela Carreno CRNA, MD Proceduralist Ayaka Amin Endo Nurse Dung [...] of bowel preparation was evaluated using the [place] Bowel Preparation Scale with scores of: right [...] 5cc, 11mm hemoclip applied for hemostasis. us Vaishali Diaz FINISHED CARPET INSPECTOR, DNP GI PROCEDURE ORDERABLE S Final Result * Hepatitis panel, acute (07/06/2024 1:27 PM EDT) Hepatitis B Surf Antigen Negative Negative 07/06/2024 4:23 PM EDT [facility] Hepatitis C Antibody Negative Negative 07/06/2024 4:23 PM EDT [facility] Hepatitis A Antibody IgM Negative Negative 07/06/2024 4:23 PM EDT [facility] Hepatitis B Core Antibody IgM Negative Negative 07/06/2024 4:23 PM EDT [facility] Blood Venous blood specimen / Unknown Venipuncture / Unknown 07/06/2024 1:27 PM EDT 07/06/2024 1:28 PM EDT Toi Kwan MD LAB BLOOD ORDERABLES Final Re sult Performing Organization Address City/State/[facility] Co de Phone Number [facility] [address] [place] [address] * CT Chest w IV Contrast (05/22/2020 [...] 22 2020 3:41P Procedure Note Jb Pittman Rasheed - 03/13/2021 REQUESTING PHYSICIAN: TOI KWAN REASON [...] PITTMAN M.D. on May 22 2020 3:41P us Toi Kwan MD [facility] [place] PROCEDURES Final Resul t * HIV [...] Most Recently Relevant to Health Maintenance [facility] Care Teams Court Worker Relationship Specialty Start Date End Date Nuria Barnes APRN [address] [place] [address] PCP - General 05/25/25 Jagjit Soto MD [address] [place] [address] Surgeon Neurosurgery 05/22/21 Sophia Murphy PA [address] [place] [address] Physician Community Theater Actor Neurosurgery 09/09/25
--- OUTSIDE RECORDS SUMMARY | 2025-09-19 09:33 | XMS_ITS | Encounter Summary ---
Author Organization [facility] Address [address] [place] [address] Care Team Providers Care Entrepreneurship Program Director Name Role Phone Jagjit Soto MD Unavailable [phone] Nuria Barnes APRN Primary Care Provider [phone] Sophia Murphy Unavailable [phone] Encounter Details Date Type Department Care Team (Late st Contact Info) Description 06/14/2025 Orders Only External Location [address] [place] [address] Provider, External Social History Tobacco Use Types [...] Description 12/28/2025 9:00 AM EST Office [facility] [address], [address] [place] [address] Laura Dasilva, GERTRUDE [address] [place] [address] documented as of this encounter Procedures Procedure Name Priority Date/Time Associated Diagnosis Comments MR MSK OUTSIDE IMAGES 06/14/2025 8:05 AM EDT documented in this encounter Results * MR MSK OUTSIDE IMAGES (06/14/2025 8:05 AM EDT) Anatomical Region Laterality Modality Magnetic Resonan ce 06/14/2025 8:05 AM EDT us External Provider IMG MRI [...] documented as of this encounter Care Teams Entrepreneurship Program Director Relationship Specialty Start Date End Date Nuria Barnes APRN [address] [place] [address] PCP - General 05/25/25 Jagjit Soto MD [address] [place] [address] Surgeon Neurosurgery 05/22/21 Sophia Murphy PA [address] [place] [address] Physician Molder Apprentice Neurosurgery 09/09/25 documented as of this encounter
== END 2025-09-19 23:59 | disposition home or self-care (01) ==
LOC: RAD 09:31
PROVIDERS: PCP Nurse Practitioner Family; Visit Provider Orthopaedic Surgery
DX: M25.522 Pain in left elbow (principal)
CPT/HCPCS: 73080

== ENCOUNTER 2025-09-19 10:34 | Outpatient (CLI) | payer MEDICARE, SELFPAY ==
--- OUTSIDE RECORDS SUMMARY | 2025-09-09 09:40 | XMS_ITS | Encounter Summary ---
Author Organization [facility] Address [address] [place] [address] Care Team Providers Care Expander Machine Operator Name Role Phone Jagjit Soto MD Unavailable [phone] Nuria Barnes APRN Primary Care Provider [phone] Sophia Kwan Unavailable [phone] Reason for Referral * Imaging (Routine) - Authorized Specialty Diagnoses / Procedures Referred By Carolina olivares Referred To Contact Diagnoses Cervicalgia History of fusion of cervical spine Vapes nicotine containing substance Procedures CT Cervical Spine wo IV Contrast Sophia Kwan PA [address] [place] [address] Phone: tel: fax: Referral ID Status Reason Start Date Expiration Date V isits Requested Visits Authorized [id number] Authorized 09/11/2025 03/13/2027 1 1 Reason for Visit * Consultation (Routine) - Closed Specialty Diagnoses / Procedures Referred By Carolina olivares Referred To Contact Neurosurgery Diagnoses Cervicalgia Remi Garcia, DO [address] [place] [address] [place] [address] Phone: tel: fax: [place] [facility] [address], [address] [place] [address] Phone: tel: fax: Referral ID Status Reason Start Date Expiration Date V isits Requested Visits Authorized [id number] Closed Specialty Services Required 07/08/2025 01/07/2027 1 1 Encounter Details Date Type Department Care Team (Late st Contact Info) Description 09/09/2025 10:40 AM EDT Consult [place] [facility] [address], [address] [place] [address] Sophia Kwan, PA [address] [place] [address] Cervicalgia (Primary Dx); History of [...] for her neck or shoulder pain. 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 Three days ago, she underwent ulnar nerve compression surgery at [facility] by Dr. Garcia due to numbness and [...] Every morning cholecalciferol (Vitamin D-3) 1.25 MG (83967 UT) capsule TAKE 2 CAPSULE Weekly colchicine [...] hydroCHLOROthiazide (HYDRODIURIL) 25 mg, Every morning HYDROcodone-acetaminophen ([place]) 10-325 MG tablet lamoTRIgine (LaMICtal) 25 MG [...] loss noted in the hands. Strength: Hand tower cleaner strength is normal. Objective: MUSCULOSKELETAL EXAM: Motor Strength Right Left C5: Shoulder abduction (Deltoid) 5/5 4-/5 C5: Elbow flexion (Biceps, Brachialis) 5/5 4+/5 C6: Wrist extension (ECRB, ECRL) 5/5 4+/5 C7: Elbow extension (Triceps) 5/5 5/5 C8: Finger flexion (Rippler Strength) 4/5 4-/5 T1: Finger abduction 4/5 [...] bones. She is currently managed by her orchestrator and takes oxycodone 10 mg four timesa day, gabapentin, methocarbamol 500 mg, and duloxetine for fibromyalgia. She will continue her current medication regimen and follow up with her orchestrator as scheduled. 5. Nicotine use. The patient [...] medication regimen and follow up with her paint line supervisor and rheuma tologist as scheduled. Potential side [...] including potential surgical intervention. Coordination with her orchestrator will be necessary to ensure comprehensive care [...] Parts of this note were dictated using [employer] Direct voice recognition software. As a result, errors may occur. When identified, these limited radiology technician errors are corrected, but while every attempt is made to prevent/correct these, errors may still exist. I personally spent a total of 65 minutes on this encounter. This time includes face to face with patient, counseling and discussion and/or coordination of care. I spent >50% in ingo-mv-qzyo communication with the patient over the diagnosis, treatment options and plan. Sophia Kwan PA-C [facility] Department of Neurosurgery [1] Past Medical History: [...] SURGERY HAND SURGERY N/A Hand Surgery from [facility] NECK SURGERY N/A Neck Surgery from [facility] ORAL SURGERY N/A Oral Surgery Tooth Extraction from [facility] SHOULDER SURGERY N/A Shoulder Surgery from [facility] [3] Family History Problem Relation Name Age [...] Description 12/28/2025 9:00 AM EST Office Visit [place] [facility] [address], [address] [place] [address] Laura Dasilva MBBS [address] [place], [place] [id number] Scheduled Orders Name Type Priority Associated Diagnoses [...] documented as of this encounter Care Teams Expander Machine Operator Relationship Specialty Start Date End Date Nuria Barnes APRN [address] [place] [address] PCP - General 05/25/25 Jagjit Soto MD [address] [facility] [place] [address] Surgeon Neurosurgery 05/22/21 Sophia Kwan PA [address] [place] [address] Physician Instructor Painting Neurosurgery 09/09/25 documented as of this encounter
--- OUTSIDE RECORDS SUMMARY | 2025-09-19 10:48 | XMS_ITS | Encounter Summary ---
Author Organization [facility] Address [address] [place] [address] Care Team Providers Care Straightedge Man Name Role Phone Jagjit Soto MD Unavailable [phone] Nuria Barnes APRN Primary Care Provider [phone] Sophia Murphy Unavailable [phone] Encounter Details Date Type Department Care [...] Visit [facility] [address], [address] [place] [address] Laura Dasilva, GERTRUDE [address] [place], [place] [phone] documented as of this encounter Visit Diagnoses Not on filedocumented in this encounter Additional Health Concerns Assessment Noted Time A fall risk assessment has been complete d for the patient 09/09/2025 10:10 AM EDT A Body Mass Index follow-up plan has been documented for the patient 09/11/2025 5:56 PM EDT documented as of this encounter Care Teams Straightedge Man Relationship Specialty Start Date End Date Nuria Barnes APRN [address] [place] [address] PCP - General 05/25/25 Jagjit Soto MD [address] [place] [address] Surgeon Neurosurgery 05/22/21 Sophia Murphy PA [address] [place] [address] Physician Data Warehousing Manager Neurosurgery 09/09/25 documented as of this encounter
--- OUTSIDE RECORDS SUMMARY | 2025-09-19 10:48 | XMS_ITS | Encounter Summary ---
Author Organization [facility] Address [address] [place] [address] Care Team Providers Care Sap Treasury Consultant Name Role Phone Jagjit Soto MD Unavailable [phone] Nuria Barnes APRN Primary Care Provider [phone] Sophia Murphy Unavailable [phone] Encounter Details Date Type Department Care Team (Late st Contact Info) Description 06/14/2025 Orders Only External Location [address] [place] [address] Provider, External Social History Tobacco Use Types [...] Description 12/28/2025 9:00 AM EST Office [facility] [address], [address] [place] [address] Laura Dasilva, GERTRUDE [address] [place] [address] documented as of this encounter [...] documented as of this encounter Care Teams Sap Treasury Consultant Relationship Specialty Start Date End Date Nuria Barnes APRN [address] [place] [address] PCP - General 05/25/25 Jagjit Soto MD [address] [place] [address] Surgeon Neurosurgery 05/22/21 Sophia Murphy PA [address] [place] [address] Physician Burnisher And Bumper Neurosurgery 09/09/25 documented as of this encounter
--- OUTSIDE RECORDS SUMMARY | 2025-09-19 10:48 | XMS_ITS | Encounter Summary ---
Author Organization [facility] Address [address] [place] [address] Care Team Providers Care Transcribing Machine Mechanic Name Role Phone Jagjit Soto MD Unavailable [phone] Nuria Barnes APRN Primary Care Provider [phone] Encounter Details Date Type Department Care Team (Late st Contact Info) Description 07/14/2025 Telephone [facility] [address], [address] [place] [address] Sophia [place], RUTHANN [address] [place] [address] Social History Tobacco Use Types [...] optimal time of day to reach caller: [phone] Note: Please do not reply to this [...] Call: Patient returning call to [facility] Best contact number and optimal time of day to reach caller: [phone] Note: Please do not reply to this [...] Description 12/28/2025 9:00 AM EST Office Visit [facility] Medicine Specialties [address], [address] [place] [address] Laura Dasilva, GERTRUDE [address] [place] [address] documented as of this encounter Visit Diagnoses Not on filedocumented in this encounter Additional Health Concerns Assessment Noted Time A fall risk assessment has been complete d for the patient 05/25/2025 10:52 AM EDT A Body Mass Index follow-up plan has been documented for the patient 05/25/2025 12:19 PM EDT documented as of this encounter Care Teams Transcribing Machine Mechanic Relationship Specialty Start Date End Date Nuria Barnes APRN [address] [place] [address] PCP - General 05/25/25 Jagjit Soto MD [address] [facility] [address] [place] [address] Surgeon Neurosurgery 05/22/21 documented as of this encounter
--- OUTSIDE RECORDS SUMMARY | 2025-09-19 10:48 | XMS_ITS | Encounter Summary ---
Author Organization [facility] Address [address] [place] [address] Care Team Providers Care Integration Consultant Name Role Phone Jagjit Soto MD Unavailable [phone] Nuria Barnes APRN Primary Care Provider [phone] Sophia Murphy Unavailable [phone] Encounter Details Date Type Department Care Team (Late st Contact Info) Description 06/14/2025 Orders Only External Location [address] [place] [address] Provider, External Social History Tobacco Use Types [...] Visit [facility] [address], [address] [place] [address] Laura Dasilva MBBS [address] [place] [address] documented as of this encounter [...] documented as of this encounter Care Teams Integration Consultant Relationship Specialty Start Date End Date Nuria Barnes APRN [address] [place] [address] PCP - General 05/25/25 Jagjit Soto MD [address] [place] [address] Surgeon Neurosurgery 05/22/21 Sophia Murphy PA [address] [place] [address] Physician Small Animal Caretaker Neurosurgery 09/09/25 documented as of this encounter
--- OUTSIDE RECORDS SUMMARY | 2025-09-19 10:48 | XMS_ITS | Clinical Summary ---
Author Organization [facility] Address [address] [place] [address] Care Team Providers Care Grain Thresher Name Role Phone Jagjit Soto MD Unavailable [phone] Nuria Barnes APRN Primary Care Provider [phone] Sophia Murphy Unavailable [phone] Allergies Active Allergy Reactions Criticality Noted [...] 018 Active cholecalciferol (Vitamin D-3) 1.25 MG (33713 UT) capsule TAKE 2 CAPSULE Weekly 018 Active fluticasone-vilan terol (Breo Ellipta) 100-25 MCG/INH inhaler USE 1 INHALATION ONCE DAILY. 017 Active HYDROcodone-aceta minophen ([place]) 10-325 MG tablet 10/21/2 020 Active nitroglycerin [...] 11/04/2017 Abnormal laboratory test 03/06/2017 Hypothyroidism 03/06/2017 alf current use of non -steroidal anti-inflammatories (NSAID) [...] Consult [place] [facility] [address], [address] [place] [address] Sophia Murphy PA Cervicalgia (Primary Dx); History of fusion of cervical spine; Vapes nicotine containing substance 09/09/2025 Travel 07/19/2025 Refill [facility] Medicine Specialties [address], [address] [place] [address] Gabriela Horan MD 07/18/2025 Refill [facility] Medicine Specialties [address], [address] [place] [address] Gabriela Horan MD 07/17/2025 Refill [facility] Medicine Specialties [address], [address] [place] [address] Gabriela Horan MD 07/16/2025 Refill [facility] Medicine Specialties [address], [address] [place] [address] Gabriela Horan MD 07/14/2025 Telephone [facility] [address], [address] [place] [address] Sophia Murphy PA 07/06/2025 Telephone [facility] Medicine Specialties [address], [address] [place] [address] Surekha Kennedy from Last 3 Months Immunizations [...] Description 12/28/2025 9:00 AM EST Office Visit [facility] Medicine Specialties [address], [address] [place] [address] Laura Dasilva, GERTRUDE [address] [place] [address] Health Maintenance Due Date Last Done Comments [facility]-Bone Density Scan 1966 [facility]-Medicare Annual Wellness (AWV) 1966 [facility]-/Child/Adol SDOH Screenings 1966 [id number] Vaccine (#1) 1971 [facility]- SDOH Screenings 1984 [...] this topic Medical Devices Implanted Type Area Physician'S Aide Device Identifier Shelf Expiration Date Model / Serial / Lot Popeye Garciamm - [id number] Implanted:Qty: 1 on 10/27/2024 [id number] 12/22/2026 [id number] / / [id number] Procedures Procedure Name Priority Date/Time Associated Diagnosis [...] medications. Staff Staff Role Speedy Beckman Endo Jailkeeper Ricardo Alvarado, Gabriela Carreno CRNA, MD Proceduralist [...] of bowel preparation was evaluated using the [place] Bowel Preparation Scale with scores of: right [...] hemoclip applied for hemostasis. us Vaishali Diaz HORSE RIDER, DNP GI PROCEDURE ORDERABLE S Final Result * Hepatitis panel, acute (07/06/2024 1:27 PM EDT) Hepatitis B Surf Antigen Negative Negative 07/06/2024 4:23 PM EDT [facility] Hepatitis C Antibody Negative Negative 07/06/2024 4:23 PM EDT [facility] Hepatitis A Antibody IgM Negative Negative 07/06/2024 4:23 PM EDT [facility] Hepatitis B Core Antibody IgM Negative Negative 07/06/2024 4:23 PM EDT [facility] Blood Venous blood specimen / Unknown Venipuncture / Unknown 07/06/2024 1:27 PM EDT 07/06/2024 1:28 PM EDT Toi Kwan MD LAB BLOOD ORDERABLES Final Re sult Performing Organization Address City/State/[facility] Co de Phone Number [facility] [address] [place] [address] * CT Chest w IV Contrast (05/22/2020 [...] 22 2020 3:41P us Toi Kwan MD [facility] [place] PROCEDURES Final Resul t * HIV [...] Relevant to Health Maintenance Insurance [facility] Care Teams Grain Thresher Relationship Specialty Start Date End Date Nuria Barnes APRN [address] [place] [address] PCP - General 05/25/25 Jagjit Soto MD [address] [place] [address] Surgeon Neurosurgery 05/22/21 Sophia Murphy PA [address] [place] [address] Physician Employee Development Specialist Neurosurgery 09/09/25
--- OUTSIDE RECORDS SUMMARY | 2025-09-19 10:48 | XMS_ITS | Encounter Summary ---
Author Organization [facility] Address [address] [place] [address] Care Team Providers Care Professional Poker Player Name Role Phone Ferdinand Carranza MD Primary Care Provider Jagjit Soto MD Unavailable [phone] Nuria Barnes APRN Primary Care Provider Sophia Murphy Unavailable [phone] Reason for Visit * Reason Comments Med Refill Encounter Details Date Type Department Care Team (Late st Contact Info) Description 01/15/2023 Refill [facility] [place] [address] [place] [address] Melanie Felder, RUTHANN [address] [place] [address] Hypertension, unspecified type Social History Tobacco Use [...] Description 12/28/2025 9:00 AM EST Office Visit [place] [facility] Medicine Specialties [address], [address] [place] [address] Laura Dasilva MBBS [address] [place] [address] documented as of this encounter [...] documented as of this encounter Care Teams Professional Poker Player Relationship Specialty Start Date End Date Ferdinand Carranza MD [address] [place] [address] PCP - General 03/30/21 05/24/25 Nuria Barnes APRN [address] [place] [address] PCP - General 05/25/25 Jagjit Soto MD [address] [place] [address] Surgeon Neurosurgery 05/22/21 Sophia Murphy PA [address] [place] [address] Physician Physician Intensivist Neurosurgery 09/09/25 documented as of this encounter
--- OUTSIDE RECORDS SUMMARY | 2025-09-19 10:49 | XMS_ITS | Encounter Summary ---
Author Organization [facility] Address [address] [place] [address] Care Team Providers Care Personal Banker Name Role Phone Ferdinand Carranza MD Primary Care Provider [phone] Jagjit Soto MD Unavailable Nuria Barnes APRN Primary Care Provider Sophia Murphy Unavailable [phone] Reason for Visit * Reason Comments Med Refill Encounter Details Date Type Department Care Team (Late st Contact Info) Description 01/10/2024 Refill [facility] [place] [address] [place] [address] Melanie Felder, RUTHANN [address] [place] [address] Hypertension, unspecified type Social History [...] Visit [place] [facility] Medicine Specialties [address] [place] [address] Laura Dasilva MBBS [address] [place] [address] documented as of this encounter [...] documented as of this encounter Care Teams Personal Banker Relationship Specialty Start Date End Date Ferdinand Carranza MD [address] [place] [address] [address] [place] [address] PCP - General 03/30/21 05/24/25 Nuria Barnes APRN [address] [place] [address] PCP - General 05/25/25 Jagjit Soto MD [address] [address] Surgeon Neurosurgery 05/22/21 Sophia Murphy PA [address] [facility] [place] [address] Physician Software Project Lead Neurosurgery 09/09/25 documented as of this encounter
--- OUTSIDE RECORDS SUMMARY | 2025-09-19 10:49 | XMS_ITS | Clinical Summary ---
Author Organization [facility] Address [address] [place] [address] Care Team Providers Care Tailing Hand Name Role Phone Ferdinand Carranza MD Primary Care Provider [phone] Allergies Active Allergy Reactions Criticality Noted Date Comments Codeine 10/28/2017 Meperidine 10/27/2017 Methotrexate And Trimetrexate 2016 Ketorolac Tromethamine 10/28/2017 Tramadol Itching Medium 10/16/2020 [...] 0.6 oz pur e alcohol) [facility] Utilities Answer Date Recorded In the past 12 months has [employer], [employer], or water [employer] threatened to shut off services in your [...] care, and heating? Not very hard 08/02/2024 [facility] ional [facility] - Occupational Stress Questionnaire Answer Date Recorded [...] GED or equivalent No 08/02/2024 Preferred Language Ukrainian 08/02/2024 PHQ-2 Answer Date Recorded Retired PHQ-9: [...] ZOSTER VACCINE (2 of 2) 12/11/2023 10/16/2023 INFLUENZA VACCINE 06/17/2025 09/01/2021, , 08/06/2016 TDAP/TD VACCINES (2 - Td or Tdap) 12/07/2028 019 COLONOSCOPY 10/27/2034 10/27/2024 COLORECTAL CANCER SCREENING 10/27/2034 HEPATITIS C SCREENING Completed 07/06/2024 , 04/24/2022, 04/24/2022 Insurance [employer]LL [employer] [id number] [facility] MEDICARE ADVANTAGE HMO Advance Directives * CPR (Attempt to Resuscitate) (Latest Code Status on File) Date Activated Date Inactivated Comments 07/31/2024 2:23 PM 08/05/2024 7:55 PM Question Answer Comments Code Status (Patient has no pulse and is not breathing): CPR (Attempt to Resuscitate) Medical Interventions (Patie nt has pulse or is breathing): Full Support Level Of Support Discussed With: Patient Care Teams Tailing Hand Relationship Specialty Start Date End Date Ferdinand Carranza MD [address] [place] [address] PCP - General Family Medicine 10/21/17
--- OUTSIDE RECORDS SUMMARY | 2025-09-19 10:49 | XMS_ITS | Encounter Summary ---
Author Organization [facility] Address [address] [place] [address] Care Team Providers Care Corrugator Helper Name Role Phone Jagjit Soto MD Unavailable [phone] Nuria Barnes APRN Primary Care Provider [phone] Encounter Details Date Type Department Care Team (Late st Contact Info) Description 06/07/2025 Results Follow-Up [facility] Medicine Specialties [address] [place] [address] Laura Dasilva, GERTRUDE [address] [place] [address] Social History Tobacco Use Types [...] Description 12/28/2025 9:00 AM EST Office Visit [place] [facility] [address], [address] [place] [address] Laura Dasilva MBBS [address] [place] [address] documented as of this encounter Visit Diagnoses Not on filedocumented in this encounter Additional Health Concerns Assessment Noted Time A fall risk assessment has been complete d for the patient 05/25/2025 10:52 AM EDT A Body Mass Index follow-up plan has been documented for the patient 05/25/2025 12:19 PM EDT documented as of this encounter Care Teams Corrugator Helper Relationship Specialty Start Date End Date Nuria Barnes APRN [address] [place] [address] PCP - General 05/25/25 Jagjit Soto MD [address] [place] [address] Surgeon Neurosurgery 05/22/21 documented as of this encounter
[2025-09-19 11:59] LABS: Free T4 (Free Thyroxine) 0.78 ng/dl (0.78-2.19)
[2025-09-19 12:18] LABS: Thyroid Stimulating Hormone 18.80 uIU/mL (0.465-4.68)
== END 2025-09-19 23:59 | disposition home or self-care (01) ==
PROVIDERS: PCP Nurse Practitioner Family; Visit Provider Nurse Practitioner
DX: E01.0 Iodine-deficiency related diffuse (endemic) goiter (principal)
CPT/HCPCS: 36415; 84439; 84443

== ENCOUNTER 2025-09-22 15:15 | Outpatient (CLI) | payer MEDICARE, SELFPAY ==
--- OUTSIDE RECORDS SUMMARY | 2025-09-09 09:40 | XMS_ITS | Encounter Summary ---
Author Organization [facility] Address [address] [place] [address] Care Team Providers Care Otologist Name Role Phone Jagjit Soto MD Unavailable [phone] Nuria Barnes APRN Primary Care Provider [phone] Sophia Kwan Unavailable Reason for Referral * Imaging (Routine) - Authorized Specialty Diagnoses / Procedures Referred By Carolina olivares Referred To Contact Diagnoses Cervicalgia History of fusion of cervical spine Vapes nicotine containing substance Procedures CT Cervical Spine wo IV Contrast Sophia Kwan PA [address] [place] [address] Phone: tel: fax: Referral ID Status Reason Start Date Expiration Date V isits Requested Visits Authorized [id number] Authorized 09/11/2025 03/13/2027 1 1 Reason for Visit * Consultation (Routine) - Closed Specialty Diagnoses / Procedures Referred By Carolina olivares Referred To Contact Neurosurgery Diagnoses Cervicalgia Remi Garcia, DO [address] [place] [address] [place] [address] Phone: tel: fax: [facility] [address], [address] [place] [address] Phone: tel: fax: Referral ID Status Reason Start Date Expiration Date V isits Requested Visits Authorized [id number] Closed Specialty Services Required 07/08/2025 01/07/2027 1 1 Encounter Details Date Type Department Care Team (Late st Contact Info) Description 09/09/2025 10:40 AM EDT Consult [place] [facility] [address], [address] [place] [address] Sophia Kwan, PA [address] [place] [address] Cervicalgia (Primary Dx); History of [...] for her neck or shoulder pain. Her chain hoist operator, whom she sees every 6 months, initially suspected secondary fibromyalgia as the cause of her neck pain. Three days ago, she underwent ulnar nerve compression surgery at [facility] by Dr. Garcia due to numbness and [...] Every morning cholecalciferol (Vitamin D-3) 1.25 MG (82632 UT) capsule TAKE 2 CAPSULE Weekly colchicine [...] hydroCHLOROthiazide (HYDRODIURIL) 25 mg, Every morning HYDROcodone-acetaminophen ([place]) 10-325 MG tablet lamoTRIgine (LaMICtal) 25 MG [...] loss noted in the hands. Strength: Hand litigation attorney strength is normal. Objective: MUSCULOSKELETAL EXAM: Motor Strength Right Left C5: Shoulder abduction (Deltoid) 5/5 4-/5 C5: Elbow flexion (Biceps, Brachialis) 5/5 4+/5 C6: Wrist extension (ECRB, ECRL) 5/5 4+/5 C7: Elbow extension (Triceps) 5/5 5/5 C8: Finger flexion (Cleaning Technician Strength) 4/5 4-/5 T1: Finger abduction 4/5 [...] bones. She is currently managed by her chain hoist operator and takes oxycodone 10 mg four timesa day, gabapentin, methocarbamol 500 mg, and duloxetine for fibromyalgia. She will continue her current medication regimen and follow up with her chain hoist operator as scheduled. 5. Nicotine use. The patient [...] medication regimen and follow up with her painter helper spray and rheuma tologist as scheduled. Potential side [...] including potential surgical intervention. Coordination with her chain hoist operator will be necessary to ensure comprehensive care [...] Parts of this note were dictated using [employer] Direct voice recognition software. As a result, errors may occur. When identified, these recreation clerk errors are corrected, but while every attempt is made to prevent/correct these, errors may still exist. I personally spent a total of 65 minutes on this encounter. This time includes face to face with patient, counseling and discussion and/or coordination of care. I spent >50% in kepi-ot-hyjz communication with the patient over the diagnosis, treatment options and plan. Sophia Kwan PA-C [facility] Department of Neurosurgery [1] Past Medical [...] SURGERY HAND SURGERY N/A Hand Surgery from [facility] NECK SURGERY N/A Neck Surgery from [facility] ORAL SURGERY N/A Oral Surgery Tooth Extraction from [facility] SHOULDER SURGERY N/A Shoulder Surgery from [facility] [3] Family History Problem Relation Name Age [...] Description 12/28/2025 9:00 AM EST Office Visit [facility] [address], [address] [place] [address] Laura Dasilva MBBS [address] [place], [place] [id number] Scheduled Orders Name Type Priority Associated Diagnoses [...] documented as of this encounter Care Teams Otologist Relationship Specialty Start Date End Date Nuria Barnes APRN [address] [place] [address] PCP - General 05/25/25 Jagjit Soto MD [address] [facility] [place] [address] Surgeon Neurosurgery 05/22/21 Sophia Kwan PA [address] [place] [address] Physician Retail Financial Analyst Neurosurgery 09/09/25 documented as of this encounter
--- OUTSIDE RECORDS SUMMARY | 2025-09-22 15:17 | XMS_ITS | Encounter Summary ---
Author Organization [facility] Address [address] [place] [address] Care Team Providers Care Public Information Director Name Role Phone Ferdinand Carranza MD Primary Care Provider Jagjit Soto MD Unavailable Nuria Barnes APRN Primary Care Provider Sophia Murphy Unavailable [phone] Reason for Visit * Reason Comments Med Refill Encounter Details Date Type Department Care Team (Late st Contact Info) Description 01/10/2024 Refill [facility] [place] [address] [place] [address] Melanie Felder, RUTHANN [address] [place] [address] Hypertension, unspecified type Social History [...] Visit [place] [facility]ties [address], [address] [place] [address] Laura Dasilva MBBS [address] [place] [address] documented as of this encounter [...] documented as of this encounter Care Teams Public Information Director Relationship Specialty Start Date End Date Ferdinand Carranza MD [address] [place] [address] [address] [place] [address] PCP - General 03/30/21 05/24/25 Nuria Barnes APRN [address] [place] [address] PCP - General 05/25/25 Jagjit Soto MD [address] [address] Surgeon Neurosurgery 05/22/21 Sophia Murphy PA [address] [facility] [place] [address] Physician Lifestyle Consultant Neurosurgery 09/09/25 documented as of this encounter
--- OUTSIDE RECORDS SUMMARY | 2025-09-22 15:17 | XMS_ITS | Encounter Summary ---
Author Organization [facility] Address [address] [place] [address] Care Team Providers Care Records Management Director Name Role Phone Jagjit Soto MD Unavailable [phone] Nuria Barnes APRN Primary Care Provider [phone] Encounter Details Date Type Department Care Team (Late st Contact Info) Description 07/14/2025 Telephone [place] [facility] [address], 1[address] [place] [address] Sophia Murphy, RUTHANN [address] [place] [address] Social History Tobacco Use Types [...] optimal time of day to reach caller: [phone] Note: Please do not reply to this [...] Reason for Call: Patient returning call to [facility] Best contact number and optimal time of day to reach caller: [phone] Note: Please do not reply to this [...] 12/28/2025 9:00 AM EST Office Visit [facility] Medicine Specialties [address], [address] [place] [address] Laura Dasilva, GERTRUDE [address] [place] [address] documented as of this encounter Visit Diagnoses Not on filedocumented in this encounter Additional Health Concerns Assessment Noted Time A fall risk assessment has been complete d for the patient 05/25/2025 10:52 AM EDT A Body Mass Index follow-up plan has been documented for the patient 05/25/2025 12:19 PM EDT documented as of this encounter Care Teams Records Management Director Relationship Specialty Start Date End Date Nuria Barnes APRN [address] [place] [address] PCP - General 05/25/25 Jagjit Soto MD [address] [facility] [address] [place] [address] Surgeon Neurosurgery 05/22/21 documented as of this encounter
--- OUTSIDE RECORDS SUMMARY | 2025-09-22 15:17 | XMS_ITS | Encounter Summary ---
Author Organization [facility] Address [address] [place] [address] Care Team Providers Care Lineman A Class Name Role Phone Jagjit Soto MD Unavailable [phone] Nuria Barnes APRN Primary Care Provider [phone] Encounter Details Date Type Department Care Team (Late st Contact Info) Description 06/07/2025 Results Follow-Up [facility] Medicine Specialties [address], [address] [place] [address] Laura Dasilva, GERTRUDE [address] [place] [address] Social History Tobacco Use Types [...] Description 12/28/2025 9:00 AM EST Office Visit [place] [facility] Medicine [facility]ties [address], [address] [place] [address] Laura Dasilva MBBS [address] [place] [address] documented as of this encounter Visit Diagnoses Not on filedocumented in this encounter Additional Health Concerns Assessment Noted Time A fall risk assessment has been complete d for the patient 05/25/2025 10:52 AM EDT A Body Mass Index follow-up plan has been documented for the patient 05/25/2025 12:19 PM EDT documented as of this encounter Care Teams Lineman A Class Relationship Specialty Start Date End Date Nuria Barnes APRN [address] [place] [address] PCP - General 05/25/25 Jagjit Soto MD [address] [place] [address] Surgeon Neurosurgery 05/22/21 documented as of this encounter
--- OUTSIDE RECORDS SUMMARY | 2025-09-22 15:17 | XMS_ITS | Encounter Summary ---
Author Organization [facility] Address [address] [place] [address] Care Team Providers Care Crab Backer Name Role Phone Jagjit Soto MD Unavailable [phone] Nuria Barnes APRN Primary Care Provider [phone] Sophia Murphy Unavailable [phone] Encounter Details Date Type Department Care Team (Late st Contact Info) Description 06/14/2025 Orders Only External Location [address] [place] [address] Provider, External Social History Tobacco Use Types [...] Description 12/28/2025 9:00 AM EST Office Visit [place] Clinic Medicine Specialties [address], [address] [place] [address] Laura Dasilva MBBS [address] [place] [address] documented as of this encounter [...] documented as of this encounter Care Teams Crab Backer Relationship Specialty Start Date End Date Nuria Barnes APRN [address] [place] [address] PCP - General 05/25/25 Jagjit Soto MD [address] [place] [address] Surgeon Neurosurgery 05/22/21 Sophia Murphy PA [address] [place] [address] Physician Timber Skidder Neurosurgery 09/09/25 documented as of this encounter
--- OUTSIDE RECORDS SUMMARY | 2025-09-22 15:17 | XMS_ITS | Encounter Summary ---
Author Organization [facility] Address [address] [place] [address] Care Team Providers Care Diversified Crops Supervisor Name Role Phone Jagjit Soto MD Unavailable [phone] Nuria Barnes APRN Primary Care Provider [phone] Sophia Murphy Unavailable [phone] Encounter Details Date Type Department Care Team (Late st Contact Info) Description 06/14/2025 Orders Only External Location [address] [place] [address] Provider, External Social History Tobacco Use Types [...] Description 12/28/2025 9:00 AM EST Office Visit [place] [facility] Medicine Specialties [address], [address] [place] [address] Laura Dasilva, GERTRUDE [address] [place] [address] documented as of this encounter [...] documented as of this encounter Care Teams Diversified Crops Supervisor Relationship Specialty Start Date End Date Nuria Barnes APRN [address] [place] [address] PCP - General 05/25/25 Jagjit Soto MD [address] [place] [address] Surgeon Neurosurgery 05/22/21 Sophia Murphy PA [address] [place] [address] Physician Barbecue Cook Neurosurgery 09/09/25 documented as of this encounter
--- OUTSIDE RECORDS SUMMARY | 2025-09-22 15:17 | XMS_ITS | Encounter Summary ---
Author Organization [facility] Address [address] [place] [address] Care Team Providers Care Distributor Sales Consultant Name Role Phone Jagjit Soto MD Unavailable [phone] Nuria Barnes APRN Primary Care Provider [phone] Sophia Murphy Unavailable [phone] Encounter Details Date Type Department Care [...] Visit [place] [facility] Medicine Specialties [address], [address] [place] [address] Laura Dasilva, GERTRUDE [address] [place], [place] [address] documented as of this encounter Visit Diagnoses Not on filedocumented in this encounter Additional Health Concerns Assessment Noted Time A fall risk assessment has been complete d for the patient 09/09/2025 10:10 AM EDT A Body Mass Index follow-up plan has been documented for the patient 09/11/2025 5:56 PM EDT documented as of this encounter Care Teams Distributor Sales Consultant Relationship Specialty Start Date End Date Nuria Barnes APRN [address] [place] [address] PCP - General 05/25/25 Jagjit Soto MD [address] [place] [address] Surgeon Neurosurgery 05/22/21 Sophia Murphy PA [address] [place] [address] Physician Senior Solutions Engineer Neurosurgery 09/09/25 documented as of this encounter
--- OUTSIDE RECORDS SUMMARY | 2025-09-22 15:17 | XMS_ITS | Clinical Summary ---
[facility] Organization [facility] Address [address] [place] [address] Care Team Providers Care Kingsbury Machine Operator Name Role Phone Ferdinand Carranza MD Primary Care Provider [phone] Allergies Active Allergy Reactions Criticality Noted Date [...] drink = 0.6 oz pur e alcohol) [facility] Utilities Answer Date Recorded In the past 12 months has [employer], [employer], or water [employer] threatened to shut off services in your [...] care, and heating? Not very hard 08/02/2024 [facility] of Occupat ional [facility] - Occupational Stress Questionnaire Answer Date [...] GED or equivalent No 08/02/2024 Preferred Language South Sudanese 08/02/2024 PHQ-2 Answer Date Recorded Retired PHQ-9: [...] 07/06/2024 , 04/24/2022, 04/24/2022 Insurance [employer] [id number] [facility] MEDICARE ADVANTAGE HMO Advance Directives * CPR (Attempt to Resuscitate) (Latest Code Status on File) Date Activated Date Inactivated Comments 07/31/2024 2:23 PM 08/05/2024 7:55 PM Question Answer Comments Code Status (Patient has no pulse and is not breathing): CPR (Attempt to Resuscitate) Medical Interventions (Patie nt has pulse or is breathing): Full Support Level Of Support Discussed With: Patient Care Teams Kingsbury Machine Operator Relationship Specialty Start Date End Date Ferdinand Carranza MD [address] [place] [address] PCP - General Family Medicine 10/21/17
--- OUTSIDE RECORDS SUMMARY | 2025-09-22 15:17 | XMS_ITS | Clinical Summary ---
Author Organization [facility] Address [address] [place] [address] Care Team Providers Care Hardener Helper Name Role Phone Jagjit Soto MD Unavailable [phone] Nuria Barnes APRN Primary Care Provider [phone] Sophia Murphy Unavailable [phone] Allergies Active Allergy Reactions Criticality Noted [...] 018 Active cholecalciferol (Vitamin D-3) 1.25 MG (43497 UT) capsule TAKE 2 CAPSULE Weekly 018 Active fluticasone-vilan terol (Breo Ellipta) 100-25 MCG/INH inhaler USE 1 INHALATION ONCE DAILY. 017 Active HYDROcodone-aceta minophen (Eden) 10-325 MG tablet 10/21/2 020 Active nitroglycerin [...] 11/04/2017 Abnormal laboratory test 03/06/2017 Hypothyroidism 03/06/2017 half-way current use of non -steroidal anti-inflammatories (NSAID) [...] Consult [place] [facility] [address], [address] [place] [address] Sophia Murphy PA Cervicalgia (Primary Dx); History of fusion of cervical spine; Vapes nicotine containing substance 09/09/2025 Travel 07/19/2025 Refill [facility] Medicine Specialties [address], [address] [place] [address] Gabriela Horan MD 07/18/2025 Refill [facility] Medicine Specialties [address], [address] [place] [address] Gabriela Horan MD 07/17/2025 Refill [facility] Medicine Specialties [address] [place] [address] Gabriela Horan MD 07/16/2025 Refill [facility] Medicine Specialties [address], [address] [place] [address] Gabreila Horan MD 07/14/2025 Telephone [facility] [address] [place] [address] Sophia Murphy PA 07/06/2025 Telephone [facility] Medicine Specialties [address], [address] [place] [address] Surekha Kennedy from Last 3 Months Immunizations [...] Description 12/28/2025 9:00 AM EST Office Visit [facility] Medicine Specialties [address], [address] [place] [address] Laura Dasilva, GERTRUDE [address] [place] [address] Health Maintenance Due Date Last Done Comments [facility]-Bone Density Scan 1966 [facility]-Medicare Annual Wellness (AWV) 1966 [facility]-/Child/Adol SDOH Screenings 1966 [id number] Vaccine (#1) 1971 [facility]- SDOH Screenings 1984 [...] this topic Medical Devices Implanted Type Area Database Developer Device Identifier Shelf Expiration Date Model / Serial / Lot Popeye Garciamm - [id number] Implanted:Qty: 1 on 10/27/2024 [id number] 12/22/2026 [id number] / / [id number] Procedures Procedure Name Priority Date/Time Associated Diagnosis [...] medications. Staff Staff Role Speedy Beckman Endo Sail Repairer Ricardo Alvarado, Gabriela Carreno CRNA, MD Proceduralist [...] of bowel preparation was evaluated using the Clinton Bowel Preparation Scale with scores of: right [...] 5cc, 11mm hemoclip applied for hemostasis. us Vasihali Diaz PATIENT REGISTRATION CLERK, DNP GI PROCEDURE ORDERABLE S Final Result * Hepatitis panel, acute (07/06/2024 1:27 PM EDT) Hepatitis B Surf Antigen Negative Negative 07/06/2024 4:23 PM EDT [facility] Hepatitis C Antibody Negative Negative 07/06/2024 4:23 PM EDT [facility] Hepatitis A Antibody IgM Negative Negative 07/06/2024 4:23 PM EDT [facility] Hepatitis B Core Antibody IgM Negative Negative 07/06/2024 4:23 PM EDT [facility] Blood Venous blood specimen / Unknown Venipuncture / Unknown 07/06/2024 1:27 PM EDT 07/06/2024 1:28 PM EDT Toi Kwan MD LAB BLOOD ORDERABLES Final Re sult Performing Organization Address City/State/[facility] Co de Phone Number [facility] [address] [place] [address] * CT Chest w IV Contrast (05/22/2020 [...] 22 2020 3:41P us Toi Kwan MD [facility] PROCEDURES Final Resul t * HIV [...] Relevant to Health Maintenance [facility] Care Teams Hardener Helper Relationship Specialty Start Date End Date Nuria Barnes APRN [address] [place] [address] PCP - General 05/25/25 Jagjit Soto MD [address] [place] [address] Surgeon Neurosurgery 05/22/21 Sophia Murphy PA [address] [place] [address] Physician Leakage Tester Neurosurgery 09/09/25
--- OUTSIDE RECORDS SUMMARY | 2025-09-22 15:17 | XMS_ITS | Encounter Summary ---
Author Organization [facility] Address [address] [place] [address] Care Team Providers Care Construction Accountant Name Role Phone Ferdinand Carranza MD Primary Care Provider Jagjit Soto MD Unavailable Nuria Barnes APRN Primary Care Provider Sophia Murphy Unavailable [phone] Reason for Visit * Reason Comments Med Refill Encounter Details Date Type Department Care Team (Late st Contact Info) Description 01/15/2023 Refill [facility] [place] [address] [place] [address] Melanie Felder, RUTHANN [address] [place] [address] Hypertension, unspecified type Social History Tobacco Use [...] Description 12/28/2025 9:00 AM EST Office Visit [facility] [address] [place] [address] Laura Dasilva MBBS [address] [place] [address] documented as of this encounter [...] documented as of this encounter Care Teams Construction Accountant Relationship Specialty Start Date End Date Ferdinand Carranza MD [address] [facility] [address] [place] [address] PCP - General 03/30/21 05/24/25 Nuria Barnes APRN [address] [place] [address] PCP - General 05/25/25 Jagjit Soto MD [address] [place] [address] Surgeon Neurosurgery 05/22/21 Sophia Murphy PA [address] [place] [address] Physician Doctor Of Pharmacy Neurosurgery 09/09/25 documented as of this encounter
--- NOTE | 2025-09-22 15:20 | CT_ITS ---
FINAL REPORT TECHNIQUE: Axial images were obtained of the cervical spine by computed tomography. Coronal and sagittal reconstruction process performed. This study was performed with techniques to keep radiation doses as low as reasonably achievable (ALARA). Individualized dose reduction techniques using automated exposure control or adjustment of mA and/or kV according to the patient''s size were employed. CLINICAL HISTORY: CERVICALGIA HX OF FUSION COMPARISON: None FINDINGS: CT CERVICAL SPINE: CT examination of the cervical spine demonstrates anterior and interbody fusion at the C4-5 and C5-6 levels. At the C3-4 level there is advanced degenerative narrowing of the disc, with endplate sclerosis. There is an ossific density at the level of the posterior margin of the C3-4 disc measuring 5 mm in size. This appears chronic. There is also a large bony osteophyte at the C3-4 level producing right paracentral narrowing. There is asymmetric right greater than left facet hypertrophy at the C3-4 level, which produces severe neural foraminal narrowing. There is moderate disc space narrowing present at the C6-7 level as well. IMPRESSION: Anterior and interbody fusion at the C4-5 and C5-6. Advanced degenerative change at the C3-4 level as described. There is also mild disc space narrowing at the C6-7 level. Reviewed, Interpreted and Dictated by Cleveland Smith MD Transcribed by Betsy Multani Authenticated and [facility]
== END 2025-09-22 23:59 | disposition home or self-care (01) ==
LOC: RAD 15:15
PROVIDERS: PCP Nurse Practitioner Family; Visit Provider Physician Assistant Medical
DX: M47.812 Spondylosis without myelopathy or radiculopathy, cervical region (principal); M50.823 Other cervical disc disorders at C6-C7 level; Z98.1 Arthrodesis status; Z72.0 Tobacco use
CPT/HCPCS: 72125

== ENCOUNTER 2025-11-14 11:00 | Outpatient (CLI) | payer MEDICARE, SELFPAY ==
--- OUTSIDE RECORDS SUMMARY | 2025-11-07 16:00 | XMS_ITS | Encounter Summary ---
Author Organization [facility] Address [address] [place] [address] Care Team Providers Care Reservations And Ticketing Agent Name Role Phone Jagjit Soto MD Unavailable [phone] Nuria Barnes APRN Primary Care Provider [phone] Sophia Kwan Unavailable [phone] Reason for Referral * Consultation (Routine) - Authorized Specialty Diagnoses / Procedures Referred By Carolina olivares Referred To Contact Orthopaedic Surgery Diagnoses History of fusion of cervical spine Cervicalgia Left shoulder pain, unspecified chronicity Mor Rogers MD [address] [facility] [address] [place] [address] Phone: tel: fax: [facility] [address] [place] [address] Phone: tel: fax: Referral ID Status Reason Start Date Expiration Date Visits Requested Visits Authorized [id number] Authorized Specialty Services Required 5 05/09/2027 1 1 Scheduling Instructions Left shoulder pain * Consultation (Routine) - Authorized Specialty Diagnoses / Procedures Referred By Carolina olivares Referred To Contact Physical Therapy Diagnoses History of fusion of cervical spine Cervicalgia Mor Rogers MD [address] [place] [address] Phone: tel: fax: Referral ID Status Reason Start Date Expiration Date Visits Requested Visits Authorized [id number] Authorized Consult and Treat 11/07/2025 05/09/2027 1 1 Encounter Details Date Type Department Care Team (Latest Contact Info) Description 11/07/2025 4:00 PM EST Office Visit [facility] [address] [place] [address] Mor Rogers MD [address] [address] History of fusion of cervical spine (Primary Dx); Cervicalgia; Left shoulder pain, unspecified chronicity; Osteoarthritis of multiple joints, unspecified osteoarthritis type; Vapes nicotine containing substance Social History Tobacco Use Types Packs/Day Years Used Date Smoking Tobacco: Former Cigarettes 1 27.7 1 984 - 07/28/2011 Passive Smoke Exposure: Past Smokeless Tobacco: Never Tobacco Cessation:Counseling Given: Not Answered Comments:Vape- Everyday Alcohol Use Standard Drinks/Week Comments Not Currently [...] Reading Time Taken Comments Blood Pressure 140/90 11/07/2025 2:55 PM EST Pulse 91 11/07/2025 2:55 PM EST Temperature - - Respiratory Rate - - Oxygen Saturation 98% 11/07/2025 2:55 PM EST Inhaled Oxygen Concentration - - Weight 81.3 kg (179 lb 3.7 oz) 11/07/2025 2:55 P M EST Height - - Body Mass Index 28.07 09/09/2025 10:02 AM EDT documented in this encounter Functional Status * BP Answer Date of Assessment Author 140/90 11/07/2025 2:55 PM EST Merced Ayala * Pulse Answer Date of Assessment Author 91 11/07/2025 2:55 PM Merced Pena * SpO2 Answer Date of Assessment Author 98 11/07/2025 2:55 PM Merced Pena * Weight Answer Date of Assessment Author 2867.74 11/07/2025 2:55 PM Merced Pena * Total Weight Change Percent Answer Date of Assessment Author 2222 11/07/2025 2:55 PM Merced Pena * Weight Change Since Preop Answer Date of Assessment Author 81.28 11/07/2025 2:55 PM Merced Pena * Weight Change Since Last Visit Answer Date of Assessment Author 81.28 11/07/2025 2:55 PM Merced Pena * Weight Change 24 hrs Answer Date of Assessment Author 4 11/07/2025 2:55 PM Merced Pena * Weight Change Since Preop Answer Date of Assessment Author 81.3 11/07/2025 2:55 PM Merced Pena * Weight Change Since Last Visit Answer Date of Assessment Author 81.3 11/07/2025 2:55 PM Merced Pena * Difference in Weight Since Last Visit Answer Date of Assessment Author 4 11/07/2025 2:55 PM Merced Pena * Pain Score Answer Date of Assessment Author 8 11/07/2025 2:54 PM Merced Pena * Pain Screening/Additional Assessments Question Answer Date of Assessment Author Pain Screening/Assessments Pain Screening 11/07/2025 2:54 PM Merced Duarte * Pain Screening Answer Date of Assessment Author 0-10 11/07/2025 2:54 PM Merced Pena * BP Answer Date of Assessment Author 140/90 11/07/2025 2:55 PM Merced Pena * Pulse Answer Date of Assessment Author 91 11/07/2025 2:55 PM Merced Pena * SpO2 Answer Date of Assessment Author 98 11/07/2025 2:55 PM Merced Pena * Weight Answer Date of Assessment Author 2867.74 11/07/2025 2:55 PM Merced Pena * Pain Score Answer Date of Assessment Author 8 11/07/2025 2:54 PM Merced Pena documented as of this encounter Mental Status * BP Answer Entry Date Author 140/90 11/07/2025 2:55 PM Merced Pena * Pulse Answer Entry Date Author 91 11/07/2025 2:55 PM Merced Pena * SpO2 Answer Entry Date Author 98 11/07/2025 2:55 PM Merced Pena * Weight Answer Entry Date Author 2867.74 11/07/2025 2:55 PM Merced Pena * Total Weight Change Percent Answer Entry Date Author 222111/07/2025 2:55 PM Merced Pena * Weight Change Since Preop Answer Entry Date Author 81.28 11/07/2025 2:55 PM Merced Pena * Weight Change Since Last Visit Answer Entry Date Author 81.28 11/07/2025 2:55 PM Merced Pena * Weight Change 24 hrs Answer Entry Date Author 4 11/07/2025 2:55 PM Merced Pena * Restart Pain Assessment Timer Answer Entry Date Author Yes 11/07/2025 2:54 PM Merced Pena * Weight Change Since Preop Answer Entry Date Author 81.3 11/07/2025 2:55 PM Merced Pena * Weight Change Since Last Visit Answer Entry Date Author 81.3 11/07/2025 2:55 PM Merced Pena * Difference in Weight Since Last Visit Answer Entry Date Author 4 11/07/2025 2:55 PM Merced Pena * Pain Score Answer Entry Date Author 8 11/07/2025 2:54 PM Merced Pena * Pain Screening Answer Entry Date Author 0-10 11/07/2025 2:54 PM Merced Pena documented in this encounter Miscellaneous Notes * Progress Notes - Sophia Kwan PA - 11/07/2025 4:00 PM EST We had the pleasure of seeing your patient in our clinic today for continued Neurosurgical evaluation. Chief Complaint Follow up after CT cervical spine. History Of Present Illness Caren Infante is a 60 y.o. female here today for continued neurosurgical surveillance. She follows up today to discuss results and her recent recent CT cervical spine. In brief, the patient is status post a C4-5 and C5-[address] Hurtado in 2001 in addition to PLIF extension at L4-5 from prior L5-S1 fusion completed by Dr. Soto in January 2021. The patient was evaluated in clinic on 09/09/2025 with neck pain. 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 We requested CT scan to assess the status of her fusion. She was also instructed on nicotine cessation. She follows up today with ongoing symptoms of axial neck pain. 3-4 weeks ago, she developed acute onset left shoulder pain. The pain radiates along the left shoulder blade and down the back of her arm to the elbow. Despite undergoing ulnar nerve decompression in August, she denies any significant benefit postoperatively. She continues to endorse numbness and tingling in the left 4th and 5th digits. 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 Her shoulder pain is worse with range of motion. She continues to endorse poor balance and has had several falls.She has numbness and tingling in both hands. She has participated in physical therapy in the past without benefit. She has not undergone injection therapy. She continues managing her pain with oxycodone 10 mg 4 times daily, gabapentin, methocarbamol, and duloxetine for history of fibromyalgia. As previously noted, she has SAPHO syndrome managed with Rheumatology. The patient reports urinary incontinence primarily at night. The patient continues vaping with nicotine products. Past Medical History She has a past medical history of Abnormal weight gain, Anxiety disorder, unspecified, Bone marrow edema, Bone marrow edema, Bowel trouble (08/05/2024), Concussion, Delayed emergence from general anesthesia, Dizziness (07/31/2024), Fibromyalgia, Hip pain, right, IBS (irritable bowel syndrome), Irritable bowel syndrome, Leg pain, right, Low back pain, Orthostatic hypotension (08/02/2024), Otitis media (07/06/24), Recurrent sinus infections (10/06/19), RHA (rheumatoid arthritis), SAPHO syndrome, Unspecified injury of right shoulder and upper arm, initial encounter, and Vertigo. Surgical History She has a past surgical history that includes Hand surgery (N/A); oral surgery (N/A); Neck surgery (N/A); Shoulder surgery (N/A); and Back surgery. Family History Family History[1] Social History She reports that she quit smoking about 14 years ago. Her smoking use included cigarettes. She started smoking about 42 years ago. She has a 27.7 pack-year smoking history. She has been exposed to tobacco smoke. She has never used smokeless tobacco. She reports that she does not currently use alcohol. She reports that she does not use drugs. Medications Current Medications[2] Allergies Codeine, Meperidine hcl, Methotrexate, Tramadol, Ketorolac tromethamine, and Meperidine Review of Systems 14 point review of systems was performed and was negative except as noted per HPI. General Physical Exam Constitutional Oriented to person, place, and time. Appears well-developed and well-nourished. Head Normocephalic and atraumatic. Neck No tracheal deviation or JVD noted. Pulmonary/Chest Effort normal, no shortness of breath Neurological Alert and oriented to person, place, and time Skin Skin is warm and dry Psychiatric Normal mood and affect, behavior and judgment Objective: MUSCULOSKELETAL EXAM: Motor Strength Right Left C5: Shoulder abduction (Deltoid) 5/5 4-/5 C5: Elbow flexion (Biceps, Brachialis) 5/5 4+/5 C6: Wrist extension (ECRB, ECRL) 5/5 4+/5 C7: Elbow extension (Triceps) 03/21 5/5 C8: Finger flexion (Sparmaker Strength) 02/19 4-/5 T1: Finger abduction / 4/5 Sensation Right Left Neck normal normal C5: Shoulder normal normal C6: Thumb, radial aspect hand/forearm (Radial Nerve) normal normal C7: Long finger (Median Nerve) normal normal C8: Little finger, ulnar aspect of hand/forearm (Ulnar n.) normal normal T1: Medial forearm/arm normal normal Reflexes Right Left C5: Biceps 2/ 2/4 C6: Brachioradialus 2/ 2/4 C7: Triceps / 2 Hoffmans Positive Positive Clonus <3 beat <3 beat Motor Strength Right Left L2: Hip flexion (Iliopsoas) 03/21 03/21 L3: Knee extension (Quad) 03/21 03/21 L4: Ankle DF (TA) 03/21 03/21 L5: Great Toe DF (EHL) 03/21 03/21 S1: Ankle Pf, Foot Eversion (Peroneal longus/brevis) 03/21 03/21 S2: Great toe flexion (FHL), Knee flexion 03/21 5/ Sensation Right Left L2: Proximal anterior thigh [...] BL Negative Federico's BL Negative Jeremias's BL Last Recorded Vitals Visit Vitals BP (!) 140/90 Pulse 91 Wt 81.3 kg (179 lb 3.7 oz) LMP (LMP Unknown) SpO2 98% BMI 28.07 kg/m?? OB Status Postmenopausal Smoking Status Former BSA 1.96 m?? Labs No lab exists for component: ALB Imaging CT scan of the cervical spine dated September 22, 2025 was personally reviewed today by myself and the attending. 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 MRI of the cervical spine dated 06/14/2025 was personally reviewed today by myself with the patientpresent. Imaging demonstrates straightening of the cervical lordosis with postoperative changes a C4-5 and C5-6 resulting in good decompression. 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 Assessment and Plan Caren Infante is a 60 y.o. female with history of a C4-5 and C5-[address] Hurtado [id number], a PLIF extension at L4-5 from prior L5-S1 fusion completed by Dr. 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 CT imaging of the cervical spine showed solid bony fusion at C4-5 and C5-6. The patient will likely require additional decompressive surgery to address these levels; however, due to Dr. Rogers's upcoming departure from the [place], we will need to establish care with 1 of our colleagues for continued care and surgical evaluation. In the meantime, we have provided her an order for outpatient physical therapy. We will make a referral to orthopedics for concern of questionable left shoulder pathology. The patient understands that they are not a candidate for surgery unless they have been free from all nicotine products for 6 weeks and we will perform a cotinine test. We spent 3 to 10 minutes counseling them regarding the negative effects of tobacco on health. This includes heart disease, lung cancer, and stroke, as well as acceleration of degenerative change. The patient is agreeable to plan of care. They had the opportunity to ask questions, all of which were answered to their satisfaction. Parts of this note were dictated using Snipd Direct voice recognition software. As a result, errors may occur. When identified, these rn lvn errors are corrected, but while every attempt is made to prevent/correct these, errors may still exist. I reviewed this patient's history, exam, and imaging with Dr. Mor Rogers. He guided plan of care for this patient. The total [id number] time spent on this visit was greater than 30 minutes, with the majority (>50%) of the time spent in counseling, discussing pathology and management options, and coordination of care. Assessment/Plan Active Problems: There are no active Hospital Problems. Sophia Kwan PA-C [facility] [place] Department of Neurosurgery [1] Family History Problem Relation Name Age of Onset Cardiac disorder Maternal Grandfather Cardiac disorder Maternal Grandmother Cardiac disorder Paternal Grandfather Cardiac disorder Paternal Grandmother Diabetes Other Fibromyalgia Sibling [2] Current Outpatient Medications Medication Sig Dispense Refill albuterol 108 (90 Base) MCG/ACT inhaler Inhale 2 puffs if needed. amitriptyline (Elavil) 25 MG tablet TAKE 1 TO 2 TABLETS BY MOUTH ONCE DAILY aspirin 81 MG EC tablet atorvastatin (Lipitor) 80 MG tablet Take 1 tablet (80 mg) by mouth 1 (one) time each day. 90 tablet3 diclofenac (Voltaren) 1 % topical gel Place on the skin 2 times a day. Apply as directed to hands and sternum for pain 50 g 2 DULoxetine (Cymbalta) [address] capsule Take 1 capsule (60 mg) by mouth 1 (one) time each day. gabapentin (Neurontin) 300 MG capsule Take 1 capsule (300 mg total) by mouth 3 (three) times a day.90 capsule 3 hydroCHLOROthiazide (HYDRODiuril) 25 MG tablet Take 1 tablet by mouth every morning. lamoTRIgine (LaMICtal) 25 MG tablet levothyroxine (Synthroid, Levoxyl) 112 MCG tablet Take 1 tablet by mouth daily. methocarbamol (Robaxin) 500 MG tablet Take 1 tablet (500 mg) by mouth 2 (two) times a day if needed. oxyCODONE-acetaminophen (Percocet) 10-325 MG tablet Take 1 tablet by mouth every 6 (six) hours. polyethylene glycol (Miralax) 17 GM/SCOOP powder potassium chloride CR (Klor-Con M20) 20 MEQ ER tablet TAKE 2 TABLETS DAILY. prazosin (Minipress) 1 MG capsule TAKE 1 CAPSULE BY MOUTH AT BEDTIME EVERY NIGHT topiramate (Topamax) 100 MG tablet Take 1 tablet (100 mg) by mouth 1 (one) time each day. (Patient taking differently: Take 50 mg by mouth daily.) bisacodyl (Bisacodyl EC) 5 MG EC tablet Take all 4 tablets at 4 PM on day before colonoscopy (Patient not taking: Reported on 11/07/2025) 4 tablet 0 buPROPion XL (Wellbutrin XL) 150 MG 24 hr tablet Take 1 tablet by mouth every morning. (Patient nottaking: Reported on 11/07/2025) cholecalciferol (Vitamin D-3) 1.25 MG (67233 UT) capsule TAKE 2 CAPSULE Weekly (Patient not taking:Reported on 11/07/2025) colchicine (Colcrys) 0.6 MG tablet Take 1 tablet by mouth daily. 0.6 mg twice today followed by 0.6mg daily starting tomorrow (Patient not taking: Reported on 11/07/2025) 90 tablet 1 diazePAM (Valium) 5 MG tablet (Patient not taking: Reported on 11/07/2025) dicyclomine (Bentyl) 10 MG capsule Take 1 capsule (10 mg) by mouth 4 (four) times a day if needed (abdominal cramping). Take with meals and at bedtime (Patient not taking: Reported on 11/07/2025) 30 capsule 2 fluticasone-vilanterol (Breo Ellipta) 100-25 MCG/INH inhaler USE 1 INHALATION ONCE DAILY. (Patient not taking: Reported on 11/07/2025) gabapentin (Neurontin) 100 MG capsule Take 1 capsule by mouth 3 times a day. (Patient not taking: Reported on 11/07/2025) HYDROcodone-acetaminophen (Austin) 10-325 MG tablet (Patient not taking: Reported on 11/07/2025) levothyroxine (Synthroid, Levoxyl) 137 MCG tablet (Patient not taking: Reported on 11/07/2025) meloxicam (Mobic) 15 MG tablet Take 1 tablet (15 mg) by mouth 1 (one) time each day if needed. (Patient not taking: Reported on 11/07/2025) meloxicam (Mobic) 7.5 MG tablet Take 1 tablet (7.5 mg total) by mouth 2 (two) times a day. (Patientnot taking: Reported on 11/07/2025) 90 tablet 2 METHOCARBAMOL PO 500 mg. (Patient not taking: Reported on 11/07/2025) metoprolol succinate XL (Toprol-XL) 25 MG 24 hr tablet Take 1/2 tablet once daily. Do not crush or chew. (Patient not taking: Reported on 11/07/2025) 30 tablet 11 midodrine (Proamatine) 10 MG tablet Take 1 tablet (10 mg) by mouth 3 (three) times a day before meals. (Patient not taking: Reported on 11/07/2025) naloxone (Narcan) 4 mg/0.1 mL nasal spray CALL 911. SPR CONTENTS OF ONE SPRAYER (0.1ML) INTO ONE NOSTRIL. REPEAT IN 2-3 MIN IF SYMPTOMS OF OPIOID EMERGENCY PERSIST, ALTERNATE NOSTRILS (Patient not taking: Reported on 11/07/2025) nitroglycerin (Nitrostat) 0.[address] 1 TABLET UNDER THE TONGUE EVERY 5 MINUTES FOR UP TO 3 DOSES NEEDED FOR CHEST PAIN.CALL 911 IF PAIN PERSISTS. (Patient not taking: Reported on 11/07/2025) ondansetron (Zofran) 8 MG tablet TAKE 1 TABLET BY MOUTH EVERY 8 HOURS FOR 4 DAYS NEEDED FOR NAUSEA OR VOMITING (Patient not taking: Reported on 11/07/2025) pamidronate (Aredia) 30 MG injection INFUSE MG Every 6 weeks (Patient not taking: Reported on 11/07/2025) phentermine (Adipex-P) 37.5 MG tablet Take 1 tablet (37.5 mg) by mouth 1 (one) time each day. (Patient not taking: Reported on 11/07/2025) polyethylene glycol (GoLYTELY) 236 g solution SEE PHARMACY NOTES FOR PATIENT LABEL INSTRUCTIONS- for Colonoscopy prep protocol (Patient not taking: Reported on 11/07/2025) 4000 mL 0 senna (Senokot) 8.6 MG tablet (Patient not taking: Reported on 11/07/2025) topiramate (Topamax) 25 MG tablet Take 25 mg at bedtime for one week, then 50 mg at bedtime for oneweek, then 75 mg at bedtime for one week, then 100 mg at bedtime thereafter (Patient not taking: Reported on 11/07/2025) 120 tablet 2 No current facility-administered medications for this visit. Cosigned by Mor Rogers MD at 11/07/2025 3:57 PM EST Associated attestation - Mor Rogers MD - 11/07/2025 3:57 PM EST Signature only. I saw and examined the patient with the EULA. I agree with the assessment and plan. A substantive portion of care was provided by the EULA. I informed the patient that I am departing Neurosurgery in January 2026. I informed the patient that she will be provided with a referral to see a new provider to establish follow up and management of her ongoing spinal pathology. documented in this encounter Plan of Treatment Upcoming Encounters Date Type Department Care Team (Late st Contact Info) Description 12/28/2025 9:00 AM EST Office Visit [facility] [address] [place] [address] Laura Dasilva MBBS [address] [place] [address] Scheduled Referrals Name Type Priority Associated Diagnoses Order Schedule Ambulatory referral to Physical Therapy Outpatient Referral Routine History of fusion of cervical spine Cervicalgia 1 Occurrences starting 11/07/2025 until 05/11/2027 Ambulatory referral to Orthopaedic Surgery Outpatient Referral Routine History of fusion of cervical spine Cervicalgia Left shoulder pain, unspecified chronicity 1 Occurrences starting 11/07/2025 until 05/11/2027 documented as of this encounter Visit Diagnoses Diagnosis History of fusion of cervical spine- Primary Arthrodesis status Cervicalgia Left shoulder pain, unspecified chronicity Osteoarthritis of multiple joints, unspecified osteoarthritis type Vapes nicotine containing substance documented in this encounter Additional Health Concerns Assessment Noted Time A fall risk assessment has been complete d for the patient 11/07/2025 2:54 PM EST A Body Mass Index follow-up plan has been documented for the patient 11/07/2025 3:55 PM EST documented as of this encounter Care Teams Reservations And Ticketing Agent Relationship Specialty Start Date End Date Nuria Barnes APRN [address] [place] [address] PCP - General 05/25/25 Jagjit Soto MD [address] [place] [address] Surgeon Neurosurgery 05/22/21 Sophia Kwan PA [address] [address] Physician Firewall Engineer Neurosurgery 09/09/25 documented as of this encounter
--- OUTSIDE RECORDS SUMMARY | 2025-11-14 14:01 | XMS_ITS | Encounter Summary ---
Author Organization [facility] Address [address] [place] [address] Care Team Providers Care Professor Of Education Name Role Phone Jagjit Soto MD Unavailable [phone] Nuria Barnes APRN Primary Care Provider [phone] Sophia Murphy Unavailable [phone] Encounter Details Date Type Department Care Team (Latest Contact Info) Description 11/07/2025 Travel Social History Tobacco Use Types Packs/Day Years Used Date Smoking Tobacco: Former Cigarettes 1 27.7 1 984 - 07/28/2011 Passive Smoke Exposure: Past Smokeless Tobacco: Never Comments:Vape- Everyday Alcohol Use Standard Drinks/Week Comments [...] as of this encounter Functional Status * Communicable Disease Screening Question Answer Date of Assessment Author Have you been in contact with someone who was sick? No / Unsure 11/07/2025 2:42 PM EST Kristie Macias L Do you have any of the following new or worsening symptoms? None of these 11/07/2025 2:42 PM EST Kristie Macias ine L * Travel Screening Question Answer Date of Assessment Author Have you traveled internationally or domestically in the last month? No 11/07/2025 2:42 PM EST Kristie Macias ine L documented as of this encounter Mental Status * Communicable Disease Screening Question Answer Entry Date Author Have you been in contact with someone who was sick? No / Unsure 11/07/2025 2:42 PM EST Dory Macias L Do you have any of the following new or worsening symptoms? None of these 11/07/2025 2:42 PM EST Kristie Macias L * Travel Screening Question Answer Entry Date Author Have you traveled internatio owen or domestically in the last month? No 11/07/2025 2:42 PM EST Kristie Macias L documented in this encounter Plan of Treatment Upcoming Encounters Date Type Department Care Team (Late st Contact Info) Description 12/28/2025 9:00 AM EST Office Visit [facility] [address], [address] [place] [address] Laura Dasilva, KRISTIN [address] [place] [address] documented as of this encounter Visit Diagnoses Not on filedocumented in this encounter Additional Health Concerns Assessment Noted Time A fall risk assessment has been complete d for the patient 11/07/2025 2:54 PM EST A Body Mass Index follow-up plan has been documented for the patient 11/07/2025 3:55 PM EST documented as of this encounter Care Teams Professor Of Education Relationship Specialty Start Date End Date Nuria Barnes APRN [address] [place] [address] PCP - General 05/25/25 Jagjit Soto MD [address] [place] [address] Surgeon Neurosurgery 05/22/21 Sophia Murphy PA [address] [place] [address] Physician Prepress Operator Neurosurgery 09/09/25 documented as of this encounter
--- OUTSIDE RECORDS SUMMARY | 2025-11-14 14:01 | XMS_ITS | Clinical Summary ---
Author Organization [facility] Address [address] [place] [address] Care Team Providers Care Dot Compliance Specialist Name Role Phone Jagjit Soto MD Unavailable [phone] Nuria Barnes APRN Primary Care Provider [phone] Sophia Murphy Unavailable [phone] Allergies Active Allergy Reactions Criticality Noted [...] 18 Active cholecalciferol (Vitamin D-3) 1.25 MG (35888 UT) capsule TAKE 2 CAPSULE Weekly 10/23/20 18 Active fluticasone-vilant frances (Breo Ellipta) 100-25 MCG/INH inhaler USE 1 INHALATION ONCE DAILY. 08/07/20 17 Active HYDROcodone-acetam inophen ([place]) 10-325 MG tablet 09/06/20 20 Active nitroglycerin (Nitrostat) 0.4 MG SL [...] day. 90 capsule 3 06/19/20 21 Active DULoxetine (Cymbalta) [address] capsule Take 1 capsule (60 mg) by mouth 1 (one) time each day. 08/09/20 21 Active phentermine (Adipex-P) 37.5 MG tablet Take 1 tablet (37.5 mg) by mouth 1 (one) time each day. 01/23/20 Active meloxicam (Mobic) 7.5 MG tabletIndications: SAPHO syndrome Take 1 tablet (7.5 mg total) by mouth 2 (two) times a day. 90 tablet 2 01/31/20 Active Additional Information Patient not taking.Reported on 11/07/2025 topiramate (Topamax) 25 MG tabletIndications: Cervical migraine syndrome Take 25 mg at bedtime for one week, then 50 mg at bedtime for one week, then 75 mg at bedtime for one week, then 100 mg at bedtime thereafter 120 tablet 2 06/18/20 22 Active Additional Information Patient not taking.Reported on 11/07/2025 naloxone (Narcan) 4 mg/0.1 mL nasal spray CALL 911. SPR CONTENTS OF ONE SPRAYER (0.1ML) INTO ONE NOSTRIL. REPEAT IN 2-3 MIN IF SYMPTOMS OF OPIOID EMERGENCY PERSIST, ALTERNATE NOSTRILS 10/15/20 Active oxyCODONE-acetamin ophen (Percocet) 10-325 MG tablet Take 1 tablet by mouth every 6 (six) hours. 12/13/19 Active meloxicam (Mobic) 15 MG tablet Take 1 tablet (15 mg) by mouth 1 (one) time each day if needed. 04/02/20 Active methocarbamol (Robaxin) 500 MG tablet Take 1 tablet (500 mg) by mouth 2 (two) times a day if needed. 04/02/20 Active atorvastatin (Lipitor) 80 MG tablet Take [...] mouth 1 (one) time each day. 06/09/20 Active dicyclomine (Bentyl) 10 MG capsuleIndications :Generalized abdominal pain,Diarrhea, unspecified type Take 1 capsule (10 mg) by mouth 4 (four) times a day if needed (abdominal cramping). Take with meals and at bedtime 30 capsule 2 07/06/20 Active Additional Information Patient not taking.Reported on 11/07/2025 midodrine (Proamatine) 10 MG tablet Take 1 tablet (10 mg) by mouth 3 (three) times a day before meals. 08/05/20 Active metoprolol succinate XL (Toprol-XL) 25 MG 24 hr tabletIndications: Primary hypertension Take 1/2 tablet once daily. Do not crush or chew. 30 tablet 11 09/09/20 Active Additional Information Patient not taking.Reported on 11/07/2025 bisacodyl (Bisacodyl EC) 5 MG EC tablet Take all 4 tablets at 4 PM on day before colonoscopy 4 tablet 10/19/20 Active Additional Information Patient not taking.Reported on 11/07/2025 polyethylene glycol (GoLYTELY) 236 g solution SEE PHARMACY NOTES FOR PATIENT LABEL INSTRUCTIONS- for Colonoscopy prep protocol 4000 mL 10/19/20 24 Active Additional Information Patient not taking.Reported on 11/07/2025 amitriptyline (Elavil) 25 MG tablet TAKE 1 [...] tomorrow 90 tablet 1 05/25/20 25 Active Additional Information Patient not taking.Reported on 11/07/2025 gabapentin (Neurontin) 100 MG capsule Take 1 capsule by mouth 3 times a day. 08/19/20 25 Active buPROPion XL (Wellbutrin XL) 150 MG 24 hr tablet Take 1 tablet by mouth every morning. 09/07/20 25 Active levothyroxine (Synthroid, Levoxyl) 112 MCG tablet Take 1 tablet by mouth daily. 07/20/20 25 Active diclofenac (Voltaren) 1 % topical gelIndications:Ost eoarthritis of multiple joints, unspecified osteoarthritis type Place on the skin 2 times a day. Apply as directed to hands and sternum for pain 50 g 2 11/07/20 25 Active diclofenac (Voltaren) 1 % topical gelIndications:Ost eoarthritis of multiple joints, unspecified osteoarthritis type Place on the skin 2 (two) times a day. Apply as directed to hands and sternum for pain 50 g 2 04/24/20 22 025 Discontin ued(Reord er) Active Problems Problem Noted Date Diagnosed Date [...] 11/04/2017 Abnormal laboratory test 03/06/2017 Hypothyroidism 03/06/2017 [facility] current use of non -steroidal anti-inflammatories (NSAID) [...] Encounters Date Type Department Care Team Description 11/07/2025 4:00 PM EST Office Visit [place] [facility] Clinic [address], [address] [place] [address] Mor Rogers MD History of fusion of cervical spine (Primary Dx); Cervicalgia; Left shoulder pain, unspecified chronicity; Osteoarthritis of multiple joints, unspecified osteoarthritis type; Vapes nicotine containing substance 11/07/2025 Travel 09/30/2025 Telephone [facility] [address], [address] [place] [address] Sophia Murphy PA 09/09/2025 10:40 AM EDT Consult [facility] [address], [address] [place] [address] Sophia Murphy PA Cervicalgia (Primary Dx); History of fusion of cervical spine; Vapes nicotine containing substance 09/09/2025 Travel from Last 3 Months Immunizations Immunization [...] Pulse 91 11/07/2025 2:55 PM EST Temperature 36.8 C (98.2 F) 05/25/2025 10:50 AM EDT Respiratory Rate 16 05/25/2025 10:50 AM EDT Oxygen Saturation 98% 11/07/2025 2:55 PM EST Inhaled Oxygen Concentration - - Weight 81.3 kg (179 lb 3.7 oz) 11/07/2025 2:55 P M EST Height 170.2 cm (5' 7 ) 09/09/2025 10:02 AM EDT Body Mass Index 28.07 09/09/2025 10:02 AM EDT Plan of Treatment Upcoming Encounters Date Type Department Care Team (Late st Contact Info) Description 12/28/2025 9:00 AM EST Office Visit [facility] [address], [address] [place] [address] Laura Dasilva, BS [address] [id number] Health Maintenance Due Date Last Done Comments [facility]-Bone Density Scan 1966 UK-Medicare Annual Wellness (AWV) 1966 [facility]-/Child/Adol SDOH Screenings 1966 [id number] Vaccine (#1) 1966 [facility]- SDOH Screenings 1984 [facility]-Adult SDOH Screenings 1984 [facility]-Hepatitis B Vaccines (1 of 3 - 19+ 3-dose series) 1985 [facility]-Pneumococcal Vaccine: 50+ Years (1 of 2 - PCV) 1985 [facility]-Pap Smear 1987 [facility]-Cervical Cancer Screening 1996 [facility]-HPV/Cotest 1996 CT Colonography 2011 FIT-DNA 2011 FIT 2011 FOBT 2011 Sigmoidoscopy 2011 Lung Cancer Screening Shared Decision Making 2016 [facility]-Breast Cancer Screening 2016 [facility]-Lung Cancer Screening 05/22/2021 05/22/2020, 09/2020 [facility]-Zoster Vaccines (2 of 2) 12/11/2023 10/16/2023 [facility]-Influenza Vaccine (#1) 07/18/202509/01, 09/20/2017, 08/06/2016 [facility]-Depression Screening 05/25/2026 05/25/2025 [facility]-DTaP,Tdap,and Td Vaccines (2 - Td or Tdap) 12/07/2028 12/07/2018 Colonoscopy 10/25/2034 10/27/2024 [facility]-Colorectal Cancer Screening 10/25/2034 [facility]-HIV Screening Completed 10/06/2019 [facility]-Hepatitis C Screening Completed 2023, 04/24/2022, 07/30/2018, Additional history exists [facility]-Obesity Intervention Completed 025, 09/09/2025, 05/25/2025, Additional history exists HPV Vaccines (No Doses Required) Completed [facility]-HIB Vaccines Aged Out No longer e [...] this topic Medical Devices Implanted Type Area Animal Keeper Head Device Identifier Shelf Expiration Date Model / Serial / Lot Duraclip 11mm - [id number] Implanted:Qty: 1 on 10/27/2024 by Gabriela Horan MD at [facility] [id number] 12/22/2026 [id number] / / [id number] Procedures Procedure Name Priority Date/Time Associated Diagnosis [...] medications. Staff Staff Role Speedy Beckman Endo Eyeglass Frames Polisher Ricardo Alvarado CRNA CRNA Flomenhoft, Deborah R, [...] of bowel preparation was evaluated using the [employer] Bowel Preparation Scale with scores of: right [...] Antigen Negative Negative 07/06/2024 4:23 PM EDT [facility] Hepatitis C Antibody Negative Negative 07/06/2024 4:23 PM EDT [facility] Hepatitis A Antibody IgM Negative Negative 07/06/2024 4:23 PM EDT [facility] Hepatitis B Core Antibody IgM Negative Negative 07/06/2024 4:23 PM EDT [facility] Blood Venous blood specimen / Unknown Venipuncture / Unknown 07/06/2024 1:27 PM EDT 07/06/2024 1:28 PM EDT [facility] LAB BLOOD ORDERABLES Final Resul t [facility] [address] [place] [address] * CT Chest w IV Contrast (05/22/2020 [...] May 22 2020 3:46P Transcribe d by: [facility] on May 22 2020 3:46P Dictated by: [...] PITTMAN M.D. on May 22 2020 3:41P [facility] CT PROCEDURES Final Result * HIV 1 & 2 Antibody/Antigen Screen (10/06/2019 11:34 AM EST) HIV 1 Result NONREACTIVE Screening for HIV 1 and 2 antibodies is NONREACTIVE. No confirmatory testing is required. [facility]QUEST 10/06/2019 11:3 4 AM EST 10/06/2019 12:44 PM EST Historical Provider LAB BLOOD ORDERABLES Final R esult SUNQUEST from Last 3 Months or Most Recently Relevant to Health Maintenance Insurance [facility] MEDICARE EYEMED Care Teams Dot Compliance Specialist Relationship Specialty Start Date End Date Nuria Barnes APRN [address] [place] [address] PCP - General 05/25/25 Jagjit Soto MD [address] [facility] [place] [address] Surgeon Neurosurgery 05/22/21 Sophia Murphy PA [address] [facility] [place] [address] Physician Car Driver Neurosurgery 09/09/25
--- OUTSIDE RECORDS SUMMARY | 2025-11-14 14:01 | XMS_ITS | Encounter Summary ---
Author Organization [facility] Address [address] [place] [address] Care Team Providers Care Shredder Tender Peat Name Role Phone Ferdinand Carranza MD Primary Care Provider [phone] Jagjit Soto MD Unavailable [phone] Nuria Barnes APRN Primary Care Provider [phone] Sophia Murphy Unavailable [phone] Reason for Visit * Reason Comments Med Refill Encounter Details Date Type Department Care Team (Late st Contact Info) Description 01/10/2024 Refill [facility] [place] [facility] [address] [place] [address] Melanie Felder, PA [address] [place] [address] Hypertension, unspecified type Social History Tobacco Use [...] Description 12/28/2025 9:00 AM EST Office Visit [place] [facility] [address], [address] [place] [address] Laura Dasilva MBBS [address] [place] [id number] documented as of this encounter Visit Diagnoses [...] documented as of this encounter Care Teams Shredder Tender Peat Relationship Specialty Start Date End Date Ferdinand Carranza MD [address] [place] [address] [address] [place] [address] PCP - General 03/30/21 05/24/25 Nuria Barnes APRN [address] [place] [address] PCP - General 05/25/25 Jagjit Soto MD [address] [address] Surgeon Neurosurgery 05/22/21 Sophia Murphy PA [address] [place] [address] Physician Computer Programmer Chief Neurosurgery 09/09/25 documented as of this encounter
--- OUTSIDE RECORDS SUMMARY | 2025-11-14 14:01 | XMS_ITS | Encounter Summary ---
Author Organization [facility] Address [address] [place] [address] Care Team Providers Care Corrugator Helper Name Role Phone Jagjit Soto MD Unavailable [phone] Nuria Barnes APRN Primary Care Provider [phone] Sophia Murphy Unavailable [phone] Encounter Details Date Type Department Care Team (Late st Contact Info) Description 09/30/2025 Telephone [facility] [address], [address] [place] [address] Sophia Murphy PA [address] [place] [address] Social History Tobacco Use Types [...] encounter Miscellaneous Notes * Telephone Encounter - Shravan De Ordoñez - 09/30/2025 3:01 PM EST Patient Phone Message Reason for Call: Patient calling completed CT at [facility] would like call back regarding next steps in care Best contact number and optimal time of day to reach caller: [phone] Note: Please do not reply to this message. Follow-up communication and further actions as a result of this message need to be communicated with the patient directly, if the patient is not active onMyChart. If the patient is active on MyChart, they will receive notification of the communication/outcome via [employer]. documented in this encounter Plan of Treatment Upcoming Encounters Date Type Department Care Team (Late st Contact Info) Description 12/28/2025 9:00 AM EST Office Visit [place] [facility] [address], [address] [place] [address] Laura Dasilva, KRISTIN [address] [place] [address] documented as of this encounter Visit Diagnoses [...] Date Nuria Barnes APRN [address] [place] [address] PCP - General 05/25/25 Jagjit Soto MD [address] [place] [address] Surgeon Neurosurgery 05/22/21 Sophia Murphy PA [address] [place] [address] Physician Food And Nutrition Services Assistant Neurosurgery 09/09/25 documented as of this encounter
--- OUTSIDE RECORDS SUMMARY | 2025-11-14 14:01 | XMS_ITS | Clinical Summary ---
Author Organization [facility] Address [address] [place] [address] Care Team Providers Care Tier In Name Role Phone Ferdinand Carranza MD Primary Care Provider [phone] Allergies Active Allergy Reactions Criticality Noted Date [...] drink = 0.6 oz pur e alcohol) [facility] Utilities Answer Date Recorded In the past 12 months has [employer], [email or web address], or water [employer] threatened to shut off services in your [...] care, and heating? Not very hard 08/02/2024 [facility] - Occupational Stress Questionnaire Answer Date [...] GED or equivalent No 08/02/2024 Preferred Language French 08/02/2024 PHQ-2 Answer Date Recorded Retired PHQ-9: [...] 07/06/2024 , 04/24/2022, 04/24/2022 Insurance [employer] [id number] [facility] MEDICARE ADVANTAGE HMO Advance Directives [...] Of Support Discussed With: Patient Care Teams Tier In Relationship Specialty Start Date End Date Ferdinand Carranza MD [address] [place] [address] PCP - General Family Medicine 10/21/17
--- OUTSIDE RECORDS SUMMARY | 2025-11-14 14:01 | XMS_ITS | Encounter Summary ---
Author Organization [facility] Address [address] [place] [address] Care Team Providers Care Technical Training Manager Name Role Phone Jagjit Soto MD Unavailable [phone] Nuria Barnes APRN Primary Care Provider [phone] Sophia Murphy Unavailable [phone] Encounter Details Date Type Department Care Team (Late st Contact Info) Description 06/14/2025 Orders Only External Location [address] [place] [address] Provider, External Social History Tobacco Use Types [...] Visit [place] [facility] [address], [address] [place] [address] Laura Dasilva MBBS [address] [place] [address] documented as of this encounter [...] documented as of this encounter Care Teams Technical Training Manager Relationship Specialty Start Date End Date Nuria Barnes APRN [address] [place] [id number] PCP - General 05/25/25 Jagjit oSto MD [address] [place] [address] Surgeon Neurosurgery 05/22/21 Sophia Murphy PA [address] [place] [address] Physician Analysis Internship Neurosurgery 09/09/25 documented as of this encounter
--- OUTSIDE RECORDS SUMMARY | 2025-11-14 14:01 | XMS_ITS | Encounter Summary ---
Author Organization [facility] Address [address] [place] [address] Care Team Providers Care Guest Relations Associate Name Role Phone Jagjit Soto MD Unavailable [phone] Nuria Barnes APRN Primary Care Provider [phone] Sophia Murphy Unavailable [phone] Encounter Details Date Type Department Care Team (Late st Contact Info) Description 06/14/2025 Orders Only External Location [address] [place] [address] Provider, External Social History Tobacco Use Types [...] Visit [place] [facility] [address], [address] [place] [address] Laura Dasilva MBBS [address] [place] [address] documented as of this encounter [...] documented as of this encounter Care Teams Guest Relations Associate Relationship Specialty Start Date End Date Nuria Barnes APRN [address] [place] [address] PCP - General 05/25/25 Jagjit Soto MD [address] [place] [address] Surgeon Neurosurgery 05/22/21 Sophia Murphy PA [address] [place] [address] Physician Cafeteria Assistant Neurosurgery 09/09/25 documented as of this encounter
--- OUTSIDE RECORDS SUMMARY | 2025-11-14 14:01 | XMS_ITS | Encounter Summary ---
Author Organization [facility] Address [address] [place] [address] Care Team Providers Care Steel Cutter Name Role Phone Ferdinand Carranza MD Primary Care Provider [phone] Jagjit Soto MD Unavailable [phone] Nuria Barnes APRN Primary Care Provider + [phone] Sophia Murphy Unavailable [phone] Reason for Visit * Reason Comments Med Refill Encounter Details Date Type Department Care Team (Late st Contact Info) Description 01/15/2023 Refill [facility] [place] [facility] [address] [place] [address] Melanie Felder, PA [address] [place] [address] Hypertension, unspecified type Social History Tobacco Use [...] Visit [place] [facility] [address], [address] [place] [address] Laura Dasilva MBBS [address] [place] [address] documented as of this encounter [...] documented as of this encounter Care Teams Steel Cutter Relationship Specialty Start Date End Date Ferdinand Carranza MD [address] [facility] [address] [place] [address] PCP - General 03/30/21 05/24/25 Nuria Barnes APRN [address] [place] [address] PCP - General 05/25/25 Jagjit Soto MD [address] [place] [address] Surgeon Neurosurgery 05/22/21 Sophia Murphy PA [address] [place] [address] Physician Aviation Electrician Neurosurgery 09/09/25 documented as of this encounter
[2025-11-14 14:47] LABS: Free T4 (Free Thyroxine) 0.71 ng/dl (0.78-2.19)
[2025-11-14 14:49] LABS: T4 (Thyroxine) 5.2 ug/dl (5.53-11.0)
[2025-11-14 15:02] LABS: Thyroid Stimulating Hormone 21.30 uIU/mL (0.465-4.68)
[2025-11-15 07:53] LABS: Triiodothyronine (T3) Free 2.1 pg/mL (2.0-4.4)
== END 2025-11-14 23:59 | disposition home or self-care (01) ==
LOC: LAB.DROPOF 13:52
PROVIDERS: PCP Nurse Practitioner Family; Visit Provider Nurse Practitioner Family
DX: E03.9 Hypothyroidism, unspecified (principal)
CPT/HCPCS: 84436; 84439; 84443; 84481